=== PATIENT | male | born 1930 | race Caucasian/White ===

== ENCOUNTER 2017-03-06 10:57 | Inpatient (IN) | payer OTHER ==
[~2017-03-06] VITALS: Ht 172.7 cm; Wt 66.1 kg
[~2017-03-06 10:57] MED LIST: AMLO5TAB2 PO; CMD25 PO; CYAN10004 PO; DIGO0.1219 PO; FLM4 PO; NRN600 PO; OXYC-106 PO; POLY335019 PO; PRT/20 PO; SIMV-151 PO
[2017-03-06] MEDS ORDERED: BUPR1DIS TOP (11:29)
[2017-03-06] MEDS ORDERED: LNX125 PO (11:29)
[2017-03-06] MEDS ORDERED: TORS20TA2 PO (11:29)
[2017-03-06] MEDS ORDERED: KFL/250 PO (11:29)
[2017-03-06 11:30] LABS: BASO % 0.6 %; BASO ABS # 0.04 K/uL (0-0.2); COMPLETE YES; EOS % 4.1 %; HEMATOCRIT 39.2 % (42-52); IG% 0.1 %; LYMPH % 27.8 %; LYMPH ABS # 1.95 K/uL (1.2-3.4); MEAN CELL VOLUME 96.8 fL (80-100); MEAN CORPUSCULAR HEMOGLOBIN 31.1 pg (25-34); MEAN CORPUSCULAR HGB CONC 32.1 g/dl (32-36); MEAN PLATELET VOLUME 9.2 fL (7.4-10.4); MONO % 9.1 %; NEUT % 58.3 %; PLATELET COUNT 169 K/uL (130-400); RED BLOOD COUNT 4.05 M/uL (4.7-6.1); WHITE BLOOD COUNT 7.02 K/uL (4.8-10.8)
--- NOTE | 2017-03-06 11:37 | DIAGNOSTIC IMAGING REPORT ---
CHEST ONE VIEW PORTABLE CLINICAL HISTORY: Fever, sepsis, atypical chest pain COMPARISON STUDY: 10/07/2016 FINDINGS: The cardiac and mediastinal contours remain stable. There are chronic basilar interstitial opacities, similar to the prior study. The upper lung zones appear clear. There is no overt failure. There are no pleural effusions. Underlying emphysema is suspected.[ IMPRESSION: Emphysema and chronic bibasilar interstitial opacities. Electronically signed by: Abdirahman Wong M.D. 03/06/2017 11:36 AM Dictated Date/Time: 03/06/2017 11:35 AM
[2017-03-06 11:40] LABS: INR 2.4 (0.9-1.1); PARTIAL THROMBOPLASTIN RATIO 1.4
[2017-03-06 11:47] LABS: CALCIUM 8.8 mg/dl (8.5-10.1); CREATININE 1.6 mg/dl (0.60-1.40); POTASSIUM 4.3 mmol/L (3.5-5.1)
[2017-03-06 11:58] LABS: CKMB/CK RATIO 2.1 (0-3.0); THYROID STIMULATING HORMONE 3.37 uIu/ml (0.300-4.500)
[2017-03-06 12:12] LABS: URINE APPEARANCE CLEAR (CLEAR); URINE BILIRUBIN NEG (NEG); URINE COLOR YELLOW; URINE NITRITE NEG (NEG); URINE PH 7.5 (4.5-7.5); URINE SPECIFIC GRAVITY 1.012 (1.000-1.030); UROBILINOGEN NEG (NEG)
[2017-03-06 12:14] LABS: MANUAL MICROSCOPIC REQUIRED? NO; REVIEW REQ? NO
[2017-03-06 13:25] VITALS: BP 182/84; PULSE 65; TEMP 36.7; O2SAT 96; Ht 172.7 cm; Wt 66.1 kg
[2017-03-06] MEDS ORDERED: ONDANSETRON INJ 2 MG/ML 2 ML VIAL IV PRN (14:15)
[2017-03-06] MEDS ORDERED: CMD4 PO (14:29)
[2017-03-06] MEDS ORDERED: IV FLUIDS COMPLETED PRN (14:30)
[2017-03-06] MEDS ORDERED: SODIUM CHLORIDE 0.9% 1000ML 1,000 ML IV SCH (14:30)
[2017-03-06] MEDS ORDERED: AMLODIPINE BESYLATE 5 MG TAB PO ONE (14:30)
[2017-03-06] MEDS ORDERED: POLYETHYLENE (MIRALAX) 17 GM PACK PO PRN (14:45)
--- NOTE | 2017-03-06 14:46 | EMERGENCY ROOM VISIT NOTE ---
History Report prepared by Ulysses: Alexys Maddox Under the Supervision of: Dr. Tr Toribio D.O. First contact with patient: 11:06 Chief Complaint: CHEST PAIN Stated Complaint: CHEST PAINS Nursing Triage Summary: Chest pain starting at 0930 after shower. DIzzy, nauseous, pain and numbness does left arm History of Present Illness The patient is an 86 year old male who presents to the Emergency Room with complaints of persistent chest pain that started around 0930 this morning. He says that the pain came on after showering, and the pain radiates down his left arm into his fingers. The patient says that the pain has been constant and it "hurts like hell". The patient notes that he currently has a bit of indigestion. He had bad indigestion discomfort 3 nights ago and was not able to sleep that night due to the discomfort. The patient does say that this pain is very different than the indigestion discomfort, and that he has never had this kind of chest pain before. He denies any shortness of breath or recent illnesses. He has a history of atrial fibrillation, but does not have a pacemaker. Source of History: patient, family Onset: 0930 this morning Position: chest Symptom Intensity: "hurts like hell" Timing: other (persistent) Associated Symptoms: No SOB Note: Associated symptoms: Left arm pain into fingers. Denies recent illnesses. Review of Systems See HPI for pertinent positives & negatives. A total of 10 systems reviewed and were otherwise negative. Past Medical & Surgical Medical Problems: (1) Atrial fibrillation (2) BPH (benign prostatic hyperplasia) (3) Chest pain (4) Chronic back pain (5) CKD (chronic kidney disease), stage III (6) COPD (chronic obstructive pulmonary disease) (7) Encephalopathy (8) H/O tachycardia-bradycardia syndrome (9) Heart disease (10) History of pulmonary embolism (11) Hyperlipidemia Surgical Problems: (1) H/O carpal tunnel repair (2) H/O colonoscopy (3) knee replacement (4) Previous back surgery Family History No significant family history Social History Smoking Status: Former Smoker Alcohol Use: none Drug Use: none Marital Status: Housing Status: lives alone Occupation Status: retired Current/Historical Medications Scheduled Amlodipine Besylate (Norvasc), 5 MG PO QAM Buprenorphine (Butrans), 15 MCG TOP WK Cephalexin Monohydrate (Keflex), 250 MG PO HS Digoxin (Digoxin), 0.125 MG PO HS Gabapentin (Gabapentin), 600 MG PO TID Pantoprazole (Protonix), 40 MG PO BID Simvastatin (Simvastatin), 20 MG PO QAM Tamsulosin HCl (Tamsulosin HCl), 0.4 MG PO HS Warfarin Sod (Coumadin), 2 MG PO UD Warfarin Sod (Coumadin), 4 MG PO UD Scheduled PRN Oxycodone/Acetaminophen 10MG/325MG (Percocet 10MG/325MG), 1 TAB PO Q6H PRN for Pain Polyethylene Glycol 3350 (Miralax), 1 TBS PO DAILY PRN for Constipation Allergies Coded Allergies: Morphine (Verified Allergy, Intermediate, itching, dizzy, 03/06/17) pt primary md has taken pt off morphine due to itching and dizzy Sulfa Antibiotics (Verified Allergy, Intermediate, HIVES/RASH, 03/06/17) Fentanyl (Verified Allergy, Unknown, ITCHING, DIZZINESS, BOWEL BLADDER PROBLEMS, HEADACHE, 03/06/17) Physical Exam Vital Signs Date Time Temp Pulse Resp B/P Pulse Ox O2 Delivery O2 Flow Rate FiO2 03/06/17 14:40 65 18 142/73 96 Room Air 03/06/17 13:25 96 Room Air 03/06/17 13:24 63 03/06/17 13:21 62 18 168/91 96 Room Air 03/06/17 11:44 69 24 158/75 96 Room Air 03/06/17 11:11 96 Room Air 03/06/17 11:06 77 03/06/17 11:05 95 Room Air 03/06/17 11:01 36.6 76 20 176/86 95 Room Air 03/06/17 11:01 95 Room Air Physical Exam CONSTITUTIONAL/VITAL SIGNS: Reviewed / noted above. GENERAL: Non-toxic in appearance. INTEGUMENTARY: Warm, dry, and [place]. HEAD: Normocephalic. EYES: without scleral icterus or trauma. ENT/OROPHARYNX: clear and moist. LYMPHADENOPATHY/NECK: Is supple without lymphadenopathy or meningismus. RESPIRATORY: Lungs clear and equal. CARDIOVASCULAR: Regular rate and rhythm. GI/ABDOMEN: Soft and nontender. No organomegaly or pulsatile mass. No rebound or guarding. Normal bowel sounds. EXTREMITIES: Warm and well perfused. BACK: No CVA tenderness. NEUROLOGICAL: Intact without focal deficits. PSYCHIATRIC: normal affect. MUSCULOSKELETAL: Normally developed with good muscle tone. Medical Decision & Procedures ER Provider Diagnostic Interpretation: X ray results and stated below per my interpretation and radiology interpretation. CHEST ONE VIEW PORTABLE CLINICAL HISTORY: Fever, sepsis, atypical chest pain COMPARISON STUDY: 10/07/2016 FINDINGS: The cardiac and mediastinal contours remain stable. There are chronic basilar interstitial opacities, similar to the prior study. The upper lung zones appear clear. There is no overt failure. There are no pleural effusions. Underlying emphysema is suspected.[ IMPRESSION: Emphysema and chronic bibasilar interstitial opacities. Electronically signed by: Abdirahman Wong M.D. 03/06/2017 11:36 AM Dictated Date/Time: 03/06/2017 11:35 AM Laboratory Results 03/06/17 11:15 Red Blood Count 4.05, Mean Corpuscular Volume 96.8, Mean Corpuscular Hemoglobin 31.1, Mean Corpuscular Hemoglobin Concent 32.1, Mean Platelet Volume 9.2, Neutrophils (%) (Auto) 58.3, Lymphocytes (%) (Auto) 27.8, Monocytes (%) (Auto) 9.1, Eosinophils (%) (Auto) 4.1, Basophils (%) (Auto) 0.6, Neutrophils # (Auto) 4.09, Lymphocytes # (Auto) 1.95, Monocytes # (Auto) 0.64, Eosinophils # (Auto) 0.29, Basophils # (Auto) 0.04 03/06/17 11:15 Test 03/06/17 11:15 03/06/17 12:00 03/06/17 14:19 White Blood Count 7.02 K/uL (4.8-10.8) Red Blood Count 4.05 M/uL (4.7-6.1) Hemoglobin 12.6 g/dL (14.0-18.0) Hematocrit 39.2 % (42-52) Mean Corpuscular Volume 96.8 fL (80-100) Mean Corpuscular Hemoglobin 31.1 pg (25-34) Mean Corpuscular Hemoglobin Concent 32.1 g/dl (32-36) Platelet Count 169 K/uL (130-400) Mean Platelet Volume 9.2 fL (7.4-10.4) Neutrophils (%) (Auto) 58.3 % Lymphocytes (%) (Auto) 27.8 % Monocytes (%) (Auto) 9.1 % Eosinophils (%) (Auto) 4.1 % Basophils (%) (Auto) 0.6 % Neutrophils # (Auto) 4.09 K/uL (1.4-6.5) Lymphocytes # (Auto) 1.95 K/uL (1.2-3.4) Monocytes # (Auto) 0.64 K/uL (0.11-0.59) Eosinophils # (Auto) 0.29 K/uL (0-0.5) Basophils # (Auto) 0.04 K/uL (0-0.2) RDW Standard Deviation 49.0 fL (36.4-46.3) RDW Coefficient of Variation 13.8 % (11.5-14.5) Immature Granulocyte % (Auto) 0.1 % Immature Granulocyte # (Auto) 0.01 K/uL (0.00-0.02) Prothrombin Time 27.0 SECONDS (9.0-12.0) Prothromb Time International Ratio 2.4 (0.9-1.1) Activated Partial Thromboplast Time 35.2 SECONDS (21.0-31.0) Partial Thromboplastin Ratio 1.4 Anion Gap 4.0 mmol/L (3-11) Est Creatinine Clear Calc Drug Dose 27.8 ml/min Estimated GFR () 43.9 Estimated GFR (Non- 37.9 BUN/Creatinine Ratio 11.0 (10-20) Calcium Level 8.8 mg/dl (8.5-10.1) Total Bilirubin 0.9 mg/dl (0.2-1) Direct Bilirubin 0.2 mg/dl (0-0.2) Aspartate Amino Transf (AST/SGOT) 20 U/L (15-37) Alanine Aminotransferase (ALT/SGPT) 20 U/L (12-78) Alkaline Phosphatase 55 U/L (45-117) Total Creatine Kinase 132 U/L (39-308) Creatine Kinase MB 2.8 ng/ml (0.5-3.6) Creatine Kinase MB Ratio 2.1 (0-3.0) Troponin I 0.018 ng/ml (0-0.045) Total Protein 7.8 gm/dl (6.4-8.2) Albumin 4.0 gm/dl (3.4-5.0) Lipase 85 U/L (73-393) Thyroid Stimulating Hormone (TSH) 3.370 uIu/ml (0.300-4.500) Urine Color YELLOW Urine Appearance CLEAR (CLEAR) Urine pH 7.5 (4.5-7.5) Urine Specific [place] 1.012 (1.000-1.030) Urine Protein NEG (NEG) Urine Glucose (UA) NEG (NEG) Urine Ketones NEG (NEG) Urine Occult Blood NEG (NEG) Urine Nitrite NEG (NEG) Urine Bilirubin NEG (NEG) Urine Urobilinogen NEG (NEG) Urine Leukocyte Esterase NEG (NEG) Laboratory results as stated above per my review. ECG Indication: chest pain Rate (beats per minute): 76 Rhythm: normal sinus Findings: LBBB, no ectopy, other (no acute injury) Comparison ECG Date: compared to 10/04/16, T-wave deflection is opposite in V5 and V6, otherwise unchanged ED Course 1107: Previous medical records were reviewed. The patient was evaluated in room C4. A complete history and physical examination was performed. 1300: On reevaluation, the patient is resting. The patient's family verbalized agreement and understanding of the treatment plan. The patient will be evaluated for further management and care. 1314: I discussed the patient with Beronica Covington - she will evaluate the patient for further treatment. Medical Decision the differential was considered includes acute myocardial infarction, acute coronary syndrome, myocarditis, pericarditis, pericardial effusions /tamponad, esophageal perforation, thoracic aortic dissection, pulmonary embolism, pneumonia, pneumothorax, pancreatitis, shingles, acute cholecystitis, perforated abdominal viscus. This is an 86-year-old male who presents to the ED with a chief complaint of left-sided chest discomfort that radiates down his left arm. The patient states that his symptoms started around 9:30 this morning. He also reports some additional indigestion. He had this on Saturday as well. He denies any associated symptoms such as shortness of breath. He has not had diaphoresis, lightheadedness, palpitations, fevers or chills or other symptoms. His vital signs are stable. His blood pressure was slightly elevated. His exam was otherwise unremarkable. Twelve-lead EKG reveals a sinus rhythm with a left bundle branch block. There are some T wave the polarity changes in V5 and V6 compared to previous EKGs. This is of uncertain significance. Left bundle- branch block is old. CBC was unremarkable. The INR is 2.4. He is on Coumadin. Creatinine is 1.6. Troponin is 0.018. This is considered normal. TSH is normal. Urine did not show infection. Chest x-ray did not show acute disease. The patient was told the results. He was seen for further inpatient evaluation as the cause of his symptoms are unclear. He does have a cardiac history and EKG changes that are of uncertain significance. I spoke with the hospitalist to this regard. Consults Time Called: 1305 Consulting Physician: Beronica Covington Returned Call: 1314 I discussed the patient with Beronica Covington - she will evaluate the patient for further treatment. Impression Primary Impression: Precordial chest pain Additional Impression: EKG abnormality Scribe Attestation The scribe's documentation has been prepared under my direction and personally reviewed by me in its entirety. I confirm that the note above accurately reflects all work, treatment, procedures, and medical decision making performed by me. Departure Information Dispostion Being Evaluated By Hospitalist Referrals No Doctor, Assigned (PCP) Patient Instructions [facility] Problem Qualifiers
--- NOTE | 2017-03-06 15:23 | History and Physical ---
History & Physical Date & Time of Service: March 06, 2017 at 14:31 Chief Complaint: Chest Pains Primary Care Physician: Tad Childress M.D. History of Present Illness Source: patient, family (daughter at bedside), clinic records, hospital records This is an 86 year old male with PMH of atrial fibrillation on Coumadin, history of DVT and PE, h/o tachy nunu syndrome, hypertension, dyslipidemia, CKD stage III, GERD, history of upper GI bleed due to esophageal ulcer, mild COPD, chronic back pain, hx of frequent UTI on chronic antibiotics, and other problems listed below who presents to the ED with chest pain. Patient reports feeling fatigued/ generally weak for past few days. Two nights ago he had indigestion with acid taste in the throat overnight after eating a late dinner. He does experience occasional indigestion while on Protonix BID. Then this morning at 9:30 am while showering patient developed left sided chest discomfort described as "pain" with radiation to left arm. The pain was worse when he tried lying down. The chest discomfort is improving but still having pain in the left arm. He has not had similar pain in the past. In early February 2017 patient was seen by PCP for bileral LE edema and was treated for LE cellulitis with Keflex and torsemide which was stopped in late February when edema and cellulitis were resolved. Patient chronically sleeps at a 30 degree angle due to back pain. Patient denies fever, chills, diaphoresis, weight change, URI symptoms, difficulty swallowing, cough, dizziness, SOB, GALINDO, syncope, palpitations, abdominal pain, N/V/D/C, hematochezia, melena, epistaxis, gum bleeding, calf pain, anxiety. No recent injury, immobilization, or surgery. No hx of CAD. No pacemaker. Last echo in 08/2015 showed mild concentric LVH, EF 60- 65%, grade I diastolic dysfunction, mild AV sclerosis, moderate mitral annular calcification. Last stress test was negative several years ago per patient. 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 Past Medical/Surgical History Medical Problems: (1) Atrial fibrillation Status: Chronic (2) BPH (benign prostatic hyperplasia) Status: Chronic (3) Chronic back pain Status: Chronic (4) CKD (chronic kidney disease), stage III Status: Chronic (5) COPD (chronic obstructive pulmonary disease) Permanent Comment: mild Status: Chronic (6) H/O tachycardia-bradycardia syndrome Status: Chronic (7) History of DVT (deep vein thrombosis) Status: Chronic (8) History of GI bleed Permanent Comment: due to esophageal ulcer Status: Chronic (9) History of orthostatic hypotension Status: Chronic (10) History of pulmonary embolism Status: Chronic (11) Hyperlipidemia Status: Chronic Surgical Problems: (1) H/O carpal tunnel repair Status: Chronic (2) H/O colonoscopy Permanent Comment: 04/2003- diverticulosis 11/25/2007- adenomatous Status: Chronic (3) H/O esophagogastroduodenoscopy Permanent Comment: - esophageal ulcer with large clots; 08/11/15-esophgeal ulcer, esophagitis; 09/12/2015 EGD with EUS- reflux on bx, HH, pancreatic intraductal papillary mucinous neoplasm, CBD dilation; Dr. Stone Status: Chronic (4) knee replacement Status: Chronic (5) Previous back surgery Status: Chronic Family History FH: COPD (chronic obstructive pulmonary disease) BROTHER Social History Smoking Status: Former Smoker (quit in 1992) Smokeless Tobacco Use: Yes (1 box every 3 days. spoke to pt about cessation but patient politely states he is unwilling. ) Alcohol Use: none Marital Status: Housing status: lives alone (uses a cane to ambulate around house), other ( aide visits twice a day and administers medications) Occupational Status: retired Allergies Coded Allergies: Morphine (Verified Allergy, Intermediate, itching, dizzy, 03/06/17) pt primary md has taken pt off morphine due to itching and dizzy Sulfa Antibiotics (Verified Allergy, Intermediate, HIVES/RASH, 03/06/17) Fentanyl (Verified Allergy, Unknown, ITCHING, DIZZINESS, BOWEL BLADDER PROBLEMS, HEADACHE, 03/06/17) Home Medications Scheduled Amlodipine Besylate (Norvasc), 5 MG PO QAM Buprenorphine (Butrans), 15 MCG TOP WK Cephalexin Monohydrate (Keflex), 250 MG PO HS Digoxin (Digoxin), 0.125 MG PO HS Gabapentin (Gabapentin), 600 MG PO TID Pantoprazole (Protonix), 40 MG PO BID Simvastatin (Simvastatin), 20 MG PO QAM Tamsulosin HCl (Tamsulosin HCl), 0.4 MG PO HS Warfarin Sod (Coumadin), 2 MG PO UD Warfarin Sod (Coumadin), 4 MG PO UD Scheduled PRN Oxycodone/Acetaminophen 10MG/325MG (Percocet 10MG/325MG), 1 TAB PO Q6H PRN for Pain Polyethylene Glycol 3350 (Miralax), 1 TBS PO DAILY PRN for Constipation Review of Systems Constitutional: + fatigue, + weakness (generalized), No chills, No fever, No sweats, No weight loss Eyes: No worsening of vision ENT: No nasal symptoms, No trouble swallowing Respiratory: No cough, No dyspnea on exertion, No shortness of breath Cardiovascular: + chest pain, + edema (resolved), No palpitations Abdomen: No GI bleeding (no recent hematochezia or melena), No diarrhea, No nausea, No pain, No vomiting Musculoskeletal: No calf pain Genitourinary - Male: No dysuria, No urinary frequency, No urinary urgency Neurologic: No numbness/tingling, No problem reported (no dizziness) Psychiatric: No anxiety Hematologic / Lymphatic: No problem reported (no gum bleeding or epistaxis) Integumentary: No new/changing skin lesions, No rash Physical Exam Vital Signs Date Time Temp Pulse Resp B/P Pulse Ox O2 Delivery O2 Flow Rate FiO2 03/06/17 13:25 96 Room Air 03/06/17 13:24 63 03/06/17 13:21 62 18 168/91 96 Room Air 03/06/17 11:44 69 24 158/75 96 Room Air 03/06/17 11:11 96 Room Air 03/06/17 11:06 77 03/06/17 11:05 95 Room Air 03/06/17 11:01 36.6 76 20 176/86 95 Room Air 03/06/17 11:01 95 Room Air General Appearance: WD/WN, no apparent distress, + pertinent finding (alert elderly male, lying in bed, not in distresss, daughter and son-in-law at bedside ) Head: normocephalic, atraumatic Eyes: normal inspection, PERRL, EOMI ENT: pharynx normal, + pertinent finding (hard of hearing) Neck: supple, no JVD, trachea midline Respiratory/Chest: chest non-tender, lungs clear, normal breath sounds, no respiratory distress, no accessory muscle use Cardiovascular: regular rate, rhythm, normal peripheral pulses, + systolic murmur (grade III throughout precordium) Abdomen/GI: normal bowel sounds, non tender, soft Extremities/Musculoskelatal: no calf tenderness, + pertinent finding (trace ankle edema bilaterally. no pain on ROM of left upper extremity joints. diffuse muscle tenderness left forearm but joints of LUE nontender) Neurologic/Psych: alert, normal mood/affect, oriented x 3, + pertinent finding (no focal deficit on gross examination) Skin: normal color, warm/dry, no rash (no rash on the chest) Diagnostics Laboratory Results Results Past 24 Hours Test 03/06/17 11:15 03/06/17 12:00 03/06/17 14:19 Range/Units White Blood Count 7.02 4.8-10.8 K/uL Red Blood Count 4.05 4.7-6.1 M/uL Hemoglobin 12.6 14.0-18.0 g/dL Hematocrit 39.2 42-52 % Mean Corpuscular Volume 96.8 80-100 fL Mean Corpuscular Hemoglobin 31.1 25-34 pg Mean Corpuscular Hemoglobin Concent 32.1 32-36 g/dl Platelet Count 169 130-400 K/uL Mean Platelet Volume 9.2 7.4-10.4 fL Neutrophils (%) (Auto) 58.3 % Lymphocytes (%) (Auto) 27.8 % Monocytes (%) (Auto) 9.1 % Eosinophils (%) (Auto) 4.1 % Basophils (%) (Auto) 0.6 % Neutrophils # (Auto) 4.09 1.4-6.5 K/uL Lymphocytes # (Auto) 1.95 1.2-3.4 K/uL Monocytes # (Auto) 0.64 0.11-0.59 K/uL Eosinophils # (Auto) 0.29 0-0.5 K/uL Basophils # (Auto) 0.04 0-0.2 K/uL RDW Standard Deviation 49.0 36.4-46.3 fL RDW Coefficient of Variation 13.8 11.5-14.5 % Immature Granulocyte % (Auto) 0.1 % Immature Granulocyte # (Auto) 0.01 0.00-0.02 K/uL Prothrombin Time 27.0 9.0-12.0 SECONDS Prothromb Time International Ratio 2.4 0.9-1.1 Activated Partial Thromboplast Time 35.2 21.0-31.0 SECONDS Partial Thromboplastin Ratio 1.4 Sodium Level 140 136-145 mmol/L Potassium Level 4.3 3.5-5.1 mmol/L Chloride Level 106 98-107 mmol/L Carbon Dioxide Level 30 21-32 mmol/L Anion Gap 4.0 3-11 mmol/L Blood Urea Nitrogen 18 7-18 mg/dl Creatinine 1.60 0.60-1.40 mg/dl Est Creatinine Clear Calc Drug Dose 27.8 ml/min Estimated GFR () 43.9 Estimated GFR (Non- 37.9 BUN/Creatinine Ratio 11.0 10-20 Random Glucose 134 70-99 mg/dl Calcium Level 8.8 8.5-10.1 mg/dl Total Bilirubin 0.9 0.2-1 mg/dl Direct Bilirubin 0.2 0-0.2 mg/dl Aspartate Amino Transf (AST/SGOT) 20 15-37 U/L Alanine Aminotransferase (ALT/SGPT) 20 12-78 U/L Alkaline Phosphatase 55 45-117 U/L Total Creatine Kinase 132 39-308 U/L Creatine Kinase MB 2.8 0.5-3.6 ng/ml Creatine Kinase MB Ratio 2.1 0-3.0 Troponin I 0.018 0-0.045 ng/ml Total Protein 7.8 6.4-8.2 gm/dl Albumin 4.0 3.4-5.0 gm/dl Lipase 85 73-393 U/L Thyroid Stimulating Hormone (TSH) 3.370 0.300-4.500 uIu/ml Urine Color YELLOW Urine Appearance CLEAR CLEAR Urine pH 7.5 4.5-7.5 Urine Specific [place] 1.012 1.000-1.030 Urine Protein NEG NEG Urine Glucose (UA) NEG NEG Urine Ketones NEG NEG Urine Occult Blood NEG NEG Urine Nitrite NEG NEG Urine Bilirubin NEG NEG Urine Urobilinogen NEG NEG Urine Leukocyte Esterase NEG NEG Diagnostic Radiology CHEST ONE VIEW PORTABLE CLINICAL HISTORY: Fever, sepsis, atypical chest pain COMPARISON STUDY: 10/07/2016 FINDINGS: The cardiac and mediastinal contours remain stable. There are chronic basilar interstitial opacities, similar to the prior study. The upper lung zones appear clear. There is no overt failure. There are no pleural effusions. Underlying emphysema is suspected.[ IMPRESSION: Emphysema and chronic bibasilar interstitial opacities. EKG NSR, LBBB-chronic, when compared to prior EKG, in V5 ST segment is no longer depressed and is now mildly elevated, ST and T wave abnormality in V6 has improved Impression Assessment and Plan CHEST PAIN Rule out ACS; Risk factors include age, hypertension, dyslipidemia, CKD Differential dx also includes GERD or musculoskeletal etiology Initial troponin negative EKG- NSR, chronic LBBB, appears similar to prior EKG except now has mild ST elevation in V5 CXR- emphysema, chronic bibasilar interstitial opacities Clinically no evidence of pneumonia- afebrile, no leukocytosis, no cough/ SOB No aspirin given due to hx of UGIB from esophageal ulcer in patient on Coumadin Trend serial cardiac enzymes Check echo Repeat EKG in am Consult cardiology PAROXYSMAL ATRIAL FIBRILLATION Currently in sinus rhythm, rate controlled Check digoxin level Continue digoxin On Coumadin with therapeutic INR (2.4) Continue current dose of Coumadin; monitor INR GERD/ HX OF ESOPHAGEAL ULCER Having occasional symptoms on Protonix 40 mg BID May be contributing to chest pain Continue Protonix and add Zantac 150 BID HYPERTENSION BP initially elevated in ER but improved Continue amlodipine CKD STAGE III Creat is stable from baseline of 1.6 Giving gentle fluids x 1 liter as patient appears mildly dry Monitor renal function Avoid nephrotoxins when able DYSLIPIDEMIA Check fasting lipid panel Continue Zocor MILD COPD Stable; not in exacerbation CHRONIC BACK PAIN Continue home Butrans patch and PRN Percocet BPH Continue Flomax HISTORY OF FREQUENT UTI Continue chronic suppressive therapy with Keflex CODE STATUS DNR per my discussion with the patient DISPOSITION Observation to telemetry Lives alone with private aide twice per day; daughter lives across the street Follows with Dr. Childress for primary care Patient seen in collaboration with Dr. De Luna. Please see his addendum. Advanced Directives Existing Living Will: Yes Existing Power of Ditch Digger: Yes VTE Prophylaxis VTE Risk Assessment Done? Y/N: Yes Risk Level: High Given or contraindicated: Warfarin (Coumadin)
--- NOTE | 2017-03-06 15:27 | History and Physical ---
History & Physical Date of Service March 06, 2017. History & Physical This is an 86 year old male with a PMH of atrial fibrillation on long-term anticoagulation, COPD, lumbar radiculitis with long-term narcotic use, hx. of gastric ulcer and GERD symptoms, CKD stage 3 presents with L sided chest pain that radiated to the L arm; states that it began this morning. He was brought in by a distribution center supervisor from home, who takes care of him in the daytime; states that upon presentation his chest pain has subsided, but his L arm pain persists. States he's had problems with reflux-like symptoms even while taking Prilosec twice a day. He has a hx. of atrial fibrillation, is on long-term Coumadin; does not feel palpitations. Last stress test was in 2006 and negative. Denies fevers/chills/nausea/vomiting/shortness of breath. VITALS: Last Vital Signs Documentation Date Time Temp Pulse Resp B/P Pulse Ox O2 Delivery O2 Flow Rate FiO2 03/06/17 14:40 65 18 142/73 96 Room Air 03/06/17 11:01 36.6 GEN: thin, elderly gentleman, very tired during examination; in no significant distress CVS: +S1, S2, RRR, +2/6 holosystolic murmur, loud at the R and L second intercostal space LUNGS: CTA b/l, no wheezing ABD: soft, NT/ND EXT: no edema Chest Pain r/o ACS patient presented with atypical chest pain subsided currently no aspirin for now, due to hx. of gastric ulcer currently, in a regular rhythm, and a regular rate EKG with a wide QRS complex; but no significant ST-T wave changes cardiac enzymes negative x 1, we will trend update echo, last one from 2014 cardiology consultation for further input GERD patient c/o worsening reflux symptoms Takes Prilosec 40mg BID will continue PPI BID will add Zantac Atrial Fibrillation currently in NSR rate controlled continue Coumadin, INR therapeutic continue digoxin CKD stage 3 baseline creat is around 1.5-1.6 will add gentle hydration, NS @ 80mL/hr for a total of 1L avoid nephrotoxic agents when possible
[2017-03-06] MEDS: [UNRECOGNIZED DRUG - REMARK] SCH ×2 (15:59→23:12)
[2017-03-06] MEDS ORDERED: DIGOXIN 0.125 MG TAB PO SCH (16:00)
[2017-03-06] MEDS ORDERED: WARFARIN SOD 2 MG TAB PO SCH (16:00)
[2017-03-06] MEDS: BOOST VANILLA PO SCH ×2 (16:11)
[2017-03-06 17:54] LABS: CKMB/CK RATIO 4.8 (0-3.0)
[2017-03-06] MEDS ORDERED: REMOVE BUTRANS PATCH SCH (17:59)
[2017-03-06] MEDS ORDERED: BUPRENORPHINE 5 MCG/HR TDSY TD SCH (18:00)
[2017-03-06] MEDS ORDERED: ASPIRIN 81 MG CHEW PO STA (18:03)
--- NOTE | 2017-03-06 18:09 | Progress Note ---
Progress Note Date of Service March 06, 2017. Progress Note 2nd troponin 0.869. Total CPK 133, CPK-MB 6.4. Patient pain-free. Already anticoagulated on warfarin with therapeutic INR. Add aspirin, metoprolol, nitrates. .
[2017-03-06] MEDS ORDERED: METOPROLOL TARTRATE 25 MG TAB PO ONE (18:15)
[2017-03-06] MEDS ORDERED: NITROGLYCERIN 2% OINTMENT 30GM TUBE ONE (18:54)
[2017-03-06] MEDS ORDERED: NITROGLYCERIN OINT 2% 1GM PACKET EXT SCH (19:00)
[2017-03-06 20:23] VITALS: BP 154/78; PULSE 63; TEMP 36.8; O2SAT 92
[2017-03-06] MEDS: TAMSULOSIN HCL 0.4 MG CAP PO SCH (20:38)
[2017-03-06] MEDS: NITROGLYCERIN 2% OINTMENT 30GM TUBE EXT SCH ×2 (20:38→23:12)
[2017-03-06] MEDS: CEPHALEXIN MONOHYDRATE 250 MG CAP PO SCH (20:39)
[2017-03-06] MEDS: RANITIDINE HCL 150 MG TAB PO SCH (20:39)
[2017-03-06] MEDS: PANTOprazole SOD 40 MG TAB PO SCH (20:40)
[2017-03-06] MEDS: GABAPENTIN 600 MG TAB PO SCH (20:40)
[2017-03-06 22:57] VITALS: BP 144/69; PULSE 68; TEMP 37; O2SAT 95
[2017-03-07] VITALS (10 sets, daily range): BP systolic 120–174; BP diastolic 55–90; PULSE 58–80; TEMP 36.5–37; O2SAT 92–96
[2017-03-07 00:04] LABS: CKMB/CK RATIO 4.9 (0-3.0)
[2017-03-07] MEDS: NITROGLYCERIN 2% OINTMENT 30GM TUBE EXT SCH ×4 (05:29→23:16)
[2017-03-07 06:38] LABS: INR 2.8 (0.9-1.1); PROTHROMBIN TIME (PATIENT) 30.8 SECONDS (9.0-12.0)
[2017-03-07 07:03] LABS: BUN/CREATININE RATIO 13.2 (10-20); CALCIUM 8.5 mg/dl (8.5-10.1); CHOLESTEROL/HDL RATIO 3.8; CREATININE 1.5 mg/dl (0.60-1.40); POTASSIUM 5.5 mmol/L (3.5-5.1)
[2017-03-07] MEDS: BOOST VANILLA PO SCH ×6 (07:30→16:45)
[2017-03-07] MEDS: OXYCODONE/ACETAMINOPHEN 10/325MG TAB PO PRN ×3 (08:07→14:20)
[2017-03-07] MEDS: SIMVASTATIN 20 MG TAB PO SCH (08:08)
[2017-03-07] MEDS: RANITIDINE HCL 150 MG TAB PO SCH ×2 (08:08→20:20)
[2017-03-07] MEDS: [UNRECOGNIZED DRUG - REMARK] SCH ×3 (08:08→23:16)
[2017-03-07] MEDS: PANTOprazole SOD 40 MG TAB PO SCH ×2 (08:08→20:18)
[2017-03-07] MEDS: METOPROLOL TARTRATE 25 MG TAB PO SCH ×2 (08:08→20:21)
[2017-03-07] MEDS: GABAPENTIN 600 MG TAB PO SCH ×3 (08:09→20:19)
[2017-03-07] MEDS: AMLODIPINE BESYLATE 5 MG TAB PO SCH (08:09)
[2017-03-07] MEDS: ASPIRIN 81 MG ECTAB PO SCH (08:09)
[2017-03-07 10:17] LABS: CKMB/CK RATIO 4.4 (0-3.0)
--- NOTE | 2017-03-07 10:20 | ECHOCARDIOGRAM REPORT ---
*NOTICE TO RECEIVING [employer] This information is strictly Confidential and protected under [place] law. [place] law prohibits you from making any further disclosure of this information unless further disclosure is expressly permitted by the written consent of the person to whom it pertains or is authorized by law. A general authorization for the release of medical or other information is not sufficient for this purpose. Hospital accepts no responsibility if the information is made available to any other person, INCLUDING THE PATIENT. Interpretation Summary * Name: MANUEL CHANEY Study Date: 03/07/2017 06:59 AM BP: 156/74 mmHg * Patient Location: .2T\S\S229\S\1 HR: 64 * : 1930 (M/d/yyy) Gender: Male Height: 68 in * Age: 86 yrs Ethnicity: [place] Weight: 135 lb * Ordering Physician: Cyndie Bains * Referring Physician: No Doctor, Assigned * Performed By: Hellen Heller RCS * * Reason For Study: CHEST PAIN * BSA: 1.7 m2 * The study was technically adequate. * -- Conclusions -- * There is mild concentric left ventricular hypertrophy. * Septal motion is consistent with conduction abnormality (left bundle branch block). * Otherwise, no regional wall motion abnormalities noted. * Left ventricular systolic function is normal. * The LV Ejection Fraction = 55-60%. * The right ventricle is normal in size and function. * The left atrium is moderately dilated. * The aortic valve is moderately calcified. * Mild to moderate valvular aortic stenosis. * There is no significant aortic regurgitation. * There is mild tricuspid regurgitation. * The atrial septum is aneurysmal. * There is no evidence of atrial septal defect, but resolution does not allow assessment for a patent foramen ovale. * The pulmonary artery systolic pressure is borderline elevated with calculated PA systolic pressure of 38 mm Hg. * Compared to the prior study dated 08/10/15, the severity of the aortic valve disease has progressed. * The atrial septum is aneurysmal. * There is no evidence of atrial septal defect, but resolution does not allow assessment for a patent foramen ovale. Procedure Details * A complete two-dimensional transthoracic echocardiogram was performed (2D, M-mode, Doppler and color flow Doppler). * A saline contrast injection was performed to assess for cardiac shunting. * The injection was performed through an intravenous line in the right arm. * The attending nurse who injected the saline contrast was ZIA SHAW, RN. * A total of 20 cc of agitated saline was given. Left Ventricle * The left ventricle is normal in size. * There is mild concentric left ventricular hypertrophy. * Left ventricular systolic function is normal. * Ejection Fraction = 55-60%. * Septal motion is consistent with conduction abnormality. * Otherwise, no regional wall motion abnormalities noted. Right Ventricle * The right ventricle is normal in size and function. Atria * The left atrium is moderately dilated. * Right atrial size is normal. * There is no evidence of atrial septal defect, but resolution does not allow assessment for a patent foramen ovale. * The atrial septum is aneurysmal. Mitral Valve * There is severe mitral annular calcification. * There is no mitral valve stenosis. * Significant mitral regurgitation is absent. Tricuspid Valve * The tricuspid valve is normal. * There is no tricuspid stenosis. * There is mild tricuspid regurgitation. * The pulmonary artery systolic pressure is borderling elevated with calculated PA systolic pressure of 38 mm Hg. Aortic Valve * The aortic valve is trileaflet. * The aortic valve is moderately calcified. * Mild to moderate valvular aortic stenosis. * There is no significant aortic regurgitation. Pulmonic Valve * The pulmonary valve is not well seen, but the Doppler examination is normal without significant regurgitation or stenosis. Great Vessels * The aortic root and proximal ascending aorta are normal sized. Pericardium/Pleural * There is no pericardial effusion. Great Vessels * Normal inferior vena cava diameter and respiratory variation suggests normal central venous pressure. * Normal inferior vena cava size and collapsability with sniff indicates a normal right atrial pressure of 3 mmHg Left Ventricular Diastolic Function * Grade I diastolic dysfunction, (abnormal relaxation pattern). MMode 2D Measurements and Calculations IVSd 1.3 cm IVSs 2.0 cm LVIDd 3.8 cm LVIDs 2.7 cm LVPWd 1.2 cm LVPWs 1.5 cm IVS/LVPW 1.0 FS 28.5 % EDV(Teich) 63.1 ml ESV(Teich) 28.0 ml EF(Teich) 55.7 % EDV(cubed) 56.2 ml ESV(cubed) 20.5 ml EF(cubed) 63.4 % % IVS thick 56.4 % % LVPW thick 25.7 % LV mass(C)d 162.8 grams LV mass(C)dI 94.1 grams/m\S\2 LV mass(C)s 186.0 grams LV mass(C)sI 107.6 grams/m\S\2 SV(Teich) 35.1 ml SI(Teich) 20.3 ml/m\S\2 SV(cubed) 35.6 ml SI(cubed) 20.6 ml/m\S\2 Ao root diam 4.1 cm Ao root area 13.5 cm\S\2 LA dimension 4.7 cm LA/Ao 1.1 LVOT diam 2.0 cm LVOT area 3.0 cm\S\2 LVAd ap4 27.7 cm\S\2 LVLd ap4 7.0 cm EDV(MOD-sp4) 89.5 ml EDV(sp4-el) 92.4 ml LVAs ap4 17.1 cm\S\2 LVLs ap4 5.5 cm ESV(MOD-sp4) 44.1 ml ESV(sp4-el) 45.3 ml EF(MOD-sp4) 50.7 % EF(sp4-el) 51.0 % SV(MOD-sp4) 45.3 ml SI(MOD-sp4) 26.2 ml/m\S\2 SV(sp4-el) 47.1 ml SI(sp4-el) 27.3 ml/m\S\2 Doppler Measurements and Calculations MV E max tamara 115.9 cm/sec MV A max tamara 157.5 cm/sec MV E/A 0.74 MV P1/2t max tamara 121.2 cm/sec MV P1/2t 108.9 msec MVA(P1/2t) 2.0 cm\S\2 MV dec slope 326.0 cm/sec\S\2 MV dec time 0.34 sec Ao V2 max 290.1 cm/sec Ao max PG 33.7 mmHg Ao max PG (full) 26.4 mmHg Ao V2 mean 209.6 cm/sec Ao mean PG 20.0 mmHg Ao V2 VTI 72.2 cm SHILA(V,A) 1.4 cm\S\2 SHILA(V,D) 1.4 cm\S\2 LV V1 max PG 7.3 mmHg LV V1 max 135.3 cm/sec MR max tamara 581.2 cm/sec MR max PG 135.1 mmHg SV(Ao) 975.4 ml SI(Ao) 564.0 ml/m\S\2 TR max tamara 289.3 cm/sec
[2017-03-07] MEDS: SODIUM CHLORIDE 0.9% 1000ML 1,000 ML IV SCH (11:15)
--- NOTE | 2017-03-07 12:21 | Cardiology Consultation ---
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 The patient lives independently and has a caregiver that comes in to help him. He walks with the assistance of a cane. Yesterday he was in his normal state of health and when he went to shower he had acute onset of left-sided chest pressure that radiated down his left arm. His symptoms persisted and he was brought to the hospital by EMS. He continued to have low- grade pain on arrival to the emergency department and then dissipated from there. He was admitted to the hospitalist service and transferred to the telemetry floor and was pain-free overnight. His initial cardiac enzymes were negative with subsequent increase in his troponin to 2.14 MG per mL at 2310 last evening. This is since declined to 1.82 this morning. The patient has a history of a chronic left bundle branch block. His repeat EKG this morning reveals lateral T-wave inversions that were are new compared to his admission EKG. The patient is comfortable. He denies any additional angina. In terms of his cardiac history he describes having been diagnosed with atrial fibrillation 20 years ago and he states that is why he is on digoxin. His outpatient chart lists the diagnosis of atrial fibrillation and also tachycardia bradycardia syndrome. The patient describes having had a left lower extremity DVT and pulmonary embolism after having had a left knee replacement many years ago and he is on Coumadin and therefore for paroxysmal atrial fibrillation as well as his past DVT pulmonary embolism. He denies any known history of past ischemic heart disease or cardiomyopathy. He does note that he had recently been followed for ankle edema by his primary care provider and had been on intermittent diuretic therapy. History PAST MEDICAL HISTORY: 1. Paroxysmal atrial fibrillation 2. Chronic left bundle branch block 3. Stage III chronic kidney disease 4. COPD 5. DVT and pulmonary embolism 6. History of gastrointestinal bleeding due to esophageal ulcer 7. History of orthostatic hypotension 8. Dyslipidemia PAST SURGICAL HISTORY: 1. Carpal tunnel repair 2. Colonoscopy 3. EGD August 2015 with esophageal ulcer and large clots repeat study on 2014 improved findings. 4. Left knee replacement 5. Previous back surgery. 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 He lives independently with the help of a care provider. He has a daughter, Clari that was nearby. Review Of Systems See above for pertinent positives & negatives. A total of 10 systems reviewed and were otherwise negative. Allergies Coded Allergies: Morphine (Verified Allergy, Intermediate, itching, dizzy, 03/06/17) pt primary md has taken pt off morphine due to itching and dizzy Sulfa Antibiotics (Verified Allergy, Intermediate, HIVES/RASH, 03/06/17) Fentanyl (Verified Allergy, Unknown, ITCHING, DIZZINESS, BOWEL BLADDER PROBLEMS, HEADACHE, 03/06/17) Medications Reported Home Medications Medications Dose Route/Sig Max Daily Dose Days Date Category Dose Instructions Keflex (Cephalexin Monohydrate) 250 Mg Cap 250 Mg PO HS 03/06/17 Reported Butrans (Buprenorphine) 15 Mcg/Hr Dis 15 Mcg TOP WK 03/06/17 Reported Digoxin 0.125 Mg Tab 0.125 Mg PO HS 03/06/17 Reported Gabapentin 600 Mg Tab 600 Mg PO TID 10 10/10/16 Rx hold for lethargy and drowsiness Percocet 10MG/325MG (Oxycodone/Acetaminophen) Tab 1 Tab PO Q6H PRN 5 10/10/16 Rx hold for lethargy and drowsiness Norvasc (Amlodipine Besylate) 5 Mg Tab 5 Mg PO QAM 10/04/16 Reported Protonix (Pantoprazole Sodium) 20 Mg Tab 40 Mg PO BID 30 08/19/15 Rx Miralax (Polyethylene Glycol 3350) 1 Pow Pow 1 Tbs PO DAILY PRN 08/09/15 Reported Simvastatin 20 Mg Tab 20 Mg PO QAM 06/22/14 Reported Tamsulosin HCl 0.4 Mg Cap 0.4 Mg PO HS 06/22/14 Reported Physical Exam Vital Signs (Last 8hrs): Last 8 Hrs Date Time Temp Pulse Resp B/P Pulse Ox O2 Delivery O2 Flow Rate FiO2 03/07/17 10:55 36.5 80 20 120/57 94 Room Air 03/07/17 08:00 Room Air 03/07/17 07:23 36.8 68 20 156/74 92 Room Air General Appearance: Alert and Oriented x3. NAD. Head: Normocephalic Atraumatic. Eyes: PERRLA, EOMI, conjunctiva and sclera clear Neck: Supple. No carotid bruits noted. No JVD. No HJD. Respiratory: Breath sounds clear to auscultation bilaterally. No w/r/r. Cardiovascular: Reg rate and rhythm. 2/6 ELIAZAR Abdomen: Normal bowel sounds, soft nontender. no abdominal bruits. Extremities: No edema, no clubbing or cyanosis. distal pulses 2/4 bilaterally. Neuro: No focal deficits. Psychiatric: Normal affect. Data Last Resulted 03/06/17 11:15 Red Blood Count 4.05, Mean Corpuscular Volume 96.8, Mean Corpuscular Hemoglobin 31.1, Mean Corpuscular Hemoglobin Concent 32.1, Mean Platelet Volume 9.2, Neutrophils (%) (Auto) 58.3, Lymphocytes (%) (Auto) 27.8, Monocytes (%) (Auto) 9.1, Eosinophils (%) (Auto) 4.1, Basophils (%) (Auto) 0.6, Neutrophils # (Auto) 4.09, Lymphocytes # (Auto) 1.95, Monocytes # (Auto) 0.64, Eosinophils # (Auto) 0.29, Basophils # (Auto) 0.04 Last Resulted 03/07/17 05:10 03/07/17 09:15 Past 24 Hours Test 03/06/17 17:03 03/06/17 23:10 03/07/17 05:10 Range/Units Creatine Kinase MB 6.4 H 6.7 H 5.1 H 0.5-3.6 ng/ml Creatine Kinase MB Ratio 4.8 H 4.9 H 4.4 H 0-3.0 Total Creatine Kinase 133 137 115 39-308 U/L Troponin I 0.869 *H 2.140 *H 1.820 *H 0-0.045 ng/ml Prothromb Time International Ratio 2.8 H 0.9-1.1 Prothrombin Time 30.8 H 9.0-12.0 SECONDS Imaging: EKG: as per HPI Telemetry reviewed: SR , and SB with LBBB Assessment & Plan Impression: 86-year-old male 1. Non ST segment elevation myocardial infarction 2. Mild to moderate aortic stenosis 3. Chronic left bundle branch block, preserved LVEF 4. 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 History of admission for gastrointestinal bleeding due to esophageal ulcer August 2015 6. Acute kidney insufficiency on stage III chronic kidney disease 7. Hyperkalemia Plan: Regarding the patient's hyperkalemia, a repeat level was obtained and this was within normal limits and I think that the potassium of 5.5 this morning was likely a lab error. The patient is angina free with the addition of low-dose metoprolol and topical nitrates. Echocardiogram findings from this morning are stable with no regional wall motion abnormalities. His creatinine on admission was 1.6 and it is 1.5 on repeat today. Looking at his recent blood work when he was hospitalized here in 2014 in 2016 it looks like his best baseline is approximately a creatinine of 1.4 with recent readings in 2016 ranging from 1.5-1.7. Recommend cautious hydration optimize his kidney function prior to cardiac catheterization. He was admitted with gastrointestinal bleeding in August 2015 his hemoglobin was as low as 8.3. He received transfusion of one unit of packed red blood cells on 08/10/2015. EGD at that time revealed esophageal ulcer. A repeat EGD in September 2015 revealed findings suspicious for Thakur's esophagus. Gastritis was noted. No residual esophageal ulcer was noted. He was discharged back on his Coumadin at that time. Given his history of gastrointestinal bleeding, would like to avoid him being on triple therapy with aspirin, clopidogrel, and Coumadin. Depending upon coronary anatomy, best option may be to proceed with bare metal stenting if possible to reduce time on clopidogrel and even consider stopping his Coumadin while he is on the clopidogrel and just continue aspirin and clopidogrel for the necessary 6 weeks. We could then transition him back to aspirin plus Coumadin 6 weeks post-stenting. Given the patient's presentation, I recommend proceeding with cardiac catheterization. This does not come without some degree of risk given the patient's age and generalized frailty, at this point given his lack of anginal symptoms I think we can take today to optimize his kidney function and let his INR trend down. Coumadin will be held. He has a bounding right radial pulse, and hopefully right radial access can be obtained and therefore his INR would not have to be completely normal. Case discussed with Dr. Leggett. Corey Daugherty, DO
--- NOTE | 2017-03-07 12:39 | Cardiology Progress Note ---
Cardiology Progress Note Date of Service March 07, 2017. Cardiology Progress Note I spoke to patient's daughter, Claudia, by telephone and updated her on patient' s condition. She is concerned about the patient's underlying frailty and about the potential risk of complications with cardiac catheterization. At this time, will place cardiac catheterization on hold pending time for Claudia, her daughter, Kenzie, and patient to think about things. Will proceed with conservative medical management. If patient has return of angina that is refractory to medication, may have to proceed with cardiac catheterization depending upon patient/family wishes. Will keep patient nothing by mouth after midnight tonight while we observe his progress. Corey Daugherty, DO
[2017-03-07] MEDS ORDERED: WARFARIN SOD 4 MG TAB PO SCH (16:00)
[2017-03-07] MEDS: TAMSULOSIN HCL 0.4 MG CAP PO SCH (20:19)
[2017-03-07] MEDS: CEPHALEXIN MONOHYDRATE 250 MG CAP PO SCH (20:19)
--- NOTE | 2017-03-07 20:23 | Cardiology Progress Note ---
Cardiology Progress Note Date of Service March 07, 2017. Cardiology Progress Note spoke to patient's daughter, Claudia on telephone. She had discussed things with patient and they both agreed they would like to proceed with cardiac catheterization. Plan; Vitamin K 2.5 mg IV now. Repeat INR in am along with CBC, CMP. plan for cardiac cath if INR and renal function are acceptable tomorrow.
[2017-03-07] MEDS: OXYCODONE/ACETAMINOPHEN 10/325MG TAB PO SCH (20:25)
[2017-03-07] MEDS ORDERED: PHYTONADIONE INJ 2.5 MG in SODIUM CHLORIDE 0.9% 50ML 50 ML IV ONE (20:30)
--- NOTE | 2017-03-07 20:48 | Progress Note ---
Medicine Progress Note Date & Time of Visit: March 07, 2017 at 10:00 . Subjective Feels better. No further chest pain. Chronic dependent edema. No fever. No cough or SOB. No nausea or vomiting. . Objective Last 8 Hrs Date Time Temp Pulse Resp B/P Pulse Ox O2 Delivery O2 Flow Rate FiO2 03/07/17 19:22 36.5 63 20 172/90 95 Room Air 03/07/17 16:00 Room Air 03/07/17 15:31 36.5 60 18 161/70 96 Room Air Physical Exam: General- lying in bed; no distress Neck- slight JVD Lungs- clear to auscultation Heart- RRR, III/ systolic murmur at base; no gallop appreciated Abdomen- + BS, soft, nontender Extremities- 1+ pretibial edema Neuro- alert, oriented . Laboratory Results: Last 24 Hours Test 03/06/17 23:10 03/07/17 05:10 03/07/17 09:15 Total Creatine Kinase 137 U/L 115 U/L Creatine Kinase MB 6.7 ng/ml 5.1 ng/ml Creatine Kinase MB Ratio 4.9 4.4 Troponin I 2.140 ng/ml 1.820 ng/ml Prothrombin Time 30.8 SECONDS Prothromb Time International Ratio 2.8 Sodium Level 143 mmol/L Potassium Level 5.5 mmol/L 4.1 mmol/L Chloride Level 109 mmol/L Carbon Dioxide Level 31 mmol/L Anion Gap 3.0 mmol/L Blood Urea Nitrogen 20 mg/dl Creatinine 1.50 mg/dl Est Creatinine Clear Calc Drug Dose 32.9 ml/min Estimated GFR () 47.5 Estimated GFR (Non- 41.0 BUN/Creatinine Ratio 13.2 Random Glucose 89 mg/dl Calcium Level 8.5 mg/dl Triglycerides Level 162 mg/dl Cholesterol Level 106 mg/dl HDL Cholesterol 28 mg/dl LDL Cholesterol, Calculated 46 mg/dl VLDL Cholesterol, Calculated 32 mg/dl Cholesterol/HDL Ratio 3.8 Other Studies: EKG performed at 06:53 reviewed and demonstrated NSR at 65 / minute, LBBB, NSSTTWA's. . Assessment & Plan NON ST-ELEVATION MT Presented with chest pain. Peak troponin 2.140. Now pain-free. EKG as noted above. Cardiology consulted. Echo showed mild concentric LVH, no regional wall motion abnormalities except septal motion consistent with LBBB, overall LVEF 55-60%. Receiving aspirin, metoprolol, nitrates, warfarin. LDL-C = 46. Will discuss lipid management with Cardiology. SYSTOLIC MURMUR Echo showed aortic calcification with mild-moderate aortic stenosis (aortic valve area 1.4 cm2. HISTORY AF / TACHY-ALICIA SYNDROME Currently in NSR / SB. Metoprolol initiated for non-STEMI. Bradycardic at times. Digoxin discontinued. Continue warfarin. Continue to monitor. COPD Stable. CKD III Monitor. ? HYPERKALEMIA K this a.m. 5.5, repeat 4.1. Apparent lab error or hemolysis. Follow. VTE PROPHYLAXIS / HISTORY OF DVT Continue warfarin. DISPOSITION Expected discharge to home. Medical follow-up with Dr. Childress. . Current Inpatient Medications: Current Inpatient Medications Medications (Trade) Dose Ordered Sig/Bailey Route Start Time Stop Time Status Last Admin Dose Admin Acetaminophen (Tylenol Tab) 650 mg Q4H PRN PO 03/06/17 14:15 04/05/17 14:14 Ondansetron HCl (Zofran Inj) 4 mg Q6H PRN IV 03/06/17 14:15 04/05/17 14:14 Ranitidine HCl (zANTac TAB) 150 mg BID PO 03/06/17 21:00 04/05/17 20:59 03/07/17 20:20 150 MG Miscellaneous (Iv Fluids Completed) 1 ea PRN PRN N/A 03/06/17 14:30 03/06/18 14:29 Amlodipine Besylate (Norvasc Tab) 5 mg QAM PO 03/07/17 09:00 04/06/17 08:59 03/07/17 08:09 5 MG Cephalexin Monohydrate (Keflex Cap) 250 mg HS PO 03/06/17 21:00 04/05/17 20:59 03/07/17 20:19 250 MG Gabapentin (Neurontin Tab) 600 mg TID PO 03/06/17 21:00 04/05/17 20:59 03/07/17 20:19 600 MG Oxycodone/ Acetaminophen (Percocet 10-325MG Tab) 1 tab Q6H PRN PO 03/06/17 14:30 03/07/17 21:00 03/07/17 14:20 1 TAB Simvastatin (Zocor Tab) 20 mg QAM PO 03/07/17 09:00 04/06/17 08:59 03/07/17 08:08 20 MG Tamsulosin HCl (Flomax Cap) 0.4 mg HS PO 03/06/17 21:00 04/05/17 20:59 03/07/17 20:19 0.4 MG Polyethylene (Miralax Powder Packet) 17 gm DAILY PRN PO 03/06/17 14:45 04/05/17 14:44 Buprenorphine HCl (Butrans Patch) 15 mcg Q7D TD 03/06/17 18:00 04/05/17 17:59 03/06/17 17:55 15 MCG Pantoprazole Sodium (Protonix Tab) 40 mg BID PO 03/06/17 21:00 04/05/17 20:59 03/07/17 20:18 40 MG Miscellaneous (Remove Patch) 1 ea Q7D N/A 03/06/17 17:59 04/05/17 17:58 03/06/17 18:16 1 EA Enteral Nutritional Formula (Boost) 1 can TIDM PO 03/06/17 16:45 04/05/17 17:59 Miscellaneous Information (Check Patch Placement) 1 ea QS N/A 03/06/17 16:00 04/05/17 15:59 03/07/17 16:10 1 EA Metoprolol Tartrate (Lopressor Tab) 12.5 mg BID PO 03/07/17 09:00 04/06/17 08:59 03/07/17 20:21 12.5 MG Aspirin (Ecotrin Tab) 81 mg QAM PO 03/07/17 09:00 04/06/17 08:59 03/07/17 08:09 81 MG Nitroglycerin 1 inch 1 inch Q6 EXT 03/06/17 19:00 04/05/17 18:59 03/07/17 17:45 1 INCH Sodium Chloride (Nss 1000ml) 1,000 ml @ 60 mls/hr [id number] IV 03/07/17 10:30 04/06/17 10:29 03/07/17 11:15 60 MLS/HR Oxycodone/ Acetaminophen 1 tab 1 tab TID PO 03/07/17 21:00 03/21/17 20:59 03/07/17 20:25 1 TAB Phytonadione/ Sodium Chloride (Aqua-Mephyton Inj/Nss 50ml) 50.25 ml @ 100.5 mls/ hr 2029 ONCE IV 03/07/17 20:30 03/07/17 20:59
[2017-03-08] VITALS (10 sets, daily range): BP systolic 127–157; BP diastolic 64–84; PULSE 51–69; TEMP 36.5–37.1; O2SAT 93–96
[2017-03-08] MEDS: SODIUM CHLORIDE 0.9% 1000ML 1,000 ML IV SCH (00:32)
[2017-03-08] MEDS: NITROGLYCERIN 2% OINTMENT 30GM TUBE EXT SCH (05:30)
[2017-03-08] MEDS: ACETAMINOPHEN 325 MG TAB PO PRN ×2 (06:42→18:19)
[2017-03-08 07:06] LABS: HEMATOCRIT 34.5 % (42-52); MEAN CELL VOLUME 96.1 fL (80-100); MEAN CORPUSCULAR HEMOGLOBIN 30.9 pg (25-34); MEAN CORPUSCULAR HGB CONC 32.2 g/dl (32-36); MEAN PLATELET VOLUME 8.5 fL (7.4-10.4); PLATELET COUNT 144 K/uL (130-400); RED BLOOD COUNT 3.59 M/uL (4.7-6.1); WHITE BLOOD COUNT 7.57 K/uL (4.8-10.8)
[2017-03-08 07:17] LABS: INR 1.4 (0.9-1.1); PROTHROMBIN TIME (PATIENT) 14.9 SECONDS (9.0-12.0)
[2017-03-08] MEDS: BOOST VANILLA PO SCH ×6 (07:30→16:45)
[2017-03-08 07:38] LABS: BUN/CREATININE RATIO 14.7 (10-20); CALCIUM 8.7 mg/dl (8.5-10.1); CREATININE 1.4 mg/dl (0.60-1.40); POTASSIUM 4.4 mmol/L (3.5-5.1)
[2017-03-08] MEDS: [UNRECOGNIZED DRUG - REMARK] SCH ×3 (08:07→23:48)
[2017-03-08] MEDS: PANTOprazole SOD 40 MG TAB PO SCH ×2 (09:19→20:26)
[2017-03-08] MEDS: GABAPENTIN 600 MG TAB PO SCH ×3 (09:19→20:24)
[2017-03-08] MEDS: OXYCODONE/ACETAMINOPHEN 10/325MG TAB PO SCH ×3 (09:19→20:24)
[2017-03-08] MEDS: AMLODIPINE BESYLATE 5 MG TAB PO SCH (09:19)
[2017-03-08] MEDS: ASPIRIN 81 MG ECTAB PO SCH (09:19)
[2017-03-08] MEDS: RANITIDINE HCL 150 MG TAB PO SCH ×2 (09:20→20:26)
[2017-03-08] MEDS: SIMVASTATIN 20 MG TAB PO SCH (09:20)
--- NOTE | 2017-03-08 09:47 | Cardiology Follow-Up ---
Subjective General Date of Service: March 08, 2017. Chief Complaint: follow up chest pain, NSTEMI Pt evaluation today including: conversation w/ patient, physical exam History of Present Illness The patient is a 86 year old male seen in follow up. Patient feeling well with no chest pain overnight. He notes headache. Telemetry reveals sinus rhythm with left bundle branch block. No significant bradycardia late yesterday or overnight last night. EKG reveals continued left bundle branch block, the ST segments were nondiagnostic for ischemia given the underlying left bundle branch block. Allergies Coded Allergies: Morphine (Verified Allergy, Intermediate, itching, dizzy, 03/06/17) pt primary md has taken pt off morphine due to itching and dizzy Sulfa Antibiotics (Verified Allergy, Intermediate, HIVES/RASH, 03/06/17) Fentanyl (Verified Allergy, Unknown, ITCHING, DIZZINESS, BOWEL BLADDER PROBLEMS, HEADACHE, 03/06/17) Social History Smoking Status: Former Smoker Hx Tobacco Use In Past Year?: Yes (chews snuff) Hx Alcohol Use - Type And Amou: No Hx Substance Use - Type And Am: No Problem List Medical Problems: (1) Dehydration Status: Acute (2) EKG abnormality Status: Acute (3) Elevated troponin Status: Acute (4) Pneumonia Status: Acute (5) Precordial chest pain Status: Acute (6) Weakness Status: Acute Physical Exam Vital Signs Last Vital Signs Documentation Date Time Temp Pulse Resp B/P Pulse Ox O2 Delivery O2 Flow Rate FiO2 03/08/17 07:25 36.7 69 20 141/64 93 Room Air Physical Exam Constitutional: Level of Distress: NAD Head: normocephalic Neck: supple Lungs: Auscultation: no wheezing, no rales/crackles, no rhonchi Cardiovascular: Heart Auscultation: RRR, II/ ELIAZAR Peripheral Pulses: Radial Pulse: normal on the left, normal on the right Femoral Pulse: normal on the left, normal on the right Extremities: no cyanosis, no edema Neurologic: Gait & Station: pertinent finding (no focal neurologic deficits.) Assessment and Plan Assessment and Plan Impression: 86-year-old male 1. Non ST segment elevation myocardial infarction 2. Mild to moderate aortic stenosis 3. Chronic left bundle branch block, preserved LVEF 4. 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 History of admission for gastrointestinal bleeding due to esophageal ulcer August 2015 6. Acute kidney insufficiency on stage III chronic kidney disease- improved, 03/08/17 Plan: Patient had tentatively been scheduled for diagnostic cardiac catheterization today with plan for PCI if indicated. The patient however his clinical stable with no signs of hemodynamic compromise and no additional angina yesterday or overnight and elective stenting is currently not available in our [facility] due to weather concerns with heavy rain and cloud cover that is projected to continue throughout the day today and prevents air support. The patient's daughter jean, is concerned because she has a business trip next week but she would like to be present for the procedure. We discussed option of transfer by ground as soon as possible to [facility] for potential cardiac catheterization today. But after further discussion the patient and family have elected to proceed with conservative treatment for today. His nitroglycerin topical treatment will be discontinued due to his headache. A BRAT diet will be initiated. And we will plan on increasing gentle activity as tolerated. Normal saline is going to be discontinued. His INR is now local having received vitamin K and preparation for the procedure. He is at high risk for bleeding given his history of gastrointestinal bleeding with past esophageal ulcer. If he remains clinically stable later today when he was reassessed, will plan on adding low dose heparin without bolus. Depending upon patient's course will determine if conservative medication therapy will be sufficient or if he has breakthrough anginal symptoms, we'll reconsider cardiac catheterization. Antiplatelet therapy: Continue aspirin 81 mg daily Anti-anginal therapy: Continue low-dose metoprolol 12.5 mg by mouth twice a day. Continue chronic amlodipine 5 mg daily. Topical nitroglycerin to be discontinued. We'll likely add low-dose isosorbide mononitrate later today after headache is better. -Patient had previously been on digoxin for paroxysmal atrial fibrillation, this is been held due to bradycardia, and faver beta lroi therapy given myocardial infarction Dyslipidemia therapy: Continue some distended 20 mg daily, LDL was 46 grams per deciliter. DVT prophylaxis: Patient's Coumadin is on hold. Will likely add low-dose heparin infusion later today. Laboratory Results Last 24 Hours Test 03/08/17 06:53 White Blood Count 7.57 K/uL Red Blood Count 3.59 M/uL Hemoglobin 11.1 g/dL Hematocrit 34.5 % Mean Corpuscular Volume 96.1 fL Mean Corpuscular Hemoglobin 30.9 pg Mean Corpuscular Hemoglobin Concent 32.2 g/dl RDW Standard Deviation 48.1 fL RDW Coefficient of Variation 13.6 % Platelet Count 144 K/uL Mean Platelet Volume 8.5 fL Prothrombin Time 14.9 SECONDS Prothromb Time International Ratio 1.4 Sodium Level 142 mmol/L Potassium Level 4.4 mmol/L Chloride Level 108 mmol/L Carbon Dioxide Level 27 mmol/L Anion Gap 7.0 mmol/L Blood Urea Nitrogen 21 mg/dl Creatinine 1.40 mg/dl Est Creatinine Clear Calc Drug Dose 34.7 ml/min Estimated GFR () 51.6 Estimated GFR (Non- 44.5 BUN/Creatinine Ratio 14.7 Random Glucose 102 mg/dl Calcium Level 8.7 mg/dl Total Bilirubin 1.2 mg/dl Aspartate Amino Transf (AST/SGOT) 14 U/L Alanine Aminotransferase (ALT/SGPT) 12 U/L Alkaline Phosphatase 48 U/L Total Protein 6.8 gm/dl Albumin 3.4 gm/dl Globulin 3.4 gm/dl Albumin/Globulin Ratio 1.0
[2017-03-08] MEDS: METOPROLOL TARTRATE 25 MG TAB PO SCH ×2 (10:15→20:25)
[2017-03-08] MEDS ORDERED: ISOSORBIDE MONONITRATE 30 MG TABCR PO ONE (12:32)
[2017-03-08] MEDS: CEPHALEXIN MONOHYDRATE 250 MG CAP PO SCH (20:26)
--- NOTE | 2017-03-08 21:10 | Progress Note ---
Medicine Progress Note Date & Time of Visit: March 08, 2017 at 19:10 . Subjective No further chest pain. No SOB. No nausea or vomiting. Headache attributed to NTP. . Objective Last 8 Hrs Date Time Temp Pulse Resp B/P Pulse Ox O2 Delivery O2 Flow Rate FiO2 03/08/17 20:00 Room Air 03/08/17 20:00 95 Room Air 03/08/17 16:00 95 Room Air 03/08/17 15:18 36.5 51 20 127/66 95 Room Air Physical Exam: General- lying in bed; no distress Neck- + JVD Lungs- clear to auscultation Heart- RRR, III/ systolic murmur at base; no gallop appreciated Abdomen- + BS, soft, nontender Extremities- 1+ pretibial edema Neuro- alert, oriented . Laboratory Results: Last 24 Hours Test 03/08/17 06:53 White Blood Count 7.57 K/uL Red Blood Count 3.59 M/uL Hemoglobin 11.1 g/dL Hematocrit 34.5 % Mean Corpuscular Volume 96.1 fL Mean Corpuscular Hemoglobin 30.9 pg Mean Corpuscular Hemoglobin Concent 32.2 g/dl RDW Standard Deviation 48.1 fL RDW Coefficient of Variation 13.6 % Platelet Count 144 K/uL Mean Platelet Volume 8.5 fL Prothrombin Time 14.9 SECONDS Prothromb Time International Ratio 1.4 Sodium Level 142 mmol/L Potassium Level 4.4 mmol/L Chloride Level 108 mmol/L Carbon Dioxide Level 27 mmol/L Anion Gap 7.0 mmol/L Blood Urea Nitrogen 21 mg/dl Creatinine 1.40 mg/dl Est Creatinine Clear Calc Drug Dose 34.7 ml/min Estimated GFR () 51.6 Estimated GFR (Non- 44.5 BUN/Creatinine Ratio 14.7 Random Glucose 102 mg/dl Calcium Level 8.7 mg/dl Total Bilirubin 1.2 mg/dl Aspartate Amino Transf (AST/SGOT) 14 U/L Alanine Aminotransferase (ALT/SGPT) 12 U/L Alkaline Phosphatase 48 U/L Total Protein 6.8 gm/dl Albumin 3.4 gm/dl Globulin 3.4 gm/dl Albumin/Globulin Ratio 1.0 Assessment & Plan NON ST-ELEVATION [place] Presented with chest pain. Peak troponin 2.140. Now pain-free. EKG as noted above. Cardiology consulted. Echo showed mild concentric LVH, no regional wall motion abnormalities except septal motion consistent with LBBB, overall LVEF 55-60%. Receiving aspirin, metoprolol, nitrates, warfarin. LDL-C = 46. Continue simvastatin. Further evaluation per Cardiology. SYSTOLIC MURMUR Echo showed aortic calcification with mild-moderate aortic stenosis (aortic valve area 1.4 cm2). Follow. HISTORY AF / TACHY-ALICIA SYNDROME Currently in NSR / SB. Metoprolol initiated for non-STEMI. Bradycardic at times. Digoxin discontinued. Continue warfarin. Continue to monitor. COPD Stable. CKD III Serum creatinine at time of admission 1.6. Serum creatinine 1.4 after IV fluids. Follow. VTE PROPHYLAXIS / HISTORY OF DVT Continue warfarin. DISPOSITION Expected discharge to home. Medical follow-up with Dr. Childress. . Current Inpatient Medications: Current Inpatient Medications Medications (Trade) Dose Ordered Sig/Bailey Route Start Time Stop Time Status Last Admin Dose Admin Acetaminophen (Tylenol Tab) 650 mg Q4H PRN PO 03/06/17 14:15 04/05/17 14:14 03/08/17 18:19 650 MG Ondansetron HCl (Zofran Inj) 4 mg Q6H PRN IV 03/06/17 14:15 04/05/17 14:14 Ranitidine HCl (zANTac TAB) 150 mg BID PO 03/06/17 21:00 04/05/17 20:59 03/08/17 20:26 150 MG Miscellaneous (Iv Fluids Completed) 1 ea PRN PRN N/A 03/06/17 14:30 03/06/18 14:29 Amlodipine Besylate (Norvasc Tab) 5 mg QAM PO 03/07/17 09:00 04/06/17 08:59 03/08/17 09:19 5 MG Cephalexin Monohydrate (Keflex Cap) 250 mg HS PO 03/06/17 21:00 04/05/17 20:59 03/08/17 20:26 250 MG Gabapentin (Neurontin Tab) 600 mg TID PO 03/06/17 21:00 04/05/17 20:59 03/08/17 20:24 600 MG Simvastatin (Zocor Tab) 20 mg QAM PO 03/07/17 09:00 04/06/17 08:59 03/08/17 09:20 20 MG Polyethylene (Miralax Powder Packet) 17 gm DAILY PRN PO 03/06/17 14:45 04/05/17 14:44 Buprenorphine HCl (Butrans Patch) 15 mcg Q7D TD 03/06/17 18:00 04/05/17 17:59 03/06/17 17:55 15 MCG Pantoprazole Sodium (Protonix Tab) 40 mg BID PO 03/06/17 21:00 04/05/17 20:59 03/08/17 20:26 40 MG Miscellaneous (Remove Patch) 1 ea Q7D N/A 03/06/17 17:59 04/05/17 17:58 03/06/17 18:16 1 EA Enteral Nutritional Formula (Boost) 1 can TIDM PO 03/06/17 16:45 04/05/17 17:59 Miscellaneous Information (Check Patch Placement) 1 ea QS N/A 03/06/17 16:00 04/05/17 15:59 03/08/17 15:12 1 EA Metoprolol Tartrate (Lopressor Tab) 12.5 mg BID PO 03/07/17 09:00 04/06/17 08:59 03/08/17 20:25 12.5 MG Aspirin (Ecotrin Tab) 81 mg QAM PO 03/07/17 09:00 04/06/17 08:59 03/08/17 09:19 81 MG Oxycodone/ Acetaminophen (Percocet 10-325MG Tab) 1 tab TID PO 03/07/17 21:00 03/21/17 20:59 03/08/17 20:24 1 TAB Isosorbide Mononitrate (Imdur Ext Rel Tab) 15 mg QAM PO 03/09/17 09:00 04/08/17 08:59
[2017-03-09] MEDS: OXYCODONE/ACETAMINOPHEN 5-325 TAB PO PRN ×3 (00:50→15:59)
[2017-03-09 03:46] VITALS: BP 143/75; PULSE 60; TEMP 37; O2SAT 94
[2017-03-09 05:48] LABS: MEAN CELL VOLUME 96.3 fL (80-100); MEAN CORPUSCULAR HEMOGLOBIN 30.9 pg (25-34); MEAN CORPUSCULAR HGB CONC 32.1 g/dl (32-36); MEAN PLATELET VOLUME 9.2 fL (7.4-10.4); PLATELET COUNT 160 K/uL (130-400); RED BLOOD COUNT 3.53 M/uL (4.7-6.1); WHITE BLOOD COUNT 6.18 K/uL (4.8-10.8)
--- NOTE | 2017-03-09 05:50 | DIAGNOSTIC IMAGING REPORT ---
HEAD CT NONCONTRAST CT DOSE: 537.48 mGy.cm HISTORY: Headache. Mental status change. persistent DE SANTIAGO off nitropaste TECHNIQUE: Multiaxial CT images of the head were performed without the use of intravenous contrast. Comparison: 10/04/2016 Findings: The paranasal sinuses and mastoid air cells are clear. Age-related atrophy and chronic small vessel change. No acute intracranial hemorrhage. No midline shift. Impression: No acute intracranial abnormality. Age-related change. Electronically signed by: Rafal Vallejo M.D. 03/09/2017 5:49 AM Dictated Date/Time: 03/09/2017 5:48 AM
[2017-03-09 05:58] LABS: INR 1.1 (0.9-1.1); PROTHROMBIN TIME (PATIENT) 11.8 SECONDS (9.0-12.0)
[2017-03-09 06:14] LABS: BUN/CREATININE RATIO 13.2 (10-20); CALCIUM 8.6 mg/dl (8.5-10.1); CREATININE 1.5 mg/dl (0.60-1.40); POTASSIUM 4.7 mmol/L (3.5-5.1)
[2017-03-09] MEDS: [UNRECOGNIZED DRUG - REMARK] SCH ×2 (07:48→13:19)
[2017-03-09] MEDS: PANTOprazole SOD 40 MG TAB PO SCH ×2 (07:48→20:48)
[2017-03-09] MEDS: BOOST VANILLA PO SCH ×6 (07:48→13:07)
[2017-03-09] MEDS: GABAPENTIN 600 MG TAB PO SCH ×3 (07:49→20:47)
[2017-03-09] MEDS: ASPIRIN 81 MG ECTAB PO SCH (07:50)
[2017-03-09] MEDS: AMLODIPINE BESYLATE 5 MG TAB PO SCH (07:50)
[2017-03-09] MEDS: METOPROLOL TARTRATE 25 MG TAB PO SCH ×2 (07:50→20:48)
[2017-03-09] MEDS: SIMVASTATIN 20 MG TAB PO SCH (07:50)
[2017-03-09] MEDS: RANITIDINE HCL 150 MG TAB PO SCH ×2 (07:50→20:48)
[2017-03-09 08:23] VITALS: BP 175/79; PULSE 65; TEMP 36.8; O2SAT 94
[2017-03-09] MEDS ORDERED: ISOSORBIDE MONONITRATE 30 MG TABCR PO SCH (09:00)
[2017-03-09 11:27] VITALS: BP_SYST 102; BP_SYST 175; BP_DIAS 57; BP_DIAS 79; PULSE 55; PULSE 65; TEMP 36.8; TEMP 36.9; O2SAT 94; O2SAT 95
--- NOTE | 2017-03-09 12:21 | CARDIOLOGY PROGRESS NOTE ---
DATE: 03/09/2017 SUBJECTIVE: The patient is seen and examined at the bedside. Denies chest pain or shortness of breath. Brief kalpana of nonsustained supraventricular tachycardia recorded on telemetry. The patient was asymptomatic. He has ambulated in the halls without exertional complaints. Notes fatigue. Isosorbide monohydrate was added to medications yesterday in addition to low-dose beta-lori therapy. Anticoagulation has been held. The patient denies orthopnea or PND. He is tolerating his diet. Offers no other complaints at this time. REVIEW OF SYSTEMS: The pertinent positives noted above, otherwise 4-system review including cardiovascular, pulmonary, gastroenterologic, and neurologic systems are negative. MEDICATIONS: Reviewed via EMR, please see list for details. LABORATORY DATA: White blood cell count 6.18, hemoglobin is 10.9, platelet count is 160. Sodium 142, potassium 4.7, chloride 109, CO2 is 30, BUN is 20, creatinine is 1.50. INR is 1.1. PHYSICAL EXAMINATION: VITAL SIGNS: Temperature 36.9 degrees centigrade, pulse 55 beats per minute and regular, respiratory rate is 18 breaths per minute, blood pressure 102/57, SaO2 is 95% on room air. GENERAL: NAD, awake and alert. THROAT: His mucous membranes are moist. No scleral icterus. Conjunctivae pink. NECK: Supple without JVD or HJR. No carotid bruit. HEART: Regular with normal S1 and S2. There is a 2-3/6 mid to late peaking systolic ejection murmur heard best at the right second intercostal space. LUNGS: Clear without rales, rhonchi or wheeze. ABDOMEN: Soft and nontender. There is no rebound or guarding. Normal bowel sounds. EXTREMITIES: Warm and dry without clubbing or cyanosis. No edema. Radial pulses 3/4 in the right upper extremity. NEUROLOGIC: Demonstrates no focal deficit. FINAL IMPRESSION: 1. [id number] elevation myocardial infarction. 2. Mild to moderate aortic stenosis. 3. Paroxysmal supraventricular tachycardia -- nonsustained/asymptomatic. 4. Chronic left bundle-branch block with preserved systolic function. 5. History of paroxysmal atrial fibrillation. 6. History of deep vein thrombosis, pulmonary embolism. 7. History of gastrointestinal bleeding due to esophageal ulcer 08/2015. 8. Chronic kidney disease stage III -- stable. PLAN AND RECOMMENDATIONS: I had a long discussion with the patient regarding natural history and pathophysiology of his NSTEMI. Discussed further treatment options including conservative medical management versus invasive strategy with cardiac catheterization. The patient chest pain free over the past 24 hours. He experienced no symptoms during his recent bout of paroxysmal supraventricular tachycardia. Recommend initiate IV anticoagulation with IV heparin. Plan to restart warfarin on Saturday if there is no recurrent chest discomfort over the weekend. The patient will report any exertional chest pain or unusual shortness of breath to the nursing staff. If he demonstrates recurrent angina, would reconsider an invasive strategy at that time. For now, he will continue beta-lori, long-acting nitrates, aspirin, amlodipine, and statin therapy. We will continue to follow closely during hospitalization. A repeat serum magnesium level will be drawn at this time as well.
[2017-03-09 12:48] LABS: BASO % 0.7 %; BASO ABS # 0.04 K/uL (0-0.2); COMPLETE YES; EOS % 9.1 %; IG% 0.3 %; LYMPH % 27.5 %; LYMPH ABS # 1.69 K/uL (1.2-3.4); MONO % 12.7 %; NEUT % 49.7 %
[2017-03-09] MEDS: HEPARIN 25,000 UNIT/500ML D5W 500 ML IV PRN ×2 (13:27→20:45)
[2017-03-09 14:58] VITALS: BP 149/70; PULSE 55; TEMP 36.6; O2SAT 95
[2017-03-09 19:42] LABS: PARTIAL THROMBOPLASTIN RATIO 1.6
--- NOTE | 2017-03-09 19:42 | Progress Note ---
Medicine Progress Note Date & Time of Visit: March 09, 2017 at 10:50 . Subjective Severe headache last night- CT negative. Headache resolved today. No chest pain. No cough or SOB. No nausea or vomiting. No diarrhea. . Objective Last 8 Hrs Date Time Temp Pulse Resp B/P Pulse Ox O2 Delivery O2 Flow Rate FiO2 03/09/17 16:10 Room Air 03/09/17 16:00 Room Air 03/09/17 14:58 36.6 55 16 149/70 95 Room Air 03/09/17 12:00 Room Air Physical Exam: General- no distress Neck- + JVD Lungs- clear to auscultation Heart- RRR, III/ systolic murmur at base; no gallop appreciated Abdomen- + BS, soft, nontender Extremities- 1+ pretibial edema Neuro- alert, oriented . Laboratory Results: Last 24 Hours Test 03/09/17 05:10 03/09/17 12:50 03/09/17 19:23 White Blood Count 6.18 K/uL Red Blood Count 3.53 M/uL Hemoglobin 10.9 g/dL Hematocrit 34.0 % Mean Corpuscular Volume 96.3 fL Mean Corpuscular Hemoglobin 30.9 pg Mean Corpuscular Hemoglobin Concent 32.1 g/dl Platelet Count 160 K/uL Mean Platelet Volume 9.2 fL Neutrophils (%) (Auto) 49.7 % Lymphocytes (%) (Auto) 27.5 % Monocytes (%) (Auto) 12.7 % Eosinophils (%) (Auto) 9.1 % Basophils (%) (Auto) 0.7 % Neutrophils # (Auto) 3.05 K/uL Lymphocytes # (Auto) 1.69 K/uL Monocytes # (Auto) 0.78 K/uL Eosinophils # (Auto) 0.56 K/uL Basophils # (Auto) 0.04 K/uL RDW Standard Deviation 48.5 fL RDW Coefficient of Variation 13.9 % Immature Granulocyte % (Auto) 0.3 % Immature Granulocyte # (Auto) 0.02 K/uL Nucleated RBC Absolute Count (auto) 0.00 K/uL Nucleated Red Blood Cells % 0.0 % Prothrombin Time 11.8 SECONDS Prothromb Time International Ratio 1.1 Activated Partial Thromboplast Time 26.8 SECONDS Partial Thromboplastin Ratio 1.0 Sodium Level 142 mmol/L Potassium Level 4.7 mmol/L Chloride Level 109 mmol/L Carbon Dioxide Level 30 mmol/L Anion Gap 3.0 mmol/L Blood Urea Nitrogen 20 mg/dl Creatinine 1.50 mg/dl Est Creatinine Clear Calc Drug Dose 32.4 ml/min Estimated GFR () 47.5 Estimated GFR (Non- 41.0 BUN/Creatinine Ratio 13.2 Random Glucose 93 mg/dl Calcium Level 8.6 mg/dl Magnesium Level 2.2 mg/dl Assessment & Plan NON [place]ATION [place] Presented with chest pain. Peak troponin 2.140. Now pain-free. EKG as noted above. Cardiology consulted. Echo showed mild concentric LVH, no regional wall motion abnormalities except septal motion consistent with LBBB, overall LVEF 55-60%. Receiving aspirin, metoprolol, nitrates, warfarin. LDL-C = 46. Continue simvastatin. Further evaluation per Cardiology. SYSTOLIC MURMUR Echo showed aortic calcification with mild-moderate aortic stenosis (aortic valve area 1.4 cm2). Follow. HISTORY AF / TACHY-ALICAI SYNDROME Currently in NSR / SB. Metoprolol initiated for non-STEMI. Bradycardic at times. Digoxin discontinued. Short run of asymptomatic SVT or PAT today. Warfarin held due to possible cath; started on IV heparin. Continue to monitor. COPD Stable. CKD III Serum creatinine at time of admission 1.6. Serum creatinine 1.4 after IV fluids, 1.5 today. Follow. HEADACHE Head CT negative. Resolved. VTE PROPHYLAXIS / HISTORY OF DVT Continue warfarin. DISPOSITION Expected discharge to home. Medical follow-up with Dr. Childress. . Current Inpatient Medications: Current Inpatient Medications Medications (Trade) Dose Ordered Sig/Bailey Route Start Time Stop Time Status Last Admin Dose Admin Acetaminophen (Tylenol Tab) 650 mg Q4H PRN PO 03/06/17 14:15 04/05/17 14:14 03/08/17 18:19 650 MG Ondansetron HCl (Zofran Inj) 4 mg Q6H PRN IV 03/06/17 14:15 04/05/17 14:14 Ranitidine HCl (zANTac TAB) 150 mg BID PO 03/06/17 21:00 04/05/17 20:59 03/09/17 07:50 150 MG Miscellaneous (Iv Fluids Completed) 1 ea PRN PRN N/A 03/06/17 14:30 03/06/18 14:29 Amlodipine Besylate (Norvasc Tab) 5 mg QAM PO 03/07/17 09:00 04/06/17 08:59 03/09/17 07:50 5 MG Cephalexin Monohydrate (Keflex Cap) 250 mg HS PO 03/06/17 21:00 04/05/17 20:59 03/08/17 20:26 250 MG Gabapentin (Neurontin Tab) 600 mg TID PO 03/06/17 21:00 04/05/17 20:59 03/09/17 13:19 600 MG Simvastatin (Zocor Tab) 20 mg QAM PO 03/07/17 09:00 04/06/17 08:59 03/09/17 07:50 20 MG Polyethylene (Miralax Powder Packet) 17 gm DAILY PRN PO 03/06/17 14:45 04/05/17 14:44 Buprenorphine HCl (Butrans Patch) 15 mcg Q7D TD 03/06/17 18:00 04/05/17 17:59 03/06/17 17:55 15 MCG Pantoprazole Sodium (Protonix Tab) 40 mg BID PO 03/06/17 21:00 04/05/17 20:59 03/09/17 07:48 40 MG Miscellaneous (Remove Patch) 1 ea Q7D N/A 03/06/17 17:59 04/05/17 17:58 03/06/17 18:16 1 EA Enteral Nutritional Formula (Boost) 1 can TIDM PO 03/06/17 16:45 04/05/17 17:59 03/09/17 07:48 1 CAN Miscellaneous Information (Check Patch Placement) 1 ea QS N/A 03/06/17 16:00 04/05/17 15:59 03/09/17 13:19 1 EA Metoprolol Tartrate (Lopressor Tab) 12.5 mg BID PO 03/07/17 09:00 04/06/17 08:59 03/09/17 07:50 12.5 MG Aspirin (Ecotrin Tab) 81 mg QAM PO 03/07/17 09:00 04/06/17 08:59 03/09/17 07:50 81 MG Isosorbide Mononitrate (Imdur Ext Rel Tab) 15 mg QAM PO 03/09/17 09:00 04/08/17 08:59 03/09/17 07:50 15 MG Oxycodone/ Acetaminophen pain not relieved by tylenol Q4H PRN PO 03/09/17 00:15 03/23/17 00:14 03/09/17 15:59 1 TAB Heparin Sodium/ Dextrose (Heparin 25,000 Unit/500ml D5W) 500 ml @ 24 mls/hr [id number] PRN IV 03/09/17 12:30 04/08/17 12:29 03/09/17 13:27 24 MLS/HR
[2017-03-09 19:53] VITALS: BP 147/74; PULSE 55; TEMP 36.9; O2SAT 93
[2017-03-09] MEDS ORDERED: HEPARIN IV BOLUS 5,000 UNIT in SYRINGE 0 ML IV ONE (20:15)
[2017-03-09] MEDS: CEPHALEXIN MONOHYDRATE 250 MG CAP PO SCH (20:47)
[2017-03-09 23:09] VITALS: BP 131/67; PULSE 61; TEMP 36.8; O2SAT 95
[2017-03-10] MEDS: [UNRECOGNIZED DRUG - REMARK] SCH ×3 (00:04→16:13)
[2017-03-10 03:39] VITALS: BP 157/78; PULSE 55; TEMP 36.4; O2SAT 96
[2017-03-10 05:46] LABS: INR 1.1 (0.9-1.1); PARTIAL THROMBOPLASTIN RATIO 4.5; PROTHROMBIN TIME (PATIENT) 11.4 SECONDS (9.0-12.0)
[2017-03-10 07:00] VITALS: BP 165/76; PULSE 62; TEMP 36.5; O2SAT 94
[2017-03-10] MEDS: HEPARIN 25,000 UNIT/500ML D5W 500 ML IV PRN (07:05)
[2017-03-10] MEDS: BOOST VANILLA PO SCH ×6 (07:30→16:45)
[2017-03-10] MEDS: ISOSORBIDE MONONITRATE 30 MG TABCR PO SCH (08:31)
[2017-03-10] MEDS: GABAPENTIN 600 MG TAB PO SCH ×3 (08:31→20:58)
[2017-03-10] MEDS: ASPIRIN 81 MG ECTAB PO SCH (08:31)
[2017-03-10] MEDS: SIMVASTATIN 20 MG TAB PO SCH (08:31)
[2017-03-10] MEDS: PANTOprazole SOD 40 MG TAB PO SCH ×2 (08:31→20:58)
[2017-03-10] MEDS: AMLODIPINE BESYLATE 5 MG TAB PO SCH (08:32)
[2017-03-10] MEDS: RANITIDINE HCL 150 MG TAB PO SCH ×2 (08:32→20:58)
[2017-03-10] MEDS: METOPROLOL TARTRATE 25 MG TAB PO SCH ×2 (09:00→20:58)
[2017-03-10 11:10] VITALS: BP 109/62; PULSE 51; TEMP 36.7; O2SAT 94
--- NOTE | 2017-03-10 11:19 | Cardiology Follow-Up ---
Subjective General Date of Service: March 10, 2017. Chief Complaint: follow up chest pain, NSTEMI Pt evaluation today including: conversation w/ patient, physical exam, chart review, lab review, review of studies, review of inpatient medication list History of Present Illness The patient is a 86 year old male seen in follow up. No recurrent chest discomfort since admission. Denies palpitations or lightheadedness. Brief salvos of PSVT on telemetry without associated symptoms. Offers no complaints at this time. Allergies Coded Allergies: Morphine (Verified Allergy, Intermediate, itching, dizzy, 03/06/17) pt primary md has taken pt off morphine due to itching and dizzy Sulfa Antibiotics (Verified Allergy, Intermediate, HIVES/RASH, 03/06/17) Fentanyl (Verified Allergy, Unknown, ITCHING, DIZZINESS, BOWEL BLADDER PROBLEMS, HEADACHE, 03/06/17) Social History Smoking Status: Former Smoker Hx Tobacco Use In Past Year?: Yes (chews snuff) Hx Alcohol Use - Type And Amou: No Hx Substance Use - Type And Am: No Problem List Medical Problems: (1) Dehydration Status: Acute (2) EKG abnormality Status: Acute (3) Elevated troponin Status: Acute (4) Pneumonia Status: Acute (5) Precordial chest pain Status: Acute (6) Weakness Status: Acute Review of Systems Respiratory: No cough, No dyspnea at rest, No dyspnea on exertion, No hemoptysis, No shortness of breath, No sputum, No wheezing Cardiac: No PND, No chest pain, No claudication, No edema, No orthopnea, No palpitations Physical Exam Vital Signs Last Vital Signs Documentation Date Time Temp Pulse Resp B/P Pulse Ox O2 Delivery O2 Flow Rate FiO2 03/10/17 08:00 Room Air 03/10/17 07:00 36.5 62 19 165/76 94 Physical Exam Constitutional: Level of Distress: NAD Head: normocephalic Neck: supple Lungs: Auscultation: no wheezing, no rales/crackles, no rhonchi Cardiovascular: Heart Auscultation: RRR, II/ ELIAZAR Peripheral Pulses: Radial Pulse: normal on the left, normal on the right Femoral Pulse: normal on the left, normal on the right Extremities: no cyanosis, no edema Neurologic: Gait & Station: pertinent finding (no focal neurologic deficits.) Cranial Nerves: grossly intact Assessment and Plan Assessment and Plan FINAL IMPRESSION: 1. [id number] elevation myocardial infarction. 2. Mild to moderate aortic stenosis. 3. Paroxysmal supraventricular tachycardia -- nonsustained/asymptomatic. 4. Chronic left bundle-branch block with preserved systolic function. 5. History of paroxysmal atrial fibrillation. 6. History of deep vein thrombosis, pulmonary embolism. 7. History of gastrointestinal bleeding due to esophageal ulcer 08/2015. 8. Chronic kidney disease stage III -- stable. PLAN AND RECOMMENDATIONS: Increase metoprolol to 25mg BID. Increase imdur to 30mg daily. Plan to restart coumadin in AM. Continue IV heparin. Ambulate with assistance. Laboratory Results Last 24 Hours Test 03/09/17 12:50 03/09/17 19:23 03/10/17 05:04 Magnesium Level 2.2 mg/dl Activated Partial Thromboplast Time 40.6 SECONDS 116.7 SECONDS Partial Thromboplastin Ratio 1.6 4.5 Prothrombin Time 11.4 SECONDS Prothromb Time International Ratio 1.1
[2017-03-10 13:55] LABS: PARTIAL THROMBOPLASTIN RATIO 2.2
[2017-03-10 15:52] VITALS: BP 117/66; PULSE 51; TEMP 36.9; O2SAT 95
--- NOTE | 2017-03-10 17:57 | Progress Note ---
Medicine Progress Note Date & Time of Visit: March 10, 2017 at 13:20 . Subjective Headache resolved. No chest pain. No cough or SOB. No nausea or vomiting. No constipation or diarrhea. . Objective Last 8 Hrs Date Time Temp Pulse Resp B/P Pulse Ox O2 Delivery O2 Flow Rate FiO2 03/10/17 16:00 Room Air 03/10/17 15:52 36.9 51 16 117/66 95 Room Air 03/10/17 12:00 Room Air 03/10/17 11:10 36.7 51 18 109/62 94 Room Air Physical Exam: General- no distress Neck- + JVD Lungs- clear to auscultation Heart- RRR, III/ systolic murmur at base Abdomen- + BS, soft, nontender Extremities- 1+ pretibial edema Neuro- alert, oriented . Laboratory Results: Last 24 Hours Test 03/09/17 19:23 03/10/17 05:04 03/10/17 13:10 Activated Partial Thromboplast Time 40.6 SECONDS 116.7 SECONDS 57.8 SECONDS Partial Thromboplastin Ratio 1.6 4.5 2.2 Prothrombin Time 11.4 SECONDS Prothromb Time International Ratio 1.1 Assessment & Plan NON ST-ELEVATION CA Presented with chest pain. Peak troponin 2.140. Now pain-free. EKG as noted above. Cardiology consulted. Echo showed mild concentric LVH, no regional wall motion abnormalities except septal motion consistent with LBBB, overall LVEF 55-60%. NTP stopped due to headache. Continue aspirin, metoprolol, warfarin. LDL-C = 46. Continue simvastatin. Increase activity. Further evaluation per Cardiology. SYSTOLIC MURMUR Echo showed aortic calcification with mild-moderate aortic stenosis (aortic valve area 1.4 cm2). Follow. HISTORY AF / TACHY-ALICIA SYNDROME Currently in NSR / SB. Metoprolol initiated for non-STEMI. Bradycardic at times. Digoxin discontinued. Short run of asymptomatic SVT or PAT 03/09/17. Warfarin held due to possible cath; started on IV heparin. Continue to monitor. COPD Stable. CKD III Serum creatinine at time of admission 1.6. Serum creatinine 1.4 after IV fluids, 1.5 03/09/17. Follow. HEADACHE Head CT negative. Resolved. VTE PROPHYLAXIS / HISTORY OF DVT On warfarin with therapeutic INR at time of admission. Warfarin held for possible cath. Receiving IV heparin. DISPOSITION Expected discharge to home. Medical follow-up with Dr. Childress. . Current Inpatient Medications: Current Inpatient Medications Medications (Trade) Dose Ordered Sig/Bailey Route Start Time Stop Time Status Last Admin Dose Admin Acetaminophen (Tylenol Tab) 650 mg Q4H PRN PO 03/06/17 14:15 04/05/17 14:14 03/08/17 18:19 650 MG Ondansetron HCl (Zofran Inj) 4 mg Q6H PRN IV 03/06/17 14:15 04/05/17 14:14 Ranitidine HCl (zANTac TAB) 150 mg BID PO 03/06/17 21:00 04/05/17 20:59 03/10/17 08:32 150 MG Miscellaneous (Iv Fluids Completed) 1 ea PRN PRN N/A 03/06/17 14:30 03/06/18 14:29 Amlodipine Besylate (Norvasc Tab) 5 mg QAM PO 03/07/17 09:00 04/06/17 08:59 03/10/17 08:32 5 MG Cephalexin Monohydrate (Keflex Cap) 250 mg HS PO 03/06/17 21:00 04/05/17 20:59 03/09/17 20:47 250 MG Gabapentin (Neurontin Tab) 600 mg TID PO 03/06/17 21:00 04/05/17 20:59 03/10/17 13:36 600 MG Simvastatin (Zocor Tab) 20 mg QAM PO 03/07/17 09:00 04/06/17 08:59 03/10/17 08:31 20 MG Polyethylene (Miralax Powder Packet) 17 gm DAILY PRN PO 03/06/17 14:45 04/05/17 14:44 Buprenorphine HCl (Butrans Patch) 15 mcg Q7D TD 03/06/17 18:00 04/05/17 17:59 03/06/17 17:55 15 MCG Pantoprazole Sodium (Protonix Tab) 40 mg BID PO 03/06/17 21:00 04/05/17 20:59 03/10/17 08:31 40 MG Miscellaneous (Remove Patch) 1 ea Q7D N/A 03/06/17 17:59 04/05/17 17:58 03/06/17 18:16 1 EA Enteral Nutritional Formula (Boost) 1 can TIDM PO 03/06/17 16:45 04/05/17 17:59 03/09/17 07:48 1 CAN Miscellaneous Information (Check Patch Placement) 1 ea QS N/A 03/06/17 16:00 04/05/17 15:59 03/10/17 16:13 1 EA Aspirin (Ecotrin Tab) 81 mg QAM PO 03/07/17 09:00 04/06/17 08:59 03/10/17 08:31 81 MG Oxycodone/ Acetaminophen pain not relieved by tylenol Q4H PRN PO 03/09/17 00:15 03/23/17 00:14 03/09/17 15:59 1 TAB Heparin Sodium/ Dextrose (Heparin 25,000 Unit/500ml D5W) 500 ml @ 25 mls/hr Q20H PRN IV 03/09/17 12:30 04/08/17 12:29 03/10/17 07:05 25 MLS/HR Isosorbide Mononitrate (Imdur Ext Rel Tab) 30 mg QAM PO 03/10/17 09:00 04/09/17 08:59 03/10/17 08:31 30 MG Metoprolol Tartrate (Lopressor Tab) 25 mg BID PO 03/10/17 09:00 04/09/17 08:59 03/10/17 09:00 25 MG
[2017-03-10 19:37] VITALS: BP 137/71; PULSE 53; TEMP 36.8; O2SAT 94
[2017-03-10] MEDS: CEPHALEXIN MONOHYDRATE 250 MG CAP PO SCH (20:58)
[2017-03-10 23:17] VITALS: BP 123/65; PULSE 63; TEMP 36.8; O2SAT 95
[2017-03-10] MEDS: ACETAMINOPHEN 325 MG TAB PO PRN (23:36)
[2017-03-11] MEDS: [UNRECOGNIZED DRUG - REMARK] SCH ×3 (00:28→15:47)
[2017-03-11 03:26] VITALS: BP 135/62; PULSE 64; TEMP 36.6; O2SAT 95
[2017-03-11] MEDS: HEPARIN 25,000 UNIT/500ML D5W 500 ML IV PRN (04:58)
[2017-03-11 05:41] LABS: HEMATOCRIT 34.6 % (42-52); MEAN CELL VOLUME 96.4 fL (80-100); MEAN CORPUSCULAR HEMOGLOBIN 30.6 pg (25-34); MEAN CORPUSCULAR HGB CONC 31.8 g/dl (32-36); MEAN PLATELET VOLUME 9.3 fL (7.4-10.4); PLATELET COUNT 168 K/uL (130-400); RED BLOOD COUNT 3.59 M/uL (4.7-6.1); WHITE BLOOD COUNT 6.69 K/uL (4.8-10.8)
[2017-03-11 06:10] LABS: PARTIAL THROMBOPLASTIN RATIO 3.1
[2017-03-11 06:14] LABS: BUN/CREATININE RATIO 14.8 (10-20); CALCIUM 8.5 mg/dl (8.5-10.1); CREATININE 1.5 mg/dl (0.60-1.40); POTASSIUM 4.1 mmol/L (3.5-5.1)
[2017-03-11 07:42] VITALS: BP 150/80; PULSE 60; TEMP 36.6; O2SAT 94
[2017-03-11 08:00] LABS: INR 1.1 (0.9-1.1); PROTHROMBIN TIME (PATIENT) 11.5 SECONDS (9.0-12.0)
[2017-03-11] MEDS: RANITIDINE HCL 150 MG TAB PO SCH (08:45)
[2017-03-11] MEDS: SIMVASTATIN 20 MG TAB PO SCH (08:45)
[2017-03-11] MEDS: METOPROLOL TARTRATE 25 MG TAB PO SCH (08:45)
[2017-03-11] MEDS: AMLODIPINE BESYLATE 5 MG TAB PO SCH (08:45)
[2017-03-11] MEDS: BOOST VANILLA PO SCH ×6 (08:45→16:34)
[2017-03-11] MEDS: ISOSORBIDE MONONITRATE 30 MG TABCR PO SCH (08:45)
[2017-03-11] MEDS: ASPIRIN 81 MG ECTAB PO SCH (08:46)
[2017-03-11] MEDS: GABAPENTIN 600 MG TAB PO SCH ×2 (08:46→13:57)
[2017-03-11] MEDS: PANTOprazole SOD 40 MG TAB PO SCH (08:46)
[2017-03-11 11:56] VITALS: BP 109/60; PULSE 53; TEMP 36.6; O2SAT 94
--- NOTE | 2017-03-11 11:59 | Cardiology Follow-Up ---
Subjective General Date of Service: March 11, 2017. Chief Complaint: follow up chest pain, NSTEMI Pt evaluation today including: conversation w/ patient, physical exam, chart review, lab review, review of studies, conversation w/ change consultant, review of inpatient medication list History of Present Illness The patient is a 86 year old male seen in follow-up. Feeling well from a cardiovascular perspective today. Ambulate in the halls without chest discomfort or unusual shortness of breath. No recurrent paroxysmal supraventricular tachycardia overnight. Heart rate has reduced with titration of metoprolol. Currently averaging 45-55 bpm. Denies lightheadedness or dizziness. Offers no complaints at this time. Allergies Coded Allergies: Morphine (Verified Allergy, Intermediate, itching, dizzy, 03/06/17) pt primary md has taken pt off morphine due to itching and dizzy Sulfa Antibiotics (Verified Allergy, Intermediate, HIVES/RASH, 03/06/17) Fentanyl (Verified Allergy, Unknown, ITCHING, DIZZINESS, BOWEL BLADDER PROBLEMS, HEADACHE, 03/06/17) Social History Smoking Status: Former Smoker Hx Tobacco Use In Past Year?: Yes (chews snuff) Hx Alcohol Use - Type And Amou: No Hx Substance Use - Type And Am: No Problem List Medical Problems: (1) Dehydration Status: Acute (2) EKG abnormality Status: Acute (3) Elevated troponin Status: Acute (4) Pneumonia Status: Acute (5) Precordial chest pain Status: Acute (6) Weakness Status: Acute Review of Systems Respiratory: No cough, No hemoptysis, No shortness of breath, No sputum, No wheezing Cardiac: No PND, No chest pain, No claudication, No edema, No orthopnea, No palpitations Physical Exam Vital Signs Last Vital Signs Documentation Date Time Temp Pulse Resp B/P Pulse Ox O2 Delivery O2 Flow Rate FiO2 03/11/17 08:00 Room Air 03/11/17 07:42 36.6 60 18 150/80 94 Physical Exam Constitutional: Level of Distress: NAD Head: normocephalic Neck: supple Lungs: Auscultation: no wheezing, no rales/crackles, no rhonchi Cardiovascular: Heart Auscultation: RRR, II/ ELIAZAR Peripheral Pulses: Radial Pulse: normal on the left, normal on the right Femoral Pulse: normal on the left, normal on the right Extremities: no cyanosis, no edema Neurologic: Gait & Station: pertinent finding (no focal neurologic deficits.) Cranial Nerves: grossly intact Assessment and Plan Assessment and Plan FINAL IMPRESSION: 1. Btc-XG-[id number] elevation myocardial infarction. 2. Mild to moderate aortic stenosis. 3. Paroxysmal supraventricular tachycardia - No recurrence overnight. - Bradycardia noted with titration of metoprolol to 25 mg twice a day 4. Chronic left bundle-branch block with preserved systolic function. 5. 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 - No recurrent atrial fibrillation recorded 6. History of deep vein thrombosis, pulmonary embolism. 7. History of gastrointestinal bleeding due to esophageal ulcer 08/2015. 8. Chronic kidney disease stage III -- stable. PLAN AND RECOMMENDATIONS: Discontinue metoprolol tartrate in favor of Toprol-XL 25 mg daily. Continue imdur 30mg daily. Restart coumadin today. Discontinue intravenous heparin. Ambulate with assistance. I will arrange for outpatient cardiology follow-up in 1-2 weeks at the [facility]'s office. Patient may wish to transfer cardiovascular care to [facility] due to transportation issues, however, prefers to follow with us at [facility] at this time. Laboratory Results Last 24 Hours Test 03/10/17 13:10 03/11/17 05:03 Activated Partial Thromboplast Time 57.8 SECONDS 81.4 SECONDS Partial Thromboplastin Ratio 2.2 3.1 White Blood Count 6.69 K/uL Red Blood Count 3.59 M/uL Hemoglobin 11.0 g/dL Hematocrit 34.6 % Mean Corpuscular Volume 96.4 fL Mean Corpuscular Hemoglobin 30.6 pg Mean Corpuscular Hemoglobin Concent 31.8 g/dl RDW Standard Deviation 49.3 fL RDW Coefficient of Variation 14.0 % Platelet Count 168 K/uL Mean Platelet Volume 9.3 fL Prothrombin Time 11.5 SECONDS Prothromb Time International Ratio 1.1 Sodium Level 143 mmol/L Potassium Level 4.1 mmol/L Chloride Level 106 mmol/L Carbon Dioxide Level 32 mmol/L Anion Gap 5.0 mmol/L Blood Urea Nitrogen 22 mg/dl Creatinine 1.50 mg/dl Est Creatinine Clear Calc Drug Dose 31.8 ml/min Estimated GFR () 47.5 Estimated GFR (Non- 41.0 BUN/Creatinine Ratio 14.8 Random Glucose 91 mg/dl Calcium Level 8.5 mg/dl
[2017-03-11 13:26] LABS: PARTIAL THROMBOPLASTIN RATIO 2.3
--- NOTE | 2017-03-11 14:39 | Progress Note ---
Medicine Progress Note Date & Time of Visit: March 11, 2017 at 14:39 . Subjective Doing well. Ambulating. No chest pain or SOB. . Objective Last 8 Hrs Date Time Temp Pulse Resp B/P Pulse Ox O2 Delivery O2 Flow Rate FiO2 03/11/17 12:00 Room Air 03/11/17 11:56 36.6 53 18 109/60 94 Room Air 03/11/17 08:00 Room Air 03/11/17 07:42 36.6 60 18 150/80 94 Room Air Physical Exam: General- no distress Neck- + JVD Lungs- clear to auscultation Heart- RRR, III/ systolic murmur at base Abdomen- + BS, soft, nontender Extremities- 1+ pretibial edema; no calf tenderness Neuro- alert, oriented . Laboratory Results: Last 24 Hours Test 03/11/17 05:03 03/11/17 12:50 White Blood Count 6.69 K/uL Red Blood Count 3.59 M/uL Hemoglobin 11.0 g/dL Hematocrit 34.6 % Mean Corpuscular Volume 96.4 fL Mean Corpuscular Hemoglobin 30.6 pg Mean Corpuscular Hemoglobin Concent 31.8 g/dl RDW Standard Deviation 49.3 fL RDW Coefficient of Variation 14.0 % Platelet Count 168 K/uL Mean Platelet Volume 9.3 fL Prothrombin Time 11.5 SECONDS Prothromb Time International Ratio 1.1 Activated Partial Thromboplast Time 81.4 SECONDS 59.9 SECONDS Partial Thromboplastin Ratio 3.1 2.3 Sodium Level 143 mmol/L Potassium Level 4.1 mmol/L Chloride Level 106 mmol/L Carbon Dioxide Level 32 mmol/L Anion Gap 5.0 mmol/L Blood Urea Nitrogen 22 mg/dl Creatinine 1.50 mg/dl Est Creatinine Clear Calc Drug Dose 31.8 ml/min Estimated GFR () 47.5 Estimated GFR (Non- 41.0 BUN/Creatinine Ratio 14.8 Random Glucose 91 mg/dl Calcium Level 8.5 mg/dl Assessment & Plan NON ST-ELEVATION LA Presented with chest pain. Admission EKG showed NSR, LBBB. Peak troponin 2.140. Cardiology consulted. Echo showed mild concentric LVH, no regional wall motion abnormalities except septal motion consistent with LBBB, overall LVEF 55-60%. LDL-C = 46. NTP stopped due to headache. Received aspirin, metoprolol, warfarin, simvastatin. Ambulating without anginal symptoms. No further cardiac evaluation recommended at this time. MODERATE AORTIC STENOSIS Exam revealed III/ systolic murmur at base. Echo showed aortic calcification with mild-moderate aortic stenosis (aortic valve area 1.4 cm2). Follow. HISTORY AF / TACHY-ALICIA SYNDROME Usually in NSR / SB. Metoprolol initiated for non-STEMI. Bradycardic at times. Digoxin discontinued. Short run of asymptomatic SVT or PAT. Warfarin was held due to possible cath; started on IV heparin. discharge on metoprolol and usual dose of warfarin. COPD Stable. CKD III Serum creatinine at time of admission 1.6. Follow. HEADACHE Head CT negative. Probably secondary to nitrates. Resolved. VTE PROPHYLAXIS / HISTORY OF DVT On warfarin with therapeutic INR at time of admission. Warfarin held for possible cath. Received IV heparin when INR subtherapeutic. DISPOSITION Discharge to home. Medical follow-up with Dr. Childress. Follow-up with [facility]. . Current Inpatient Medications: Current Inpatient Medications Medications (Trade) Dose Ordered Sig/Bailey Route Start Time Stop Time Status Last Admin Dose Admin Acetaminophen (Tylenol Tab) 650 mg Q4H PRN PO 03/06/17 14:15 04/05/17 14:14 03/10/17 23:36 650 MG Ondansetron HCl (Zofran Inj) 4 mg Q6H PRN IV 03/06/17 14:15 04/05/17 14:14 Ranitidine HCl (zANTac TAB) 150 mg BID PO 03/06/17 21:00 04/05/17 20:59 03/11/17 08:45 150 MG Miscellaneous (Iv Fluids Completed) 1 ea PRN PRN N/A 03/06/17 14:30 03/06/18 14:29 Amlodipine Besylate (Norvasc Tab) 5 mg QAM PO 03/07/17 09:00 04/06/17 08:59 03/11/17 08:45 5 MG Cephalexin Monohydrate (Keflex Cap) 250 mg HS PO 03/06/17 21:00 04/05/17 20:59 03/10/17 20:58 250 MG Gabapentin (Neurontin Tab) 600 mg TID PO 03/06/17 21:00 04/05/17 20:59 03/11/17 13:57 600 MG Simvastatin (Zocor Tab) 20 mg QAM PO 03/07/17 09:00 04/06/17 08:59 03/11/17 08:45 20 MG Polyethylene (Miralax Powder Packet) 17 gm DAILY PRN PO 03/06/17 14:45 04/05/17 14:44 Buprenorphine HCl (Butrans Patch) 15 mcg Q7D TD 03/06/17 18:00 04/05/17 17:59 03/06/17 17:55 15 MCG Pantoprazole Sodium (Protonix Tab) 40 mg BID PO 03/06/17 21:00 04/05/17 20:59 03/11/17 08:46 40 MG Miscellaneous (Remove Patch) 1 ea Q7D N/A 03/06/17 17:59 04/05/17 17:58 03/06/17 18:16 1 EA Enteral Nutritional Formula (Boost) 1 can TIDM PO 03/06/17 16:45 04/05/17 17:59 03/11/17 08:45 1 CAN Miscellaneous Information (Check Patch Placement) 1 ea QS N/A 03/06/17 16:00 04/05/17 15:59 03/11/17 08:00 1 EA Aspirin (Ecotrin Tab) 81 mg QAM PO 03/07/17 09:00 04/06/17 08:59 03/11/17 08:46 81 MG Oxycodone/ Acetaminophen pain not relieved by tylenol Q4H PRN PO 03/09/17 00:15 03/23/17 00:14 03/09/17 15:59 1 TAB Heparin Sodium/ Dextrose (Heparin 25,000 Unit/500ml D5W) 500 ml @ 22 mls/hr [id number] PRN IV 03/09/17 12:30 04/08/17 12:29 03/11/17 04:58 25 MLS/HR Isosorbide Mononitrate (Imdur Ext Rel Tab) 30 mg QAM PO 03/10/17 09:00 04/09/17 08:59 03/11/17 08:45 30 MG Metoprolol Tartrate (Lopressor Tab) 25 mg BID PO 03/10/17 09:00 04/09/17 08:59 03/11/17 08:45 25 MG
[2017-03-11] MEDS ORDERED: NRN600 PO (14:40)
[2017-03-11] MEDS ORDERED: ASPI-428 PO (14:43)
[2017-03-11] MEDS ORDERED: METO-478 PO (14:43)
--- NOTE | 2017-03-11 14:50 | Discharge Instructions ---
Discharge Instructions Date of Service March 11, 2017. Admission Reason for Admission: Chest Pain Discharge Discharge Diagnosis / Problem: myocardial infarction (small heart attack) Discharge Goals Goal(s): Decrease discomfort, Improve disease control Activity Recommendations Activity Limitations: as noted below Lifting Limitations: no more than 10 pounds Exercise/Sports Limitations: gradually increase as tolerated Shower/Bathe: no limitations . Instructions / Follow-Up Instructions / Follow-Up APPOINTMENTS: FAMILY MEDICINE 03/14/2017 1:30 PM Enoc Santos PA-C (covering for Dr. Childress) [facility] CARDIOLOG[facility] in [place]. Office will contact you with appointment. INSTRUCTIONS: Home Care: * Take your medications exactly as directed. Don't skip doses. * Remember that recovery after a heart attack takes time. Plan to rest for at lease 4-8 weeks while you recover. Then return to normal activity when your doctor says it's okay. * Ask your doctor about joining a heart rehabilitation program. * Tell your doctor if you are feeling depressed. Feelings of sadness are common after a heart attack, but it is important that you speak to someone if you are feeling overwhelmed by these feelings. * If you are having chest pain, call 911 for an ambulance. Do NOT drive yourself to the hospital. * Ask your family members to learn CPR. * Learn to take your own blood pressure and pulse. Keep a record of your results. Ask your doctor when you should seek emergency medical attention. He or she will tell you which blood pressure reading is dangerous. Lifestyle Changes: * Maintain a healthy weight. Get help to lose any extra pounds. * Cut back on salt. * Limit canned, dried, packaged, and fast foods. * Don't add salt to your food. * Season foods with herbs instead of salt when you cook. * Break the smoking habit. Enroll in a stop-smoking program to improve your chances of success. * Limit fatty foods. * Check your lipid levels regularly. (Your doctor can show you how to do this.) * Build up your activity according to your doctor's recommendation. * Ask your doctor when it's okay to resume sexual activity. * Tell your doctor about any erectile dysfunction (ED) medication you are taking. Some ED medications are not safe if you take certain heart medications. * Try to manage stress. MEDICATION CHANGES: Take metoprolol succinate (Toprol XL) 25 mg daily for heart disease. Take aspirin (Ecotrin) 81 mg daily to prevent more heart attacks in the future. Take nitroglycerin 0.4 mg under tongue as needed for chest pain. May repeat dose in 5-10 minutes if necessary. Call 911 if no relief. STOP taking digoxin (Lanoxin) Seek medical attention if you have: * temperature above 101 * chest pain or trouble breathing * abdominal pain, nausea, vomiting * diarrhea, dark stools or bloody stools * any unanswered questions or concerns Call 911 if symptoms are severe. Call if you have any questions or problems. My cell # is [phone]. You can also reach a [facility] hospitalist on duty at [facility] 24 hours a day by calling [phone]. Please take good care of yourself. Vinicius Leggett . Current Hospital Diet Patient's current hospital diet: AHA Diet (Heart Healthy) Discharge Diet Recommended Diet: AHA Diet (Heart Healthy) Pending Studies Studies pending at discharge: no Laboratory Results Lipid Panel Test 03/07/17 05:10 Range/Units Triglycerides Level 162 H 0-150 mg/dl Cholesterol Level 106 0-200 mg/dl HDL Cholesterol 28 mg/dl Cholesterol/HDL Ratio 3.8 LDL Cholesterol, Calculated 46 mg/dl Medical Emergencies . Who to Call and When: Medical Emergencies: If at any time you feel your situation is an emergency, please call 911 immediately. Call 911 immediately or go to your nearest Emergency Room if you experience any of the following: Warning Signs and Symptoms of a Heart Attack * Chest pain that is not relieved by medication * Shortness of breath . Non-Emergent Contact Non-Emergency issues call your: Primary Care Provider, [facility] . . "Provider Documentation" section prepared by Vinicius Leggett. . AMI Core Measures Reason no ASA as I/P: Treatment provided - N/A Reason no ASA at D/C: Treatment provided - N/A Reason no statin as I/P: Treatment provided - N/A Reason no statin at D/C: Treatment provided - N/A VTE Core Measure Inpt VTE Proph given/why not?: Warfarin (Coumadin), Other Anticoagulation (IV heparin)
[2017-03-11] MEDS ORDERED: NTRGSL/4 UT (14:51)
[2017-03-11 15:22] VITALS: BP 148/75; PULSE 54; TEMP 36.5; O2SAT 95
[2017-03-11 16:00] VITALS: O2SAT 95
--- NOTE | 2017-03-11 21:32 | Discharge Summary ---
Discharge Summary Date of Service March 11, 2017. Discharge Summary Admission Date: March 07, 2017 at 06:49 Discharge Date: March 11, 2017 Discharge Disposition: Home Principal Diagnosis: non ST-elevation myocardial infarction aortic stenosis, moderate . Secondary Diagnoses/Problems: Chronic Medical Problems: (1) Atrial fibrillation, paroxysmal Status: Chronic (2) BPH (benign prostatic hyperplasia) Status: Chronic (3) Chronic back pain Status: Chronic (4) CKD (chronic kidney disease), stage III Status: Chronic (5) COPD (chronic obstructive pulmonary disease) Permanent Comment: mild Status: Chronic (6) H/O tachycardia-bradycardia syndrome Status: Chronic (7) History of DVT (deep vein thrombosis) Status: Chronic (8) History of GI bleed Permanent Comment: due to esophageal ulcer Status: Chronic (9) History of orthostatic hypotension Status: Chronic (10) History of pulmonary embolism Status: Chronic (11) Hyperlipidemia Status: Chronic Surgical Problems: (1) H/O carpal tunnel repair Status: Chronic (2) H/O colonoscopy Permanent Comment: 04/2003- diverticulosis 11/25/2007- adenomatous Status: Chronic (3) H/O esophagogastroduodenoscopy Permanent Comment: - esophageal ulcer with large clots; 08/11/15-esophgeal ulcer, esophagitis; 09/12/2015 EGD with EUS- reflux on bx, HH, pancreatic intraductal papillary mucinous neoplasm, CBD dilation; Dr. Stone Status: Chronic (4) knee replacement Status: Chronic (5) Previous back surgery Status: Chronic . Procedures: cardiac monitoring echo IV meds CT head . Consultations: Cardiology with Birgit Daugherty and Alycia . Medication Reconciliation New Medications: Aspirin (Ecotrin Low Strength) 81 Mg Tab 81 MG PO DAILY, #30 TAB 12 Refills Metoprolol Succinate (Toprol Xl) 25 Mg Tab 25 MG PO DAILY, #30 TAB 5 Refills Nitroglycerin (Nitrostat) 0.4 Mg Tab 0.4 MG UT PRN, #25 BTL 1 Refill Take 1 pill under tongue as needed for chest pain. May repeat dose in 5-10 min. Call 911 if no relief. Continued Medications: Amlodipine Besylate (Norvasc) 5 Mg Tab 5 MG PO QAM, TAB Buprenorphine (Butrans) 15 Mcg/Hr Dis 15 MCG TOP WK Cephalexin Monohydrate (Keflex) 250 Mg Cap 250 MG PO HS, CAP Gabapentin (Gabapentin) 600 Mg Tab 600 MG PO TID, TAB Oxycodone/Acetaminophen 10MG/325MG (Percocet 10MG/325MG) Tab 1 TAB PO Q6H PRN for Pain for 5 Days, #20 TAB hold for lethargy and drowsiness Pantoprazole (Protonix) 20 Mg Tab 40 MG PO BID for 30 Days, 2 Refills Polyethylene Glycol 3350 (Miralax) 1 Pow Pow 1 TBS PO DAILY PRN for Constipation, #527 GM Simvastatin (Simvastatin) 20 Mg Tab 20 MG PO QAM Tamsulosin HCl (Tamsulosin HCl) 0.4 Mg Cap 0.4 MG PO HS Warfarin Sod (Coumadin) 4 Mg Tab 2 MG PO UD Take 2 mg by mouth in the evening on Saturday, Saturday, Saturday. Warfarin Sod (Coumadin) 4 Mg Tab 4 MG PO UD Take 4 mg by mouth in the evening on Saturday, Saturday, , Saturday. Discontinued Medications: Digoxin (Digoxin) 0.125 Mg Tab 0.125 MG PO HS Admission Information HPI (per Admitting provider): This is an 86 year old male with PMH of atrial fibrillation on Coumadin, history of DVT and PE, h/o tachy nunu syndrome, hypertension, dyslipidemia, CKD stage III, GERD, history of upper GI bleed due to esophageal ulcer, mild COPD, chronic back pain, hx of frequent UTI on chronic antibiotics, and other problems listed below who presents to the ED with chest pain. Patient reports feeling fatigued/ generally weak for past few days. Two nights ago he had indigestion with acid taste in the throat overnight after eating a late dinner. He does experience occasional indigestion while on Protonix BID. Then this morning at 9:30 am while showering patient developed left sided chest discomfort described as "pain" with radiation to left arm. The pain was worse when he tried lying down. The chest discomfort is improving but still having pain in the left arm. He has not had similar pain in the past. In early February 2017 patient was seen by PCP for bileral LE edema and was treated for LE cellulitis with Keflex and torsemide which was stopped in late February when edema and cellulitis were resolved. Patient chronically sleeps at a 30 degree angle due to back pain. Patient denies fever, chills, diaphoresis, weight change, URI symptoms, difficulty swallowing, cough, dizziness, SOB, GALINDO, syncope, palpitations, abdominal pain, N/V/D/C, hematochezia, melena, epistaxis, gum bleeding, calf pain, anxiety. No recent injury, immobilization, or surgery. No hx of CAD. No pacemaker. Last echo in 08/2015 showed mild concentric LVH, EF 60- 65%, grade I diastolic dysfunction, mild AV sclerosis, moderate mitral annular calcification. Last stress test was negative several years ago per patient. 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 . Physical Exam (per Admitting): General Appearance: WD/WN, no apparent distress, + pertinent finding (alert elderly male, lying in bed, not in distresss, daughter and son-in-law at bedside ) Head: normocephalic, atraumatic Eyes: normal inspection, PERRL, EOMI ENT: pharynx normal, + pertinent finding (hard of hearing) Neck: supple, no JVD, trachea midline Respiratory/Chest: chest non-tender, lungs clear, normal breath sounds, no respiratory distress, no accessory muscle use Cardiovascular: regular rate, rhythm, normal peripheral pulses, + systolic murmur (grade III throughout precordium) Abdomen/GI: normal bowel sounds, non tender, soft Extremities/Musculoskelatal: no calf tenderness, + pertinent finding (trace ankle edema bilaterally. no pain on ROM of left upper extremity joints. diffuse muscle tenderness left forearm but joints of LUE nontender) Neurologic/Psych: alert, normal mood/affect, oriented x 3, + pertinent finding (no focal deficit on gross examination) Skin: normal color, warm/dry, no rash (no rash on the chest) Hospital Course NON ST-ELEVATION CA Presented with chest pain. Admission EKG showed NSR, LBBB. Peak troponin 2.140. Received aspirin, metoprolol, simvastatin; already anticoagulated on warfarin. Cardiology consulted. Echo showed mild concentric LVH, no regional wall motion abnormalities except septal motion consistent with LBBB, overall LVEF 55-60%. LDL-C = 46. NTP stopped due to headache. Ambulating without anginal symptoms. No further cardiac evaluation recommended at this time. Discharge on aspirin 81 mg daily, metoprolol succinate 25 mg daily, simvastatin. MODERATE AORTIC STENOSIS Exam revealed III/ systolic murmur at base. Echo showed aortic calcification with mild-moderate aortic stenosis (aortic valve area 1.4 cm2). Follow. HISTORY AF / TACHY-NUNU SYNDROME Usually in NSR / SB. Metoprolol initiated for non-STEMI. Bradycardic at times. Digoxin discontinued. Short run of asymptomatic SVT or PAT. Warfarin was held due to possible cath; started on IV heparin. discharge on metoprolol and usual dose of warfarin. COPD Stable. CKD III Serum creatinine at time of admission 1.6. Follow. HEADACHE Head CT negative. Probably secondary to nitrates. Resolved. VTE PROPHYLAXIS / HISTORY OF DVT On warfarin with therapeutic INR at time of admission. Warfarin held for possible cath. Received IV heparin when INR subtherapeutic. DISPOSITION Discharge to home. Medical follow-up with Dr. Childress. Follow-up with [facility] Cardiology. . Total time spent on discharge = 40 min. This includes examination of the patient, discharge planning, medication reconciliation, and communication with other providers. . Discharge Instructions Date of Service March 11, 2017. Admission Reason for Admission: Chest Pain Discharge Discharge Diagnosis / Problem: myocardial infarction (small heart attack) Discharge Goals Goal(s): Decrease discomfort, Improve disease control Activity Recommendations Activity Limitations: as noted below Lifting Limitations: no more than 10 pounds Exercise/Sports Limitations: gradually increase as tolerated Shower/Bathe: no limitations . Instructions / Follow-Up Instructions / Follow-Up APPOINTMENTS: FAMILY MEDICINE 03/14/2017 1:30 PM Enoc Santos PA-C (covering for Dr. Childress) [facility] CARDIOLOGY [facility] [address] in [place]. Office will contact you with appointment. INSTRUCTIONS: Home Care: * Take your medications exactly as directed. Don't skip doses. * Remember that recovery after a heart attack takes time. Plan to rest for at lease 4-8 weeks while you recover. Then return to normal activity when your doctor says it's okay. * Ask your doctor about joining a heart rehabilitation program. * Tell your doctor if you are feeling depressed. Feelings of sadness are common after a heart attack, but it is important that you speak to someone if you are feeling overwhelmed by these feelings. * If you are having chest pain, call 911 for an ambulance. Do NOT drive yourself to the hospital. * Ask your family members to learn CPR. * Learn to take your own blood pressure and pulse. Keep a record of your results. Ask your doctor when you should seek emergency medical attention. He or she will tell you which blood pressure reading is dangerous. Lifestyle Changes: * Maintain a healthy weight. Get help to lose any extra pounds. * Cut back on salt. * Limit canned, dried, packaged, and fast foods. * Don't add salt to your food. * Season foods with herbs instead of salt when you cook. * Break the smoking habit. Enroll in a stop-smoking program to improve your chances of success. * Limit fatty foods. * Check your lipid levels regularly. (Your doctor can show you how to do this.) * Build up your activity according to your doctor's recommendation. * Ask your doctor when it's okay to resume sexual activity. * Tell your doctor about any erectile dysfunction (ED) medication you are taking. Some ED medications are not safe if you take certain heart medications. * Try to manage stress. MEDICATION CHANGES: Take metoprolol succinate (Toprol XL) 25 mg daily for heart disease. Take aspirin (Ecotrin) 81 mg daily to prevent more heart attacks in the future. Take nitroglycerin 0.4 mg under tongue as needed for chest pain. May repeat dose in 5-10 minutes if necessary. Call 911 if no relief. STOP taking digoxin (Lanoxin) Seek medical attention if you have: * temperature above 101 * chest pain or trouble breathing * abdominal pain, nausea, vomiting * diarrhea, dark stools or bloody stools * any unanswered questions or concerns Call 911 if symptoms are severe. Call if you have any questions or problems. My cell # is [phone]. You can also reach a [facility] hospitalist on duty at [facility] 24 hours a day by calling [phone]. Please take good care of yourself. Vinicius Leggett . Current Hospital Diet Patient's current hospital diet: AHA Diet (Heart Healthy) Discharge Diet Recommended Diet: AHA Diet (Heart Healthy) Pending Studies Studies pending at discharge: no Laboratory Results Lipid Panel Test 03/07/17 05:10 Range/Units Triglycerides Level 162 H 0-150 mg/dl Cholesterol Level 106 0-200 mg/dl HDL Cholesterol 28 mg/dl Cholesterol/HDL Ratio 3.8 LDL Cholesterol, Calculated 46 mg/dl Medical Emergencies . Who to Call and When: Medical Emergencies: If at any time you feel your situation is an emergency, please call 911 immediately. Call 911 immediately or go to your nearest Emergency Room if you experience any of the following: Warning Signs and Symptoms of a Heart Attack * Chest pain that is not relieved by medication * Shortness of breath . Non-Emergent Contact Non-Emergency issues call your: Primary Care Provider, [employer] Specialist . . "Provider Documentation" section prepared by Vinicius Leggett. . AMI Core Measures Reason no ASA as I/P: Treatment provided - N/A Reason no ASA at D/C: Treatment provided - N/A Reason no statin as I/P: Treatment provided - N/A Reason no statin at D/C: Treatment provided - N/A VTE Core Measure Inpt VTE Proph given/why not?: Warfarin (Coumadin), Other Anticoagulation (IV heparin) . Additional Copies To Alban Daugherty D.O.; Tad Childress M.D.
[2017-05-05] MEDS ORDERED: CIPR250T5 PO (11:53)
== END 2017-03-11 16:35 | disposition home or self-care (01) | DRG 281 ==
LOC: ENRESERVTM → ENRESERVDT → C.EDB 10:58 → C.2T 14:04 → OBSVTOIN 03-07 06:49
PROVIDERS: ADMIT Family Medicine; ATTEND Hospitalist
DX: I21.4 Non-ST elevation (NSTEMI) myocardial infarction (principal); I47.1 Supraventricular tachycardia; I35.0 Nonrheumatic aortic (valve) stenosis; I48.91 Unspecified atrial fibrillation; N40.0 Benign prostatic hyperplasia without lower urinary tract symptoms; N18.3 Chronic kidney disease, stage 3 (moderate); E87.5 Hyperkalemia; E86.0 Dehydration; J44.9 Chronic obstructive pulmonary disease, unspecified; I49.5 Sick sinus syndrome; K25.9 Gastric ulcer, unspecified as acute or chronic, without hemorrhage or perforation; I48.0 Paroxysmal atrial fibrillation; I44.7 Left bundle-branch block, unspecified; Z86.718 Personal history of other venous thrombosis and embolism; Z96.659 Presence of unspecified artificial knee joint; Z87.891 Personal history of nicotine dependence; K21.9 Gastro-esophageal reflux disease without esophagitis; Z86.711 Personal history of pulmonary embolism

== ENCOUNTER 2017-05-02 21:12 | Inpatient (IN) | payer OTHER ==
[~2017-05-02] VITALS: Ht 170.2 cm; Wt 69.3 kg
[~2017-05-02 21:12] MED LIST changes: +ASPI-428 PO; +BUPR1DIS TOP; -CMD25 PO; +CMD4 PO; -CYAN10004 PO; -DIGO0.1219 PO; +KFL/250 PO; +METO1TAB31 PO; +NTRGSL/4 UT
[2017-05-02] MEDS ORDERED: PHEN-876 PO (21:33)
[2017-05-02] MEDS ORDERED: TAMS0.4C38 PO (21:34)
[2017-05-02] MEDS ORDERED: ASCO1CAP3 PO (21:42)
[2017-05-02] MEDS ORDERED: METH-467 PO (21:46)
[2017-05-02 22:20] LABS: URINE APPEARANCE CLOUDY (CLEAR); URINE BILIRUBIN NEG (NEG); URINE COLOR DK YELLOW; URINE NITRITE POS (NEG); URINE PH 7.5 (4.5-7.5); UROBILINOGEN NEG (NEG); ZZUR CULT IF INDIC CLEAN CATCH YES
[2017-05-02 22:23] LABS: MANUAL MICROSCOPIC REQUIRED? NO; REVIEW REQ? NO
[2017-05-02 22:29] LABS: SULFASALICYLIC ACID POS (NEG)
[2017-05-02 23:29] LABS: BASO % 0.2 %; BASO ABS # 0.02 K/uL (0-0.2); COMPLETE YES; EOS % 0.3 %; HEMATOCRIT 33.4 % (42-52); IG% 0.3 %; LYMPH % 15.8 %; LYMPH ABS # 1.81 K/uL (1.2-3.4); MEAN CELL VOLUME 97.1 fL (80-100); MEAN CORPUSCULAR HEMOGLOBIN 31.1 pg (25-34); MEAN PLATELET VOLUME 8.8 fL (7.4-10.4); MONO % 12.8 %; NEUT % 70.6 %; PLATELET COUNT 127 K/uL (130-400); RED BLOOD COUNT 3.44 M/uL (4.7-6.1); WHITE BLOOD COUNT 11.42 K/uL (4.8-10.8)
[2017-05-02] MEDS ORDERED: ACETAMINOPHEN 500 MG TAB PO STA (23:34)
[2017-05-02] MEDS ORDERED: CIPROFLOXACIN 400MG / 200ML D5W IV STA (23:35)
[2017-05-02] MEDS ORDERED: VANCOMYCIN INJ 2,000 MG in SODIUM CHLORIDE 0.9% 500ML 500 ML IV STA (23:35)
[2017-05-02 23:38] LABS: INR 1.5 (0.9-1.1); PARTIAL THROMBOPLASTIN RATIO 1.4; PROTHROMBIN TIME (PATIENT) 16.6 SECONDS (9.0-12.0)
[2017-05-02] MEDS ORDERED: SODIUM CHLORIDE 0.9% 1000ML 1,000 ML IV STA (23:38)
[2017-05-02] MEDS ORDERED: SODIUM CHLORIDE 0.9% 500ML 500 ML IV STA (23:38)
[2017-05-02 23:48] LABS: ALT/SGPT 14 U/L (12-78); BLOOD UREA NITROGEN 20 mg/dl (7-18); BUN/CREATININE RATIO 11.9 (10-20); CALCIUM 8.6 mg/dl (8.5-10.1); CARBON DIOXIDE 29 mmol/L (21-32); CHLORIDE 102 mmol/L (98-107); GLUCOSE 105 mg/dl (70-99); MAGNESIUM 2.2 mg/dl (1.8-2.4); POTASSIUM 4.1 mmol/L (3.5-5.1); SODIUM 137 mmol/L (136-145)
[2017-05-02 23:57] LABS: ALKALINE PHOSPHATASE 46 U/L (45-117); AST/SGOT 17 U/L (15-37); CKMB/CK RATIO 1.6 (0-3.0); THYROID STIMULATING HORMONE 0.573 uIu/ml (0.300-4.500)
[2017-05-03 01:25] LABS: BENZODIAZEPINE, URINE NEG (NEG); COCAINE,URINE NEG (NEG); PHENCYCLIDINE, URINE NEG (NEG)
[2017-05-03] MEDS ORDERED: ONDANSETRON INJ 2 MG/ML 2 ML VIAL IV PRN (02:00)
[2017-05-03] MEDS ORDERED: SODIUM CHLORIDE 0.9% 1000ML 1,000 ML IV ONE (02:00)
[2017-05-03] MEDS ORDERED: POLYETHYLENE (MIRALAX) 17 GM PACK PO PRN (02:00)
[2017-05-03] MEDS ORDERED: ACETAMINOPHEN 325 MG TAB PO PRN (02:00)
[2017-05-03] MEDS ORDERED: WARFARIN SOD 5 MG TAB PO ONE (02:00)
[2017-05-03] MEDS ORDERED: PHENAZOPYRIDINE HCL 100 MG TAB PO PRN (02:00)
--- NOTE | 2017-05-03 02:38 | EMERGENCY ROOM VISIT NOTE ---
History Report prepared by Ulysses: Wayne Varner Under the Supervision of: Dr. Vinicius Sosa M.D. First contact with patient: 22:08 Chief Complaint: WEAKNESS Stated Complaint: SHAKEY, WEAK, CONFUSED Nursing Triage Summary: Pt's family reports that today the pt became weak, confused, and shakey. Hx of frequent UTIs and reports he "gets like this when he has a UTI". To Urologist saturday and had bladder flushed and no UTI at that time. Postive urine dip for UTI at bedside. History of Present Illness The patient is an 86 year old male who presents to the Emergency Room with complaints of constant weakness beginning this morning. The patient's family states the patient has been confused, unsteady, fatigue, and weak. They report that this is very typical for the patient when he has a UTI. The family notes that the patient saw his urologist two days ago and had his urine flushed. They state that at that time his urine was negative. The family reports that the patient has not been himself all day. The family notes that six months ago the patient had similar symptoms. The patient states that he has experienced dysuria. Pt denies LOC, headache, fevers, chills, diaphoresis, visual changes, neck pain, chest pain, breathing difficulties, nausea, vomiting, abdominal pain , back pain, melena, hematochezia, numbness, lymphadenopathy, rash, or other complaints. Source of History: patient Onset: this morning Position: other (global) Quality: other (weakness) Timing: constant Associated Symptoms: + urinary symptoms (dysuria), + fatigue Note: Associated symptoms: confused, unsteady Review of Systems See HPI for pertinent positives and negatives. A total of ten systems were reviewed and were otherwise negative. Past Medical & Surgical Medical Problems: (1) Acute myocardial infarction (2) Aortic stenosis (3) Atrial fibrillation (4) BPH (benign prostatic hyperplasia) (5) Chest pain (6) Chronic back pain (7) CKD (chronic kidney disease), stage III (8) Complicated UTI (urinary tract infection) (9) COPD (chronic obstructive pulmonary disease) (10) Coronary artery disease (11) Encephalopathy (12) Encephalopathy (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 (14) History of DVT (deep vein thrombosis) (15) History of GI bleed (16) History of orthostatic hypotension (17) History of pulmonary embolism (18) Hyperlipidemia Surgical Problems: (1) H/O carpal tunnel repair (2) H/O colonoscopy (3) H/O esophagogastroduodenoscopy (4) knee replacement (5) Previous back surgery Family History FH: COPD (chronic obstructive pulmonary disease) BROTHER Social History Smoking Status: Former Smoker Alcohol Use: none Marital Status: Housing Status: lives alone Occupation Status: retired Current/Historical Medications Scheduled Amlodipine Besylate (Norvasc), 5 MG PO QAM Ascorbic Acid (Vitamin C), 1,000 MG PO DAILY Aspirin (Ecotrin Low Strength), 81 MG PO DAILY Buprenorphine (Butrans), 15 MCG TOP WK Gabapentin (Gabapentin), 600 MG PO TID Metoprolol Succinate (Toprol Xl), 25 MG PO DAILY Nitroglycerin (Nitrostat), 0.4 MG UT PRN Pantoprazole (Protonix), 40 MG PO BID Simvastatin (Simvastatin), 20 MG PO QAM Tamsulosin Hcl (Flomax), 0.4 MG PO DAILY Warfarin Sod (Coumadin), 2 MG PO UD Warfarin Sod (Coumadin), 4 MG PO UD Scheduled PRN Oxycodone/Acetaminophen 10MG/325MG (Percocet 10MG/325MG), 1 TAB PO Q6H PRN for Pain Phenazopyridine HCl (Pyridium), 200 MG PO TID PRN for Pain Polyethylene Glycol 3350 (Miralax), 1 TBS PO DAILY PRN for Constipation Miscellaneous Medications Methenamine Mandelate (Methenamine Mandelate), Unknown Dose PO Allergies Coded Allergies: Morphine (Verified Allergy, Intermediate, itching, dizzy, 05/02/17) pt primary md has taken pt off morphine due to itching and dizzy Sulfa Antibiotics (Verified Allergy, Intermediate, HIVES/RASH, 05/02/17) Fentanyl (Verified Allergy, Unknown, ITCHING, DIZZINESS, BOWEL BLADDER PROBLEMS, HEADACHE, 05/02/17) Physical Exam Vital Signs Date Time Temp Pulse Resp B/P (MAP) Pulse Ox O2 Delivery O2 Flow Rate FiO2 05/03/17 02:24 37.0 63 18 120/65 92 Room Air 05/03/17 00:24 37.5 73 22 138/71 91 Room Air 05/02/17 23:50 73 05/02/17 23:23 37.6 73 20 136/72 93 Room Air 05/02/17 21:16 37.6 71 16 128/68 92 Room Air Physical Exam GENERAL: Awake, alert, tired-appearing, in no distress HENT: Normocephalic, atraumatic. Oropharynx unremarkable. EYES: Normal conjunctiva. Sclera non-icteric. NECK: Supple. No nuchal rigidity. FROM. No JVD. RESPIRATORY: Clear to auscultation. CARDIAC: Regular rate, normal rhythm. Systolic ejection murmur. Extremities warm and well perfused. Pulses equal. ABDOMEN: Soft, non-distended. No tenderness to palpation. No rebound or guarding. No masses. RECTAL: Deferred. MUSCULOSKELETAL: Chest examination reveals no tenderness. The back is symmetrical on inspection without obvious abnormality. There is no CVA tenderness to palpation. No joint edema. LOWER EXTREMITIES: Calves are equal size bilaterally and non-tender. 2+ bilateral edema. No discoloration. NEURO: Mild sensorium. No sensory or motor deficits noted. SKIN: No rash or jaundice noted. Medical Decision & Procedures Laboratory Results 05/02/17 23:10 Red Blood Count 3.44, Mean Corpuscular Volume 97.1, Mean Corpuscular Hemoglobin 31.1, Mean Corpuscular Hemoglobin Concent 32.0, Mean Platelet Volume 8.8, Neutrophils (%) (Auto) 70.6, Lymphocytes (%) (Auto) 15.8, Monocytes (%) (Auto) 12.8, Eosinophils (%) (Auto) 0.3, Basophils (%) (Auto) 0.2, Neutrophils # (Auto ) 8.07, Lymphocytes # (Auto) 1.81, Monocytes # (Auto) 1.46, Eosinophils # (Auto ) 0.03, Basophils # (Auto) 0.02 05/02/17 23:10 Test 05/02/17 21:25 05/02/17 23:10 Urine Color DK YELLOW Urine Appearance CLOUDY (CLEAR) Urine pH 7.5 (4.5-7.5) Urine Specific [place]and 1.020 (1.000-1.030) Urine Protein 1+ (NEG) Urine Glucose (UA) NEG (NEG) Urine Ketones TRACE (NEG) Urine Occult Blood 1+ (NEG) Urine Nitrite POS (NEG) Urine Bilirubin NEG (NEG) Urine Urobilinogen NEG (NEG) Urine Leukocyte Esterase LARGE (NEG) Urine WBC (Auto) >30 /hpf (0-5) Urine RBC (Auto) 5-10 /hpf (0-4) Urine Hyaline Casts (Auto) 0 /lpf (0-5) Urine Epithelial Cells (Auto) 5-10 /lpf (0-5) Urine Bacteria (Auto) 4+ (NEG) Urine Opiates Screen NEG (NEG) Urine Methadone, Qualitative NEG (NEG) Urine Barbiturates NEG (NEG) Urine Phencyclidine (PCP) Level NEG (NEG) Ur Amphetamine/Methamphetamine NEG (NEG) MDMA (Ecstasy) Screen NEG (NEG) Urine Benzodiazepines Screen NEG (NEG) Urine Cocaine Metabolite NEG (NEG) Urine Marijuana (THC) NEG (NEG) White Blood Count 11.42 K/uL (4.8-10.8) Red Blood Count 3.44 M/uL (4.7-6.1) Hemoglobin 10.7 g/dL (14.0-18.0) Hematocrit 33.4 % (42-52) Mean Corpuscular Volume 97.1 fL (80-100) Mean Corpuscular Hemoglobin 31.1 pg (25-34) Mean Corpuscular Hemoglobin Concent 32.0 g/dl (32-36) Platelet Count 127 K/uL (130-400) Mean Platelet Volume 8.8 fL (7.4-10.4) Neutrophils (%) (Auto) 70.6 % Lymphocytes (%) (Auto) 15.8 % Monocytes (%) (Auto) 12.8 % Eosinophils (%) (Auto) 0.3 % Basophils (%) (Auto) 0.2 % Neutrophils # (Auto) 8.07 K/uL (1.4-6.5) Lymphocytes # (Auto) 1.81 K/uL (1.2-3.4) Monocytes # (Auto) 1.46 K/uL (0.11-0.59) Eosinophils # (Auto) 0.03 K/uL (0-0.5) Basophils # (Auto) 0.02 K/uL (0-0.2) RDW Standard Deviation 50.7 fL (36.4-46.3) RDW Coefficient of Variation 14.2 % (11.5-14.5) Immature Granulocyte % (Auto) 0.3 % Immature Granulocyte # (Auto) 0.03 K/uL (0.00-0.02) Prothrombin Time 16.6 SECONDS (9.0-12.0) Prothromb Time International Ratio 1.5 (0.9-1.1) Activated Partial Thromboplast Time 35.5 SECONDS (21.0-31.0) Partial Thromboplastin Ratio 1.4 Anion Gap 6.0 mmol/L (3-11) Est Creatinine Clear Calc Drug Dose 27.1 ml/min Estimated GFR () 40.8 Estimated GFR (Non- 35.2 BUN/Creatinine Ratio 11.9 (10-20) Calcium Level 8.6 mg/dl (8.5-10.1) Magnesium Level 2.2 mg/dl (1.8-2.4) Total Bilirubin 1.2 mg/dl (0.2-1) Direct Bilirubin 0.3 mg/dl (0-0.2) Aspartate Amino Transf (AST/SGOT) 17 U/L (15-37) Alanine Aminotransferase (ALT/SGPT) 14 U/L (12-78) Alkaline Phosphatase 46 U/L (45-117) Total Creatine Kinase 251 U/L (39-308) Creatine Kinase MB 3.9 ng/ml (0.5-3.6) Creatine Kinase MB Ratio 1.6 (0-3.0) Troponin I < 0.015 ng/ml (0-0.045) Total Protein 7.0 gm/dl (6.4-8.2) Albumin 3.4 gm/dl (3.4-5.0) Lipase 56 U/L (73-393) Thyroid Stimulating Hormone (TSH) 0.573 uIu/ml (0.300-4.500) Laboratory results reviewed by me Medications Administered Medications (Trade) Dose Ordered Sig/Bailey Route Start Time Stop Time Status Last Admin Dose Admin Acetaminophen (Tylenol Tab) 1,000 mg NOW STAT PO 05/02/17 23:34 05/02/17 23:35 DC 05/02/17 23:50 1,000 MG Ciprofloxacin/ Dextrose (Cipro / D5W) 400 mg NOW STAT IV 05/02/17 23:35 05/02/17 23:37 DC 05/02/17 23:49 400 MG Vancomycin HCl 2000 mg/Sodium Chloride 540 ml @ 200 mls/hr ONE STAT IV 05/02/17 23:35 05/03/17 02:16 DC 05/03/17 00:22 200 MLS/HR Sodium Chloride 1,000 ml @ 125 mls/hr Q8H STAT IV 05/02/17 23:38 05/03/17 07:37 05/02/17 23:50 125 MLS/HR Sodium Chloride 500 ml @ 999 mls/hr Q31M STAT IV 05/02/17 23:38 05/03/17 00:08 DC 05/02/17 23:50 999 MLS/HR ECG Indication: weakness Rate (beats per minute): 73 Rhythm: normal sinus Findings: LBBB, no acute ischemic change, no ectopy ED Course 2251: The patient was evaluated in room B09. A complete history and physical exam was performed. 2334: Ordered Tylenol Tab 1000mg PO 2335: Ordered Vancomycin HCl 2000 mg/Sodium Chloride 540 ml @ 200 mls/hr IV, Ordered Cipro/D5W 400mg IV 2338: Ordered Sodium Chloride 500 ml @ 999 mls/hr IV, Sodium Chloride 1000 ml @ 125 mls/hr IV 2340: I reevaluated the patient. I informed the nurses of how the patient reacts to the antibiotics. 2342: I discussed the patient's case with Dr. Hamilton[facility]. The patient will be evaluated for further treatment. Medical Decision Medication Reconciliation: I attest that I have personally reviewed the patient' s current medication list Blood pressure screening: Patient was found to have an elevated blood pressure. The patient was not able to be referred back to his PCP secondary to confusion. Prior records/ancillary studies reviewed and summarized above. Nursing notes reviewed and agree them. Additional history obtained from the patient's family. The patient's history was concerning for altered mental status. Differential diagnosis: Etiologies such as infection, hypoglycemia, electrolyte abnormalities, cardiac sources, intracerebral event, toxicologic, neurologic, as well as others were entertained. Physical examination: As above ER treatment provided: IV Lock Tylenol IV normal saline IV vancomycin IV Cipro On reassessment the patient felt better. Diagnostics interpretation by me: ECG: As above The labs revealed a mild leukocytosis on cbc. Chemistry panel was unremarkable. The patient has a very abnormal urinalysis. Urine culture pending. The patient had prior VRE and Rocephin resistant Citrobacter in the past on previous urine cultures. Cipro was adequate for the Citrobacter. The patient was given the above antibiotics based on previous cultures. Consultation: A consultation was placed with the hospitalist. The case was discussed and diagnostics were reviewed. The patient was evaluated in the ER for further treatment. Consults Time Called: 2339 [facility] Returned Call: [phone] I discussed the patient's case with Nadya Kamara. The patient will be evaluated for further treatment. Impression Primary Impression: UTI (urinary tract infection) Additional Impression: Metabolic encephalopathy Scribe Attestation The scribe's documentation has been prepared under my direction and personally reviewed by me in its entirety. I confirm that the note above accurately reflects all work, treatment, procedures, and medical decision making performed by me. Departure Information Dispostion Being Evaluated By Hospitalist Referrals Tad Childress M.D. (PCP) Patient Instructions My [facility] Problem Qualifiers
[2017-05-03 03:15] VITALS: BP 152/62; PULSE 69; TEMP 36.5; O2SAT 95
[2017-05-03] MEDS ORDERED: PIPERACILLIN/TAZOBACTAM 4.5 GM/100ML D5W IV ONE (03:30)
--- NOTE | 2017-05-03 03:42 | History and Physical ---
History & Physical Date & Time of Service: May 03, 2017 at 03:42 Chief Complaint: confusion, weakness as per family weak as per px Primary Care Physician: Tad Childress M.D. History of Present Illness Source: patient, clinic records, hospital records, other Recent confinement last month for non-ST elevation WI. Conservative management as per cardiology. No cardiac catheterization. Mild to moderate aortic stenosis on 2-D echo Few days ago patient underwent cystoscopy at at [facility]. Patient underwent cystoscopy. 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 As per patient conversation with urologist, surgery for defect will likely be too risky at his age. Chronic Keflex suppression Rx for UTI replaced with Mandelamine. Yesterday patient noted to be more unsteady weak, and confused by family similar to UTI episodes. Legs weaker than usual as per patient, some trouble walking. Patient admits to bladder discomfort. Low-grade fever later noted. No chest pain or shortness of breath or cough. Usual back pain. Denies inordinate intake of Home narcotics. At the ER, patient given IV vancomycin and ceftriaxone for UTI. Past Medical/Surgical History Medical Problems: (1) Aortic stenosis Permanent Comment: moderate per echo 03/07/17 Status: Chronic (2) Atrial fibrillation Status: Chronic (3) BPH (benign prostatic hyperplasia) Status: Chronic (4) Chronic back pain Status: Chronic (5) CKD (chronic kidney disease), stage III Status: Chronic (6) COPD (chronic obstructive pulmonary disease) Permanent Comment: mild Status: Chronic (7) Coronary artery disease Permanent Comment: non-STEMI 03/06/17 Status: Chronic (8) H/O tachycardia-bradycardia syndrome Status: Chronic (9) History of DVT (deep vein thrombosis) Status: Chronic (10) History of GI bleed Permanent Comment: due to esophageal ulcer Status: Chronic (11) History of orthostatic hypotension Status: Chronic (12) History of pulmonary embolism Status: Chronic (13) Hyperlipidemia Status: Chronic Surgical Problems: (1) H/O carpal tunnel repair Status: Chronic (2) H/O colonoscopy Permanent Comment: 04/2003- diverticulosis 11/25/2007- adenomatous Status: Chronic (3) H/O esophagogastroduodenoscopy Permanent Comment: - esophageal ulcer with large clots; 08/11/15-esophgeal ulcer, esophagitis; 09/12/2015 EGD with EUS- reflux on bx, HH, pancreatic intraductal papillary mucinous neoplasm, CBD dilation; Dr. 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) Allergies Coded Allergies: Morphine (Verified Allergy, Intermediate, itching, dizzy, 05/02/17) pt primary md has taken pt off morphine due to itching and dizzy Sulfa Antibiotics (Verified Allergy, Intermediate, HIVES/RASH, 05/02/17) Fentanyl (Verified Allergy, Unknown, ITCHING, DIZZINESS, BOWEL BLADDER PROBLEMS, HEADACHE, 05/02/17) Home Medications Scheduled Amlodipine Besylate (Norvasc), 5 MG PO QAM Ascorbic Acid (Vitamin C), 1,000 MG PO DAILY Aspirin (Ecotrin Low Strength), 81 MG PO DAILY Buprenorphine (Butrans), 15 MCG TOP WK Gabapentin (Gabapentin), 600 MG PO TID Metoprolol Succinate (Toprol Xl), 25 MG PO DAILY Nitroglycerin (Nitrostat), 0.4 MG UT PRN Pantoprazole (Protonix), 40 MG PO BID Simvastatin (Simvastatin), 20 MG PO QAM Tamsulosin Hcl (Flomax), 0.4 MG PO DAILY Warfarin Sod (Coumadin), 2 MG PO UD Warfarin Sod (Coumadin), 4 MG PO UD Scheduled PRN Oxycodone/Acetaminophen 10MG/325MG (Percocet 10MG/325MG), 1 TAB PO Q6H PRN for Pain Phenazopyridine HCl (Pyridium), 200 MG PO TID PRN for Pain Polyethylene Glycol 3350 (Miralax), 1 TBS PO DAILY PRN for Constipation Miscellaneous Medications Methenamine Mandelate (Methenamine Mandelate), Unknown Dose PO Review of Systems as per HPI, all other ROS negative Physical Exam Vital Signs Date Time Temp Pulse Resp B/P (MAP) Pulse Ox O2 Delivery O2 Flow Rate FiO2 05/03/17 03:15 36.5 69 18 152/62 (92) 95 Room Air 05/03/17 02:24 37.0 63 18 120/65 92 Room Air 05/03/17 00:24 37.5 73 22 138/71 91 Room Air 05/02/17 23:50 73 05/02/17 23:23 37.6 73 20 136/72 93 Room Air 05/02/17 21:16 37.6 71 16 128/68 92 Room Air General Appearance: + pertinent finding (episodic lethargy, coherent) Head: normocephalic ENT: normal ENT inspection Neck: supple Respiratory/Chest: + decreased breath sounds Cardiovascular: regular rate, rhythm, + systolic murmur Abdomen/GI: soft Genitourinary - Male: + pertinent finding (penoscrotal hypospadias) Neurologic/Psych: + pertinent finding (episodic lethargy but coherent) Skin: + pallor Diagnostics Laboratory Results Results Past 24 Hours Test 05/02/17 21:25 05/02/17 23:10 Range/Units Urine Color DK YELLOW Urine Appearance CLOUDY CLEAR Urine pH 7.5 4.5-7.5 Urine Specific [place] 1.020 1.000-1.030 Urine Protein 1+ NEG Urine Glucose (UA) NEG NEG Urine Ketones TRACE NEG Urine Occult Blood 1+ NEG Urine Nitrite POS NEG Urine Bilirubin NEG NEG Urine Urobilinogen NEG NEG Urine Leukocyte Esterase LARGE NEG Urine WBC (Auto) >30 0-5 /hpf Urine RBC (Auto) 5-10 0-4 /hpf Urine Hyaline Casts (Auto) 0 0-5 /lpf Urine Epithelial Cells (Auto) 5-10 0-5 /lpf Urine Bacteria (Auto) 4+ NEG Urine Opiates Screen NEG NEG Urine Methadone, Qualitative NEG NEG Urine Barbiturates NEG NEG Urine Phencyclidine (PCP) Level NEG NEG Ur Amphetamine/Methamphetamine NEG NEG MDMA (Ecstasy) Screen NEG NEG Urine Benzodiazepines Screen NEG NEG Urine Cocaine Metabolite NEG NEG Urine Marijuana (THC) NEG NEG White Blood Count 11.42 4.8-10.8 K/uL Red Blood Count 3.44 4.7-6.1 M/uL Hemoglobin 10.7 14.0-18.0 g/dL Hematocrit 33.4 42-52 % Mean Corpuscular Volume 97.1 80-100 fL Mean Corpuscular Hemoglobin 31.1 25-34 pg Mean Corpuscular Hemoglobin Concent 32.0 32-36 g/dl Platelet Count 127 130-400 K/uL Mean Platelet Volume 8.8 7.4-10.4 fL Neutrophils (%) (Auto) 70.6 % Lymphocytes (%) (Auto) 15.8 % Monocytes (%) (Auto) 12.8 % Eosinophils (%) (Auto) 0.3 % Basophils (%) (Auto) 0.2 % Neutrophils # (Auto) 8.07 1.4-6.5 K/uL Lymphocytes # (Auto) 1.81 1.2-3.4 K/uL Monocytes # (Auto) 1.46 0.11-0.59 K/uL Eosinophils # (Auto) 0.03 0-0.5 K/uL Basophils # (Auto) 0.02 0-0.2 K/uL RDW Standard Deviation 50.7 36.4-46.3 fL RDW Coefficient of Variation 14.2 11.5-14.5 % Immature Granulocyte % (Auto) 0.3 % Immature Granulocyte # (Auto) 0.03 0.00-0.02 K/uL Prothrombin Time 16.6 9.0-12.0 SECONDS Prothromb Time International Ratio 1.5 0.9-1.1 Activated Partial Thromboplast Time 35.5 21.0-31.0 SECONDS Partial Thromboplastin Ratio 1.4 Sodium Level 137 136-145 mmol/L Potassium Level 4.1 3.5-5.1 mmol/L Chloride Level 102 98-107 mmol/L Carbon Dioxide Level 29 21-32 mmol/L Anion Gap 6.0 3-11 mmol/L Blood Urea Nitrogen 20 7-18 mg/dl Creatinine 1.70 0.60-1.40 mg/dl Est Creatinine Clear Calc Drug Dose 27.1 ml/min Estimated GFR () 40.8 Estimated GFR (Non- 35.2 BUN/Creatinine Ratio 11.9 10-20 Random Glucose 105 70-99 mg/dl Calcium Level 8.6 8.5-10.1 mg/dl Magnesium Level 2.2 1.8-2.4 mg/dl Total Bilirubin 1.2 0.2-1 mg/dl Direct Bilirubin 0.3 0-0.2 mg/dl Aspartate Amino Transf (AST/SGOT) 17 15-37 U/L Alanine Aminotransferase (ALT/SGPT) 14 12-78 U/L Alkaline Phosphatase 46 45-117 U/L Total Creatine Kinase 251 39-308 U/L Creatine Kinase MB 3.9 0.5-3.6 ng/ml Creatine Kinase MB Ratio 1.6 0-3.0 Troponin I < 0.015 0-0.045 ng/ml Total Protein 7.0 6.4-8.2 gm/dl Albumin 3.4 3.4-5.0 gm/dl Lipase 56 73-393 U/L Thyroid Stimulating Hormone (TSH) 0.573 0.300-4.500 uIu/ml Microbiology Results 05/02/17 Urine Culture, Received Pending Diagnostic Radiology CT head initially read no acute pathology EKG As per my read No infiltrate Impression Assessment and Plan AP Encephalopathy Multifactorial : Complicated UTI, no sepsis (hx penoscrotal hypospadias sp failed childhood repair sp post recent outpx cystoscopy/instrumentation) ARF on CRI, clinical dehydration Home meds narcotics/psychotropics mentation much improved after initial intervention at the ER SSS sp PPM/ recurrent PE/DVT on Coumadin, INR subtherapeutic History of CAD as per records Mild to moderate Aortic stenosis on recent TTE Chronic back pain on Butrans patch and prn narcotics Thrombocytopenia rule out HIT COPD, no issues currently Past tobacco abuse LE swelling rule out DVT GMF Follow urine cultures, Zosyn Monitor creatinine response to IV fluids Hold narcotics for sedation/confusion HIT screen LE dopplers ro DVT PT OT eval DVT prophylaxis Coumadin INR goal 2-3 Full code VTE Prophylaxis VTE Risk Assessment Done? Y/N: Yes Risk Level: Moderate
[2017-05-03 04:50] VITALS: Ht 170.2 cm; Wt 69.3 kg
[2017-05-03] MEDS ORDERED: PNEUMOCOCCAL POLYSACCHARIDES 25 MCG/0.5 ML VIAL/SYR IM. ONE (05:15)
[2017-05-03] MEDS ORDERED: PNEUMOCOCCAL ADMINISTRATION CHARGE ONE (05:15)
[2017-05-03] MEDS ORDERED: PIPERACILL/TAZOBAC IV 3.375 GM in DEXTROSE 5% 100ML IV SCH (06:00)
[2017-05-03 07:08] VITALS: BP 155/72; PULSE 69; TEMP 37; O2SAT 96
--- NOTE | 2017-05-03 07:10 | DIAGNOSTIC IMAGING REPORT ---
BILATERAL LOWER EXTREMITY VENOUS DOPPLER HISTORY: leg swelling COMPARISON STUDY: None. FINDINGS: There is normal compressibility, flow, and augmentation within the bilateral lower extremity deep venous systems. IMPRESSION: No DVT within the right or left lower extremity. Electronically signed by: Lisandro Villa M.D. 05/03/2017 7:09 AM Dictated Date/Time: 05/03/2017 7:09 AM
--- NOTE | 2017-05-03 07:13 | DIAGNOSTIC IMAGING REPORT ---
HEAD CT NONCONTRAST CT DOSE: 537.48 mGy.cm HISTORY: leg weakness TECHNIQUE: Multiaxial CT images of the head were performed without the use of intravenous contrast. Automated exposure control was utilized for this study. Comparison: Head CT 03/09/2017. Findings: The paranasal sinuses and mastoid air cells are clear. The calvarium and skull base are intact. There is no mass, hematoma, midline shift, acute infarct. White matter hypodensity is nonspecific but suggestive of microvascular ischemic change. The ventricles and sulci demonstrate mild age-related involutional changes. Impression: No significant change compared to the prior study. No acute intracranial abnormality. Electronically signed by: Lisandro Villa M.D. 05/03/2017 7:11 AM Dictated Date/Time: 05/03/2017 7:09 AM
[2017-05-03 07:32] LABS: BASO % 0.2 %; BASO ABS # 0.02 K/uL (0-0.2); COMPLETE YES; EOS % 0.3 %; HEMATOCRIT 36.3 % (42-52); IG% 0.3 %; LYMPH % 7.6 %; LYMPH ABS # 0.83 K/uL (1.2-3.4); MEAN CELL VOLUME 96.8 fL (80-100); MEAN CORPUSCULAR HEMOGLOBIN 29.6 pg (25-34); MEAN CORPUSCULAR HGB CONC 30.6 g/dl (32-36); MEAN PLATELET VOLUME 8.7 fL (7.4-10.4); MONO % 7.8 %; NEUT % 83.8 %; PLATELET COUNT 140 K/uL (130-400); RED BLOOD COUNT 3.75 M/uL (4.7-6.1); WHITE BLOOD COUNT 10.86 K/uL (4.8-10.8)
[2017-05-03 07:39] LABS: INR 1.4 (0.9-1.1); PROTHROMBIN TIME (PATIENT) 15.6 SECONDS (9.0-12.0)
--- NOTE | 2017-05-03 07:54 | DIAGNOSTIC IMAGING REPORT ---
CHEST ONE VIEW PORTABLE CLINICAL HISTORY: yamilet leg swelling pain. Edema. COMPARISON STUDY: 03/06/2017 FINDINGS: Mild emphysematous change. Chronic basilar fibrotic change. No acute infiltrate. Tortuosity thoracic aorta. IMPRESSION: Chronic change. No acute process. Electronically signed by: Rafal Vallejo M.D. 05/03/2017 7:53 AM Dictated Date/Time: 05/03/2017 7:51 AM
[2017-05-03] MEDS: SIMVASTATIN 20 MG TAB PO SCH (07:59)
[2017-05-03] MEDS: PIPERACILL/TAZOBAC IV 3.375 GM in DEXTROSE 5% 100ML IV SCH ×3 (07:59→23:58)
[2017-05-03] MEDS: GABAPENTIN 100 MG CAP PO SCH ×3 (08:00→19:59)
[2017-05-03] MEDS: PANTOprazole SOD 40 MG TAB PO SCH ×2 (08:00→19:59)
[2017-05-03] MEDS: METOPROLOL SUCC 25MG EXT REL TAB PO SCH (08:00)
[2017-05-03] MEDS: TAMSULOSIN HCL 0.4 MG CAP PO SCH (08:00)
[2017-05-03] MEDS: ASPIRIN 81 MG ECTAB PO SCH (08:01)
[2017-05-03] MEDS: AMLODIPINE BESYLATE 5 MG TAB PO SCH (08:01)
[2017-05-03] MEDS: OXYCODONE/ACETAMINOPHEN 10/325MG TAB PO PRN (08:05)
[2017-05-03 08:08] LABS: BUN/CREATININE RATIO 11.9 (10-20); CALCIUM 9.1 mg/dl (8.5-10.1); CREATININE 1.5 mg/dl (0.60-1.40); POTASSIUM 4.2 mmol/L (3.5-5.1)
[2017-05-03] MEDS ORDERED: PIPERACILL/TAZOBAC CONSULT ACTIVE PRN (09:00)
[2017-05-03 15:02] VITALS: BP 132/76; PULSE 88; O2SAT 98
[2017-05-03 15:39] VITALS: BP 154/82; PULSE 61; TEMP 36.5; O2SAT 96
--- NOTE | 2017-05-03 15:54 | DIAGNOSTIC IMAGING REPORT ---
RENAL ULTRASOUND HISTORY: Urinary tract infection. COMPARISON: Abdomen CT 08/11/2015. FINDINGS: Right kidney: 10.6 cm. No hydronephrosis. Normal corticomedullary differentiation and cortical thickness. Left kidney: 9.8 cm. Not well visualized due to the overlying bowel. No hydronephrosis. Normal corticomedullary differentiation and cortical thickness. Bladder: Not well distended resulting in suboptimal violation. No definite bladder wall thickening. The ureteral jets were identified. IMPRESSION: 1. No hydronephrosis. 2. The bladder is not well-distended. However, no definite bladder wall thickening. 3. The left kidney is not well visualized due to overlying bowel gas. Electronically signed by: Lisandro Villa M.D. 05/03/2017 3:52 PM Dictated Date/Time: 05/03/2017 3:50 PM
[2017-05-03] MEDS: WARFARIN SOD 5 MG TAB PO SCH (16:57)
--- NOTE | 2017-05-03 20:30 | Progress Note ---
Medicine Progress Note Date & Time of Visit: May 03, 2017 at 09:36 . Subjective Admitted last night with altered mental status and suspected UTI. Better today. No fever. No chest pain. No cough or SOB. No nausea, vomiting, diarrhea. No dysuria. Chronic back pain unchanged. . Objective Last 8 Hrs Date Time Temp Pulse Resp B/P (MAP) Pulse Ox O2 Delivery O2 Flow Rate FiO2 05/03/17 07:08 37.0 69 18 155/72 (99) 96 Room Air 05/03/17 04:50 Room Air 05/03/17 03:15 36.5 69 18 152/62 (92) 95 Room Air 05/03/17 02:24 37.0 63 18 120/65 92 Room Air Physical Exam: General- no distress Eyes- anicteric Neck- no JVD Lungs- clear Heart- RRR, III/ systolic murmur at base Abdomen- + BS, soft, nontender Extremities- no pretibial edema or calf tenderness Neuro- alert . Laboratory Results: Last 24 Hours Test 05/02/17 21:25 05/02/17 23:10 05/03/17 07:13 Urine Color DK YELLOW Urine Appearance CLOUDY Urine pH 7.5 Urine Specific [place] 1.020 Urine Protein 1+ Urine Glucose (UA) NEG Urine Ketones TRACE Urine Occult Blood 1+ Urine Nitrite POS Urine Bilirubin NEG Urine Urobilinogen NEG Urine Leukocyte Esterase LARGE Urine WBC (Auto) >30 /hpf Urine RBC (Auto) 5-10 /hpf Urine Hyaline Casts (Auto) 0 /lpf Urine Epithelial Cells (Auto) 5-10 /lpf Urine Bacteria (Auto) 4+ Urine Opiates Screen NEG Urine Methadone, Qualitative NEG Urine Barbiturates NEG Urine Phencyclidine (PCP) Level NEG Ur Amphetamine/Methamphetamine NEG MDMA (Ecstasy) Screen NEG Urine Benzodiazepines Screen NEG Urine Cocaine Metabolite NEG Urine Marijuana (THC) NEG White Blood Count 11.42 K/uL 10.86 K/uL Red Blood Count 3.44 M/uL 3.75 M/uL Hemoglobin 10.7 g/dL 11.1 g/dL Hematocrit 33.4 % 36.3 % Mean Corpuscular Volume 97.1 fL 96.8 fL Mean Corpuscular Hemoglobin 31.1 pg 29.6 pg Mean Corpuscular Hemoglobin Concent 32.0 g/dl 30.6 g/dl Platelet Count 127 K/uL 140 K/uL Mean Platelet Volume 8.8 fL 8.7 fL Neutrophils (%) (Auto) 70.6 % 83.8 % Lymphocytes (%) (Auto) 15.8 % 7.6 % Monocytes (%) (Auto) 12.8 % 7.8 % Eosinophils (%) (Auto) 0.3 % 0.3 % Basophils (%) (Auto) 0.2 % 0.2 % Neutrophils # (Auto) 8.07 K/uL 9.10 K/uL Lymphocytes # (Auto) 1.81 K/uL 0.83 K/uL Monocytes # (Auto) 1.46 K/uL 0.85 K/uL Eosinophils # (Auto) 0.03 K/uL 0.03 K/uL Basophils # (Auto) 0.02 K/uL 0.02 K/uL RDW Standard Deviation 50.7 fL 50.5 fL RDW Coefficient of Variation 14.2 % 14.2 % Immature Granulocyte % (Auto) 0.3 % 0.3 % Immature Granulocyte # (Auto) 0.03 K/uL 0.03 K/uL Prothrombin Time 16.6 SECONDS 15.6 SECONDS Prothromb Time International Ratio 1.5 1.4 Activated Partial Thromboplast Time 35.5 SECONDS Partial Thromboplastin Ratio 1.4 Sodium Level 137 mmol/L 140 mmol/L Potassium Level 4.1 mmol/L 4.2 mmol/L Chloride Level 102 mmol/L 106 mmol/L Carbon Dioxide Level 29 mmol/L 29 mmol/L Anion Gap 6.0 mmol/L 5.0 mmol/L Blood Urea Nitrogen 20 mg/dl 18 mg/dl Creatinine 1.70 mg/dl 1.50 mg/dl Est Creatinine Clear Calc Drug Dose 27.1 ml/min 31.8 ml/min Estimated GFR () 40.8 47.5 Estimated GFR (Non- 35.2 41.0 BUN/Creatinine Ratio 11.9 11.9 Random Glucose 105 mg/dl 105 mg/dl Calcium Level 8.6 mg/dl 9.1 mg/dl Magnesium Level 2.2 mg/dl Total Bilirubin 1.2 mg/dl Direct Bilirubin 0.3 mg/dl Aspartate Amino Transf (AST/SGOT) 17 U/L Alanine Aminotransferase (ALT/SGPT) 14 U/L Alkaline Phosphatase 46 U/L Total Creatine Kinase 251 U/L Creatine Kinase MB 3.9 ng/ml Creatine Kinase MB Ratio 1.6 Troponin I < 0.015 ng/ml Total Protein 7.0 gm/dl Albumin 3.4 gm/dl Lipase 56 U/L Thyroid Stimulating Hormone (TSH) 0.573 uIu/ml Heparin-PF4 Antibody Screen NEG Date/Time Source Procedure Growth Status 05/02/17 21:25 Urine , Clean Catch Urine Culture Pending Received Assessment & Plan UTI Febrile in ED. WBC 11.000. UA demonstrated pyuria and bacteruria. Started on empiric antibiotic coverage with piperacillin / tazobactam pending culture results. Afebrile. ALTERED MENTAL STATUS Probable encephalopathy from UTI. Head CT negative for acute event. Improved. THROMBOCYTOPENIA Admission platelet count 127,000. HIT screen negative. CORONARY ARTERY DISEASE Recent non-STEMI. No anginal symptoms. Continue aspirin, metoprolol succinate, simvastatin. MODERATE AORTIC STENOSIS Echo last admission showed aortic calcification with mild-moderate aortic stenosis (aortic valve area 1.4 cm2). Follow. HISTORY AF / TACHY-ALICIA SYNDROME Continue metoprolol and warfarin. COPD Stable. CKD III Serum creatinine at time of admission 1.7. Creatinine this morning = 1.5. Follow. VTE PROPHYLAXIS / HISTORY OF DVT Continue warfarin. Ambulate. DISPOSITION Expected discharge to home. Medical follow-up with Dr. Childress. Follow-up with [facility]. . Current Inpatient Medications: Current Inpatient Medications Medications (Trade) Dose Ordered Sig/Bailey Route Start Time Stop Time Status Last Admin Dose Admin Acetaminophen (Tylenol Tab) 650 mg Q4H PRN PO 05/03/17 02:00 06/02/17 01:59 Ondansetron HCl (Zofran Inj) 4 mg Q6H PRN IV 05/03/17 02:00 06/02/17 01:59 Amlodipine Besylate (Norvasc Tab) 5 mg QAM PO 05/03/17 08:00 06/02/17 08:59 05/03/17 08:01 5 MG Aspirin (Ecotrin Tab) 81 mg DAILY PO 05/03/17 08:00 06/02/17 08:59 05/03/17 08:01 81 MG Gabapentin (Neurontin Cap) 200 mg TID PO 05/03/17 08:00 06/02/17 08:59 05/03/17 08:00 200 MG Metoprolol Succinate (Toprol Xl Tab) 25 mg DAILY PO 05/03/17 08:00 06/02/17 08:59 05/03/17 08:00 25 MG Oxycodone/ Acetaminophen (Percocet 10-325MG Tab) 1 tab Q6H PRN PO 05/03/17 02:00 05/17/17 01:59 05/03/17 08:05 1 TAB Phenazopyridine HCl (Pyridium Tab) 100 mg TID PRN PO 05/03/17 02:00 06/02/17 01:59 Simvastatin (Zocor Tab) 20 mg QAM PO 05/03/17 08:00 06/02/17 08:59 05/03/17 07:59 20 MG Tamsulosin HCl (Flomax Cap) 0.4 mg DAILY PO 05/03/17 08:00 06/02/17 08:59 05/03/17 08:00 0.4 MG Buprenorphine HCl (Butrans Patch) 15 mcg Th@0900 TD 05/09/17 09:00 06/08/17 08:59 Pantoprazole Sodium (Protonix Tab) 40 mg BID PO 05/03/17 08:00 06/02/17 08:59 05/03/17 08:00 40 MG Polyethylene (Miralax Powder Packet) 17 gm DAILY PRN PO 05/03/17 02:00 06/02/17 01:59 Sodium Chloride 1,000 ml @ 60 mls/hr [id number] ONCE IV 05/03/17 02:00 05/03/17 18:39 05/03/17 03:32 60 MLS/HR Piperacillin Sod/ Tazobactam Sod (Consult) 1 ea UD PRN N/A 05/03/17 09:00 06/02/17 08:59 Warfarin Sodium (Coumadin Tab) 5 mg DAILY@16 PO 05/03/17 16:00 06/02/17 15:59 Piperacillin Sod/ Tazobactam Sod 3.375 gm/Dextrose 115 ml @ 28.75 mls/ hr Q8@0000,0800,1600 IV 05/03/17 08:00 05/13/17 07:59 05/03/17 07:59 28.75 MLS/HR
[2017-05-03 23:51] VITALS: BP 124/67; PULSE 72; TEMP 36.9; O2SAT 95
[2017-05-04 06:24] LABS: INR 1.7 (0.9-1.1); PROTHROMBIN TIME (PATIENT) 18.2 SECONDS (9.0-12.0)
[2017-05-04 06:45] LABS: BASO % 0.6 %; BASO ABS # 0.05 K/uL (0-0.2); COMPLETE YES; EOS % 3.8 %; HEMATOCRIT 31.5 % (42-52); IG% 0.1 %; LYMPH % 11.7 %; MEAN CELL VOLUME 95.2 fL (80-100); MEAN CORPUSCULAR HEMOGLOBIN 29.9 pg (25-34); MEAN CORPUSCULAR HGB CONC 31.4 g/dl (32-36); MEAN PLATELET VOLUME 9.3 fL (7.4-10.4); MONO % 11.1 %; NEUT % 72.7 %; PLATELET COUNT 135 K/uL (130-400); RED BLOOD COUNT 3.31 M/uL (4.7-6.1); WHITE BLOOD COUNT 7.72 K/uL (4.8-10.8)
[2017-05-04 06:53] LABS: BUN/CREATININE RATIO 13.3 (10-20); CALCIUM 8.7 mg/dl (8.5-10.1); CREATININE 1.5 mg/dl (0.60-1.40); POTASSIUM 3.8 mmol/L (3.5-5.1)
[2017-05-04 07:49] VITALS: BP 159/74; PULSE 68; TEMP 37.1; O2SAT 93
[2017-05-04] MEDS: PIPERACILL/TAZOBAC IV 3.375 GM in DEXTROSE 5% 100ML IV SCH ×3 (08:29→23:28)
[2017-05-04] MEDS: PANTOprazole SOD 40 MG TAB PO SCH ×2 (08:29→20:25)
[2017-05-04] MEDS: TAMSULOSIN HCL 0.4 MG CAP PO SCH (08:31)
[2017-05-04] MEDS: SIMVASTATIN 20 MG TAB PO SCH (08:31)
[2017-05-04] MEDS: ASPIRIN 81 MG ECTAB PO SCH (08:32)
[2017-05-04] MEDS: AMLODIPINE BESYLATE 5 MG TAB PO SCH (08:32)
[2017-05-04] MEDS: GABAPENTIN 100 MG CAP PO SCH ×3 (08:32→20:28)
[2017-05-04] MEDS: OXYCODONE/ACETAMINOPHEN 10/325MG TAB PO PRN (08:33)
[2017-05-04] MEDS: METOPROLOL SUCC 25MG EXT REL TAB PO SCH (08:33)
[2017-05-04 15:24] VITALS: BP 111/69; PULSE 58; TEMP 36.6; O2SAT 95
[2017-05-04] MEDS: WARFARIN SOD 5 MG TAB PO SCH (16:32)
[2017-05-04] MEDS: HEPARIN SOD 5000 UNIT/0.5 ML CARP SQ SCH (20:29)
--- NOTE | 2017-05-04 22:49 | Progress Note ---
Medicine Progress Note Date & Time of Visit: May 04, 2017 at 10:00 . Subjective No fever. Persistent dysuria. No chest pain. No cough or SOB. No nausea, vomiting, diarrhea. . Objective Last 8 Hrs Date Time Temp Pulse Resp B/P (MAP) Pulse Ox O2 Delivery O2 Flow Rate FiO2 05/04/17 20:51 Room Air 05/04/17 16:00 Room Air 05/04/17 15:24 36.6 58 18 111/69 (83) 95 Room Air Physical Exam: General- sitting in chair, no distress Neck- no JVD Lungs- clear Heart- RRR, III/ systolic murmur at base Abdomen- + BS, soft, nontender Extremities- trace pretibial edema; no calf tenderness Neuro- alert . Laboratory Results: Last 24 Hours Test 05/04/17 06:01 White Blood Count 7.72 K/uL Red Blood Count 3.31 M/uL Hemoglobin 9.9 g/dL Hematocrit 31.5 % Mean Corpuscular Volume 95.2 fL Mean Corpuscular Hemoglobin 29.9 pg Mean Corpuscular Hemoglobin Concent 31.4 g/dl Platelet Count 135 K/uL Mean Platelet Volume 9.3 fL Neutrophils (%) (Auto) 72.7 % Lymphocytes (%) (Auto) 11.7 % Monocytes (%) (Auto) 11.1 % Eosinophils (%) (Auto) 3.8 % Basophils (%) (Auto) 0.6 % Neutrophils # (Auto) 5.61 K/uL Lymphocytes # (Auto) 0.90 K/uL Monocytes # (Auto) 0.86 K/uL Eosinophils # (Auto) 0.29 K/uL Basophils # (Auto) 0.05 K/uL RDW Standard Deviation 48.8 fL RDW Coefficient of Variation 13.9 % Immature Granulocyte % (Auto) 0.1 % Immature Granulocyte # (Auto) 0.01 K/uL Prothrombin Time 18.2 SECONDS Prothromb Time International Ratio 1.7 Sodium Level 139 mmol/L Potassium Level 3.8 mmol/L Chloride Level 107 mmol/L Carbon Dioxide Level 26 mmol/L Anion Gap 6.0 mmol/L Blood Urea Nitrogen 20 mg/dl Creatinine 1.50 mg/dl Est Creatinine Clear Calc Drug Dose 31.8 ml/min Estimated GFR () 47.5 Estimated GFR (Non- 41.0 BUN/Creatinine Ratio 13.3 Random Glucose 91 mg/dl Calcium Level 8.7 mg/dl Assessment & Plan UTI Febrile in ED. WBC 11.000. UA demonstrated pyuria and bacteruria. Started on empiric antibiotic coverage with piperacillin / tazobactam pending culture results. Urine culture growing gram negative bacilli. Renal US negative for calculi / obstruction. Clinically improved. Afebrile. Continue piperacillin / tazobactam. ALTERED MENTAL STATUS Probable encephalopathy from UTI. Head CT negative for acute event. Mental status back to baseline. THROMBOCYTOPENIA Admission platelet count 127,000. HIT screen negative. CORONARY ARTERY DISEASE Recent non-STEMI. No anginal symptoms. Continue aspirin, metoprolol succinate, simvastatin. MODERATE AORTIC STENOSIS Echo last admission showed aortic calcification with mild-moderate aortic stenosis (aortic valve area 1.4 cm2). Follow. HISTORY AF / TACHY-ALICIA SYNDROME Continue metoprolol and warfarin. COPD Stable. CKD III Serum creatinine at time of admission 1.7. Creatinine this morning stable @ 1.5. Follow. VTE PROPHYLAXIS / HISTORY OF DVT INR 1.7. Titrate warfarin. SQ heparin until warfarin therapeutic. Ambulate. DISPOSITION Expected discharge to home. Medical follow-up with Dr. Childress. Follow[facility]up with [facility]. ADDENDUM Family visiting and given update. . Current Inpatient Medications: Current Inpatient Medications Medications (Trade) Dose Ordered Sig/Bailey Route Start Time Stop Time Status Last Admin Dose Admin Acetaminophen (Tylenol Tab) 650 mg Q4H PRN PO 05/03/17 02:00 06/02/17 01:59 Ondansetron HCl (Zofran Inj) 4 mg Q6H PRN IV 05/03/17 02:00 06/02/17 01:59 Amlodipine Besylate (Norvasc Tab) 5 mg QAM PO 05/03/17 08:00 06/02/17 08:59 05/04/17 08:32 5 MG Aspirin (Ecotrin Tab) 81 mg DAILY PO 05/03/17 08:00 06/02/17 08:59 05/04/17 08:32 81 MG Gabapentin (Neurontin Cap) 200 mg TID PO 05/03/17 08:00 06/02/17 08:59 05/04/17 20:28 200 MG Metoprolol Succinate (Toprol Xl Tab) 25 mg DAILY PO 05/03/17 08:00 06/02/17 08:59 05/04/17 08:33 25 MG Oxycodone/ Acetaminophen (Percocet 10-325MG Tab) 1 tab Q6H PRN PO 05/03/17 02:00 05/17/17 01:59 05/04/17 08:33 1 TAB Phenazopyridine HCl (Pyridium Tab) 100 mg TID PRN PO 05/03/17 02:00 06/02/17 01:59 05/04/17 08:38 100 MG Simvastatin (Zocor Tab) 20 mg QAM PO 05/03/17 08:00 06/02/17 08:59 05/04/17 08:31 20 MG Tamsulosin HCl (Flomax Cap) 0.4 mg DAILY PO 05/03/17 08:00 06/02/17 08:59 05/04/17 08:31 0.4 MG Buprenorphine HCl (Butrans Patch) 15 mcg Th@0900 TD 05/09/17 09:00 06/08/17 08:59 Pantoprazole Sodium (Protonix Tab) 40 mg BID PO 05/03/17 08:00 06/02/17 08:59 05/04/17 20:25 40 MG Polyethylene (Miralax Powder Packet) 17 gm DAILY PRN PO 05/03/17 02:00 06/02/17 01:59 Piperacillin Sod/ Tazobactam Sod (Consult) 1 ea UD PRN N/A 05/03/17 09:00 06/02/17 08:59 Warfarin Sodium (Coumadin Tab) 5 mg DAILY@16 PO 05/03/17 16:00 06/02/17 15:59 05/04/17 16:32 5 MG Piperacillin Sod/ Tazobactam Sod 3.375 gm/Dextrose 115 ml @ 28.75 mls/ hr Q8@0000,0800,1600 IV 05/03/17 08:00 05/13/17 07:59 05/04/17 16:32 28.75 MLS/HR Heparin Sodium (Porcine) (Heparin Sq 5000 Unit/0.5ml) 5,000 unit Q12 SQ 05/04/17 21:00 06/03/17 20:59 05/04/17 20:29 5,000 UNIT
[2017-05-05] MEDS: OXYCODONE/ACETAMINOPHEN 10/325MG TAB PO PRN (00:23)
[2017-05-05 00:29] VITALS: BP 164/96; PULSE 71; TEMP 36.9; O2SAT 94
[2017-05-05 05:36] LABS: BASO % 0.5 %; BASO ABS # 0.03 K/uL (0-0.2); COMPLETE YES; EOS % 10.3 %; HEMATOCRIT 29.3 % (42-52); IG% 0.2 %; LYMPH % 16.7 %; LYMPH ABS # 0.94 K/uL (1.2-3.4); MEAN CELL VOLUME 95.8 fL (80-100); MEAN CORPUSCULAR HGB CONC 32.4 g/dl (32-36); MEAN PLATELET VOLUME 9.1 fL (7.4-10.4); MONO % 15.1 %; NEUT % 57.2 %; PLATELET COUNT 142 K/uL (130-400); RED BLOOD COUNT 3.06 M/uL (4.7-6.1); WHITE BLOOD COUNT 5.63 K/uL (4.8-10.8)
[2017-05-05 05:49] LABS: PROTHROMBIN TIME (PATIENT) 22.3 SECONDS (9.0-12.0)
[2017-05-05 06:00] LABS: BUN/CREATININE RATIO 12.4 (10-20); CALCIUM 8.5 mg/dl (8.5-10.1); CREATININE 1.5 mg/dl (0.60-1.40); POTASSIUM 3.8 mmol/L (3.5-5.1)
[2017-05-05 07:26] VITALS: BP 166/77; PULSE 57; TEMP 36.6; O2SAT 96
[2017-05-05] MEDS: PIPERACILL/TAZOBAC IV 3.375 GM in DEXTROSE 5% 100ML IV SCH ×2 (07:36→08:00)
[2017-05-05] MEDS: SIMVASTATIN 20 MG TAB PO SCH (07:37)
[2017-05-05] MEDS: ASPIRIN 81 MG ECTAB PO SCH (07:37)
[2017-05-05] MEDS: AMLODIPINE BESYLATE 5 MG TAB PO SCH (07:38)
[2017-05-05] MEDS: TAMSULOSIN HCL 0.4 MG CAP PO SCH (07:39)
[2017-05-05] MEDS: GABAPENTIN 100 MG CAP PO SCH ×2 (07:39→14:00)
[2017-05-05 08:07] VITALS: PULSE 64
[2017-05-05] MEDS: METOPROLOL SUCC 25MG EXT REL TAB PO SCH (08:08)
[2017-05-05] MEDS: PANTOprazole SOD 40 MG TAB PO SCH (08:35)
[2017-05-05] MEDS: HEPARIN SOD 5000 UNIT/0.5 ML CARP SQ SCH (08:43)
--- NOTE | 2017-05-05 08:47 | Progress Note ---
Medicine Progress Note Date & Time of Visit: May 05, 2017 at 08:10 . Subjective Doing well. Afebrile. Dysuria improved. No chest pain. No cough or SOB. No nausea, vomiting, diarrhea. . Objective Last 8 Hrs Date Time Temp Pulse Resp B/P (MAP) Pulse Ox O2 Delivery O2 Flow Rate FiO2 05/05/17 08:07 64 05/05/17 07:26 36.6 57 20 166/77 (106) 96 Room Air Physical Exam: General- no distress Neck- no JVD Lungs- clear Heart- RRR, III/ systolic murmur at base Abdomen- + BS, soft, nontender Extremities- trace pretibial edema; no calf tenderness Neuro- alert . Laboratory Results: Last 24 Hours Test 05/05/17 05:15 White Blood Count 5.63 K/uL Red Blood Count 3.06 M/uL Hemoglobin 9.5 g/dL Hematocrit 29.3 % Mean Corpuscular Volume 95.8 fL Mean Corpuscular Hemoglobin 31.0 pg Mean Corpuscular Hemoglobin Concent 32.4 g/dl Platelet Count 142 K/uL Mean Platelet Volume 9.1 fL Neutrophils (%) (Auto) 57.2 % Lymphocytes (%) (Auto) 16.7 % Monocytes (%) (Auto) 15.1 % Eosinophils (%) (Auto) 10.3 % Basophils (%) (Auto) 0.5 % Neutrophils # (Auto) 3.22 K/uL Lymphocytes # (Auto) 0.94 K/uL Monocytes # (Auto) 0.85 K/uL Eosinophils # (Auto) 0.58 K/uL Basophils # (Auto) 0.03 K/uL RDW Standard Deviation 49.1 fL RDW Coefficient of Variation 14.1 % Immature Granulocyte % (Auto) 0.2 % Immature Granulocyte # (Auto) 0.01 K/uL Prothrombin Time 22.3 SECONDS Prothromb Time International Ratio 2.0 Sodium Level 141 mmol/L Potassium Level 3.8 mmol/L Chloride Level 108 mmol/L Carbon Dioxide Level 28 mmol/L Anion Gap 5.0 mmol/L Blood Urea Nitrogen 19 mg/dl Creatinine 1.50 mg/dl Est Creatinine Clear Calc Drug Dose 31.8 ml/min Estimated GFR () 47.5 Estimated GFR (Non- 41.0 BUN/Creatinine Ratio 12.4 Random Glucose 119 mg/dl Calcium Level 8.5 mg/dl Assessment & Plan UTI Febrile in ED. WBC 11.000. UA demonstrated pyuria and bacteruria. Started on empiric antibiotic coverage with piperacillin / tazobactam pending culture results. Urine culture grew Enterobacter aerogenes, resistant to cefotaxime, intermediate to ceftriaxone and nitrofurantoin, sensitive to quinolones, aminoglycosides, TMP/sulfa, piperacillin. Renal US negative for calculi / obstruction. Clinically improved. Afebrile. Transition to oral Rx with ciprofloxacin. QTc 460 msec. 500 mg x 1 dose, then 250 mg BID given patient's advance age and CKD. Rx x 14 days to treat for possible prostatitis. ALTERED MENTAL STATUS Probable encephalopathy from UTI. Head CT negative for acute event. Mental status back to baseline. THROMBOCYTOPENIA Admission platelet count 127,000. HIT screen negative. Platelet count today = 142,000. CORONARY ARTERY DISEASE Recent non-STEMI. No anginal symptoms. Continue aspirin, metoprolol succinate, simvastatin. MODERATE AORTIC STENOSIS Echo last admission showed aortic calcification with mild-moderate aortic stenosis (aortic valve area 1.4 cm2). Follow. HISTORY AF / TACHY-ALICIA SYNDROME Continue metoprolol and warfarin. INR 1.5 at time of admission. Usually takes 2 or 4 mg of warfarin daily. Received 5 mg x 2 on 05/03 and 5 mg on 05/04. Now receiving antibiotics, so may overshoot. Will discharge on pre-hospital dose of warfarin and request close monitoring while receiving antibiotics. COPD Stable. CKD III Serum creatinine at time of admission 1.7. Creatinine this morning stable @ 1.5. Follow. VTE PROPHYLAXIS / HISTORY OF DVT INR 1.5 at time of admission.. Titrated warfarin. SQ heparin until warfarin therapeutic. Ambulate. DISPOSITION Expected discharge to home. Medical follow-up with Dr. Childress. Follow-up with [facility]. . Procedures: CT head venous duplex lower extremities US kidneys IV fluids IV meds . Current Inpatient Medications: Current Inpatient Medications Medications (Trade) Dose Ordered Sig/Bailey Route Start Time Stop Time Status Last Admin Dose Admin Acetaminophen (Tylenol Tab) 650 mg Q4H PRN PO 05/03/17 02:00 06/02/17 01:59 Ondansetron HCl (Zofran Inj) 4 mg Q6H PRN IV 05/03/17 02:00 06/02/17 01:59 Amlodipine Besylate (Norvasc Tab) 5 mg QAM PO 05/03/17 08:00 06/02/17 08:59 05/05/17 07:38 5 MG Aspirin (Ecotrin Tab) 81 mg DAILY PO 05/03/17 08:00 06/02/17 08:59 05/05/17 07:37 81 MG Gabapentin (Neurontin Cap) 200 mg TID PO 05/03/17 08:00 06/02/17 08:59 05/05/17 07:39 200 MG Metoprolol Succinate (Toprol Xl Tab) 25 mg DAILY PO 05/03/17 08:00 06/02/17 08:59 05/05/17 08:08 25 MG Oxycodone/ Acetaminophen (Percocet 10-325MG Tab) 1 tab Q6H PRN PO 05/03/17 02:00 05/17/17 01:59 05/05/17 00:23 1 TAB Phenazopyridine HCl (Pyridium Tab) 100 mg TID PRN PO 05/03/17 02:00 06/02/17 01:59 05/04/17 08:38 100 MG Simvastatin (Zocor Tab) 20 mg QAM PO 05/03/17 08:00 06/02/17 08:59 05/05/17 07:37 20 MG Tamsulosin HCl (Flomax Cap) 0.4 mg DAILY PO 05/03/17 08:00 06/02/17 08:59 05/05/17 07:39 0.4 MG Buprenorphine HCl (Butrans Patch) 15 mcg Th@0900 TD 05/09/17 09:00 06/08/17 08:59 Pantoprazole Sodium (Protonix Tab) 40 mg BID PO 05/03/17 08:00 06/02/17 08:59 05/05/17 08:35 40 MG Polyethylene (Miralax Powder Packet) 17 gm DAILY PRN PO 05/03/17 02:00 06/02/17 01:59 Warfarin Sodium (Coumadin Tab) 5 mg DAILY@16 PO 05/03/17 16:00 06/02/17 15:59 05/04/17 16:32 5 MG Heparin Sodium (Porcine) (Heparin Sq 5000 Unit/0.5ml) 5,000 unit Q12 SQ 7/1/17 21:00 06/03/17 20:59 05/04/17 20:29 5,000 UNIT Ciprofloxacin (Cipro Tab) 500 mg TODAY@1000 ONCE PO 05/05/17 10:00 05/05/17 10:01
[2017-05-05] MEDS ORDERED: CIPR250T3 PO (08:53)
[2017-05-05] MEDS ORDERED: CIPROFLOXACIN 500 MG TAB PO ONE (10:00)
--- NOTE | 2017-05-05 11:51 | Discharge Instructions ---
Discharge Instructions Date of Service May 05, 2017. Admission Reason for Admission: urinary tract infection . Discharge Discharge Diagnosis / Problem: urinary tract infection with Enterobacter aerogenes Discharge Goals Goal(s): Improve disease control Activity Recommendations Activity Limitations: resume your previous activity . Instructions / Follow-Up Instructions / Follow-Up APPOINTMENTS: PRIMARY CARE 05/09/2017 11:40 AM Tad Childress MD UROLOGY Dr. Garay as scheduled. INSTRUCTIONS: You had another urinary tract infection. Take ciprofloxacin (Cipro) 250 mg twice a day for 14 days. Your INR level may fluctuate while you are taking antibiotics. [facility] will tell you when to get your next INR checked. Seek medical attention if you have: * temperature above 101 * chest pain or trouble breathing * abdominal pain, nausea, vomiting * diarrhea, dark stools or bloody stools * any unanswered questions or concerns Call 911 if symptoms are severe. Call if you have any questions or problems. My cell # is [phone]. You can also reach a [facility] hospitalist on duty at [facility] 24 hours a day by calling [phone]. Please take good care of yourself. Vinicius Leggett . Current Hospital Diet Patient's current hospital diet: AHA Diet (Heart Healthy) Discharge Diet Recommended Diet: AHA Diet (Heart Healthy) Pending Studies Studies pending at discharge: no Laboratory Results Lipid Panel Test 03/07/17 05:10 Range/Units Triglycerides Level 162 H 0-150 mg/dl Cholesterol Level 106 0-200 mg/dl HDL Cholesterol 28 mg/dl Cholesterol/HDL Ratio 3.8 LDL Cholesterol, Calculated 46 mg/dl Medical Emergencies . Who to Call and When: Medical Emergencies: If at any time you feel your situation is an emergency, please call 911 immediately. . Non-Emergent Contact Non-Emergency issues call your: Primary Care Provider, Hospital Doctor, Urologist . . "Provider Documentation" section prepared by Vinicius Leggett. . VTE Core Measure Inpt VTE Proph given/why not?: Unfractionated heparin SQ, Warfarin (Coumadin) [place] Drug Monitoring [place] Search Results: patient reviewed within database, no issues identified ( chronic analgesic use, no concerns)
[2017-05-05] MEDS ORDERED: CPR250 PO (11:53)
[2017-05-05 11:58] VITALS: BP 161/85
[2017-05-05 12:28] VITALS: BP 161/85; PULSE 64; TEMP 36.6; O2SAT 96
--- NOTE | 2017-05-05 17:53 | Discharge Summary ---
Discharge Summary Date of Service May 05, 2017. Discharge Summary Admission Date: May 03, 2017 at 01:45 Discharge Date: May 05, 2017 Discharge Disposition: Home Principal Diagnosis: urinary tract infection with Enterobacter aerogenes encephalopathy secondary to UTI . Secondary Diagnoses/Problems: Chronic and Resolved Medical Problems: (1) Aortic stenosis Permanent Comment: moderate per echo 03/07/17 Status: Chronic (2) Atrial fibrillation Status: Chronic (3) BPH (benign prostatic hyperplasia) Status: Chronic (4) Chronic back pain Status: Chronic (5) CKD (chronic kidney disease), stage III Status: Chronic (6) COPD (chronic obstructive pulmonary disease) Permanent Comment: mild Status: Chronic (7) Coronary artery disease Permanent Comment: non-STEMI 03/06/17 Status: Chronic (8) H/O tachycardia-bradycardia syndrome Status: Chronic (9) History of DVT (deep vein thrombosis) Status: Chronic (10) History of GI bleed Permanent Comment: due to esophageal ulcer Status: Chronic (11) History of orthostatic hypotension Status: Chronic (12) History of pulmonary embolism Status: Chronic (13) Hyperlipidemia Status: Chronic Surgical Problems: (1) H/O carpal tunnel repair Status: Chronic (2) H/O colonoscopy Permanent Comment: 04/2003- diverticulosis 11/25/2007- adenomatous Status: Chronic (3) H/O esophagogastroduodenoscopy Permanent Comment: - esophageal ulcer with large clots; 08/11/15-esophgeal ulcer, esophagitis; 09/12/2015 EGD with EUS- reflux on bx, HH, pancreatic intraductal papillary mucinous neoplasm, CBD dilation; Dr. Stone Status: Chronic (4) knee replacement Status: Chronic (5) Previous back surgery Status: Chronic . Procedures: CT head venous duplex lower extremities US kidneys IV fluids IV meds . Medication Reconciliation New Medications: Ciprofloxacin (Ciprofloxacin HCl) 250 Mg Tab 250 MG PO BID, #27 TAB Continued Medications: Amlodipine Besylate (Norvasc) 5 Mg Tab 5 MG PO QAM, TAB Ascorbic Acid (Vitamin C) 500 Mg Cap 1000 MG PO DAILY Aspirin (Ecotrin Low Strength) 81 Mg Tab 81 MG PO DAILY, #30 TAB 12 Refills Buprenorphine (Butrans) 15 Mcg/Hr Dis 15 MCG TOP WK Gabapentin (Gabapentin) 600 Mg Tab 600 MG PO TID, TAB Methenamine Mandelate (Methenamine Mandelate) 0.5 Gm Tab Unknown Dose PO Metoprolol Succinate (Toprol Xl) 25 Mg Tab 25 MG PO DAILY, #30 TAB 5 Refills Nitroglycerin (Nitrostat) 0.4 Mg Tab 0.4 MG UT PRN, #25 BTL 1 Refill Take 1 pill under tongue as needed for chest pain. May repeat dose in 5-10 min. Call 911 if no relief. Oxycodone/Acetaminophen 10MG/325MG (Percocet 10MG/325MG) Tab 1 TAB PO Q6H PRN for Pain for 5 Days, #20 TAB hold for lethargy and drowsiness Pantoprazole (Protonix) 20 Mg Tab 40 MG PO BID for 30 Days, 2 Refills Polyethylene Glycol 3350 (Miralax) 1 Pow Pow 1 TBS PO DAILY PRN for Constipation, #527 GM Simvastatin (Simvastatin) 20 Mg Tab 20 MG PO QAM Tamsulosin Hcl (Flomax) 0.4 Mg Cap 0.4 MG PO DAILY, CAP Warfarin Sod (Coumadin) 4 Mg Tab 4 MG PO UD Dose as of 04/17/17: 1/2 pill 2 mg Mon, Wed, Fri 1 pill 4 mg Tue, Ilda, Sat, Sun Admission Information HPI (per Admitting provider): Recent confinement last month for non-ST elevation OR. Conservative management as per cardiology. No cardiac catheterization. Mild to moderate aortic stenosis on 2-D echo Few days ago patient underwent cystoscopy at at [facility] office. Patient underwent cystoscopy. 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 As per patient conversation with urologist, surgery for defect will likely be too risky at his age. Chronic Keflex suppression Rx for UTI replaced with Mandelamine. Yesterday patient noted to be more unsteady weak, and confused by family similar to UTI episodes. Legs weaker than usual as per patient, some trouble walking. Patient admits to bladder discomfort. Low-grade fever later noted. No chest pain or shortness of breath or cough. Usual back pain. Denies inordinate intake of Home narcotics. At the ER, patient given IV vancomycin and ceftriaxone for UTI. . Physical Exam (per Admitting): General Appearance: + pertinent finding (episodic lethargy, coherent) Head: normocephalic ENT: normal ENT inspection Neck: supple Respiratory/Chest: + decreased breath sounds Cardiovascular: regular rate, rhythm, + systolic murmur Abdomen/GI: soft Genitourinary - Male: + pertinent finding (penoscrotal hypospadias) Neurologic/Psych: + pertinent finding (episodic lethargy but coherent) Skin: + pallor Hospital Course UTI Febrile in ED. WBC 11.000. UA demonstrated pyuria and bacteruria. Started on empiric antibiotic coverage with piperacillin / tazobactam pending culture results. Urine culture grew Enterobacter aerogenes, resistant to cefotaxime, intermediate to ceftriaxone and nitrofurantoin, sensitive to quinolones, aminoglycosides, TMP/sulfa, piperacillin. Renal US negative for calculi / obstruction. Clinically improved. Afebrile. Transition to oral Rx with ciprofloxacin. QTc 460 msec. 500 mg x 1 dose, then 250 mg BID given patient's advance age and CKD. Rx x 14 days to treat for possible prostatitis. ALTERED MENTAL STATUS Probable encephalopathy from UTI. Head CT negative for acute event. Mental status back to baseline. THROMBOCYTOPENIA Admission platelet count 127,000. HIT screen negative. Platelet count day of discharge = 142,000. CORONARY ARTERY DISEASE Recent non-STEMI. No anginal symptoms. Continue aspirin, metoprolol succinate, simvastatin. MODERATE AORTIC STENOSIS Echo last admission showed aortic calcification with mild-moderate aortic stenosis (aortic valve area 1.4 cm2). Follow. HISTORY AF / TACHY-ALICIA SYNDROME Continue metoprolol and warfarin. INR 1.5 at time of admission. Usually takes 2 or 4 mg of warfarin daily. Received 5 mg x 2 on 05/03 and 5 mg on 05/04. INR day of discharge = 2.0. Now receiving antibiotics, so may overshoot. Will discharge on pre-hospital dose of warfarin and request close monitoring while receiving antibiotics. COPD Stable. CKD III Serum creatinine at time of admission 1.7. Creatinine day of discharge = 1.5. Follow. VTE PROPHYLAXIS / HISTORY OF DVT INR 1.5 at time of admission.. Titrated warfarin as noted above. Received SQ heparin until warfarin therapeutic. Ambulate. DISPOSITION Expected discharge to home. Medical follow-up with Dr. Childress. Follow-up with [facility]. . Total time spent on discharge = 40 min. This includes examination of the patient, discharge planning, medication reconciliation, and communication with other providers. . Discharge Instructions Date of Service May 05, 2017. Admission Reason for Admission: urinary tract infection . Discharge Discharge Diagnosis / Problem: urinary tract infection with Enterobacter aerogenes Discharge Goals Goal(s): Improve disease control Activity Recommendations Activity Limitations: resume your previous activity . Instructions / Follow-Up Instructions / Follow-Up APPOINTMENTS: PRIMARY CARE 05/09/2017 11:40 AM Tad Childress MD UROLOGY Dr. Garay as scheduled. INSTRUCTIONS: You had another urinary tract infection. Take ciprofloxacin (Cipro) 250 mg twice a day for 14 days. Your INR level may fluctuate while you are taking antibiotics. [facility] will tell you when to get your next INR checked. Seek medical attention if you have: * temperature above 101 * chest pain or trouble breathing * abdominal pain, nausea, vomiting * diarrhea, dark stools or bloody stools * any unanswered questions or concerns Call 911 if symptoms are severe. Call if you have any questions or problems. My cell # is [phone]. You can also reach a [facility] hospitalist on duty at [facility] 24 hours a day by calling [phone]. Please take good care of yourself. Vinicius Leggett . Current Hospital Diet Patient's current hospital diet: AHA Diet (Heart Healthy) Discharge Diet Recommended Diet: AHA Diet (Heart Healthy) Pending Studies Studies pending at discharge: no Laboratory Results Lipid Panel Test 03/07/17 05:10 Range/Units Triglycerides Level 162 H 0-150 mg/dl Cholesterol Level 106 0-200 mg/dl HDL Cholesterol 28 mg/dl Cholesterol/HDL Ratio 3.8 LDL Cholesterol, Calculated 46 mg/dl Medical Emergencies . Who to Call and When: Medical Emergencies: If at any time you feel your situation is an emergency, please call 911 immediately. . Non-Emergent Contact Non-Emergency issues call your: Primary Care Provider, Hospital Doctor, Urologist . . "Provider Documentation" section prepared by Vinicius Leggett. . VTE Core Measure Inpt VTE Proph given/why not?: Unfractionated heparin SQ, Warfarin (Coumadin) [place] Drug [place] Search Results: patient reviewed within database, no issues identified ( chronic analgesic use, no concerns) . Additional Copies To Tad Childress M.D.; Cyndie Garay MD
[2017-05-09] MEDS ORDERED: BUPRENORPHINE 5 MCG/HR TDSY TD SCH (09:00)
== END 2017-05-05 15:00 | disposition home or self-care (01) | DRG 689 ==
LOC: C.EDB 21:13 → ENRESERV 05-03 01:36 → CANRESERV 05-03 01:36 → C.4E 05-03 01:45 → EDBEDREQSVC 05-03 01:45 → ENRESERV 05-03 02:12
PROVIDERS: ADMIT Hospitalist; ATTEND Hospitalist
DX: N39.0 Urinary tract infection, site not specified (principal); G93.41 Metabolic encephalopathy; B96.89 Other specified bacterial agents as the cause of diseases classified elsewhere; D69.6 Thrombocytopenia, unspecified; M79.89 Other specified soft tissue disorders; I48.91 Unspecified atrial fibrillation; I49.5 Sick sinus syndrome; I25.2 Old myocardial infarction; N18.3 Chronic kidney disease, stage 3 (moderate); N40.0 Benign prostatic hyperplasia without lower urinary tract symptoms; J44.9 Chronic obstructive pulmonary disease, unspecified; I25.10 Atherosclerotic heart disease of native coronary artery without angina pectoris; E78.5 Hyperlipidemia, unspecified; I35.0 Nonrheumatic aortic (valve) stenosis; Q54.2 Hypospadias, penoscrotal; Z51.81 Encounter for therapeutic drug level monitoring; Z79.899 Other long term (current) drug therapy; Z79.01 Long term (current) use of anticoagulants; Z79.82 Long term (current) use of aspirin; Z87.440 Personal history of urinary (tract) infections; Z86.711 Personal history of pulmonary embolism; Z86.718 Personal history of other venous thrombosis and embolism; Z87.891 Personal history of nicotine dependence; Z82.5 Family history of asthma and other chronic lower respiratory diseases

== ENCOUNTER 2017-08-15 15:46 | Inpatient (IN) | payer OTHER ==
[~2017-08-15] VITALS: Ht 172.7 cm; Wt 67.2 kg
[~2017-08-15 15:46] MED LIST changes: +ASCO1CAP3 PO; +CPR250 PO; -FLM4 PO; -KFL/250 PO; +METH-467 PO; +TAMS0.4C38 PO
[2017-08-15 16:49] LABS: BASO % 0.2 %; BASO ABS # 0.02 K/uL (0-0.2); COMPLETE YES; EOS % 1.5 %; HEMATOCRIT 34.2 % (42-52); IG% 0.1 %; LYMPH % 16.2 %; LYMPH ABS # 1.55 K/uL (1.2-3.4); MEAN CELL VOLUME 95.5 fL (80-100); MEAN CORPUSCULAR HEMOGLOBIN 30.4 pg (25-34); MEAN CORPUSCULAR HGB CONC 31.9 g/dl (32-36); MEAN PLATELET VOLUME 8.9 fL (7.4-10.4); MONO % 10.1 %; NEUT % 71.9 %; PLATELET COUNT 164 K/uL (130-400); RED BLOOD COUNT 3.58 M/uL (4.7-6.1); WHITE BLOOD COUNT 9.54 K/uL (4.8-10.8)
--- NOTE | 2017-08-15 16:52 | EMERGENCY ROOM VISIT NOTE ---
History First contact with patient: 16:01 Chief Complaint: NEURO SYMPTOMS Stated Complaint: DISORIENTED, BRUISE ON CHEEK, LEFT LEG WEAKNESS History of Present Illness The patient is a 86 year old male who presents to the Emergency Room with complaints of weakness and confusion. The patient is accompanied by his home care nurse. She notes that this morning when she came to look after him he was found in the laundry room crouching naked. The patient stated that he did not know why he was there but knew that he had gone there overnight. This is unlike his temperament per the home nurse. In addition the patient seemed to be having extensive difficulty with activities of daily living such as dressing himself that is not usual for him. The nurse noted that his left hand seemed clumsy. He was taken to the PCP at approximately noon today. The PCP ambulated the patient and noted that he was favoring his left side. The patient states that he feels just generally unwell. He states that he feels like his legs are both weak. He denies any facial droop, difficulty with speech, difficulty with comprehension, double vision or blurred vision, hearing difficulties, tinnitus or vertigo. Of note the patient was diagnosed with UTI 1 week ago and started on Cipro but culture data showed resistance so 3 days ago he was changed over to Cefuroxime/ Ceftin. He was at his baseline up until this morning. The patient notes that yesterday he did have some coughing, and was bringing up sputum. Today the nurse notes that he seems more short of breath. The patient denies chest pain, palpitations, orthopnea, or lower extremity edema. The PCP was concerned for CVA/TIA, and requested the patient come into the emergency room for further evaluation. Review of Systems A 10 point review of systems was negative unless stated above. 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 (13) History of DVT (deep vein thrombosis) (14) History of GI bleed (15) History of orthostatic hypotension (16) History of pulmonary embolism (17) Hyperlipidemia Surgical Problems: (1) H/O carpal tunnel repair (2) H/O colonoscopy (3) H/O esophagogastroduodenoscopy (4) knee replacement (5) Previous back surgery Family History FH: COPD (chronic obstructive pulmonary disease) BROTHER Social History Smoking Status: Never Smoker Smokeless Tobacco Use: No Alcohol Use: none Marital Status: Housing Status: lives alone Occupation Status: retired, other Current/Historical Medications Scheduled Amlodipine Besylate (Norvasc), 5 MG PO QAM Ascorbic Acid (Vitamin C), 1,000 MG PO DAILY Aspirin (Ecotrin Low Strength), 81 MG PO DAILY Buprenorphine (Butrans), 15 MCG TOP WK Diclofenac Sodium (Topical) (Voltaren 1% Top Gel), 4 GM TOP QID Gabapentin (Gabapentin), 600 MG PO TID Methenamine Mandelate (Methenamine Mandelate), 2 TABS PO DAILY Metoprolol Succinate (Toprol Xl), 25 MG PO DAILY Nitroglycerin (Nitrostat), 0.4 MG UT PRN Pantoprazole (Protonix), 40 MG PO BID Simvastatin (Simvastatin), 20 MG PO QAM Tamsulosin Hcl (Flomax), 0.4 MG PO DAILY Warfarin Sod (Coumadin), 4 MG PO UD Scheduled PRN Oxycodone/Acetaminophen 10MG/325MG (Percocet 10MG/325MG), 1 TAB PO Q6 PRN for Pain Polyethylene Glycol 3350 (Miralax), 1 TBS PO DAILY PRN for Constipation Allergies As Noted Above Physical Exam Vital Signs Date Time Temp Pulse Resp B/P (MAP) Pulse Ox O2 Delivery O2 Flow Rate FiO2 08/15/17 19:45 74 18 97 08/15/17 19:30 74 16 145/82 98 08/15/17 19:15 72 17 94 08/15/17 19:00 69 18 146/72 95 08/15/17 18:56 144/79 08/15/17 17:34 74 14 140/74 95 Room Air 08/15/17 16:52 69 20 131/77 94 Room Air 08/15/17 16:39 66 08/15/17 15:58 36.4 69 18 129/77 98 Room Air Pain Rating (0-10): 0 Physical Exam Constitutional: Vital signs as above were reviewed. Eyes: Pupils equal, round, and reactive to light. Extraocular muscles are intact. No proptosis. No photophobia. ENT: Mucous membranes are moist. Black tongue from tobacco chewing. Oropharynx is clear. No sinus tenderness. TMs are clear bilaterally. Cardiovascular: Heart with a regular rate and rhythm. No pedal edema appreciated. Respiratory: Lungs clear to auscultation bilaterally. No wheezes, rales, or rhonchi appreciated. No accessory muscle use. No retractions. No increased work of breathing. GI: Abdomen soft, nontender, nondistended. Normal active bowel sounds. No abdominal hernias appreciated. No rebound. No guarding. : No CVA tenderness appreciated. Musculoskeletal: No midline cervical or vertebral tenderness. No gross deformities. No bony tenderness. No calf swelling or tenderness. Integumentary: Warm, dry, no rashes appreciated. Neurological: Patient awake, alert, and oriented x 3. Cranial nerves two through 12 grossly intact. Motor 5 out of 5 strength bilateral upper and lower extremities. No pronator drift Normal finger nose Good left hand innovations paraprofessional strength. Lymph: No cervical lymphadenopathy appreciated. Medical Decision & Procedures ER Provider Diagnostic Interpretation: HEAD WITHOUT CONTRAST (CT) CLINICAL HISTORY: 86 years-old Male presenting with weakness, altered mental status, leaning to left. TECHNIQUE: Multidetector CT imaging of the head was performed without the use of intravenous contrast. IV contrast: None. A dose lowering technique was used consistent with the principles of ALARA (as low as reasonably achievable). COMPARISON: 05/03/2017. CT DOSE (mGy.cm): The estimated cumulative dose is 537.48 mGy.cm. FINDINGS: Business Assistant topogram: Unremarkable. Proportional ventricular and sulcal prominence, likely age-related parenchymal volume loss. Periventricular and subcortical white matter hypoattenuation, nonspecific but likely indicative of chronic small vessel ischemic change. No mass effect or midline shift. No hemorrhage or acute territorial infarct. No extra-axial fluid collection. Paranasal sinuses and mastoid air cells clear. Calvarium intact. IMPRESSION: 1. No acute intracranial pathology. Electronically signed by: Scot Jenkins M.D. 08/15/2017 5:09 PM Dictated Date/Time: 08/15/2017 5:07 PM The status of this report is Signed. Draft = Not yet reviewed or approved by Radiologist. Signed = Reviewed and approved by Radiologist. CHEST ONE VIEW PORTABLE CLINICAL HISTORY: Altered mental status. Weakness. COMPARISON STUDY: Chest radiograph May 03, 2017. FINDINGS: Lung volumes are normal. No pneumothorax or pleural effusion is present. Mild cardiomegaly is unchanged. There is no evidence of pulmonary edema. Mild bibasilar opacities are present. IMPRESSION: Mild bibasilar opacities. Atelectasis is favored over pneumonia. Electronically signed by: Giuseppe Rizvi M.D. 08/15/2017 5:15 PM Dictated Date/Time: 08/15/2017 5:14 PM The status of this report is Signed. Draft = Not yet reviewed or approved by Radiologist. Signed = Reviewed and approved by Radiologist. Laboratory Results 08/15/17 16:35 Red Blood Count 3.58, Mean Corpuscular Volume 95.5, Mean Corpuscular Hemoglobin 30.4, Mean Corpuscular Hemoglobin Concent 31.9, Mean Platelet Volume 8.9, Neutrophils (%) (Auto) 71.9, Lymphocytes (%) (Auto) 16.2, Monocytes (%) (Auto) 10.1, Eosinophils (%) (Auto) 1.5, Basophils (%) (Auto) 0.2, Neutrophils # (Auto ) 6.86, Lymphocytes # (Auto) 1.55, Monocytes # (Auto) 0.96, Eosinophils # (Auto ) 0.14, Basophils # (Auto) 0.02 08/15/17 16:35 Test 08/15/17 16:35 08/15/17 17:15 White Blood Count 9.54 K/uL (4.8-10.8) Red Blood Count 3.58 M/uL (4.7-6.1) Hemoglobin 10.9 g/dL (14.0-18.0) Hematocrit 34.2 % (42-52) Mean Corpuscular Volume 95.5 fL (80-100) Mean Corpuscular Hemoglobin 30.4 pg (25-34) Mean Corpuscular Hemoglobin Concent 31.9 g/dl (32-36) Platelet Count 164 K/uL (130-400) Mean Platelet Volume 8.9 fL (7.4-10.4) Neutrophils (%) (Auto) 71.9 % Lymphocytes (%) (Auto) 16.2 % Monocytes (%) (Auto) 10.1 % Eosinophils (%) (Auto) 1.5 % Basophils (%) (Auto) 0.2 % Neutrophils # (Auto) 6.86 K/uL (1.4-6.5) Lymphocytes # (Auto) 1.55 K/uL (1.2-3.4) Monocytes # (Auto) 0.96 K/uL (0.11-0.59) Eosinophils # (Auto) 0.14 K/uL (0-0.5) Basophils # (Auto) 0.02 K/uL (0-0.2) RDW Standard Deviation 49.6 fL (36.4-46.3) RDW Coefficient of Variation 14.3 % (11.5-14.5) Immature Granulocyte % (Auto) 0.1 % Immature Granulocyte # (Auto) 0.01 K/uL (0.00-0.02) Anion Gap 6.0 mmol/L (3-11) Estimated GFR () 35.7 Estimated GFR (Non- 30.8 BUN/Creatinine Ratio 12.5 (10-20) Calcium Level 8.6 mg/dl (8.5-10.1) Troponin I < 0.015 ng/ml (0-0.045) Chemistry Specimen Hemolysis Urine Color YELLOW Urine Appearance CLEAR (CLEAR) Urine pH 6.0 (4.5-7.5) Urine Specific [place] 1.011 (1.000-1.030) Urine Protein TRACE (NEG) Urine Glucose (UA) NEG (NEG) Urine Ketones NEG (NEG) Urine Occult Blood NEG (NEG) Urine Nitrite NEG (NEG) Urine Bilirubin NEG (NEG) Urine Urobilinogen NEG (NEG) Urine Leukocyte Esterase SMALL (NEG) Urine WBC (Auto) 10-30 /hpf (0-5) Urine RBC (Auto) 0-4 /hpf (0-4) Urine Hyaline Casts (Auto) 1-5 /lpf (0-5) Urine Epithelial Cells (Auto) >30 /lpf (0-5) Urine Bacteria (Auto) NEG (NEG) Urine Renal Epithelial Cells 0-5 /lpf (0-5) Medications Administered Medications (Trade) Dose Ordered Sig/Bailey Route Start Time Stop Time Status Last Admin Dose Admin Ceftriaxone Sodium 1 gm/ Dextrose 50 ml @ 100 mls/hr ONE STAT IV 08/15/17 17:04 08/15/17 17:33 DC 08/15/17 17:33 100 MLS/HR Sodium Chloride 500 ml @ 999 mls/hr Q31M ONCE IV 08/15/17 18:15 08/15/17 18:45 DC 08/15/17 18:25 999 MLS/HR Oxycodone HCl (Roxicodone Immediate Rel Tab) 5 mg NOW STAT PO 08/15/17 19:01 08/15/17 19:02 DC 08/15/17 19:22 5 MG ED Course 16:00 - The patient was seen and evaluated by Dr. Tad Odell MD [facility] 16:30 - Labs: CBC, BMP, Troponin, UA, EKG, Chest X-ray - Discussed case with Dr. Vinicius Sosa, ER attending physician 17:00 - Reviewed culture data provided by Nadya; patient has unclear sensitivity to Ceftin which he was on prior to arrival 1 g Rocephin given 18:00 - Reviewed CT: negative for stroke Negative troponin Mild KENN at Cr 1.9 18:10 - Decision made to admit the patient I went to the bedside to speak with patient; he was sleeping comfortably; he was in agreement with plan Paged [facility] to discuss case. 18:20 - Discussed case with Dr. Leggett, [facility] hospitalist service who will come to evaluate the patient. Medical Decision This is an 86-year-old male who presents with altered mental status and weakness concerning for stroke. The differential diagnosis for his presentation includes encephalopathy secondary to either, cerebrovascular accident, infection, metabolic abnormality , acute coronary syndrome, hypoxia, constipation, or uncontrolled pain. The patient's neurological exam in the emergency room was unimpressive and he had no focal neurological signs. CT scan of the brain was negative. He did have a mild acute kidney injury noted on his renal panel, but no other gross joint abnormalities. The chest x-ray was unremarkable for pneumonia, and the patient was not hypoxic. Troponin was normal, and there were no acute EKG changes. Given his recent urinary tract infection, we felt this was the most likely source of his encephalopathy. We did have the opportunity to review cultures from his PCP, which speciated out E.coli. He was initially treated with Cipro, which culture data showed he was ultimately sensitive to. He was put on cefuroxime once the PCP became aware of this. However looking at the cultures does not appear that sensitivities were done to a second-generation cephalosporin and there was resistance to penicillin. Given that it was unclear whether his urinary tract infection was sensitive to a second- generation cephalosporin, we felt his clinical picture was most likely related to urinary tract infection with failed outpatient treatment. At that time we made the decision to start IV antibiotics with 1 g of Rocephin which according the cultures of Escherichia coli sensitive to. The case was discussed with [facility] hospitalist service, who agreed to accept the patient and provide further workup and management. The patient was in stable condition at the time of evaluation by the hospitalist service. Head Trauma GCS Score: 15 Blood Pressure Screening Patient's blood pressure: Normal blood pressure Impression Primary Impression: Metabolic encephalopathy Additional Impression: Complicated UTI (urinary tract infection) Departure Information Dispostion Being Evaluated By Hospitalist Referrals Tad Childress M.D. (PCP) Patient Instructions My [facility] Problem Qualifiers
[2017-08-15] MEDS ORDERED: CEFTRIAXONE SOD INJ 1 GM in DEXTROSE 5% ADD-VANTAGE 50ML 50 ML IV STA (17:04)
[2017-08-15] MEDS ORDERED: PRT/20 PO (17:07)
[2017-08-15] MEDS ORDERED: DICL1GEL12 TOP (17:07)
[2017-08-15] MEDS ORDERED: OXYC-106 PO (17:07)
--- NOTE | 2017-08-15 17:11 | DIAGNOSTIC IMAGING REPORT ---
HEAD WITHOUT CONTRAST (CT) CLINICAL HISTORY: 86 years-old Male presenting with weakness, altered mental status, leaning to left. TECHNIQUE: Multidetector CT imaging of the head was performed without the use of intravenous contrast. IV contrast: None. A dose lowering technique was used consistent with the principles of ALARA (as low as reasonably achievable). COMPARISON: 05/03/2017. CT DOSE (mGy.cm): The estimated cumulative dose is 537.48 mGy.cm. FINDINGS: Research Chemical Engineer topogram: Unremarkable. Proportional ventricular and sulcal prominence, likely age-related parenchymal volume loss. Periventricular and subcortical white matter hypoattenuation, nonspecific but likely indicative of chronic small vessel ischemic change. No mass effect or midline shift. No hemorrhage or acute territorial infarct. No extra-axial fluid collection. Paranasal sinuses and mastoid air cells clear. Calvarium intact. IMPRESSION: 1. No acute intracranial pathology. Electronically signed by: Scot Jenkins M.D. 08/15/2017 5:09 PM Dictated Date/Time: 08/15/2017 5:07 PM
--- NOTE | 2017-08-15 17:17 | EMERGENCY ROOM VISIT NOTE ---
History First contact with patient: 16:01 Chief Complaint: NEURO SYMPTOMS Stated Complaint: DISORIENTED, BRUISE ON CHEEK, LEFT LEG WEAKNESS History of Present Illness The patient is a 86 year old male who presents to the Emergency Room with complaints of confusion. He was found addressed in his laundry room this morning by his caregiver. He was taken to his primary office. They're concerned because he was leaning to the left. The patient was recently diagnosed with UTI and was placed on Cipro. His antibiotic was changed to Ceftin. The patient may have had some left leg weakness as well. Currently he has minimal complaints. He denies any trauma. Pt denies LOC, headache, fevers , chills, diaphoresis, visual changes, neck pain, chest pain, breathing difficulties, nausea, vomiting, abdominal pain, back pain, melena, hematochezia , numbness, rash, or other complaints. Review of Systems See HPI for pertinent positives and negatives. A total of ten systems were reviewed and were otherwise negative. Past Medical/Surgical History Medical Problems: (1) Acute myocardial infarction (2) Aortic stenosis (3) Atrial fibrillation (4) BPH (benign prostatic hyperplasia) (5) Chest pain (6) Chronic back pain (7) CKD (chronic kidney disease), stage III (8) Complicated UTI (urinary tract infection) (9) COPD (chronic obstructive pulmonary disease) (10) Coronary artery disease (11) Encephalopathy (12) Encephalopathy (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 (14) History of DVT (deep vein thrombosis) (15) History of GI bleed (16) History of orthostatic hypotension (17) History of pulmonary embolism (18) Hyperlipidemia Surgical Problems: (1) H/O carpal tunnel repair (2) H/O colonoscopy (3) H/O esophagogastroduodenoscopy (4) knee replacement (5) Previous back surgery Family History FH: COPD (chronic obstructive pulmonary disease) BROTHER Social History Smoking Status: Never Smoker Smokeless Tobacco Use: No Alcohol Use: none Marital Status: Housing Status: lives alone Occupation Status: retired, other Current/Historical Medications Scheduled Amlodipine Besylate (Norvasc), 5 MG PO QAM Ascorbic Acid (Vitamin C), 1,000 MG PO DAILY Aspirin (Ecotrin Low Strength), 81 MG PO DAILY Buprenorphine (Butrans), 15 MCG TOP WK Diclofenac Sodium (Topical) (Voltaren 1% Top Gel), 4 GM TOP QID Gabapentin (Gabapentin), 600 MG PO TID Methenamine Mandelate (Methenamine Mandelate), 2 TABS PO DAILY Metoprolol Succinate (Toprol Xl), 25 MG PO DAILY Nitroglycerin (Nitrostat), 0.4 MG UT PRN Pantoprazole (Protonix), 40 MG PO BID Simvastatin (Simvastatin), 20 MG PO QAM Tamsulosin Hcl (Flomax), 0.4 MG PO DAILY Warfarin Sod (Coumadin), 4 MG PO UD Scheduled PRN Oxycodone/Acetaminophen 10MG/325MG (Percocet 10MG/325MG), 1 TAB PO Q6 PRN for Pain Polyethylene Glycol 3350 (Miralax), 1 TBS PO DAILY PRN for Constipation Physical Exam Vital Signs Date Time Temp Pulse Resp B/P (MAP) Pulse Ox O2 Delivery O2 Flow Rate FiO2 08/15/17 17:34 74 14 140/74 95 Room Air 08/15/17 16:52 69 20 131/77 94 Room Air 08/15/17 16:39 66 08/15/17 15:58 36.4 69 18 129/77 98 Room Air Pain Rating (0-10): 0 Physical Exam GENERAL: Awake, alert, tired appearing, in no distress HENT: Normocephalic, atraumatic. Oropharynx unremarkable. EYES: Normal conjunctiva. Sclera non-icteric. NECK: Supple. No nuchal rigidity. FROM. No JVD. RESPIRATORY: Clear to auscultation. CARDIAC: Regular rate, normal rhythm. Extremities warm and well perfused. Pulses equal. ABDOMEN: Soft, non-distended. No tenderness to palpation. No rebound or guarding. No masses. RECTAL: Deferred. MUSCULOSKELETAL: Chest examination reveals no tenderness. The back is symmetrical on inspection without obvious abnormality. There is no CVA tenderness to palpation. No joint edema. LOWER EXTREMITIES: Calves are equal size bilaterally and non-tender. No edema. No discoloration. NEURO: Mildly confused sensorium. Slightly leaning to the left but no focal drift. Speech slow and generally weak. No focal sensory or motor deficits noted. SKIN: No rash or jaundice noted. Medical Decision & Procedures Laboratory Results 08/15/17 16:35 Red Blood Count 3.58, Mean Corpuscular Volume 95.5, Mean Corpuscular Hemoglobin 30.4, Mean Corpuscular Hemoglobin Concent 31.9, Mean Platelet Volume 8.9, Neutrophils (%) (Auto) 71.9, Lymphocytes (%) (Auto) 16.2, Monocytes (%) (Auto) 10.1, Eosinophils (%) (Auto) 1.5, Basophils (%) (Auto) 0.2, Neutrophils # (Auto ) 6.86, Lymphocytes # (Auto) 1.55, Monocytes # (Auto) 0.96, Eosinophils # (Auto ) 0.14, Basophils # (Auto) 0.02 08/15/17 16:35 Test 08/15/17 16:35 08/15/17 17:15 White Blood Count 9.54 K/uL (4.8-10.8) Red Blood Count 3.58 M/uL (4.7-6.1) Hemoglobin 10.9 g/dL (14.0-18.0) Hematocrit 34.2 % (42-52) Mean Corpuscular Volume 95.5 fL (80-100) Mean Corpuscular Hemoglobin 30.4 pg (25-34) Mean Corpuscular Hemoglobin Concent 31.9 g/dl (32-36) Platelet Count 164 K/uL (130-400) Mean Platelet Volume 8.9 fL (7.4-10.4) Neutrophils (%) (Auto) 71.9 % Lymphocytes (%) (Auto) 16.2 % Monocytes (%) (Auto) 10.1 % Eosinophils (%) (Auto) 1.5 % Basophils (%) (Auto) 0.2 % Neutrophils # (Auto) 6.86 K/uL (1.4-6.5) Lymphocytes # (Auto) 1.55 K/uL (1.2-3.4) Monocytes # (Auto) 0.96 K/uL (0.11-0.59) Eosinophils # (Auto) 0.14 K/uL (0-0.5) Basophils # (Auto) 0.02 K/uL (0-0.2) RDW Standard Deviation 49.6 fL (36.4-46.3) RDW Coefficient of Variation 14.3 % (11.5-14.5) Immature Granulocyte % (Auto) 0.1 % Immature Granulocyte # (Auto) 0.01 K/uL (0.00-0.02) Anion Gap 6.0 mmol/L (3-11) Estimated GFR () 35.7 Estimated GFR (Non- 30.8 BUN/Creatinine Ratio 12.5 (10-20) Calcium Level 8.6 mg/dl (8.5-10.1) Troponin I < 0.015 ng/ml (0-0.045) Chemistry Specimen Hemolysis Urine Color YELLOW Urine Appearance CLEAR (CLEAR) Urine pH 6.0 (4.5-7.5) Urine Specific [place] 1.011 (1.000-1.030) Urine Protein TRACE (NEG) Urine Glucose (UA) NEG (NEG) Urine Ketones NEG (NEG) Urine Occult Blood NEG (NEG) Urine Nitrite NEG (NEG) Urine Bilirubin NEG (NEG) Urine Urobilinogen NEG (NEG) Urine Leukocyte Esterase SMALL (NEG) Urine WBC (Auto) 10-30 /hpf (0-5) Urine RBC (Auto) 0-4 /hpf (0-4) Urine Hyaline Casts (Auto) 1-5 /lpf (0-5) Urine Epithelial Cells (Auto) >30 /lpf (0-5) Urine Bacteria (Auto) NEG (NEG) Urine Renal Epithelial Cells 0-5 /lpf (0-5) Medications Administered Medications (Trade) Dose Ordered Sig/Bailey Route Start Time Stop Time Status Last Admin Dose Admin Ceftriaxone Sodium 1 gm/ Dextrose 50 ml @ 100 mls/hr ONE STAT IV 08/15/17 17:04 08/15/17 17:33 DC 08/15/17 17:33 100 MLS/HR Medical Decision Triage Nursing notes reviewed. The patient's presentation and history were concerning for weakness and confusion. Etiologies such as metabolic, infection, hypo/hyperglycemia, electrolyte abnormalities, cardiac sources, intracerebral event, toxicologic, neurologic, as well as others were entertained. The patient was evaluated. He does have some leaning to the left side. His culture result was obtained from the outpatient clinic and it did show that he had a UTI that was resistant to Cipro. He was then placed on Ceftin. There is some penicillin resistance but third-generation cephalosporins seem to be adequate. Blood work and imaging were ordered. He had a mild anemia on CBC. No leukocytosis. Creatinine is mildly elevated compared to prior. The patient was given a dose of IV Rocephin. Given the situation the patient will need further evaluation and management in the hospital. The patient was seen and examined with Dr. Tad Odell, resident physician. We discussed the case and treatments ordered, reviewed the results, and determine the disposition. Please refer to the resident's note for additional details. I have been directly involved with the management and disposition as well as independently evaluated the patient as documented in this note. Consultation was made with the hospitalist service. The patient was evaluated in the Emergency Room for further management. Impression Primary Impression: Weakness Additional Impression: Metabolic encephalopathy Departure Information Dispostion Being Evaluated By Hospitalist Referrals Tad Childress M.D. (PCP) Patient Instructions My [facility] Problem Qualifiers
--- NOTE | 2017-08-15 17:17 | DIAGNOSTIC IMAGING REPORT ---
CHEST ONE VIEW PORTABLE CLINICAL HISTORY: Altered mental status. Weakness. COMPARISON STUDY: Chest radiograph May 03, 2017. FINDINGS: Lung volumes are normal. No pneumothorax or pleural effusion is present. Mild cardiomegaly is unchanged. There is no evidence of pulmonary edema. Mild bibasilar opacities are present. IMPRESSION: Mild bibasilar opacities. Atelectasis is favored over pneumonia. Electronically signed by: Giuseppe Rizvi M.D. 08/15/2017 5:15 PM Dictated Date/Time: 08/15/2017 5:14 PM
[2017-08-15 17:18] LABS: BLOOD UREA NITROGEN 24 mg/dl (7-18); BUN/CREATININE RATIO 12.5 (10-20); CALCIUM 8.6 mg/dl (8.5-10.1); CARBON DIOXIDE 27 mmol/L (21-32); CHLORIDE 104 mmol/L (98-107); GLUCOSE 118 mg/dl (70-99); POTASSIUM 4.1 mmol/L (3.5-5.1); SODIUM 137 mmol/L (136-145)
[2017-08-15 17:43] LABS: URINE APPEARANCE CLEAR (CLEAR); URINE BILIRUBIN NEG (NEG); URINE COLOR YELLOW; URINE EPITHELIAL CELL AUTO >30 /lpf (0-5); URINE NITRITE NEG (NEG); URINE SPECIFIC GRAVITY 1.011 (1.000-1.030); UROBILINOGEN NEG (NEG)
[2017-08-15 17:46] LABS: MANUAL MICROSCOPIC REQUIRED? NO; REVIEW REQ? YES
[2017-08-15] MEDS ORDERED: SODIUM CHLORIDE 0.9% 500ML 500 ML IV ONE (18:15)
[2017-08-15] MEDS ORDERED: OXYCODONE HCL IR 5 MG TAB (IMMEDIATE RELEASE) PO STA (19:01)
--- NOTE | 2017-08-15 21:12 | History and Physical ---
History & Physical Date & Time of Service: Aug 15, 2017 at ~ 19:30 . Chief Complaint: weak, confused . Primary Care Physician: Tad Childress M.D. . History of Present Illness Source: patient, caregiver, clinic records, hospital records 86-year-old male followed by Dr. Childress in [place]. History of coronary artery disease, atrial fibrillation, aortic stenosis, and other problems noted below. Lives at home by himself. Ambulatory with a cane, sometimes walker. Family lives nearby and checks on him on a regular basis, but they're currently out of town. He has a teacher [employer]cl[employer] that checks on him daily when family is not available. Experienced dysuria about a week ago. Urine culture was obtained and patient was started on ciprofloxacin. Urine culture subsequently grew Escherichia coli that was resistant to ciprofloxacin. Antibiotic therapy was switched to cefuroxime per sensitivities. [place] somewhat tired yesterday, but otherwise doing fairly well. [employer] Composer [employer]eder checked on him this morning and found him to be sleeping in a chair in his laundry, only partially dressed. Upon awakening, he was confused and thought that he was in another room. Had difficulty getting dressed and dropped things with his left hand. Core Composer Feeder noted that he seemed to be leaning towards his left side. Dysuria has resolved. No nausea, vomiting, diarrhea. No fever, chills, sweats. . Past Medical/Surgical History Chronic Medical Problems: (1) Aortic stenosis Permanent Comment: moderate per echo 03/07/17 Status: Chronic (2) Atrial fibrillation Status: Chronic (3) BPH (benign prostatic hyperplasia) Status: Chronic (4) Chronic back pain Status: Chronic (5) CKD (chronic kidney disease), stage III Status: Chronic (6) COPD (chronic obstructive pulmonary disease) Permanent Comment: mild Status: Chronic (7) Coronary artery disease Permanent Comment: non-STEMI 03/06/17 Status: Chronic (8) H/O tachycardia-bradycardia syndrome Status: Chronic (9) History of DVT (deep vein thrombosis) Status: Chronic (10) History of GI bleed Permanent Comment: due to esophageal ulcer Status: Chronic (11) History of orthostatic hypotension Status: Chronic (12) History of pulmonary embolism Status: Chronic (13) Hyperlipidemia Status: Chronic Surgical Problems: (1) H/O carpal tunnel repair Status: Chronic (2) H/O colonoscopy Permanent Comment: 04/2003- diverticulosis 11/25/2007- adenomatous Status: Chronic (3) H/O esophagogastroduodenoscopy Permanent Comment: - esophageal ulcer with large clots; 08/11/15-esophgeal ulcer, esophagitis; 09/12/2015 EGD with EUS- reflux on bx, HH, pancreatic intraductal papillary mucinous neoplasm, CBD dilation; Dr. Stone Status: Chronic (4) knee replacement Status: Chronic (5) Previous back surgery Status: Chronic . Family History FH: COPD (chronic obstructive pulmonary disease) BROTHER Social History Smoking Status: Never Smoker Smokeless Tobacco Use: No Marital Status: Housing status: lives alone, other Occupational Status: retired, other Allergies Coded Allergies: Morphine (Verified Allergy, Intermediate, itching, dizzy, 05/02/17) pt primary md has taken pt off morphine due to itching and dizzy Sulfa Antibiotics (Verified Allergy, Intermediate, HIVES/RASH, 05/02/17) Fentanyl (Verified Allergy, Unknown, ITCHING, DIZZINESS, BOWEL BLADDER PROBLEMS, HEADACHE, 05/02/17) Home Medications Scheduled Amlodipine Besylate (Norvasc), 5 MG PO QAM Ascorbic Acid (Vitamin C), 1,000 MG PO DAILY Aspirin (Ecotrin Low Strength), 81 MG PO DAILY Buprenorphine (Butrans), 15 MCG TOP WK Diclofenac Sodium (Topical) (Voltaren 1% Top Gel), 4 GM TOP QID Gabapentin (Gabapentin), 600 MG PO TID Methenamine Mandelate (Methenamine Mandelate), 2 TABS PO DAILY Metoprolol Succinate (Toprol Xl), 25 MG PO DAILY Nitroglycerin (Nitrostat), 0.4 MG UT PRN Pantoprazole (Protonix), 40 MG PO BID Simvastatin (Simvastatin), 20 MG PO QAM Tamsulosin Hcl (Flomax), 0.4 MG PO DAILY Warfarin Sod (Coumadin), 0 PO UD Scheduled PRN Oxycodone/Acetaminophen 10MG/325MG (Percocet 10MG/325MG), 1 TAB PO Q6 PRN for Pain Polyethylene Glycol 3350 (Miralax), 1 TBS PO DAILY PRN for Constipation Review of Systems Constitutional: No fever, No weight loss Eyes: No worsening of vision, No diplopia ENT: + hearing loss, No sore throat Respiratory: + shortness of breath, No cough Cardiovascular: + edema, No chest pain, No palpitations Abdomen: + problem reported (GERD), No nausea, No vomiting, No GI bleeding Musculoskeletal: + joint pain (back) Genitourinary - Male: + dysuria (resolved), + urinary incontinence, No hematuria Neurologic: + problem reported (as noted above in HPI) Endocrine: + fatigue, No excessive thirst, No excessive urination Hematologic / Lymphatic: + abnormal bleeding/bruising Integumentary: No rash, No itch, No new/changing skin lesions Physical Exam Vital Signs Date Time Temp Pulse Resp B/P (MAP) Pulse Ox O2 Delivery O2 Flow Rate FiO2 08/15/17 20:35 70 16 93 08/15/17 20:30 148/75 08/15/17 20:20 72 21 93 08/15/17 20:05 73 91 08/15/17 20:00 144/96 08/15/17 19:50 72 17 97 08/15/17 19:45 74 18 97 08/15/17 19:30 74 16 145/82 98 08/15/17 19:15 72 17 94 08/15/17 19:00 69 18 146/72 95 08/15/17 18:56 144/79 08/15/17 17:34 74 14 140/74 95 Room Air 08/15/17 16:52 69 20 131/77 94 Room Air 08/15/17 16:39 66 08/15/17 15:58 36.4 69 18 129/77 98 Room Air General Appearance: no apparent distress, + thin Head: normocephalic, atraumatic Eyes: normal inspection, PERRL, EOMI, sclerae normal (eyelids and conjunctivae normal) ENT: pharynx normal, + pertinent finding (hard of hearing; upper and lower dentures) Neck: supple, no adenopathy, thyroid normal, no JVD, trachea midline Respiratory/Chest: lungs clear, no respiratory distress, no accessory muscle use Cardiovascular: regular rate, rhythm, no edema, no gallop, no JVD, + systolic murmur (3/6 systolic murmur at base), + abnormal peripheral pulses (diminished pedal pulses) Abdomen/GI: normal bowel sounds, non tender, soft, no organomegaly, no pulsatile mass Back: + pertinent finding (kyphotic) Extremities/Musculoskelatal: no calf tenderness, normal capillary refill, no pedal edema, + pertinent finding (onychomycosis of toenails) Neurologic/Psych: + disoriented (could not accurately state the year, but could state day of the week, location, president), + pertinent finding (PERRL, EOMI, no facial palsy, no dysarthria; motor strength upper and lower extremitites intact; patellar reflexes 1/2 bilat; plantar reflexes downgoing bilaterally; mild difficulty with finger to nose bilaterally) Skin: normal color, warm/dry, no rash Lymphatic: no adenopathy (cervical) Diagnostics Laboratory Results Results Past 24 Hours Test 08/15/17 16:35 08/15/17 17:15 Range/Units White Blood Count 9.54 4.8-10.8 K/uL Red Blood Count 3.58 4.7-6.1 M/uL Hemoglobin 10.9 14.0-18.0 g/dL Hematocrit 34.2 42-52 % Mean Corpuscular Volume 95.5 80-100 fL Mean Corpuscular Hemoglobin 30.4 25-34 pg Mean Corpuscular Hemoglobin Concent 31.9 32-36 g/dl Platelet Count 164 130-400 K/uL Mean Platelet Volume 8.9 7.4-10.4 fL Neutrophils (%) (Auto) 71.9 % Lymphocytes (%) (Auto) 16.2 % Monocytes (%) (Auto) 10.1 % Eosinophils (%) (Auto) 1.5 % Basophils (%) (Auto) 0.2 % Neutrophils # (Auto) 6.86 1.4-6.5 K/uL Lymphocytes # (Auto) 1.55 1.2-3.4 K/uL Monocytes # (Auto) 0.96 0.11-0.59 K/uL Eosinophils # (Auto) 0.14 0-0.5 K/uL Basophils # (Auto) 0.02 0-0.2 K/uL RDW Standard Deviation 49.6 36.4-46.3 fL RDW Coefficient of Variation 14.3 11.5-14.5 % Immature Granulocyte % (Auto) 0.1 % Immature Granulocyte # (Auto) 0.01 0.00-0.02 K/uL Sodium Level 137 136-145 mmol/L Potassium Level 4.1 3.5-5.1 mmol/L Chloride Level 104 98-107 mmol/L Carbon Dioxide Level 27 21-32 mmol/L Anion Gap 6.0 3-11 mmol/L Blood Urea Nitrogen 24 7-18 mg/dl Creatinine 1.90 0.60-1.40 mg/dl Estimated GFR () 35.7 Estimated GFR (Non- 30.8 BUN/Creatinine Ratio 12.5 10-20 Random Glucose 118 70-99 mg/dl Calcium Level 8.6 8.5-10.1 mg/dl Troponin I < 0.015 0-0.045 ng/ml Chemistry Specimen Hemolysis Urine Color YELLOW Urine Appearance CLEAR CLEAR Urine pH 6.0 4.5-7.5 Urine Specific [place] 1.011 1.000-1.030 Urine Protein TRACE NEG Urine Glucose (UA) NEG NEG Urine Ketones NEG NEG Urine Occult Blood NEG NEG Urine Nitrite NEG NEG Urine Bilirubin NEG NEG Urine Urobilinogen NEG NEG Urine Leukocyte Esterase SMALL NEG Urine WBC (Auto) 10-30 0-5 /hpf Urine RBC (Auto) 0-4 0-4 /hpf Urine Hyaline Casts (Auto) 1-5 0-5 /lpf Urine Epithelial Cells (Auto) >30 0-5 /lpf Urine Bacteria (Auto) NEG NEG Urine Renal Epithelial Cells 0-5 0-5 /lpf Diagnostic Radiology CHEST ONE VIEW PORTABLE FINDINGS: Lung volumes are normal. No pneumothorax or pleural effusion is present. Mild cardiomegaly is unchanged. There is no evidence of pulmonary edema. Mild bibasilar opacities are present. IMPRESSION: Mild bibasilar opacities. Atelectasis is favored over pneumonia. Electronically signed by: Giuseppe Rizvi M.D. 08/15/2017 5:15 PM Dictated Date/Time: 08/15/2017 5:14 PM HEAD WITHOUT CONTRAST (CT) Proportional ventricular and sulcal prominence, likely age-related parenchymal volume loss. Periventricular and subcortical white matter hypoattenuation, nonspecific but likely indicative of chronic small vessel ischemic change. No mass effect or midline shift. No hemorrhage or acute territorial infarct. No extra-axial fluid collection. Paranasal sinuses and mastoid air cells clear. Calvarium intact. IMPRESSION: 1. No acute intracranial pathology. Electronically signed by: Scot Jenkins M.D. 08/15/2017 5:09 PM Dictated Date/Time: 08/15/2017 5:07 PM . EKG EKG performed at 16:31 reviewed and demonstrated normal sinus rhythm at 65/ minute, left bundle branch block, repolarization abnormalities. . Impression Assessment and Plan UTI History of recurrent UTIs, followed by Dr. Garay. Outpatient urine culture 08/09/17 demonstrated Escherichia coli resistant to fluoroquinolones, ampicillin, nitrofurantoin. Persistent pyuria despite outpatient therapy with ciprofloxacin followed by cefuroxime. Suspect that weakness/encephalopathy secondary to UTI. Patient received IV ceftriaxone in ED which will be continued. ALTERED MENTAL STATUS Probable encephalopathy from UTI. Head CT negative for acute event. Possible focal deficits per caregiver's observations. Check MRI. CORONARY ARTERY DISEASE / HISTORY NON-STEMI No anginal symptoms. Continue aspirin, metoprolol succinate, simvastatin. MODERATE AORTIC STENOSIS Echo in March showed aortic calcification with mild-moderate aortic stenosis ( aortic valve area 1.4 cm2). Follow. HISTORY AF / TACHY-ALICIA SYNDROME Currently in normal sinus rhythm. Continue metoprolol and warfarin. COPD Stable. CKD III Serum creatinine at time of admission 1.9. Recent baseline creatinine 1.5 on 05/05/17. IV fluids. Follow. CHRONIC BACK PAIN Continue usual analgesic regimen. VTE PROPHYLAXIS / HISTORY OF DVT INR 1.8 at time of admission.. Titrated warfarin. SQ heparin until warfarin therapeutic. Ambulate. RESUSCITATION STATUS Discussed with patient and his teacher cclc. He has a living will. He does not wish to have extraordinary measures such as CPR or intubation undertaken at end-of-life and prefers a natural passing. Therefore, code status is "Level 5" / DNR. DISPOSITION Admit to Telemetry Unit. Expected discharge to home, but may possibly need skilled care. PT / OT evals. Medical follow-up with Dr. Childress. Follow-up with [facility]. . VTE Prophylaxis VTE Risk Assessment Done? Y/N: Yes Risk Level: Moderate Given or contraindicated: Unfractionated heparin SQ, Warfarin (Coumadin) Additional Copies To Cyndie Garay MD
[2017-08-15] MEDS ORDERED: PANTOprazole SOD 40 MG TAB PO ONE (21:13)
[2017-08-15] MEDS ORDERED: GABAPENTIN 600 MG TAB PO ONE (21:13)
[2017-08-15] MEDS ORDERED: NITROGLYCERIN 0.4 MG SL PER TAB CHARGE UT PRN (21:15)
[2017-08-15] MEDS ORDERED: POLYETHYLENE (MIRALAX) 17 GM PACK PO PRN (21:15)
[2017-08-15 21:28] VITALS: BP 158/73; PULSE 78; TEMP 36.9; O2SAT 93
[2017-08-15 21:37] LABS: INR 1.8 (0.9-1.1); PROTHROMBIN TIME (PATIENT) 19.2 SECONDS (9.0-12.0)
[2017-08-15 22:11] VITALS: Ht 172.7 cm; Wt 67.2 kg
[2017-08-15] MEDS ORDERED: WARFARIN SOD 4 MG TAB PO ONE (22:13)
[2017-08-15] MEDS: [UNRECOGNIZED DRUG - REMARK] SCH (23:27)
[2017-08-15 23:43] VITALS: BP 151/73; PULSE 74; TEMP 37; O2SAT 93
[2017-08-16] VITALS (7 sets, daily range): BP systolic 122–160; BP diastolic 67–90; PULSE 58–93; TEMP 36.4–37; O2SAT 94–97
[2017-08-16] MEDS: OXYCODONE/ACETAMINOPHEN 10/325MG TAB PO PRN ×3 (02:20→20:27)
[2017-08-16 06:17] LABS: HEMATOCRIT 31.4 % (42-52); MEAN CELL VOLUME 94.6 fL (80-100); MEAN CORPUSCULAR HEMOGLOBIN 30.7 pg (25-34); MEAN CORPUSCULAR HGB CONC 32.5 g/dl (32-36); PLATELET COUNT 144 K/uL (130-400); RED BLOOD COUNT 3.32 M/uL (4.7-6.1); WHITE BLOOD COUNT 6.51 K/uL (4.8-10.8)
[2017-08-16 06:46] LABS: BUN/CREATININE RATIO 15.8 (10-20); CALCIUM 8.2 mg/dl (8.5-10.1); CREATININE 1.4 mg/dl (0.60-1.40)
[2017-08-16 07:20] LABS: INR 1.7 (0.9-1.1); PROTHROMBIN TIME (PATIENT) 18.7 SECONDS (9.0-12.0)
[2017-08-16] MEDS: PANTOprazole SOD 40 MG TAB PO SCH ×2 (08:02→20:26)
[2017-08-16] MEDS: GABAPENTIN 600 MG TAB PO SCH ×3 (08:02→20:26)
[2017-08-16] MEDS: ASPIRIN 81 MG ECTAB PO SCH (08:02)
[2017-08-16] MEDS: TAMSULOSIN HCL 0.4 MG CAP PO SCH (08:03)
[2017-08-16] MEDS: AMLODIPINE BESYLATE 5 MG TAB PO SCH (08:04)
[2017-08-16] MEDS: SIMVASTATIN 20 MG TAB PO SCH (08:04)
[2017-08-16] MEDS: METHENAMINE HIPPURATE 1 GM TAB PO SCH (08:04)
[2017-08-16] MEDS: METOPROLOL SUCC 25MG EXT REL TAB PO SCH (08:04)
[2017-08-16] MEDS: [UNRECOGNIZED DRUG - REMARK] SCH ×2 (08:06→16:43)
[2017-08-16] MEDS: DICLOFENAC SOD 1% GEL 100 GM TUBE EXT SCH ×4 (08:07→20:26)
[2017-08-16] MEDS: HEPARIN SOD 5000 UNIT/0.5 ML CARP SQ SCH ×2 (08:08→20:30)
--- NOTE | 2017-08-16 11:15 | DIAGNOSTIC IMAGING REPORT ---
MRI OF THE BRAIN WITHOUT CONTRAST CLINICAL HISTORY: altered mental status, possible stroke COMPARISON STUDY: Noncontrast head CT dated 08/15/2017 FINDINGS: Sagittal T1, axial diffusion, proton density and T2 weighted axial, coronal FLAIR, and axial T1-weighted images were acquired. No intra or extra-axial mass lesions are visualized Axial diffusion-weighted images reveal no evidence of acute or subacute infarction. There is no evidence of ventricular dilatation. Proton density T2-weighted and FLAIR images reveal moderately extensive foci of increased T2 signal within the white matter, likely on a small vessel basis. There are no abnormal flow voids. IMPRESSION: 1. No evidence of acute or subacute infarction 2. No evidence of intracranial mass 3. Moderate foci of increased T2 and FLAIR signal within the white matter, likely on a small vessel basis Electronically signed by: Abdirahman Wong M.D. 08/16/2017 11:14 AM Dictated Date/Time: 08/16/2017 11:08 AM
--- NOTE | 2017-08-16 13:35 | Progress Note ---
Subjective Date of Service: Aug 16, 2017. Subjective Pt evaluation today including: conversation w/ patient, physical exam, lab review, review of studies, review of inpatient medication list Saw/examined the patient in room 285 No problems/issues to note today, he states he feels better No longer confused, states he's ambulating okay, not feeling weak No other issues to note Problem List Medical Problems: (1) Dehydration Status: Acute (2) EKG abnormality Status: Acute (3) Elevated troponin Status: Acute (4) Metabolic encephalopathy Status: Acute (5) Metabolic encephalopathy Status: Acute (6) Pneumonia Status: Acute (7) Precordial chest pain Status: Acute (8) UTI (urinary tract infection) Status: Acute (9) Weakness Status: Acute (10) Weakness Status: Acute Review of Systems Constitutional: + weakness, No fever, No chills Respiratory: No shortness of breath Cardiac: No chest pain Abdomen: No pain, No nausea, No vomiting, No diarrhea, No constipation, No GI bleeding Male : No dysuria, No urinary frequency, No incontinence, No nocturia more than once/night Medications Current Inpatient Medications Medications (Trade) Dose Ordered Sig/Bailey Route Start Time Stop Time Status Last Admin Dose Admin Ceftriaxone Sodium 1 gm/ Dextrose 50 ml @ 100 mls/hr DAILY@1700 IV 08/16/17 17:00 08/24/17 17:29 Amlodipine Besylate (Norvasc Tab) 5 mg QAM PO 08/16/17 09:00 09/15/17 08:59 08/16/17 08:04 5 MG Aspirin (Ecotrin Tab) 81 mg DAILY PO 08/16/17 09:00 09/15/17 08:59 08/16/17 08:02 81 MG Diclofenac Sodium (Voltaren 1% Top Gel) 1 appln QID EXT 08/16/17 09:00 09/15/17 08:59 08/16/17 08:07 1 APPLN Gabapentin (Neurontin Tab) 600 mg TID PO 08/16/17 09:00 09/15/17 08:59 08/16/17 08:02 600 MG Metoprolol Succinate (Toprol Xl Tab) 25 mg DAILY PO 08/16/17 09:00 09/15/17 08:59 08/16/17 08:04 25 MG Nitroglycerin (Nitrostat Tab) 0.4 mg UD PRN UT 08/15/17 21:15 09/14/17 21:14 Oxycodone/ Acetaminophen (Percocet 10-325MG Tab) 1 tab Q6 PRN PO 08/15/17 21:15 08/29/17 21:14 08/16/17 08:12 1 TAB Simvastatin (Zocor Tab) 20 mg QAM PO 08/16/17 09:00 09/15/17 08:59 08/16/17 08:04 20 MG Tamsulosin HCl (Flomax Cap) 0.4 mg DAILY PO 08/16/17 09:00 09/15/17 08:59 08/16/17 08:03 0.4 MG Buprenorphine HCl (Butrans Patch) 15 mcg Mo@0700 TD 08/19/17 07:00 09/18/17 06:59 Methenamine Hippurate (Urex Tab) 1 gm DAILY PO 08/16/17 09:00 08/21/17 08:59 08/16/17 08:04 1 GM Polyethylene (Miralax Powder Packet) 17 gm BID PRN PO 08/15/17 21:15 09/14/17 21:14 Pantoprazole Sodium (Protonix Tab) 40 mg BID PO 08/16/17 09:00 09/15/17 08:59 08/16/17 08:02 40 MG Warfarin Sodium (Coumadin Tab) 4 mg MoWeFr@1600 PO 08/16/17 16:00 09/15/17 15:59 Warfarin Sodium (Coumadin Tab) 2 mg SuTuThSa@1600 PO 08/17/17 16:00 09/16/17 15:59 Miscellaneous (Remove Patch) 1 ea Mo@0659 N/A 08/19/17 06:59 09/18/17 06:58 Miscellaneous Information (Check Patch Placement) 1 ea QS N/A 08/16/17 00:00 09/15/17 00:00 08/16/17 08:06 1 EA Heparin Sodium (Porcine) (Heparin Sq 5000 Unit/0.5ml) 5,000 unit Q12 SQ 08/16/17 09:00 09/15/17 08:59 08/16/17 08:08 5,000 UNIT Objective Vital Signs Date Time Temp Pulse Resp B/P (MAP) Pulse Ox O2 Delivery O2 Flow Rate FiO2 08/16/17 08:12 36.8 79 18 128/67 (87) 97 Room Air 08/16/17 08:00 Room Air 08/16/17 04:48 95 Room Air 08/16/17 04:00 Room Air 08/16/17 04:00 36.4 64 16 122/69 (86) 95 Room Air 08/16/17 00:00 Room Air 08/15/17 23:43 37.0 74 16 151/73 (99) 93 Room Air 08/15/17 21:28 36.9 78 20 158/73 93 Room Air 08/15/17 20:35 70 16 93 08/15/17 20:30 148/75 08/15/17 20:20 72 21 93 08/15/17 20:05 73 91 08/15/17 20:00 144/96 08/15/17 19:50 72 17 97 08/15/17 19:45 74 18 97 08/15/17 19:30 74 16 145/82 98 08/15/17 19:15 72 17 94 08/15/17 19:00 69 18 146/72 95 08/15/17 18:56 144/79 08/15/17 17:34 74 14 140/74 95 Room Air 08/15/17 16:52 69 20 131/77 94 Room Air 08/15/17 16:39 66 08/15/17 15:58 36.4 69 18 129/77 98 Room Air Physical Exam General Appearance: no apparent distress ENT: + pertinent finding (hard of hearing) Respiratory/Chest: chest non-tender, lungs clear, normal breath sounds, no respiratory distress, no accessory muscle use Cardiovascular: regular rate, rhythm, no edema, no murmur Abdomen: normal bowel sounds, non tender, soft Extremities: normal range of motion, non-tender, normal inspection, no pedal edema, no calf tenderness Neurologic/Psychiatric: no motor/sensory deficits, alert, normal mood/affect Laboratory Results Last 24 Hours Test 08/15/17 16:35 08/15/17 17:15 08/16/17 05:38 08/16/17 06:59 White Blood Count 9.54 K/uL 6.51 K/uL Red Blood Count 3.58 M/uL 3.32 M/uL Hemoglobin 10.9 g/dL 10.2 g/dL Hematocrit 34.2 % 31.4 % Mean Corpuscular Volume 95.5 fL 94.6 fL Mean Corpuscular Hemoglobin 30.4 pg 30.7 pg Mean Corpuscular Hemoglobin Concent 31.9 g/dl 32.5 g/dl Platelet Count 164 K/uL 144 K/uL Mean Platelet Volume 8.9 fL 9.0 fL Neutrophils (%) (Auto) 71.9 % Lymphocytes (%) (Auto) 16.2 % Monocytes (%) (Auto) 10.1 % Eosinophils (%) (Auto) 1.5 % Basophils (%) (Auto) 0.2 % Neutrophils # (Auto) 6.86 K/uL Lymphocytes # (Auto) 1.55 K/uL Monocytes # (Auto) 0.96 K/uL Eosinophils # (Auto) 0.14 K/uL Basophils # (Auto) 0.02 K/uL RDW Standard Deviation 49.6 fL 48.6 fL RDW Coefficient of Variation 14.3 % 14.0 % Immature Granulocyte % (Auto) 0.1 % Immature Granulocyte # (Auto) 0.01 K/uL Prothrombin Time 19.2 SECONDS 18.7 SECONDS Prothromb Time International Ratio 1.8 1.7 Sodium Level 137 mmol/L 141 mmol/L Potassium Level 4.1 mmol/L 4.0 mmol/L Chloride Level 104 mmol/L 108 mmol/L Carbon Dioxide Level 27 mmol/L 26 mmol/L Anion Gap 6.0 mmol/L 7.0 mmol/L Blood Urea Nitrogen 24 mg/dl 22 mg/dl Creatinine 1.90 mg/dl 1.40 mg/dl Estimated GFR () 35.7 51.6 Estimated GFR (Non- 30.8 44.5 BUN/Creatinine Ratio 12.5 15.8 Random Glucose 118 mg/dl 85 mg/dl Calcium Level 8.6 mg/dl 8.2 mg/dl Troponin I < 0.015 ng/ml Chemistry Specimen Hemolysis Urine Color YELLOW Urine Appearance CLEAR Urine pH 6.0 Urine Specific [place] 1.011 Urine Protein TRACE Urine Glucose (UA) NEG Urine Ketones NEG Urine Occult Blood NEG Urine Nitrite NEG Urine Bilirubin NEG Urine Urobilinogen NEG Urine Leukocyte Esterase SMALL Urine WBC (Auto) 10-30 /hpf Urine RBC (Auto) 0-4 /hpf Urine Hyaline Casts (Auto) 1-5 /lpf Urine Epithelial Cells (Auto) >30 /lpf Urine Bacteria (Auto) NEG Urine Renal Epithelial Cells 0-5 /lpf Est Creatinine Clear Calc Drug Dose 35.3 ml/min Assessment and Plan This is an 86 year old male with a PMH of A. fib on long-term anticoagulation, Hx. of NSTEMI, CKD stage 3, COPD, hx. of recurrent UTIs presents with altered mental status Altered Mental Status Metabolic Encephalopathy secondary to UTI Head CT and Brain MRI are negative for any acute stroke/CVA recent outpatient E. coli resistant to quinolones, PCN and nitrofurantoin will start Rocephin, which we can continue for now monitor clinical status continue methenamine Acute Kidney Injury superimposed on CKD stage 3 creatinine on admission = 1.9 baseline is mid 1's given IVFs, creatinine improved to 1.4 hold IVFs CAD hx. of NSTEMI no chest pain, EKG shows a LBBB which is chronic; initial cardiac enzymes negative continue aspirin, b-lori, statin Hx. of A. Fib and Tachy-Sher Syndrome currently NSR continue b-lori and Coumadin Moderate Aortic Stenosis Echo in March showed aortic calcification with mild-moderate aortic stenosis ( aortic valve area 1.4 cm2) Follow COPD Stable Chronic Back Pain/Sacroiliitis Continue usual analgesic regimen DVT ppx INR 1.8 at time of admission Titrated warfarin SQ heparin until warfarin therapeutic Ambulate DNR PT/OT, may need placement
[2017-08-16] MEDS ORDERED: WARFARIN SOD 4 MG TAB PO SCH (16:00)
[2017-08-16] MEDS: CEFTRIAXONE SOD INJ 1 GM in DEXTROSE 5% ADD-VANTAGE 50ML 50 ML IV SCH (16:43)
[2017-08-17] VITALS (7 sets, daily range): BP systolic 118–148; BP diastolic 61–73; PULSE 60–96; TEMP 36.5–37; O2SAT 92–97
[2017-08-17] MEDS: [UNRECOGNIZED DRUG - REMARK] SCH ×3 (00:22→17:00)
[2017-08-17] MEDS: OXYCODONE/ACETAMINOPHEN 10/325MG TAB PO PRN ×2 (06:09→19:35)
[2017-08-17 06:36] LABS: HEMATOCRIT 33.2 % (42-52); MEAN CELL VOLUME 94.6 fL (80-100); MEAN CORPUSCULAR HEMOGLOBIN 30.8 pg (25-34); MEAN CORPUSCULAR HGB CONC 32.5 g/dl (32-36); PLATELET COUNT 169 K/uL (130-400); RED BLOOD COUNT 3.51 M/uL (4.7-6.1)
[2017-08-17 06:39] LABS: INR 1.6 (0.9-1.1)
[2017-08-17 07:08] LABS: BUN/CREATININE RATIO 14.9 (10-20); CALCIUM 8.7 mg/dl (8.5-10.1); CREATININE 1.4 mg/dl (0.60-1.40); MAGNESIUM 2.2 mg/dl (1.8-2.4)
[2017-08-17] MEDS: SIMVASTATIN 20 MG TAB PO SCH (08:29)
[2017-08-17] MEDS: TAMSULOSIN HCL 0.4 MG CAP PO SCH (08:29)
[2017-08-17] MEDS: METHENAMINE HIPPURATE 1 GM TAB PO SCH (08:29)
[2017-08-17] MEDS: ASPIRIN 81 MG ECTAB PO SCH (08:29)
[2017-08-17] MEDS: GABAPENTIN 600 MG TAB PO SCH ×3 (08:29→19:35)
[2017-08-17] MEDS: AMLODIPINE BESYLATE 5 MG TAB PO SCH (08:29)
[2017-08-17] MEDS: DICLOFENAC SOD 1% GEL 100 GM TUBE EXT SCH ×4 (08:30→20:07)
[2017-08-17] MEDS: METOPROLOL SUCC 25MG EXT REL TAB PO SCH (08:30)
[2017-08-17] MEDS: PANTOprazole SOD 40 MG TAB PO SCH ×2 (08:30→19:36)
[2017-08-17] MEDS: HEPARIN SOD 5000 UNIT/0.5 ML CARP SQ SCH ×2 (08:35→19:42)
[2017-08-17] MEDS ORDERED: WARFARIN SOD 3 MG TAB PO ONE (16:00)
--- NOTE | 2017-08-17 16:17 | Progress Note ---
Subjective Date of Service: Aug 17, 2017. Subjective Pt evaluation today including: conversation w/ patient, physical exam, lab review, review of studies, review of inpatient medication list Saw/examined the patient in room 285 Granddaughter at bedside Patient feels better - working well with PT/OT no pain, no urinary issues/dysuria No other issues to note today Problem List Medical Problems: (1) Dehydration Status: Acute (2) EKG abnormality Status: Acute (3) Elevated troponin Status: Acute (4) Metabolic encephalopathy Status: Acute (5) Metabolic encephalopathy Status: Acute (6) Pneumonia Status: Acute (7) Precordial chest pain Status: Acute (8) UTI (urinary tract infection) Status: Acute (9) Weakness Status: Acute (10) Weakness Status: Acute Review of Systems Constitutional: No fever, No chills, No weakness Male : No dysuria, No urinary frequency, No incontinence, No nocturia more than once/night, No slowing stream, No hematuria Medications Current Inpatient Medications Medications (Trade) Dose Ordered Sig/Bailey Route Start Time Stop Time Status Last Admin Dose Admin Ceftriaxone Sodium 1 gm/ Dextrose 50 ml @ 100 mls/hr DAILY@1700 IV 08/16/17 17:00 08/24/17 17:29 08/16/17 16:43 100 MLS/HR Amlodipine Besylate (Norvasc Tab) 5 mg QAM PO 08/16/17 09:00 09/15/17 08:59 08/17/17 08:29 5 MG Aspirin (Ecotrin Tab) 81 mg DAILY PO 08/16/17 09:00 09/15/17 08:59 08/17/17 08:29 81 MG Diclofenac Sodium (Voltaren 1% Top Gel) 1 appln QID EXT 08/16/17 09:00 09/15/17 08:59 08/17/17 13:21 1 APPLN Gabapentin (Neurontin Tab) 600 mg TID PO 08/16/17 09:00 09/15/17 08:59 08/17/17 13:21 600 MG Metoprolol Succinate (Toprol Xl Tab) 25 mg DAILY PO 08/16/17 09:00 09/15/17 08:59 08/17/17 08:30 25 MG Nitroglycerin (Nitrostat Tab) 0.4 mg UD PRN UT 08/15/17 21:15 09/14/17 21:14 Oxycodone/ Acetaminophen (Percocet 10-325MG Tab) 1 tab Q6 PRN PO 08/15/17 21:15 08/29/17 21:14 08/17/17 06:09 1 TAB Simvastatin (Zocor Tab) 20 mg QAM PO 08/16/17 09:00 09/15/17 08:59 08/17/17 08:29 20 MG Tamsulosin HCl (Flomax Cap) 0.4 mg DAILY PO 08/16/17 09:00 09/15/17 08:59 08/17/17 08:29 0.4 MG Buprenorphine HCl (Butrans Patch) 15 mcg Mo@0700 TD 08/19/17 07:00 09/18/17 06:59 Methenamine Hippurate (Urex Tab) 1 gm DAILY PO 08/16/17 09:00 08/21/17 08:59 08/17/17 08:29 1 GM Polyethylene (Miralax Powder Packet) 17 gm BID PRN PO 08/15/17 21:15 09/14/17 21:14 Pantoprazole Sodium (Protonix Tab) 40 mg BID PO 08/16/17 09:00 09/15/17 08:59 08/17/17 08:30 40 MG Warfarin Sodium (Coumadin Tab) 4 mg MoWeFr@1600 PO 08/16/17 16:00 09/15/17 15:59 08/16/17 16:42 4 MG Warfarin Sodium (Coumadin Tab) 2 mg SuTuThSa@1600 PO 08/17/17 16:00 09/16/17 15:59 Miscellaneous (Remove Patch) 1 ea Mo@0659 N/A 08/19/17 06:59 09/18/17 06:58 Miscellaneous Information (Check Patch Placement) 1 ea QS N/A 08/16/17 00:00 09/15/17 00:00 08/17/17 08:31 1 EA Heparin Sodium (Porcine) (Heparin Sq 5000 Unit/0.5ml) 5,000 unit Q12 SQ 08/16/17 09:00 09/15/17 08:59 08/17/17 08:35 5,000 UNIT Objective Vital Signs Date Time Temp Pulse Resp B/P (MAP) Pulse Ox O2 Delivery O2 Flow Rate FiO2 08/17/17 15:13 36.5 60 18 123/70 (87) 96 Room Air 08/17/17 12:00 Room Air 08/17/17 11:33 36.5 63 18 128/68 (88) 96 Room Air 08/17/17 08:00 Room Air 08/17/17 07:29 36.5 66 18 148/73 (98) 97 Room Air 08/17/17 04:00 Room Air 08/17/17 04:00 37.0 60 20 134/70 (91) 95 Room Air 08/17/17 00:00 Room Air 08/16/17 23:44 37.0 79 20 153/77 (102) 95 Room Air 08/16/17 20:00 Room Air 08/16/17 19:45 36.7 69 16 147/77 (100) 94 Room Air Physical Exam General Appearance: no apparent distress Respiratory/Chest: no respiratory distress, no accessory muscle use Cardiovascular: regular rate, rhythm, no edema, no murmur Abdomen: normal bowel sounds, non tender, soft Laboratory Results Last 24 Hours Test 08/17/17 05:50 White Blood Count 5.10 K/uL Red Blood Count 3.51 M/uL Hemoglobin 10.8 g/dL Hematocrit 33.2 % Mean Corpuscular Volume 94.6 fL Mean Corpuscular Hemoglobin 30.8 pg Mean Corpuscular Hemoglobin Concent 32.5 g/dl RDW Standard Deviation 49.3 fL RDW Coefficient of Variation 14.2 % Platelet Count 169 K/uL Mean Platelet Volume 9.0 fL Prothrombin Time 18.0 SECONDS Prothromb Time International Ratio 1.6 Sodium Level 140 mmol/L Potassium Level 4.0 mmol/L Chloride Level 107 mmol/L Carbon Dioxide Level 27 mmol/L Anion Gap 6.0 mmol/L Blood Urea Nitrogen 21 mg/dl Creatinine 1.40 mg/dl Est Creatinine Clear Calc Drug Dose 35.0 ml/min Estimated GFR () 51.6 Estimated GFR (Non- 44.5 BUN/Creatinine Ratio 14.9 Random Glucose 75 mg/dl Calcium Level 8.7 mg/dl Magnesium Level 2.2 mg/dl Assessment and Plan This is an 86 year old male with a PMH of A. fib on long-term anticoagulation, Hx. of NSTEMI, CKD stage 3, COPD, hx. of recurrent UTIs presents with altered mental status Altered Mental Status Metabolic Encephalopathy secondary to UTI 08/17 patient is doing much better - AMS resolved one more dose of Rocephin today will switch to Ceftin or Amoxicillin in AM on chronic abx. will need long-term abx. outpatient PCP and urology follow-up 08/[address] and Brain MRI are negative for any acute stroke/CVA recent outpatient E. coli resistant to quinolones, PCN and nitrofurantoin will start Rocephin, which we can continue for now monitor clinical status continue methenamine Acute Kidney Injury superimposed on CKD stage 3 creatinine on admission = 1.9 baseline is mid 1's given IVFs, creatinine improved to 1.4 hold IVFs CAD hx. of NSTEMI no chest pain, EKG shows a LBBB which is chronic; initial cardiac enzymes negative continue aspirin, b-lori, statin Hx. of A. Fib and Tachy-Sher Syndrome currently NSR continue b-lori and Coumadin Moderate Aortic Stenosis Echo in March showed aortic calcification with mild-moderate aortic stenosis ( aortic valve area 1.4 cm2) Follow COPD Stable Chronic Back Pain/Sacroiliitis Continue usual analgesic regimen DVT ppx INR 1.8 at time of admission Titrated warfarin SQ heparin until warfarin therapeutic Ambulate DNR PT/OT, may need placement
[2017-08-17] MEDS: WARFARIN SOD 2 MG TAB PO SCH (17:01)
[2017-08-17] MEDS: CEFTRIAXONE SOD INJ 1 GM in DEXTROSE 5% ADD-VANTAGE 50ML 50 ML IV SCH (17:01)
[2017-08-18] MEDS: [UNRECOGNIZED DRUG - REMARK] SCH ×2 (00:16→07:47)
[2017-08-18 04:02] VITALS: BP 152/74; PULSE 68; TEMP 36.7; O2SAT 94
[2017-08-18 05:50] LABS: HEMATOCRIT 32.2 % (42-52); MEAN CORPUSCULAR HEMOGLOBIN 31.3 pg (25-34); MEAN CORPUSCULAR HGB CONC 32.9 g/dl (32-36); MEAN PLATELET VOLUME 8.9 fL (7.4-10.4); PLATELET COUNT 172 K/uL (130-400); RED BLOOD COUNT 3.39 M/uL (4.7-6.1); WHITE BLOOD COUNT 5.13 K/uL (4.8-10.8)
[2017-08-18 06:01] LABS: INR 1.8 (0.9-1.1)
[2017-08-18 06:15] LABS: BUN/CREATININE RATIO 15.6 (10-20); CALCIUM 8.4 mg/dl (8.5-10.1); CREATININE 1.4 mg/dl (0.60-1.40); POTASSIUM 4.2 mmol/L (3.5-5.1)
[2017-08-18 07:33] VITALS: BP_SYST 161; BP_SYST 162; BP_DIAS 57; BP_DIAS 76; PULSE 74; TEMP 36.7; O2SAT 94
[2017-08-18] MEDS: ASPIRIN 81 MG ECTAB PO SCH (07:45)
[2017-08-18] MEDS: AMLODIPINE BESYLATE 5 MG TAB PO SCH (07:45)
[2017-08-18] MEDS: PANTOprazole SOD 40 MG TAB PO SCH (07:45)
[2017-08-18] MEDS: OXYCODONE/ACETAMINOPHEN 10/325MG TAB PO PRN ×2 (07:45→14:00)
[2017-08-18] MEDS: SIMVASTATIN 20 MG TAB PO SCH (07:46)
[2017-08-18] MEDS: METOPROLOL SUCC 25MG EXT REL TAB PO SCH (07:46)
[2017-08-18] MEDS: GABAPENTIN 600 MG TAB PO SCH ×2 (07:46→14:00)
[2017-08-18] MEDS: METHENAMINE HIPPURATE 1 GM TAB PO SCH (07:46)
[2017-08-18] MEDS: TAMSULOSIN HCL 0.4 MG CAP PO SCH (07:46)
[2017-08-18] MEDS: DICLOFENAC SOD 1% GEL 100 GM TUBE EXT SCH ×2 (07:47→14:52)
[2017-08-18] MEDS: HEPARIN SOD 5000 UNIT/0.5 ML CARP SQ SCH (07:54)
[2017-08-18 11:39] VITALS: BP 104/62; PULSE 72; TEMP 36.6; O2SAT 96
--- NOTE | 2017-08-18 14:05 | Progress Note ---
Subjective Date of Service: Aug 18, 2017. Subjective Pt evaluation today including: conversation w/ patient, physical exam, lab review, review of studies, review of inpatient medication list Saw/examined the patient in room 285 He's doing well, ambulating well, no fevers/chills; good PO intake Problem List Medical Problems: (1) Dehydration Status: Acute (2) EKG abnormality Status: Acute (3) Elevated troponin Status: Acute (4) Metabolic encephalopathy Status: Acute (5) Metabolic encephalopathy Status: Acute (6) Pneumonia Status: Acute (7) Precordial chest pain Status: Acute (8) UTI (urinary tract infection) Status: Acute (9) Weakness Status: Acute (10) Weakness Status: Acute Review of Systems Constitutional: No fever, No chills Respiratory: No shortness of breath Cardiac: No chest pain Male : No dysuria, No urinary frequency, No incontinence, No nocturia more than once/night, No slowing stream, No hematuria Objective Vital Signs Date Time Temp Pulse Resp B/P (MAP) Pulse Ox O2 Delivery O2 Flow Rate FiO2 08/18/17 12:00 Room Air 08/18/17 11:39 36.6 72 18 104/62 (76) 96 Room Air 08/18/17 08:00 Room Air 08/18/17 07:33 36.7 74 18 162/76 (104) 94 Room Air 161/57 (91) 08/18/17 04:02 36.7 68 20 152/74 (100) 94 Room Air 08/18/17 04:00 Room Air 08/18/17 00:00 Room Air 08/17/17 23:09 37.0 74 20 118/61 (80) 94 Room Air 08/17/17 20:00 92 Room Air 08/17/17 19:35 36.9 96 20 139/73 (95) 92 Room Air 08/17/17 16:00 Room Air 08/17/17 15:13 36.5 60 18 123/70 (87) 96 Room Air Physical Exam General Appearance: no apparent distress ENT: + pertinent finding (hard of hearing) Respiratory/Chest: lungs clear, normal breath sounds, no respiratory distress, no accessory muscle use Cardiovascular: regular rate, rhythm, no edema, + systolic murmur Extremities: normal inspection, no pedal edema Laboratory Results Last 24 Hours Test 08/18/17 05:15 White Blood Count 5.13 K/uL Red Blood Count 3.39 M/uL Hemoglobin 10.6 g/dL Hematocrit 32.2 % Mean Corpuscular Volume 95.0 fL Mean Corpuscular Hemoglobin 31.3 pg Mean Corpuscular Hemoglobin Concent 32.9 g/dl RDW Standard Deviation 48.9 fL RDW Coefficient of Variation 14.1 % Platelet Count 172 K/uL Mean Platelet Volume 8.9 fL Prothrombin Time 20.0 SECONDS Prothromb Time International Ratio 1.8 Sodium Level 141 mmol/L Potassium Level 4.2 mmol/L Chloride Level 106 mmol/L Carbon Dioxide Level 28 mmol/L Anion Gap 7.0 mmol/L Blood Urea Nitrogen 22 mg/dl Creatinine 1.40 mg/dl Est Creatinine Clear Calc Drug Dose 35.0 ml/min Estimated GFR () 51.6 Estimated GFR (Non- 44.5 BUN/Creatinine Ratio 15.6 Random Glucose 83 mg/dl Calcium Level 8.4 mg/dl Assessment and Plan This is an 86 year old male with a PMH of A. fib on long-term anticoagulation, Hx. of NSTEMI, CKD stage 3, COPD, hx. of recurrent UTIs presents with altered mental status Altered Mental Status Metabolic Encephalopathy secondary to UTI 08/18 doing better today will switch to oral abx. plan for d/c home he is on long-term abx, and we will keep this for now outpatient PCP and urology f/u recommended 08/17 patient is doing much better - AMS resolved one more dose of Rocephin today will switch to Ceftin or Amoxicillin in AM on chronic abx. will need long-term abx. outpatient PCP and urology follow-up 08/[address] and Brain MRI are negative for any acute stroke/CVA recent outpatient E. coli resistant to quinolones, PCN and nitrofurantoin will start Rocephin, which we can continue for now monitor clinical status continue methenamine Acute Kidney Injury superimposed on CKD stage 3 creatinine on admission = 1.9 baseline is mid 1's given IVFs, creatinine improved to 1.4 hold IVFs CAD hx. of NSTEMI no chest pain, EKG shows a LBBB which is chronic; initial cardiac enzymes negative continue aspirin, b-lori, statin Hx. of A. Fib and Tachy-Sher Syndrome currently NSR continue b-lori and Coumadin Moderate Aortic Stenosis Echo in March showed aortic calcification with mild-moderate aortic stenosis ( aortic valve area 1.4 cm2) Follow COPD Stable Chronic Back Pain/Sacroiliitis Continue usual analgesic regimen DVT ppx INR 1.8 at time of admission Titrated warfarin SQ heparin until warfarin therapeutic Ambulate DNR PT/OT, may need placement
[2017-08-18 14:50] VITALS: BP 135/71; PULSE 54; TEMP 36.8; O2SAT 94
[2017-08-18] MEDS ORDERED: CEFU500T16 PO (14:51)
--- NOTE | 2017-08-18 14:52 | Discharge Instructions ---
Discharge Instructions Date of Service Aug 18, 2017. Admission Reason for Admission: Complicated Uti, Metabolic Encephalopathy Discharge Discharge Diagnosis / Problem: Complicated Urinary Tract Infection, Confusion Discharge Goals Goal(s): Decrease discomfort, Improve function, Diagnostic testing, Therapeutic intervention Activity Recommendations Activity Limitations: resume your previous activity . Instructions / Follow-Up Instructions / Follow-Up Please follow-up with your primary care physician - you will receive a phone call with a date/time * stop taking Cipro - you will now take Ceftin (antibiotic) for urinary tract infection * Please follow-up with urology to discuss long-term antibiotic options Current Hospital Diet Patient's current hospital diet: AHA Diet (Heart Healthy) Discharge Diet Recommended Diet: AHA Diet (Heart Healthy) Pending Studies Studies pending at discharge: no Medical Emergencies . Who to Call and When: Medical Emergencies: If at any time you feel your situation is an emergency, please call 911 immediately. . Non-Emergent Contact Non-Emergency issues call your: Primary Care Provider, Urologist . . "Provider Documentation" section prepared by Mckayla De Luna. . VTE Core Measure Inpt VTE Proph given/why not?: Unfractionated heparin SQ, Warfarin (Coumadin)
--- NOTE | 2017-08-18 14:54 | Discharge Summary ---
Discharge Summary Date of Service Aug 18, 2017. Discharge Summary Admission Date: Aug 15, 2017 at 19:43 Discharge Date: Aug 18, 2017 Discharge Disposition: Home Principal Diagnosis: Complicated UTI Metabolic Encephalopathy Medication Reconciliation New Medications: Cefuroxime Axetil (Ceftin) 500 Mg Tab 500 MG PO BID for 15 Days, #30 TAB Continued Medications: Amlodipine Besylate (Norvasc) 5 Mg Tab 5 MG PO QAM, TAB Ascorbic Acid (Vitamin C) 500 Mg Cap 1000 MG PO DAILY Aspirin (Ecotrin Low Strength) 81 Mg Tab 81 MG PO DAILY, #30 TAB 12 Refills Buprenorphine (Butrans) 15 Mcg/Hr Dis 15 MCG TOP WK change every Saturday Diclofenac Sodium (Topical) (Voltaren 1% Top Gel) 1 % Gel 4 GM TOP QID Gabapentin (Gabapentin) 600 Mg Tab 600 MG PO TID, TAB Methenamine Mandelate (Methenamine Mandelate) 0.5 Gm Tab 2 TABS PO DAILY Metoprolol Succinate (Toprol Xl) 25 Mg Tab 25 MG PO DAILY, #30 TAB 5 Refills Nitroglycerin (Nitrostat) 0.4 Mg Tab 0.4 MG UT PRN, #25 BTL 1 Refill Take 1 pill under tongue as needed for chest pain. May repeat dose in 5-10 min. Call 911 if no relief. Oxycodone/Acetaminophen 10MG/325MG (Percocet 10MG/325MG) Tab 1 TAB PO Q6 PRN for Pain, TAB Pantoprazole (Protonix) 20 Mg Tab 40 MG PO BID, #30 TAB Polyethylene Glycol 3350 (Miralax) 1 Pow Pow 1 TBS PO DAILY PRN for Constipation, #527 GM Simvastatin (Simvastatin) 20 Mg Tab 20 MG PO QAM Tamsulosin Hcl (Flomax) 0.4 Mg Cap 0.4 MG PO DAILY, CAP Warfarin Sod (Coumadin) 4 Mg Tab 0 PO UD 1/2 pill (2 mg) Aacgye-Hodrrvqtj-Qudrxp 1 pill (4 mg) Wkyvxpc-Fxxhupwy-Rjrtcq-Saturday Admission Information HPI (per Admitting provider): 86-year-old male followed by Dr. Childress in [place]. History of coronary artery disease, atrial fibrillation, aortic stenosis, and other problems noted below. Lives at home by himself. Ambulatory with a cane, sometimes walker. Family lives nearby and checks on him on a regular basis, but they're currently out of town. He has a assistant store leader that checks on him daily when family is not available. Experienced dysuria about a week ago. Urine culture was obtained and patient was started on ciprofloxacin. Urine culture subsequently grew Escherichia coli that was resistant to ciprofloxacin. Antibiotic therapy was switched to cefuroxime per sensitivities. [place] somewhat tired yesterday, but otherwise doing fairly well. Leather Toggler checked on him this morning and found him to be sleeping in a chair in his laundry, only partially dressed. Upon awakening, he was confused and thought that he was in another room. Had difficulty getting dressed and dropped things with his left hand. Leather Toggler noted that he seemed to be leaning towards his left side. Dysuria has resolved. No nausea, vomiting, diarrhea. No fever, chills, sweats. . Physical Exam (per Admitting): General Appearance: no apparent distress, + thin Head: normocephalic, atraumatic Eyes: normal inspection, PERRL, EOMI, sclerae normal (eyelids and conjunctivae normal) ENT: pharynx normal, + pertinent finding (hard of hearing; upper and lower dentures) Neck: supple, no adenopathy, thyroid normal, no JVD, trachea midline Respiratory/Chest: lungs clear, no respiratory distress, no accessory muscle use Cardiovascular: regular rate, rhythm, no edema, no gallop, no JVD, + systolic murmur (3/6 systolic murmur at base), + abnormal peripheral pulses ( diminished pedal pulses) Abdomen/GI: normal bowel sounds, non tender, soft, no organomegaly, no pulsatile mass Back: + pertinent finding (kyphotic) Extremities/Musculoskelatal: no calf tenderness, normal capillary refill, no pedal edema, + pertinent finding (onychomycosis of toenails) Neurologic/Psych: + disoriented (could not accurately state the year, but could state day of the week, location, president), + pertinent finding (PERRL, EOMI, no facial palsy, no dysarthria; motor strength upper and lower extremitites intact; patellar reflexes 1/2 bilat; plantar reflexes downgoing bilaterally; mild difficulty with finger to nose bilaterally) Skin: normal color, warm/dry, no rash Lymphatic: no adenopathy (cervical) Hospital Course This is an 86 year old male with a PMH of A. fib on long-term anticoagulation, Hx. of NSTEMI, CKD stage 3, COPD, hx. of recurrent UTIs presents with altered mental status Altered Mental Status Metabolic Encephalopathy secondary to UTI 08/18 doing better today will switch to oral abx. plan for d/c home he is on long-term abx, and we will keep this for now outpatient PCP and urology f/u recommended 08/17 patient is doing much better - AMS resolved one more dose of Rocephin today will switch to Ceftin or Amoxicillin in AM on chronic abx. will need long-term abx. outpatient PCP and urology follow-up 08/[address] and Brain MRI are negative for any acute stroke/CVA recent outpatient E. coli resistant to quinolones, PCN and nitrofurantoin will start Rocephin, which we can continue for now monitor clinical status continue methenamine Acute Kidney Injury superimposed on CKD stage 3 creatinine on admission = 1.9 baseline is mid 1's given IVFs, creatinine improved to 1.4 hold IVFs CAD hx. of NSTEMI no chest pain, EKG shows a LBBB which is chronic; initial cardiac enzymes negative continue aspirin, b-lori, statin Hx. of A. Fib and Tachy-Sher Syndrome currently NSR continue b-lori and Coumadin Moderate Aortic Stenosis Echo in March showed aortic calcification with mild-moderate aortic stenosis ( aortic valve area 1.4 cm2) Follow COPD Stable Chronic Back Pain/Sacroiliitis Continue usual analgesic regimen DVT ppx INR 1.8 at time of admission Titrated warfarin SQ heparin until warfarin therapeutic Ambulate DNR PT/OT, may need placement Total time spent on discharge = 55 minutes This includes examination of the patient, discharge planning, medication reconciliation, and communication with other providers. Discharge Instructions Please follow-up with your primary care physician - you will receive a phone call with a date/time * stop taking Cipro - you will now take Ceftin (antibiotic) for urinary tract infection * Please follow-up with urology to discuss long-term antibiotic options
[2017-08-18 15:38] VITALS: BP 135/71; PULSE 54; TEMP 36.8; O2SAT 94
[2017-08-18] MEDS: WARFARIN SOD 2 MG TAB PO SCH (15:59)
[2017-08-19] MEDS ORDERED: BUPRENORPHINE 5 MCG/HR TDSY TD SCH (07:00)
== END 2017-08-18 16:18 | disposition home or self-care (01) | DRG 689 ==
LOC: C.EDB 15:49 → C.MED 19:43 → ENRESERV 20:28 → EDBEDREQ 20:53
PROVIDERS: ADMIT Hospitalist; ATTEND Family Medicine
DX: N39.0 Urinary tract infection, site not specified (principal); G93.41 Metabolic encephalopathy; N17.9 Acute kidney failure, unspecified; B96.20 Unspecified Escherichia coli [E. coli] as the cause of diseases classified elsewhere; Z16.23 Resistance to quinolones and fluoroquinolones; N18.3 Chronic kidney disease, stage 3 (moderate); I25.10 Atherosclerotic heart disease of native coronary artery without angina pectoris; I48.91 Unspecified atrial fibrillation; I35.0 Nonrheumatic aortic (valve) stenosis; I25.2 Old myocardial infarction; J44.9 Chronic obstructive pulmonary disease, unspecified; E78.5 Hyperlipidemia, unspecified; N40.0 Benign prostatic hyperplasia without lower urinary tract symptoms; M46.1 Sacroiliitis, not elsewhere classified; Z51.81 Encounter for therapeutic drug level monitoring; Z79.899 Other long term (current) drug therapy; Z79.01 Long term (current) use of anticoagulants; Z79.82 Long term (current) use of aspirin; Z66 Do not resuscitate; Z87.440 Personal history of urinary (tract) infections; Z86.718 Personal history of other venous thrombosis and embolism; Z86.711 Personal history of pulmonary embolism; Z82.5 Family history of asthma and other chronic lower respiratory diseases

== ENCOUNTER 2017-10-16 21:05 | Inpatient (IN) | payer OTHER ==
[~2017-10-16] VITALS: Ht 172.7 cm; Wt 70.8 kg
[~2017-10-16 21:05] MED LIST changes: -CPR250 PO; +DICL1GEL12 TOP; +METO-478 PO; -METO1TAB31 PO
[2017-10-16] MEDS ORDERED: CEFU500T16 PO (21:40)
--- NOTE | 2017-10-16 21:43 | DIAGNOSTIC IMAGING REPORT ---
CHEST ONE VIEW PORTABLE HISTORY: 87 years-old Male AMS acute altered mental status COMPARISON: Chest radiograph 08/15/2017 TECHNIQUE: Portable upright AP view of the chest FINDINGS: Cardiac silhouette is moderately enlarged, unchanged. Mitral annular calcifications are noted. Atherosclerosis of the aorta. There is improved aeration of the lung bases from comparison with only minimal bibasilar atelectasis. There is no pneumothorax, pleural effusion or lobar airspace consolidation. Probable right shoulder rotator cuff calcific tendinosis. Degenerative changes are seen within the shoulders and spine. IMPRESSION: Cardiomegaly without acute process. The above report was generated using voice recognition software. It may contain grammatical, syntax or spelling errors. Electronically signed by: Trace Dawson M.D. 10/16/2017 9:42 PM Dictated Date/Time: 10/16/2017 9:40 PM
[2017-10-16 21:46] LABS: VEN BLD GAS O2 SATURATION < 60.0 %; VENOUS BLOOD GAS PCO2 43 mmHg (38.0-50.0); VENOUS BLOOD GAS PO2 29 mmHg
[2017-10-16 21:55] LABS: HEMATOCRIT 38.8 % (42-52); MEAN CORPUSCULAR HEMOGLOBIN 31.8 pg (25-34); MEAN CORPUSCULAR HGB CONC 32.7 g/dl (32-36); MEAN PLATELET VOLUME 9.1 fL (7.4-10.4); PLATELET COUNT 165 K/uL (130-400); WHITE BLOOD COUNT 11.82 K/uL (4.8-10.8)
[2017-10-16 22:02] LABS: INR 1.9 (0.9-1.1); PARTIAL THROMBOPLASTIN RATIO 1.3; PROTHROMBIN TIME (PATIENT) 19.5 SECONDS (9.0-12.0)
[2017-10-16] MEDS ORDERED: SODIUM CHLORIDE 0.9% 1000ML 1,000 ML IV STA (22:05)
--- NOTE | 2017-10-16 22:06 | DIAGNOSTIC IMAGING REPORT ---
HEAD WITHOUT CONTRAST (CT) CLINICAL HISTORY: 87 years-old Male with AMS. Acute altered mental status TECHNIQUE: Multiple axial CT images of the head were obtained without contrast. A dose lowering technique was utilized adhering to the principles of ALARA. CT DOSE: 601.98 mGy.cm COMPARISON: Head CT 08/15/2017, brain MR 08/16/2017. FINDINGS: No acute intracranial hemorrhage, midline shift, intracranial mass, hydrocephalus, territorial ischemia or abnormal extra-axial collection. Moderate brain atrophy with chronic microvascular ischemic changes with ex vacuo ventriculomegaly. Vascular calcifications are seen at the level of the skull base. The calvarium is intact. The paranasal sinuses, mastoid air cells, and middle ear cavities are clear. Prior bilateral cataract repair. IMPRESSION: No acute intracranial abnormality. The above report was generated using voice recognition software. It may contain grammatical, syntax or spelling errors. Electronically signed by: Trace Dawson M.D. 10/16/2017 10:05 PM Dictated Date/Time: 10/16/2017 10:01 PM
[2017-10-16 22:11] LABS: ALT/SGPT 13 U/L (12-78); BLOOD UREA NITROGEN 24 mg/dl (7-18); BUN/CREATININE RATIO 11.2 (10-20); CALCIUM 9.2 mg/dl (8.5-10.1); CARBON DIOXIDE 25 mmol/L (21-32); CHLORIDE 105 mmol/L (98-107); CREATININE 2.11 mg/dl (0.60-1.40); GLUCOSE 143 mg/dl (70-99); POTASSIUM 4.6 mmol/L (3.5-5.1); SODIUM 137 mmol/L (136-145)
[2017-10-16 22:16] LABS: ALKALINE PHOSPHATASE 52 U/L (45-117); AST/SGOT 30 U/L (15-37)
[2017-10-16] MEDS ORDERED: CEFTRIAXONE SOD INJ 1 GM ADDVIAL IV STA (22:16)
[2017-10-16 22:19] LABS: BASO % 0.2 %; BASO ABS # 0.02 K/uL (0-0.2); COMPLETE YES; IG% 0.3 %; LYMPH ABS # 0.71 K/uL (1.2-3.4); MONO % 6.6 %; NEUT % 86.9 %; STOMATOCYTE 1+
[2017-10-16] MEDS ORDERED: CEFEPIME IV 1,000 MG in DEXTROSE 5% 100ML 100 ML IV STA (22:28)
[2017-10-16] MEDS ORDERED: NALOXONE HCL 0.4 MG/1 ML VIAL/CARP IV STA (23:20)
[2017-10-16 23:28] LABS: MAGNESIUM 2.2 mg/dl (1.8-2.4)
[2017-10-16] MEDS ORDERED: POLYETHYLENE (MIRALAX) 17 GM PACK PO PRN (23:45)
[2017-10-16] MEDS ORDERED: PROCHLORPERAZINE INJ 5 MG in SYRINGE 4 ML IV PRN (23:45)
[2017-10-17] MEDS ORDERED: WARFARIN SOD 5 MG TAB PO STA
--- NOTE | 2017-10-17 00:22 | EMERGENCY ROOM VISIT NOTE ---
History Report prepared by Ulysses: Veronica Dior Under the Supervision of: Dr. Caesar Cueva D.O. First contact with patient: 21:13 Chief Complaint: ALTERED MENTAL STATUS Stated Complaint: AMS History of Present Illness The patient is a 87 year old male who presents to the Emergency Room with altered mental status today. Per nursing staff, the patient is currently being treated for a UTI and is on antibiotics. The patient states that he lives by himself. Pt denies headache, change in vision, fevers, chest pain, shortness of breath, nausea, vomiting, diarrhea, urinary symptoms weakness, and numbness. Per nursing staff, the patient has a heater built into his bathroom fan. Per nursing staff, his family found him sitting on the toilet in the bathroom, which was very hot due to the fan. Family notes that he has been very confused is normally awake alert and oriented. He is normally able to take care of himself. They have noticed nothing else specifically with the exception of recurrent UTIs. The patient's urine culture grew out less than 100,000 colonies susceptible to cefepime, gentamicin, meropenem, and trimeth-sulfamethoxazole. Source of History: patient, nursing staff Onset: today Position: other (global) Quality: other (altered mental status ) Timing: constant Associated Symptoms: No headache, No chest pain, No SOB, No nausea, No vomiting, No diarrhea, No urinary symptoms Review of Systems See HPI for pertinent positives & negatives. A total of 10 systems reviewed and were otherwise negative. 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 (13) History of DVT (deep vein thrombosis) (14) History of GI bleed (15) History of orthostatic hypotension (16) History of pulmonary embolism (17) Hyperlipidemia Surgical Problems: (1) H/O carpal tunnel repair (2) H/O colonoscopy (3) H/O esophagogastroduodenoscopy (4) knee replacement (5) Previous back surgery Family History FH: COPD (chronic obstructive pulmonary disease) BROTHER Social History Smoking Status: Unknown if Ever Smoked Alcohol Use: none Marital Status: Housing Status: lives alone Occupation Status: retired Current/Historical Medications Scheduled Amlodipine Besylate (Norvasc), 5 MG PO QAM Ascorbic Acid (Vitamin C), 1,000 MG PO DAILY Aspirin (Ecotrin Low Strength), 81 MG PO DAILY Buprenorphine (Butrans), 15 MCG TOP WK Cefuroxime Axetil (Ceftin), 500 MG PO DAILY Diclofenac Sodium (Topical) (Voltaren 1% Top Gel), 4 GM TOP QID Gabapentin (Gabapentin), 600 MG PO TID Methenamine Mandelate (Methenamine Mandelate), 2 TABS PO DAILY Metoprolol Succinate (Toprol Xl), 25 MG PO DAILY Nitroglycerin (Nitrostat), 0.4 MG UT PRN Pantoprazole (Protonix), 40 MG PO BID Tamsulosin Hcl (Flomax), 0.4 MG PO DAILY Warfarin Sod (Coumadin), 0 PO UD Scheduled PRN Oxycodone/Acetaminophen 10MG/325MG (Percocet 10MG/325MG), 1 TAB PO Q6 PRN for Pain Polyethylene Glycol 3350 (Miralax), 1 TBS PO DAILY PRN for Constipation Allergies Coded Allergies: Morphine (Verified Allergy, Intermediate, itching, dizzy, 10/16/17) pt primary md has taken pt off morphine due to itching and dizzy Sulfa Antibiotics (Verified Allergy, Intermediate, HIVES/RASH, 10/16/17) Fentanyl (Verified Allergy, Unknown, ITCHING, DIZZINESS, BOWEL BLADDER PROBLEMS, HEADACHE, 10/16/17) Physical Exam Vital Signs Date Time Temp Pulse Resp B/P (MAP) Pulse Ox O2 Delivery O2 Flow Rate FiO2 10/16/17 23:45 81 20 146/75 98 10/16/17 23:03 37.0 74 18 129/74 92 Room Air 10/16/17 22:06 73 18 147/76 92 Room Air 10/16/17 21:52 37.4 84 18 127/65 95 Room Air 10/16/17 21:26 79 Physical Exam GENERAL: Sitting up in bed, disheveled, well appearing, malnourished, no acute distress, non-toxic EYE EXAM: normal conjunctiva. PERRL and EOM's intact. OROPHARYNX: no exudate, no erythema, lips, buccal mucosa, and tongue normal and mucous membranes are moist NECK: supple, no nuchal rigidity, no adenopathy, non-tender LUNGS: Clear to auscultation. Normal chest wall mechanics HEART: systolic ejection murmur, S1 normal and S2 normal ABDOMEN: abdomen soft, non-tender, normo-active bowel sounds, no masses, no rebound or guarding. SKIN: no rashes and no bruising UPPER EXTREMITIES: upper extremities are grossly normal. LOWER EXTREMITIES: No pitting edema. NEURO EXAM: Alert and oriented to person, intermittently to place, but not year , cranial nerves II-XII intact, normal speech, no weakness of arms, no weakness of legs. Medical Decision & Procedures ER Provider Diagnostic Interpretation: Radiology results as stated below per my review and the radiologist's interpretation: HEAD WITHOUT CONTRAST (CT) CLINICAL HISTORY: 87 years-old Male with AMS. Acute altered mental status TECHNIQUE: Multiple axial CT images of the head were obtained without contrast. A dose lowering technique was utilized adhering to the principles of ALARA. CT DOSE: 601.98 mGy.cm COMPARISON: Head CT 08/15/2017, brain MR 08/16/2017. FINDINGS: No acute intracranial hemorrhage, midline shift, intracranial mass, hydrocephalus, territorial ischemia or abnormal extra-axial collection. Moderate brain atrophy with chronic microvascular ischemic changes with ex vacuo ventriculomegaly. Vascular calcifications are seen at the level of the skull base. The calvarium is intact. The paranasal sinuses, mastoid air cells, and middle ear cavities are clear. Prior bilateral cataract repair. IMPRESSION: No acute intracranial abnormality. The above report was generated using voice recognition software. It may contain grammatical, syntax or spelling errors. Electronically signed by: Trace Dawson M.D. 10/16/2017 10:05 PM Dictated Date/Time: 10/16/2017 10:01 PM CHEST ONE VIEW PORTABLE HISTORY: 87 years-old Male AMS acute altered mental status COMPARISON: Chest radiograph 08/15/2017 TECHNIQUE: Portable upright AP view of the chest FINDINGS: Cardiac silhouette is moderately enlarged, unchanged. Mitral annular calcifications are noted. Atherosclerosis of the aorta. There is improved aeration of the lung bases from comparison with only minimal bibasilar atelectasis. There is no pneumothorax, pleural effusion or lobar airspace consolidation. Probable right shoulder rotator cuff calcific tendinosis. Degenerative changes are seen within the shoulders and spine. IMPRESSION: Cardiomegaly without acute process. The above report was generated using voice recognition software. It may contain grammatical, syntax or spelling errors. Electronically signed by: Trace Dawson M.D. 10/16/2017 9:42 PM Dictated Date/Time: 10/16/2017 9:40 PM Laboratory Results 10/16/17 21:35 Red Blood Count 4.00, Mean Corpuscular Volume 97.0, Mean Corpuscular Hemoglobin 31.8, Mean Corpuscular Hemoglobin Concent 32.7, Mean Platelet Volume 9.1, Neutrophils (%) (Auto) 86.9, Lymphocytes (%) (Auto) 6.0, Monocytes (%) (Auto) 6.6, Eosinophils (%) (Auto) 0.0, Basophils (%) (Auto) 0.2, Neutrophils # (Auto) 10.28, Lymphocytes # (Auto) 0.71, Monocytes # (Auto) 0.78, Eosinophils # (Auto) 0.00, Basophils # (Auto) 0.02 10/16/17 21:35 Test 10/16/17 21:19 10/16/17 21:35 10/16/17 21:38 10/16/17 23:41 Bedside Glucose 139 mg/dl (70-99) White Blood Count 11.82 K/uL (4.8-10.8) Red Blood Count 4.00 M/uL (4.7-6.1) Hemoglobin 12.7 g/dL (14.0-18.0) Hematocrit 38.8 % (42-52) Mean Corpuscular Volume 97.0 fL (80-100) Mean Corpuscular Hemoglobin 31.8 pg (25-34) Mean Corpuscular Hemoglobin Concent 32.7 g/dl (32-36) Platelet Count 165 K/uL (130-400) Mean Platelet Volume 9.1 fL (7.4-10.4) Neutrophils (%) (Auto) 86.9 % Lymphocytes (%) (Auto) 6.0 % Monocytes (%) (Auto) 6.6 % Eosinophils (%) (Auto) 0.0 % Basophils (%) (Auto) 0.2 % Neutrophils # (Auto) 10.28 K/uL (1.4-6.5) Lymphocytes # (Auto) 0.71 K/uL (1.2-3.4) Monocytes # (Auto) 0.78 K/uL (0.11-0.59) Eosinophils # (Auto) 0.00 K/uL (0-0.5) Basophils # (Auto) 0.02 K/uL (0-0.2) RDW Standard Deviation 49.7 fL (36.4-46.3) RDW Coefficient of Variation 14.0 % (11.5-14.5) Immature Granulocyte % (Auto) 0.3 % Immature Granulocyte # (Auto) 0.03 K/uL (0.00-0.02) Stomatocytes 1+ Prothrombin Time 19.5 SECONDS (9.0-12.0) Prothromb Time International Ratio 1.9 (0.9-1.1) Activated Partial Thromboplast Time 32.9 SECONDS (21.0-31.0) Partial Thromboplastin Ratio 1.3 Anion Gap 8.0 mmol/L (3-11) Est Creatinine Clear Calc Drug Dose 23.0 ml/min Estimated GFR () 31.2 Estimated GFR (Non- 26.9 BUN/Creatinine Ratio 11.2 (10-20) Calcium Level 9.2 mg/dl (8.5-10.1) Magnesium Level 2.2 mg/dl (1.8-2.4) Total Bilirubin 0.9 mg/dl (0.2-1) Direct Bilirubin 0.3 mg/dl (0-0.2) Aspartate Amino Transf (AST/SGOT) 30 U/L (15-37) Alanine Aminotransferase (ALT/SGPT) 13 U/L (12-78) Alkaline Phosphatase 52 U/L (45-117) Troponin I < 0.015 ng/ml (0-0.045) Total Protein 8.2 gm/dl (6.4-8.2) Albumin 3.9 gm/dl (3.4-5.0) Thyroid Stimulating Hormone (TSH) 1.720 uIu/ml (0.300-4.500) Venous Blood pH 7.41 (7.36-7.41) Venous Blood Partial Pressure CO2 43 mmHg (38.0-50.0) Venous Blood Partial Pressure O2 29 mmHg Venous Blood HCO3 27 mmol/L Venous Blood Oxygen Saturation < 60.0 % Venous Blood Base Excess 2.0 mEq/L Ammonia 31.1 umol/L (11-32) Ethyl Alcohol mg/dL < 3.0 mg/dl (0-3) Laboratory results per my review. Medications Administered Medications (Trade) Dose Ordered Sig/Bailey Route Start Time Stop Time Status Last Admin Dose Admin Sodium Chloride 1,000 ml @ 999 mls/hr Q1H1M STAT IV 10/16/17 22:05 10/16/17 23:05 DC 10/16/17 22:05 999 MLS/HR Cefepime HCl 1000 mg/Dextrose 111 ml @ 200 mls/hr NOW STAT IV 10/16/17 22:28 10/16/17 23:01 DC 10/16/17 23:03 200 MLS/HR Naloxone HCl (Narcan Inj) 0.4 mg NOW STAT IV 10/16/17 23:20 10/16/17 23:23 DC 10/16/17 23:27 0.4 MG ECG Indication: altered mental status Rate (beats per minute): 80 Rhythm: sinus rhythm Findings: LBBB, ST depression (Lateral), other (left axis, ST ) Comparison ECG Date: compared to 08/20, ST worse in inferior and high lateral leads compared to old ED Course ED COURSE: Vital signs were reviewed and showed hypertension. The patients medical record was reviewed The above diagnostic studies were performed and reviewed. ED treatments and interventions as stated above. 2112: The patient was evaluated in room A12B. A complete history and physical examination was performed. 2204: Ordered Sodium Chloride 1,000 ml @ 999 mls/hr IV. 6: Ordered Rocephin Inj 1 gm IV. 2228: Ordered Cefepime HCl 1,000 mg/Dextrose 111 ml @ 200 mls/hr IV. 2240: Upon reevaluation, the patient is resting. I discussed the findings and the treatment plan with his family. His family expresses agreement and understanding. [facility] He will be evaluated for further management. Medical Decision Differential diagnoses includes but is not limited to toxic, metabolic, infectious, traumatic, cardiac, neurologic, hematologic, psychiatric and inflammatory etiologies. Patient is an 87-year-old male brought in by EMS for altered mental status. Upon presentation he is slightly confused. Labs show white count 11,000. BMP with a creatinine of 2.1 with his last creatinine 1.9. Bilirubin and LFTs were normal. Troponin was negative. TSH normal. INR therapeutic. CT head was performed due to confusion and was negative. Chest x-ray unremarkable. EKG was slightly worsening ST changes in the lateral. Patient does fall asleep quickly. He has no other complaints. He is given IV antibiotics as his urine culture recently grew out 10,000 to a 100,000 bacteria which was resistant with the exception of IV antibiotics. Patient was given IV cefepime. He was admitted to internal medicine for further workup. Medication Reconcilliation Current Medication List: was personally reviewed by me Blood Pressure Screening Patient's blood pressure: Elevated blood pressure Blood pressure disposition: Elevated BP felt to be situational Consults Time Called: [phone] Consulting Physician: Dr. Arnold Returned Call: [phone] I reviewed the patient's case with Dr. Hamilton. He will evaluate the patient for further management. Impression Primary Impression: Altered mental status Additional Impression: Urinary tract infection Scribe Attestation The scribe's documentation has been prepared under my direction and personally reviewed by me in its entirety. I confirm that the note above accurately reflects all work, treatment, procedures, and medical decision making performed by me. Departure Information Dispostion Being Evaluated By Hospitalist Referrals Tad Childress M.D. (PCP) Patient Instructions My [facility] Problem Qualifiers Primary Impression: Altered mental status Altered mental status type: unspecified Qualified Codes: R41.82 - Altered mental status, unspecified Additional Impression: Urinary tract infection Urinary tract infection type: site unspecified Hematuria presence: without hematuria Qualified Codes: N39.0 - Urinary tract infection, site not specified
[2017-10-17 00:35] LABS: URINE APPEARANCE CLEAR (CLEAR); URINE BILIRUBIN NEG (NEG); URINE COLOR YELLOW; URINE EPITHELIAL CELL AUTO 0-5 /lpf (0-5); URINE NITRITE POS (NEG); URINE SPECIFIC GRAVITY 1.015 (1.000-1.030); UROBILINOGEN NEG (NEG); ZZURINE CULT IF INDIC CATH YES
[2017-10-17 00:39] LABS: MANUAL MICROSCOPIC REQUIRED? NO; REVIEW REQ? NO
[2017-10-17 00:51] VITALS: BP 154/80; PULSE 80; TEMP 36.9; O2SAT 93; Ht 172.7 cm; Wt 70.8 kg
[2017-10-17 00:54] LABS: BENZODIAZEPINE, URINE NEG (NEG); COCAINE,URINE NEG (NEG); PHENCYCLIDINE, URINE NEG (NEG)
[2017-10-17] MEDS ORDERED: SODIUM CHLORIDE 0.9% 1000ML 1,000 ML IV SCH ×2 (01:00→04:00)
--- NOTE | 2017-10-17 02:31 | HISTORY & PHYSICAL EXAMINATION ---
DATE OF ADMISSION: 10/16/2017 PRIMARY CARE PHYSICIAN: Dr. Childress CHIEF COMPLAINT: Altered mental status as per records, sleepiness as per records. HISTORY OF PRESENT ILLNESS: History obtained from patient, daughter, and records. Limited history obtained from the patient secondary to lethargic, disoriented state. 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 HTN, chronic pain on Butrans patch, chronic anemia (baseline hemoglobin 10), recurrent UTIs antibiotic suppression Rx, history of penoscrotal hypospadias, alcohol dependence as per records, Recent confinement last August 2017 for complicated UTI, multidrug resistant Escherichia coli. As per patient's daughter, last week, patient had dysuria symptoms. Outpatient urine noted to be dirty. The patient was started on Cefuroxime. Outpatient urine cultures grew 10 to 100,000 enterobacter known to produce chromosomal ampicillin C inducible beta lactamase. Penicillin and cephalosporin (except Cefepime) use may resulting resistance as per report. As per outpatient records, the patient requesting for a Percocet prescription for some worsening back pain. Hours ago patient noted to be sleepy in the toilet by caregiver slow to respond to questions. No chest pain, no shortness of breath. Family does not think patient taking more narcotics than he is allowed. At the Emergency Room, the patient given cefepime for UTI. MEDICAL HISTORY: As above. SURGERIES: Carpal tunnel surgery, knee surgery, back surgery, cholecystectomy, urologic procedures. HOME MEDICATIONS: Include methenamine, Percocet, MiraLax, Protonix, Flomax, Coumadin, Norvasc, vitamin C, Butrans, cefepime, Voltaren, gabapentin. ALLERGIES: FENTANYL, MORPHINE, SULFA. FAMILY HISTORY: COPD. PERSONAL AND SOCIAL HISTORY: Past tobacco use. No chronic intake of alcoholic beverages. 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 Lives alone with some caregivers. REVIEW OF SYSTEMS: Could not be obtained. PHYSICAL EXAMINATION: VITAL SIGNS: Blood pressure was noted to be 110/80, pulse rate 74, RR 18, T 37, sats 92 on room air. GENERAL: Noted to be lethargic, disoriented, no acute distress. SKIN: Pallor. Warm HEENT: Pale palpebral conjunctivae, no ptosis. Dry buccal mucosa. NECK: Supple. No tenderness. LUNGS: Decreased breath sounds. No tenderness. HEART: Regular rate and rhythm. Systolic murmur. ABDOMEN: Soft, nontender. EXTREMITIES: No LE edema. No gross deformities. NEUROLOGIC: Lethargic. Disoriented, miotic pupils. Gait and stance not assessed. LABORATORY STUDIES: Hemoglobin was noted to be 12.7, hematocrit 39.8., white cell count 11.2, platelets noted to be 165. Sodium 137, potassium 4.6, chloride 105, CO2 25, BUN 24, creatinine 2.11, glucose 143. CPK 1918. INR was 1.9. UA, nitrite positive, occult blood 3+, wbc positive. CT head, no acute pathology. Chest x-ray, cardiomegaly. ASSESSMENT: 1. Encephalopathy multifactorial : complicated UTI, hx penoscrotal hypospadias sp failed childhood repair, no sepsis. hx of recurrent UTIs on chronic methenamine suppression Rx (Enterobacter on recent outpatient urine CS) Failed outpatient treatment ARF, clinical dehydration, mild rhabdomyolysis. Home neuropsychotropic and narcotics contributory (hx chronic pain on Butrans patch, gabapentin) 2. Worsening back pain as per daughter account rule out kidney stone/ hydronephrosis 3. Hypertension, stable. 4. Sick sinus syndrome, currently normal sinus rhythm, on Coumadin INR slightly subtherapeutic 5. chronic left bundle branch block. 6. hx PE/DVT as per records 7. Chronic obstructive pulmonary disease, past tobacco abuse. Pulmonary status at baseline 8. Chronic anemia, hemoglobin better than baseline Likely from hemoconcentration. 9. Past ETOH abuse as per records PLAN: GMF ff urine CS, Cefepime for now May need ID consult pending CS results availability hold Butrans patch and home neuropsychotropic meds until patient mentation at baseline Follow CPK, creatinine in response to IV fluids CT abdomen and pelvis. RE worsening back pain PT OT eval DVT prophylaxis, Coumadin INR 2-3. Full code as per daughter/POA, Ms. Claudia Glass. She requests updates from providers at [phone]. [facility]
[2017-10-17] MEDS ORDERED: DOCUSATE SODIUM/SENNA 50/8.6MG TAB PO ONE (02:55)
[2017-10-17] MEDS ORDERED: POLYETHYLENE (MIRALAX) 17 GM PACK PO ONE (02:55)
[2017-10-17] MEDS: TRAMADOL HCL 50 MG TAB PO PRN (06:02)
[2017-10-17 06:35] LABS: BASO % 0.2 %; BASO ABS # 0.02 K/uL (0-0.2); COMPLETE YES; EOS % 0.1 %; HEMATOCRIT 36.7 % (42-52); IG% 0.3 %; LYMPH % 15.7 %; LYMPH ABS # 1.79 K/uL (1.2-3.4); MEAN CELL VOLUME 97.9 fL (80-100); MEAN CORPUSCULAR HEMOGLOBIN 31.5 pg (25-34); MEAN CORPUSCULAR HGB CONC 32.2 g/dl (32-36); MONO % 6.4 %; NEUT % 77.3 %; PLATELET COUNT 148 K/uL (130-400); RED BLOOD COUNT 3.75 M/uL (4.7-6.1); WHITE BLOOD COUNT 11.38 K/uL (4.8-10.8)
[2017-10-17 06:55] LABS: INR 1.8 (0.9-1.1); PROTHROMBIN TIME (PATIENT) 18.3 SECONDS (9.0-12.0)
[2017-10-17 07:11] LABS: BUN/CREATININE RATIO 16.7 (10-20); CALCIUM 8.8 mg/dl (8.5-10.1); CREATININE 1.52 mg/dl (0.60-1.40); POTASSIUM 4.8 mmol/L (3.5-5.1)
[2017-10-17 07:30] VITALS: BP 163/79; PULSE 70; TEMP 36.5; O2SAT 94
[2017-10-17 08:00] VITALS: O2SAT 94
[2017-10-17] MEDS ORDERED: CEFEPIME CONSULT ACTIVE PRN ×2 (08:00)
--- NOTE | 2017-10-17 08:05 | DIAGNOSTIC IMAGING REPORT ---
CT SCAN OF THE ABDOMEN AND PELVIS WITHOUT IV CONTRAST CLINICAL HISTORY: Back pain. COMPARISON STUDY: Abdominal CT dated 08/11/2015. TECHNIQUE: CT scan of the abdomen and pelvis is performed from the lung bases to the proximal femora. Images are reviewed in the axial, sagittal, and coronal planes. IV contrast was not administered for this examination as per the referring clinician. Note that the examination was performed in suboptimal fashion without oral and IV contrast. A dose lowering technique was utilized adhering to the principles of ALARA. CT DOSE: 283.09 mGy.cm FINDINGS: Lung bases: The heart is enlarged and without pericardial effusion. The coronary arteries and mitral annulus are densely calcified. Small fat-containing Bochdalek hernias are present at both lung bases. No airspace consolidation or pleural effusion is identified. Subpleural reticulation is noted. There is a moderate hiatal hernia. Liver: The unenhanced liver is normal in size, contour, and attenuation. There is mild central intrahepatic biliary ductal dilatation, similar to the 2015 examination. Gallbladder: The gallbladder is distended but otherwise normal as imaged. Spleen: Normal in size and attenuation. Pancreas: Atrophic and grossly unremarkable. Adrenal glands: Unremarkable. Kidneys: The unenhanced kidneys are atrophic and without hydronephrosis. There are no renal calculi identified. There is no evidence of contour deforming renal mass lesion. Abdominal vasculature: There is moderate to advanced atherosclerotic calcification and tortuosity of the abdominal aorta. Bowel: There is rectosigmoid fecal impaction. Moderate constipation is seen throughout the remainder of the colon. There is moderate colonic diverticulosis without CT evidence of acute diverticulitis. No bowel obstruction is seen. The appendix is not visualized. Peritoneum: There is no intraperitoneal free air or abdominal ascites. Lymphadenopathy: None. Pelvic viscera: The prostate gland is diminutive and heterogeneous. The bladder is normal as imaged. Skeletal structures: The skeletal structures are osteopenic. Advanced lumbosacral spondylosis and scoliosis is observed. No lytic or blastic lesions are seen. IMPRESSION: 1. Suboptimal examination without oral and IV contrast. 2. There are no acute infectious or inflammatory findings in the abdomen or pelvis. 3. Moderate constipation and rectosigmoid fecal impaction. 4. Cardiomegaly. 5. Advanced lumbar spondylosis and scoliosis. 6. Moderate hiatal hernia. 7. Moderate colonic diverticulosis without CT evidence of acute diverticulitis. 8. Additional findings as above. Electronically signed by: Mars Berry M.D. 10/17/2017 8:04 AM Dictated Date/Time: 10/17/2017 7:58 AM
[2017-10-17] MEDS: METOPROLOL SUCC 25MG EXT REL TAB PO SCH (08:11)
[2017-10-17] MEDS: PANTOprazole SOD 40 MG TAB PO SCH ×2 (08:11→19:46)
[2017-10-17] MEDS: TAMSULOSIN HCL 0.4 MG CAP PO SCH (08:12)
[2017-10-17] MEDS: ASPIRIN 81 MG ECTAB PO SCH (08:12)
[2017-10-17] MEDS: AMLODIPINE BESYLATE 5 MG TAB PO SCH (08:12)
--- NOTE | 2017-10-17 10:47 | DIAGNOSTIC IMAGING REPORT ---
CT SCAN OF THE BRAIN WITHOUT IV CONTRAST CLINICAL HISTORY: Strokelike symptoms. COMPARISON STUDY: CT of the brain dated 10/16/2017. TECHNIQUE: Unenhanced axial CT scan of the brain is performed from the vertex to the skull base. A dose lowering technique was utilized adhering to the principles of ALARA. CT DOSE: 679.75 mGycm FINDINGS: Brain parenchyma: There are age-related involutional changes noting mild to moderate patchy subcortical and periventricular microangiopathic change. There is no hemorrhage, mass effect, or evidence of acute territorial ischemia by CT criteria. Tenorio-white matter is preserved. No extra-axial fluid collection is seen. Ventricles, sulci, cisterns: Prominent secondary to involutional change. Intracranial vasculature: There is atherosclerotic calcification of the cavernous carotid arteries. Calvarium: Unremarkable. Sinuses and mastoids: The visualized paranasal sinuses are clear. The mastoid air cells are well pneumatized. Orbits: The bony orbits are grossly intact. There are bilateral ocular lens implants. IMPRESSION: Senescent changes as above with no hemorrhage, mass effect, or evidence of acute territorial ischemia by CT criteria. There has been no significant change from yesterday's examination. Electronically signed by: Mars Berry M.D. 10/17/2017 10:46 AM Dictated Date/Time: 10/17/2017 10:43 AM
[2017-10-17 11:00] LABS: LYME DISEASE AB IGM NEG (NEG)
[2017-10-17 11:20] LABS: LYME DISEASE AB IGG POS (NEG)
[2017-10-17 11:50] VITALS: BP 156/85; PULSE 66; O2SAT 96
--- NOTE | 2017-10-17 13:17 | Progress Note ---
Progress Note Date of Service Oct 17, 2017. Progress Note Patient seen and assessed this morning and this afternoon Subjective/Objective /Plan Awake and oriented. Patient could not recall why he was brought to the hospital but knows he is in the hospital. Later his family member came to the hospital to inform him that he was was found confused at home on the toilet. Patient is now ambulatory and able to to walk from hospital bed to bathroom with assistance. On physical exam, he appears to have some facial flattening of the left side. Patient's family members cannot attribute whether this is acute or chronic. Patient had repeat CT head that again did not find evidence of stroke. He has blood work that shows IgM negative but IGG positive for Lyme disease which suggests distant exposure to Lyme disease. Patient denies history of being treated for Lyme disease. Patient already receiving broad spectrum antibiotic of Cefepime because of history of recurrent UTI. Awaiting urine culture No apparent cardiac involvement for Lyme disease as admission EKG Normal sinus rhythm, Left axis deviation, Left bundle branch block but when when compared with ECG of 17-AUG-2017 07:28, No significant change was found History of Sick sinus syndrome, currently normal sinus rhythm, on Coumadin INR slightly subtherapeutic, continue warfarin, trend INR, continue home dose medications for cardiac health On physical exam: heart rate regular, Lungs are clear to auscultation, abdomen soft and nontender, no other neurological findings Chronic back pain Patient has no acute complaints, the location of pain is chronic and is lower right posterior back but no evidence of kidney stones on CT abdomen and no acute tenderness to palpation on exam, minimize sedative medications CT abdomen generally benign 1. Suboptimal examination without oral and IV contrast. 2. There are no acute infectious or inflammatory findings in the abdomen or pelvis. 3. Moderate constipation and rectosigmoid fecal impaction. 4. Cardiomegaly. 5. Advanced lumbar spondylosis and scoliosis. 6. Moderate hiatal hernia. 7. Moderate colonic diverticulosis without CT evidence of acute diverticulitis. Nutrition/Hydration Patient now awake and drinking water, stop IV fluids for now Acute kidney injury resolving with hydration Elevated creatinine kinase, trend creatinine kinase, encourage PO hydration for now Hypertension, stable.continue home dose medications for blood pressure Chronic anemia, no reported bleeding History PE/DVT as per records , History of Chronic obstructive pulmonary disease , past tobacco abuse Is on coumadin, breathing on room air PT/OT for ambulation DVT ppx on coumadin
[2017-10-17 15:46] VITALS: BP 136/72; PULSE 63; TEMP 36.6; O2SAT 96
[2017-10-17] MEDS ORDERED: WARFARIN SOD 5 MG TAB PO SCH (16:00)
[2017-10-17] MEDS: GABAPENTIN 600 MG TAB PO SCH (19:46)
[2017-10-17] MEDS: CEFEPIME IV 1,000 MG in SYRINGE 0 ML IV SCH (22:28)
[2017-10-18] VITALS: O2SAT 96
[2017-10-18 00:54] VITALS: BP 147/69; PULSE 64; TEMP 36.3; O2SAT 94
[2017-10-18 07:22] VITALS: BP 149/82; PULSE 70; TEMP 36.7; O2SAT 97
[2017-10-18 08:00] VITALS: O2SAT 97
[2017-10-18] MEDS: DOCUSATE SODIUM/SENNA 50/8.6MG TAB PO SCH (08:00)
--- NOTE | 2017-10-18 08:06 | Clinical Documentation Query ---
CLINICAL DOCUMENTATION QUERY Query #1/2 Encephalopathy was well documented by admitting physician. In order to assure this diagnosis being coded by [facility] coding department it is best practice to have it remain in the record through DC summary. In your clinical opinion is this patient being managed for: ( x) Encephalopathy treated and resolved. ( ) Not Agree Query #2/2 Rhabdomyolysis was also documented by admitting physician. In order to assure this diagnosis being coded by [facility] coding department it is best practice to have it remain in the record through DC summary. In your clinical opinion is this patient being managed for: ( x) Rhabdomyolysis ( ) Not Agree Please clarify and document your clinical opinion in the progress notes and discharge summary. Terms such as "probable", "suspected", "likely", "questionable", "possible", or "still to be ruled out" are acceptable. IF IN AGREEMENT, YOU MUST DOCUMENT ABOVE DIAGNOSTIC STATEMENT IN DAILY PROGRESS NOTES AND DISCHARGE SUMMARY. This document is not part of the patient's record. Thank You, Anthony Domínguez, RN [phone]
[2017-10-18] MEDS: AMLODIPINE BESYLATE 5 MG TAB PO SCH (08:33)
[2017-10-18] MEDS: METOPROLOL SUCC 25MG EXT REL TAB PO SCH (08:33)
[2017-10-18] MEDS: GABAPENTIN 600 MG TAB PO SCH ×3 (08:33→20:35)
[2017-10-18] MEDS: ASPIRIN 81 MG ECTAB PO SCH (08:33)
[2017-10-18] MEDS: PANTOprazole SOD 40 MG TAB PO SCH ×2 (08:33→20:34)
[2017-10-18] MEDS: TAMSULOSIN HCL 0.4 MG CAP PO SCH (08:34)
[2017-10-18 08:37] LABS: BASO % 0.1 %; BASO ABS # 0.01 K/uL (0-0.2); COMPLETE YES; IG% 0.1 %; LYMPH % 20.6 %; LYMPH ABS # 1.43 K/uL (1.2-3.4); MEAN CELL VOLUME 96.2 fL (80-100); MEAN CORPUSCULAR HEMOGLOBIN 31.8 pg (25-34); MEAN PLATELET VOLUME 9.4 fL (7.4-10.4); MONO % 9.2 %; PLATELET COUNT 149 K/uL (130-400); RED BLOOD COUNT 3.43 M/uL (4.7-6.1); WHITE BLOOD COUNT 6.95 K/uL (4.8-10.8)
[2017-10-18 08:43] LABS: INR 2.5 (0.9-1.1); PROTHROMBIN TIME (PATIENT) 25.7 SECONDS (9.0-12.0)
[2017-10-18] MEDS: SODIUM CHLORIDE 0.9% 1000ML 1,000 ML IV SCH ×2 (08:45→16:33)
[2017-10-18 09:02] LABS: BUN/CREATININE RATIO 16.8 (10-20); CALCIUM 8.5 mg/dl (8.5-10.1); CREATININE 1.37 mg/dl (0.60-1.40); POTASSIUM 4.1 mmol/L (3.5-5.1)
[2017-10-18 09:16] LABS: ALB/GLOB RATIO 0.8 (0.9-2)
--- NOTE | 2017-10-18 09:18 | Progress Note ---
Progress Note Date of Service Oct 18, 2017. Progress Note Subjective/Objective /Plan Awake and oriented. Ambulates to bathroom. Denies new complaints. . 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 Patient denies history of being treated for Lyme disease. Patient already receiving broad spectrum antibiotic of Cefepime because of history of recurrent UTI. No apparent cardiac involvement for Lyme disease as admission EKG Normal sinus rhythm, Left axis deviation, Left bundle branch block but when when compared with ECG of 17-AUG-2017 07:28, No significant change was found History of Sick sinus syndrome, currently normal sinus rhythm, on Coumadin INR 2.5 on 10/18/17 therapeutic level Hypertension, stable.continue home dose medications for blood pressure Chronic back pain Patient has no acute complaints, the location of pain is chronic and is lower right posterior back but no evidence of kidney stones on CT abdomen and no acute tenderness to palpation on exam, minimize sedative medications CT abdomen generally benign 1. Suboptimal examination without oral and IV contrast. 2. There are no acute infectious or inflammatory findings in the abdomen or pelvis. 3. Moderate constipation and rectosigmoid fecal impaction. 4. Cardiomegaly. 5. Advanced lumbar spondylosis and scoliosis. 6. Moderate hiatal hernia. 7. Moderate colonic diverticulosis without CT evidence of acute diverticulitis. Nutrition/Hydration creatinine kinase 1918 to 4683, pending results for 10/18/17 IV fluids ordered fro 10/18/17 Chronic anemia, no reported bleeding History PE/DVT as per records , History of Chronic obstructive pulmonary disease , past tobacco use Is on coumadin, breathing on room air PT/OT for ambulation DVT ppx on coumadin Disposition: remain in hospital until urine culture results speciates
--- NOTE | 2017-10-18 11:05 | Progress Note ---
Progress Note Date of Service Oct 18, 2017. Progress Note ID Consult Dictated #[id number] A/P: 1. uti 2. leukocytosis -resolved -Continue cefepime, + clinical response, await cultures -thank you
[2017-10-18] MEDS: TRAMADOL HCL 50 MG TAB PO PRN ×2 (11:35→23:48)
--- NOTE | 2017-10-18 12:40 | INFECT. DISEASE CONSULTATION ---
DATE OF CONSULTATION: 10/18/2017 DATE OF CONSULTATION: 10/18/2017 HISTORY OF PRESENT ILLNESS: This is an 87-year-old gentleman who was admitted with change in mental status. On my examination, he is awake, alert and oriented x3. Per the H&P, he recently had a urinary tract infection in August. Cultures grew multidrug resistant E. coli. He was treated with antibiotics. Last week he had return of urinary symptoms and an outpatient culture grew Enterobacter, which per the H&P was sensitive to cefepime. He was placed on cefepime and has tolerated this well. A repeat urine culture was done yesterday and is growing 2 gram-negative rods which have yet to be identified. No blood cultures were obtained. He has been afebrile since admission to the hospital. His white count was 11 on admission and has improved to 6. His creatinine was mildly abnormal, but today it is back to normal. His urinalysis had greater than 30 WBC's with +2 bacteria. It is unclear to me how long he was on antibiotics prior to admission. He denies any fevers or chills. He states he is urinating more frequently. He is also receiving IV fluids. He denies any cough, chest pain or shortness of breath. He denies any fevers or chills. His remaining review of systems is unremarkable. PAST MEDICAL HISTORY: Significant for COPD, sick sinus syndrome, history of PE, DVT on chronic Coumadin, coronary artery disease, aortic stenosis with bundle branch block, hypertension, anemia and recurrent urinary tract infection. PAST SURGICAL HISTORY: Significant for carpal tunnel release, knee surgery, back surgery, gallbladder removal and multiple urologic procedures. ALLERGIES: HE HAS ALLERGIES TO FENTANYL, MORPHINE AND SULFA ANTIBIOTICS. FAMILY HISTORY: Noncontributory. SOCIAL HISTORY: Significant for history of tobacco use. He denies any alcohol use or drug use. CURRENT MEDICATIONS: Include Senokot, cefepime, Neurontin, Coumadin, Norvasc, Ecotrin, Toprol-XL, Flomax, Protonix, Tylenol, MiraLax, Ultram. PHYSICAL EXAMINATION: VITAL SIGNS: She is afebrile, pulse 70, respiratory rate 20, blood pressure 149/82, oxygen saturation is 97% on room air. GENERAL: He is awake, alert and oriented x3. He is in no acute distress. HEAD, EYES, EARS, NOSE, AND THROAT: Mucous membranes are moist. Extraocular muscles are intact. HEART: Regular. LUNGS: Clear. ABDOMEN: Soft and nondistended. EXTREMITIES: There is no edema. SKIN: Without rash. LABORATORY DATA: CBC today reveals a white blood cell count of 6.9, hemoglobin 10.9, hematocrit 33 and platelets are 149. Chemistry panel reveals sodium of 139, potassium 4.1, chloride 106, bicarbonate 26, BUN 23, creatinine 1.3, glucose is 91, total CK is elevated at 2610. LFTs reveal an AST of 115, ALT is 30. This is a new finding from admission to the hospital. A urinalysis again had greater than 30 WBCs. Lyme screen was negative; however, IgG is positive. UDS was positive for opiates and alcohol level was negative. CT of the abdomen and pelvis was unremarkable. CAT scan of the head was unremarkable. Chest x-ray done in the Emergency Room was negative for any acute disease. ASSESSMENT AND PLAN: 1. Urinary tract infection. 2. Leukocytosis, resolved. At this time he will be continued on cefepime pending the result of his urine culture. If there is any clinical worsening blood cultures should be obtained. I am doubtful that Lyme disease is cause for recurrent symptoms and clinical presentation.
[2017-10-18 15:14] VITALS: BP 148/84; PULSE 59; TEMP 36.7; O2SAT 97
[2017-10-18] MEDS: WARFARIN SOD 4 MG TAB PO SCH (15:57)
[2017-10-18] MEDS: CEFEPIME IV 1,000 MG in SYRINGE 0 ML IV SCH (23:22)
[2017-10-19 00:04] VITALS: BP 143/77; PULSE 63; TEMP 36.6; O2SAT 96
[2017-10-19] MEDS: SODIUM CHLORIDE 0.9% 1000ML 1,000 ML IV SCH ×4 (03:09→23:17)
[2017-10-19] MEDS: ACETAMINOPHEN 325 MG TAB PO PRN (05:03)
[2017-10-19 07:05] VITALS: BP 156/80; PULSE 62; TEMP 36.4; O2SAT 95
[2017-10-19] MEDS: GABAPENTIN 600 MG TAB PO SCH ×3 (07:49→20:23)
[2017-10-19] MEDS: TAMSULOSIN HCL 0.4 MG CAP PO SCH (07:49)
[2017-10-19] MEDS: ASPIRIN 81 MG ECTAB PO SCH (07:49)
[2017-10-19] MEDS: AMLODIPINE BESYLATE 5 MG TAB PO SCH (07:50)
[2017-10-19] MEDS: PANTOprazole SOD 40 MG TAB PO SCH ×2 (07:50→20:23)
[2017-10-19] MEDS: METOPROLOL SUCC 25MG EXT REL TAB PO SCH (07:51)
[2017-10-19] MEDS: DOCUSATE SODIUM/SENNA 50/8.6MG TAB PO SCH (07:52)
[2017-10-19 08:01] VITALS: O2SAT 95
[2017-10-19 08:40] LABS: BASO % 0.3 %; BASO ABS # 0.02 K/uL (0-0.2); COMPLETE YES; EOS % 2.4 %; HEMATOCRIT 32.8 % (42-52); IG% 0.5 %; LYMPH ABS # 1.47 K/uL (1.2-3.4); MEAN CELL VOLUME 95.6 fL (80-100); MEAN CORPUSCULAR HEMOGLOBIN 30.6 pg (25-34); MEAN PLATELET VOLUME 9.3 fL (7.4-10.4); MONO % 10.8 %; PLATELET COUNT 160 K/uL (130-400); RED BLOOD COUNT 3.43 M/uL (4.7-6.1); WHITE BLOOD COUNT 6.38 K/uL (4.8-10.8)
[2017-10-19 08:54] LABS: INR 2.3 (0.9-1.1); PROTHROMBIN TIME (PATIENT) 23.9 SECONDS (9.0-12.0)
[2017-10-19 09:10] LABS: BUN/CREATININE RATIO 17.2 (10-20); CALCIUM 8.1 mg/dl (8.5-10.1); CREATININE 1.18 mg/dl (0.60-1.40); POTASSIUM 3.6 mmol/L (3.5-5.1)
[2017-10-19] MEDS ORDERED: POTASSIUM CHLORIDE 20 MEQ TABCR PO STA (11:25)
--- NOTE | 2017-10-19 11:30 | Progress Note ---
Progress Note Date of Service Oct 19, 2017. Progress Note Subjective/Objective /Plan Awake and oriented. Ambulates to bathroom. Reports dysuria. Patient expresses frustration with having multiple urinary tract infections this year Physical Exam General: no acute distress HEENT: appears to have some facial flattening of the left side, same as yesterday Lungs: CTABL Heart: RRR Abdomen: soft, nontender, nondistended Extremities: no edema Altered Mental Status at home acute encephalopathy which has resolved with hydration Acute kidney injury and Rhabdomyolysis resolving creatinine kinase 1918 to 4683 to 2610 Continue IV fluids for now Hx of recurrent UTIs on chronic methenamine suppression Rx (Enterobacter on recent outpatient urine CS) Failed outpatient treatment 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 IQ ------ ----- ------ -- ------ -------- - ------ TRIMET/SULFA S <=2/38 CEFOTAXIME I 32 CEFTRIAXONE R 32 CEFEPIME S <=4 IMIPENEM S <=1 GENTAMICIN S <=4 TOBRAMYCIN S <=4 AMIKACIN S <=16 CIPROFLOXACIN R >2 LEVOFLOXACIN R >4 ERTAPENEM S <=1 NITROFURANTOIN R >64 PIP/TAZO I 64 Patient's urine culture has similarly grown Enterobacter as outpatient on Will Continue IV Cefepime for now as the Enterobacter is sensitive to Cefepime until further ID recommendations on antibiotic management UA re-ordered on 10/19/17 to assess if urine has cleared bacteria yet Lyme exposure Lyme exam sent because of concern whether facial flattening of left face was acute or chronic CT head negative x 2 for stroke IgM negative but IGG positive for Lyme disease which suggests distant exposure to Lyme disease. Patient denies history of being treated for Lyme disease. Patient already receiving broad spectrum antibiotic of Cefepime because of history of recurrent UTI. No apparent cardiac involvement for Lyme disease as admission EKG Normal sinus rhythm, Left axis deviation, Left bundle branch block but when when compared with ECG of 17-AUG-2017 07:28, No significant change was found History of Sick sinus syndrome, currently normal sinus rhythm, on Coumadin INR 2.4 on 10/19/17 therapeutic level Hypertension, stable.continue home dose medications for blood pressure Chronic back pain Patient has no acute complaints, the location of pain is chronic and is lower right posterior back but no evidence of kidney stones on CT abdomen and no acute tenderness to palpation on exam, minimize sedative medications CT abdomen generally benign 1. Suboptimal examination without oral and IV contrast. 2. There are no acute infectious or inflammatory findings in the abdomen or pelvis. 3. Moderate constipation and rectosigmoid fecal impaction. 4. Cardiomegaly. 5. Advanced lumbar spondylosis and scoliosis. 6. Moderate hiatal hernia. 7. Moderate colonic diverticulosis without CT evidence of acute diverticulitis. Chronic anemia, no reported bleeding History PE/DVT as per records , History of Chronic obstructive pulmonary disease , past tobacco use Is on coumadin, breathing on room air PT/OT for ambulation DVT ppx on coumadin Disposition:
[2017-10-19 11:49] LABS: URINE APPEARANCE CLEAR (CLEAR); URINE BILIRUBIN NEG (NEG); URINE COLOR YELLOW; URINE NITRITE NEG (NEG); URINE PH 5.5 (4.5-7.5); URINE SPECIFIC GRAVITY 1.014 (1.000-1.030); UROBILINOGEN NEG (NEG); ZZUR CULT IF INDIC CLEAN CATCH NO
[2017-10-19 11:50] LABS: MANUAL MICROSCOPIC REQUIRED? NO; REVIEW REQ? NO
[2017-10-19 13:04] LABS: COD UR NEGATIVE NG/ML (CUTOFF=50); HYDROCOD UR NEGATIVE NG/ML (CUTOFF=50); HYDROMOR UR NEGATIVE NG/ML (CUTOFF=50); MORPHINE UR NEGATIVE NG/ML (CUTOFF=50); NORHYDROCODONE CONF UR NEGATIVE NG/ML (CUTOFF=50); OXYMORPH UR 2240 NG/ML (CUTOFF=50)
[2017-10-19] MEDS: TRAMADOL HCL 50 MG TAB PO PRN ×2 (14:14→23:17)
[2017-10-19 15:51] VITALS: BP 164/85; PULSE 58; TEMP 36.5; O2SAT 97
[2017-10-19] MEDS: WARFARIN SOD 4 MG TAB PO SCH (15:56)
[2017-10-19 23:00] VITALS: BP 172/81; PULSE 66; TEMP 36.4; O2SAT 95
[2017-10-19] MEDS: CEFEPIME IV 1,000 MG in SYRINGE 0 ML IV SCH (23:10)
[2017-10-20 01:30] VITALS: BP 147/70; PULSE 66
[2017-10-20] MEDS: ACETAMINOPHEN 325 MG TAB PO PRN (03:13)
[2017-10-20] MEDS: TRAMADOL HCL 50 MG TAB PO PRN (05:10)
[2017-10-20 06:46] LABS: BASO % 0.5 %; BASO ABS # 0.03 K/uL (0-0.2); COMPLETE YES; EOS % 2.4 %; HEMATOCRIT 32.9 % (42-52); IG% 0.3 %; LYMPH % 25.9 %; MEAN CELL VOLUME 95.1 fL (80-100); MEAN CORPUSCULAR HEMOGLOBIN 31.2 pg (25-34); MEAN CORPUSCULAR HGB CONC 32.8 g/dl (32-36); MEAN PLATELET VOLUME 8.7 fL (7.4-10.4); NEUT % 58.9 %; PLATELET COUNT 154 K/uL (130-400); RED BLOOD COUNT 3.46 M/uL (4.7-6.1); WHITE BLOOD COUNT 6.56 K/uL (4.8-10.8)
[2017-10-20 06:55] LABS: INR 2.1 (0.9-1.1); PROTHROMBIN TIME (PATIENT) 22.1 SECONDS (9.0-12.0)
[2017-10-20 07:18] VITALS: BP 163/82; PULSE 59; TEMP 36.9; O2SAT 96
[2017-10-20 07:23] LABS: CALCIUM 8.3 mg/dl (8.5-10.1); CREATININE 1.09 mg/dl (0.60-1.40); POTASSIUM 4.1 mmol/L (3.5-5.1)
[2017-10-20 08:00] VITALS: O2SAT 96
[2017-10-20] MEDS: DOCUSATE SODIUM/SENNA 50/8.6MG TAB PO SCH (08:00)
[2017-10-20 08:15] VITALS: PULSE 66
[2017-10-20] MEDS: GABAPENTIN 600 MG TAB PO SCH ×2 (08:16→13:54)
[2017-10-20] MEDS: TAMSULOSIN HCL 0.4 MG CAP PO SCH (08:16)
[2017-10-20] MEDS: PANTOprazole SOD 40 MG TAB PO SCH (08:16)
[2017-10-20] MEDS: METOPROLOL SUCC 25MG EXT REL TAB PO SCH (08:17)
[2017-10-20] MEDS: ASPIRIN 81 MG ECTAB PO SCH (08:17)
[2017-10-20] MEDS: AMLODIPINE BESYLATE 5 MG TAB PO SCH (08:17)
[2017-10-20] MEDS: SODIUM CHLORIDE 0.9% 1000ML 1,000 ML IV SCH (08:18)
[2017-10-20 10:31] VITALS: BP 134/71
--- NOTE | 2017-10-20 12:24 | Progress Note ---
Internal Med Progress Note Date of Service: Oct 20, 2017. Provider Documentation: SUBJECTIVE: Patient do well. No acute issues OBJECTIVE: Physical Exam General: no acute distress HEENT: appears to have some facial flattening of the left side, same as yesterday Lungs: CTABL Heart: RRR Abdomen: soft, nontender, nondistended Extremities: no edema ASSESSMENT & PLAN: Altered Mental Status at home acute encephalopathy which has resolved with hydration Acute kidney injury and acute Rhabdomyolysis resolved creatinine kinase 1918 to 4683 to 2610 to 1596 Encourage PO hydration Hx of recurrent UTIs on chronic methenamine suppression Rx (Enterobacter on recent outpatient urine CS) Has been on Cefepime in the hospital from 10/16/17 UA from 10/17/17 ENTEROBACTER AEROGENES Target Route Dose RX AB Cost M.I.C. IQ ------ ----- ------ -- ------ -------- - ------ TRIMET/SULFA S <=2/38 CEFOTAXIME I 32 CEFTRIAXONE R 32 CEFEPIME S <=4 IMIPENEM S <=1 GENTAMICIN S <=4 TOBRAMYCIN S <=4 AMIKACIN S <=16 CIPROFLOXACIN R >2 LEVOFLOXACIN R >4 ERTAPENEM S <=1 NITROFURANTOIN R >64 PIP/TAZO I 64 Patient's urine culture has similarly grown Enterobacter as outpatient on UA ordered on 10/19/17 returns to be negative for bacteria, IV Cefepime stopped on 10/20/17 Lyme exposure Lyme exam sent because of concern whether facial flattening of left face was acute or chronic CT head negative x 2 for stroke IgM negative but IGG positive for Lyme disease which suggests distant exposure to Lyme disease. Patient denies history of being treated for Lyme disease. Patient already receiving broad spectrum antibiotic of Cefepime because of history of recurrent UTI. No apparent cardiac involvement for Lyme disease as admission EKG Normal sinus rhythm, Left axis deviation, Left bundle branch block but when when compared with ECG of 17-AUG-2017 07:28, No significant change was found History of Sick sinus syndrome, currently normal sinus rhythm, on Coumadin INR 2.4 on 10/19/17 therapeutic level Hypertension, stable.continue home dose medications for blood pressure Chronic back pain Patient has no acute complaints, the location of pain is chronic and is lower right posterior back but no evidence of kidney stones on CT abdomen and no acute tenderness to palpation on exam, minimize sedative medications CT abdomen generally benign 1. Suboptimal examination without oral and IV contrast. 2. There are no acute infectious or inflammatory findings in the abdomen or pelvis. 3. Moderate constipation and rectosigmoid fecal impaction. 4. Cardiomegaly. 5. Advanced lumbar spondylosis and scoliosis. 6. Moderate hiatal hernia. 7. Moderate colonic diverticulosis without CT evidence of acute diverticulitis. Chronic anemia, no reported bleeding History PE/DVT as per records , History of Chronic obstructive pulmonary disease , past tobacco use Is on coumadin, breathing on room air Disposition: Patient is to be discharged to home and follow with Family Practice, Tad Renee MD - the [facility] appointment line [phone] have sent message to have the clinic arrange follow up appointment with patient 10/22/2017 2:20 PM [facility] to check coumadin level 11/12/2017 11:45 AM Cyndie Garay MD Urology, [facility] Vital Signs: Date Time Temp Pulse Resp B/P (MAP) Pulse Ox O2 Delivery O2 Flow Rate FiO2 10/20/17 10:31 134/71 (92) 10/20/17 08:15 66 10/20/17 08:00 96 Room Air 10/20/17 07:18 36.9 59 16 163/82 (109) 96 Room Air 10/20/17 01:30 66 147/70 (95) 10/20/17 00:00 Room Air 10/19/17 23:00 36.4 66 18 172/81 (111) 95 Room Air 10/19/17 20:00 Room Air 10/19/17 16:10 Room Air 10/19/17 15:51 36.5 58 16 164/85 (111) 97 Room Air Lab Results: Results Past 24 Hours Test 10/20/17 06:32 Range/Units White Blood Count 6.56 4.8-10.8 K/uL Red Blood Count 3.46 4.7-6.1 M/uL Hemoglobin 10.8 14.0-18.0 g/dL Hematocrit 32.9 42-52 % Mean Corpuscular Volume 95.1 80-100 fL Mean Corpuscular Hemoglobin 31.2 25-34 pg Mean Corpuscular Hemoglobin Concent 32.8 32-36 g/dl Platelet Count 154 130-400 K/uL Mean Platelet Volume 8.7 7.4-10.4 fL Neutrophils (%) (Auto) 58.9 % Lymphocytes (%) (Auto) 25.9 % Monocytes (%) (Auto) 12.0 % Eosinophils (%) (Auto) 2.4 % Basophils (%) (Auto) 0.5 % Neutrophils # (Auto) 3.86 1.4-6.5 K/uL Lymphocytes # (Auto) 1.70 1.2-3.4 K/uL Monocytes # (Auto) 0.79 0.11-0.59 K/uL Eosinophils # (Auto) 0.16 0-0.5 K/uL Basophils # (Auto) 0.03 0-0.2 K/uL RDW Standard Deviation 48.7 36.4-46.3 fL RDW Coefficient of Variation 14.1 11.5-14.5 % Immature Granulocyte % (Auto) 0.3 % Immature Granulocyte # (Auto) 0.02 0.00-0.02 K/uL Prothrombin Time 22.1 9.0-12.0 SECONDS Prothromb Time International Ratio 2.1 0.9-1.1 Sodium Level 139 136-145 mmol/L Potassium Level 4.1 3.5-5.1 mmol/L Chloride Level 108 98-107 mmol/L Carbon Dioxide Level 26 21-32 mmol/L Anion Gap 5.0 3-11 mmol/L Blood Urea Nitrogen 17 7-18 mg/dl Creatinine 1.09 0.60-1.40 mg/dl Est Creatinine Clear Calc Drug Dose 44.4 ml/min Estimated GFR () 69.4 Estimated GFR (Non- 59.9 BUN/Creatinine Ratio 16.0 10-20 Random Glucose 86 70-99 mg/dl Calcium Level 8.3 8.5-10.1 mg/dl
--- NOTE | 2017-10-20 12:35 | Discharge Instructions ---
Discharge Instructions Date of Service Oct 20, 2017. Admission Reason for Admission: Encephalopathy Discharge Discharge Diagnosis / Problem: Acute Encephalopathy from dehydration/urinary tract infection/rhabdomylosis Discharge Goals Goal(s): Improve function, Improve disease control Activity Recommendations Activity Limitations: resume your previous activity Shower/Bathe: no limitations . Instructions / Follow-Up Instructions / Follow-Up Altered Mental Status at home acute encephalopathy which has resolved with hydration Acute kidney injury and acute Rhabdomyolysis resolved creatinine kinase 1918 to 4683 to 2610 to 1596 Encourage PO hydration Hx of recurrent UTIs on chronic methenamine suppression Rx (Enterobacter on recent outpatient urine CS) Has been on Cefepime in the hospital from 10/16/17 UA from 10/17/17 ENTEROBACTER AEROGENES Target Route Dose RX AB Cost M.I.C. IQ ------ ----- ------ -- ------ -------- - ------ TRIMET/SULFA S <=2/38 CEFOTAXIME I 32 CEFTRIAXONE R 32 CEFEPIME S <=4 IMIPENEM S <=1 GENTAMICIN S <=4 TOBRAMYCIN S <=4 AMIKACIN S <=16 CIPROFLOXACIN R >2 LEVOFLOXACIN R >4 ERTAPENEM S <=1 NITROFURANTOIN R >64 PIP/TAZO I 64 Patient's urine culture has similarly grown Enterobacter as outpatient on UA ordered on 10/19/17 returns to be negative for bacteria, IV Cefepime stopped on 10/20/17 Lyme exposure Lyme exam sent because of concern whether facial flattening of left face was acute or chronic CT head negative x 2 for stroke IgM negative but IGG positive for Lyme disease which suggests distant exposure to Lyme disease. Patient denies history of being treated for Lyme disease. Patient already receiving broad spectrum antibiotic of Cefepime because of history of recurrent UTI. No apparent cardiac involvement for Lyme disease as admission EKG Normal sinus rhythm, Left axis deviation, Left bundle branch block but when when compared with ECG of 17-AUG-2017 07:28, No significant change was found History of Sick sinus syndrome, currently normal sinus rhythm, on Coumadin INR 2.4 on 10/19/17 therapeutic level Hypertension, stable.continue home dose medications for blood pressure Chronic back pain Patient has no acute complaints, the location of pain is chronic and is lower right posterior back but no evidence of kidney stones on CT abdomen and no acute tenderness to palpation on exam, minimize sedative medications CT abdomen generally benign 1. Suboptimal examination without oral and IV contrast. 2. There are no acute infectious or inflammatory findings in the abdomen or pelvis. 3. Moderate constipation and rectosigmoid fecal impaction. 4. Cardiomegaly. 5. Advanced lumbar spondylosis and scoliosis. 6. Moderate hiatal hernia. 7. Moderate colonic diverticulosis without CT evidence of acute diverticulitis. Chronic anemia, no reported bleeding History PE/DVT as per records , History of Chronic obstructive pulmonary disease , past tobacco use Is on coumadin, breathing on room air Disposition: Patient is to be discharged to home and follow with Family Practice, Tad Renee MD - the [facility] appointment line [phone] have sent message to have the clinic arrange follow up appointment with patient 10/22/2017 2:20 PM Lab Arlyn Pappas to check coumadin level 11/12/2017 11:45 AM Cyndie Garay MD Urology, [facility] Diet Patient's current hospital diet: AHA Diet (Heart Healthy) Discharge Diet Recommended Diet: AHA Diet (Heart Healthy) Pending Studies Studies pending at discharge: no Laboratory Results 10/20/17 06:32 Red Blood Count 3.46, Mean Corpuscular Volume 95.1, Mean Corpuscular Hemoglobin 31.2, Mean Corpuscular Hemoglobin Concent 32.8, Mean Platelet Volume 8.7, Neutrophils (%) (Auto) 58.9, Lymphocytes (%) (Auto) 25.9, Monocytes (%) (Auto) 12.0, Eosinophils (%) (Auto) 2.4, Basophils (%) (Auto) 0.5, Neutrophils # (Auto ) 3.86, Lymphocytes # (Auto) 1.70, Monocytes # (Auto) 0.79, Eosinophils # (Auto ) 0.16, Basophils # (Auto) 0.03 10/20/17 06:32 Test 10/16/17 21:19 10/16/17 21:35 10/16/17 21:38 10/16/17 23:41 Bedside Glucose 139 mg/dl (70-99) Stomatocytes 1+ Activated Partial Thromboplast Time 32.9 SECONDS (21.0-31.0) Partial Thromboplastin Ratio 1.3 Magnesium Level 2.2 mg/dl (1.8-2.4) Direct Bilirubin 0.3 mg/dl (0-0.2) Troponin I < 0.015 ng/ml (0-0.045) Thyroid Stimulating Hormone (TSH) 1.720 uIu/ml (0.300-4.500) Venous Blood pH 7.41 (7.36-7.41) Venous Blood Partial Pressure CO2 43 mmHg (38.0-50.0) Venous Blood Partial Pressure O2 29 mmHg Venous Blood HCO3 27 mmol/L Venous Blood Oxygen Saturation < 60.0 % Venous Blood Base Excess 2.0 mEq/L Ammonia 31.1 umol/L (11-32) Ethyl Alcohol mg/dL < 3.0 mg/dl (0-3) Test 10/17/17 00:19 10/17/17 09:48 10/18/17 07:58 10/19/17 00:00 Urine Opiates Screen POS (NEG) Urine Codeine Confirmation (GC/MS) NEGATIVE NG/ML (CUTOFF=50) Urine Morphine Confirm (GC/MS) NEGATIVE NG/ML (CUTOFF=50) Urine Hydrocodone Confirm (GC/MS) NEGATIVE NG/ML (CUTOFF=50) Urine Norhydrocodone NEGATIVE NG/ML (CUTOFF=50) Urine Noroxycodone 1910 NG/ML (CUTOFF=50) Urine Oxycodone Confirm (GC/MS) 459 NG/ML (CUTOFF=50) Urine Oxymorphone Confirm (GC/MS) 2240 NG/ML (CUTOFF=50) Urine Methadone, Qualitative NEG (NEG) Urine Hydromorphone Confirm (GC/MS) NEGATIVE NG/ML (CUTOFF=50) Urine Barbiturates NEG (NEG) Urine Phencyclidine (PCP) Level NEG (NEG) Ur Amphetamine/Methamphetamine NEG (NEG) MDMA (Ecstasy) Screen NEG (NEG) Urine Benzodiazepines Screen NEG (NEG) Urine Cocaine Metabolite NEG (NEG) Urine Marijuana (THC) NEG (NEG) Lyme Disease IgG Antibody POS (NEG) Total Bilirubin 0.7 mg/dl (0.2-1) Aspartate Amino Transf (AST/SGOT) 115 U/L (15-37) Alanine Aminotransferase (ALT/SGPT) 30 U/L (12-78) Alkaline Phosphatase 40 U/L (45-117) Total Protein 6.6 gm/dl (6.4-8.2) Albumin 3.0 gm/dl (3.4-5.0) Globulin 3.6 gm/dl (2.5-4.0) Albumin/Globulin Ratio 0.8 (0.9-2) Urine Color YELLOW Urine Appearance CLEAR (CLEAR) Urine pH 5.5 (4.5-7.5) Urine Specific [place] 1.014 (1.000-1.030) Urine Protein NEG (NEG) Urine Glucose (UA) NEG (NEG) Urine Ketones NEG (NEG) Urine Occult Blood TRACE (NEG) Urine Nitrite NEG (NEG) Urine Bilirubin NEG (NEG) Urine Urobilinogen NEG (NEG) Urine Leukocyte Esterase TRACE (NEG) Urine WBC (Auto) 5-10 /hpf (0-5) Urine RBC (Auto) 0-4 /hpf (0-4) Urine Hyaline Casts (Auto) 0 /lpf (0-5) Urine Epithelial Cells (Auto) 5-10 /lpf (0-5) Urine Bacteria (Auto) NEG (NEG) Test 10/19/17 12:04 10/20/17 06:32 Total Creatine Kinase 1596 U/L (39-308) White Blood Count 6.56 K/uL (4.8-10.8) Red Blood Count 3.46 M/uL (4.7-6.1) Hemoglobin 10.8 g/dL (14.0-18.0) Hematocrit 32.9 % (42-52) Mean Corpuscular Volume 95.1 fL (80-100) Mean Corpuscular Hemoglobin 31.2 pg (25-34) Mean Corpuscular Hemoglobin Concent 32.8 g/dl (32-36) Platelet Count 154 K/uL (130-400) Mean Platelet Volume 8.7 fL (7.4-10.4) Neutrophils (%) (Auto) 58.9 % Lymphocytes (%) (Auto) 25.9 % Monocytes (%) (Auto) 12.0 % Eosinophils (%) (Auto) 2.4 % Basophils (%) (Auto) 0.5 % Neutrophils # (Auto) 3.86 K/uL (1.4-6.5) Lymphocytes # (Auto) 1.70 K/uL (1.2-3.4) Monocytes # (Auto) 0.79 K/uL (0.11-0.59) Eosinophils # (Auto) 0.16 K/uL (0-0.5) Basophils # (Auto) 0.03 K/uL (0-0.2) RDW Standard Deviation 48.7 fL (36.4-46.3) RDW Coefficient of Variation 14.1 % (11.5-14.5) Immature Granulocyte % (Auto) 0.3 % Immature Granulocyte # (Auto) 0.02 K/uL (0.00-0.02) Prothrombin Time 22.1 SECONDS (9.0-12.0) Prothromb Time International Ratio 2.1 (0.9-1.1) Anion Gap 5.0 mmol/L (3-11) Est Creatinine Clear Calc Drug Dose 44.4 ml/min Estimated GFR () 69.4 Estimated GFR (Non- 59.9 BUN/Creatinine Ratio 16.0 (10-20) Calcium Level 8.3 mg/dl (8.5-10.1) Date/Time Source Procedure Growth Status 10/17/17 00:19 Urine,Catheterized Urine Culture - Final Enterobacter Aerogenes Enterobacter Aerogenes#2 Complete Medical Emergencies . Who to Call and When: Medical Emergencies: If at any time you feel your situation is an emergency, please call 911 immediately. . Non-Emergent Contact Non-Emergency issues call your: Primary Care Provider, Urologist Call Non-Emergent contact if: you have a fever . . "Provider Documentation" section prepared by Anton Tubbs. . VTE Core Measure Inpt VTE Proph given/why not?: Warfarin (Coumadin)
--- NOTE | 2017-10-20 12:36 | Discharge Summary ---
Discharge Summary Date of Service Oct 20, 2017. Discharge Summary Admission Date: Oct 16, 2017 at 22:58 Discharge Date: Oct 20, 2017 Discharge Disposition: Home Principal Diagnosis: Acute Encephalopathy from dehydration/urinary tract infection/rhabdomylosis Medication Reconciliation Continued Medications: Amlodipine Besylate (Norvasc) 5 Mg Tab 5 MG PO QAM, TAB Ascorbic Acid (Vitamin C) 500 Mg Cap 1000 MG PO DAILY Aspirin (Ecotrin Low Strength) 81 Mg Tab 81 MG PO DAILY, #30 TAB 12 Refills Buprenorphine (Butrans) 15 Mcg/Hr Dis 15 MCG TOP WK change every Saturday Diclofenac Sodium (Topical) (Voltaren 1% Top Gel) 1 % Gel 4 GM TOP QID Gabapentin (Gabapentin) 600 Mg Tab 600 MG PO TID, TAB Methenamine Mandelate (Methenamine Mandelate) 0.5 Gm Tab 2 TABS PO DAILY Metoprolol Succinate (Toprol Xl) 25 Mg Tab 25 MG PO DAILY, #30 TAB 5 Refills Nitroglycerin (Nitrostat) 0.4 Mg Tab 0.4 MG UT PRN, #25 BTL 1 Refill Take 1 pill under tongue as needed for chest pain. May repeat dose in 5-10 min. Call 911 if no relief. Oxycodone/Acetaminophen 10MG/325MG (Percocet 10MG/325MG) Tab 1 TAB PO Q6 PRN for Pain, TAB Pantoprazole (Protonix) 20 Mg Tab 40 MG PO BID, #30 TAB Polyethylene Glycol 3350 (Miralax) 1 Pow Pow 1 TBS PO DAILY PRN for Constipation, #527 GM Tamsulosin Hcl (Flomax) 0.4 Mg Cap 0.4 MG PO DAILY, CAP Warfarin Sod (Coumadin) 4 Mg Tab 0 PO UD Discontinued Medications: Cefuroxime Axetil (Ceftin) 500 Mg Tab 500 MG PO DAILY Admission Information HPI (per Admitting provider): CHIEF COMPLAINT: Altered mental status as per records, sleepiness as per records. HISTORY OF PRESENT ILLNESS: History obtained from patient, daughter, and records. Limited history obtained from the patient secondary to lethargic, disoriented state. 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 HTN, chronic pain on Butrans patch, chronic anemia (baseline hemoglobin 10), recurrent UTIs antibiotic suppression Rx, history of penoscrotal hypospadias, alcohol dependence as per records, Recent confinement last August 2017 for complicated UTI, multidrug resistant Escherichia coli. As per patient's daughter, last week, patient had dysuria symptoms. Outpatient urine noted to be dirty. The patient was started on Cefuroxime. Outpatient urine cultures grew 10 to 100,000 enterobacter known to produce chromosomal ampicillin C inducible beta lactamase. Penicillin and cephalosporin (except Cefepime) use may resulting resistance as per report. As per outpatient records, the patient requesting for a Percocet prescription for some worsening back pain. Hours ago patient noted to be sleepy in the toilet by caregiver slow to respond to questions. No chest pain, no shortness of breath. Family does not think patient taking more narcotics than he is allowed. At the Emergency Room, the patient given cefepime for UTI. MEDICAL HISTORY: As above. SURGERIES: Carpal tunnel surgery, knee surgery, back surgery, cholecystectomy, urologic procedures. HOME MEDICATIONS: Include methenamine, Percocet, MiraLax, Protonix, Flomax, Coumadin, Norvasc, vitamin C, Butrans, cefepime, Voltaren, gabapentin. ALLERGIES: FENTANYL, MORPHINE, SULFA. FAMILY HISTORY: COPD. PERSONAL AND SOCIAL HISTORY: Past tobacco use. No chronic intake of alcoholic beverages. 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 Lives alone with some caregivers. REVIEW OF SYSTEMS: Could not be obtained. Physical Exam (per Admitting): PHYSICAL EXAMINATION: VITAL SIGNS: Blood pressure was noted to be 110/80, pulse rate 74, RR 18, T 37, sats 92 on room air. GENERAL: Noted to be lethargic, disoriented, no acute distress. SKIN: Pallor. Warm HEENT: Pale palpebral conjunctivae, no ptosis. Dry buccal mucosa. NECK: Supple. No tenderness. LUNGS: Decreased breath sounds. No tenderness. HEART: Regular rate and rhythm. Systolic murmur. ABDOMEN: Soft, nontender. EXTREMITIES: No LE edema. No gross deformities. NEUROLOGIC: Lethargic. Disoriented, miotic pupils. Gait and stance not assessed. Hospital Course Altered Mental Status at home acute encephalopathy which has resolved with hydration Acute kidney injury and acute Rhabdomyolysis resolved creatinine kinase 1918 to 4683 to 2610 to 1596 Encourage PO hydration Hx of recurrent UTIs on chronic methenamine suppression Rx (Enterobacter on recent outpatient urine CS) Has been on Cefepime in the hospital from 10/16/17 UA from 10/17/17 ENTEROBACTER AEROGENES Target Route Dose RX AB Cost M.I.C. IQ ------ ----- ------ -- ------ -------- - ------ TRIMET/SULFA S <=2/38 CEFOTAXIME I 32 CEFTRIAXONE R 32 CEFEPIME S <=4 IMIPENEM S <=1 GENTAMICIN S <=4 TOBRAMYCIN S <=4 AMIKACIN S <=16 CIPROFLOXACIN R >2 LEVOFLOXACIN R >4 ERTAPENEM S <=1 NITROFURANTOIN R >64 PIP/TAZO I 64 Patient's urine culture has similarly grown Enterobacter as outpatient on UA ordered on 10/19/17 returns to be negative for bacteria, IV Cefepime stopped on 10/20/17 Lyme exposure Lyme exam sent because of concern whether facial flattening of left face was acute or chronic CT head negative x 2 for stroke IgM negative but IGG positive for Lyme disease which suggests distant exposure to Lyme disease. Patient denies history of being treated for Lyme disease. Patient already receiving broad spectrum antibiotic of Cefepime because of history of recurrent UTI. No apparent cardiac involvement for Lyme disease as admission EKG Normal sinus rhythm, Left axis deviation, Left bundle branch block but when when compared with ECG of 17-AUG-2017 07:28, No significant change was found History of Sick sinus syndrome, currently normal sinus rhythm, on Coumadin INR 2.4 on 10/19/17 therapeutic level Hypertension, stable.continue home dose medications for blood pressure Chronic back pain Patient has no acute complaints, the location of pain is chronic and is lower right posterior back but no evidence of kidney stones on CT abdomen and no acute tenderness to palpation on exam, minimize sedative medications CT abdomen generally benign 1. Suboptimal examination without oral and IV contrast. 2. There are no acute infectious or inflammatory findings in the abdomen or pelvis. 3. Moderate constipation and rectosigmoid fecal impaction. 4. Cardiomegaly. 5. Advanced lumbar spondylosis and scoliosis. 6. Moderate hiatal hernia. 7. Moderate colonic diverticulosis without CT evidence of acute diverticulitis. Chronic anemia, no reported bleeding History PE/DVT as per records , History of Chronic obstructive pulmonary disease , past tobacco use Is on coumadin, breathing on room air Disposition: Patient is to be discharged to home and follow with Family Practice, Tad Renee MD - the [facility] appointment line [phone] have sent message to have the clinic arrange follow up appointment with patient 10/22/2017 2:20 PM Lab Arlyn Cuadra AncillaryArlyn to check coumadin level 11/12/2017 11:45 AM Cyndie Garay MD Urology, [facility] Total time spent on discharge = This includes examination of the patient, discharge planning, medication reconciliation, and communication with other providers. Discharge Instructions see above
[2017-10-20 12:54] VITALS: BP 134/71; PULSE 66; TEMP 36.9; O2SAT 96
== END 2017-10-20 15:00 | disposition home or self-care (01) | DRG 682 ==
LOC: EDBD 21:05 → C.EDA 21:08 → C.MS4W 22:58 → ENRESERV 23:22
PROVIDERS: ADMIT Hospitalist; ATTEND Hospitalist
DX: N17.9 Acute kidney failure, unspecified (principal); G93.40 Encephalopathy, unspecified; M62.82 Rhabdomyolysis; N39.0 Urinary tract infection, site not specified; A69.20 Lyme disease, unspecified; B96.89 Other specified bacterial agents as the cause of diseases classified elsewhere; E86.0 Dehydration; R29.810 Facial weakness; R79.1 Abnormal coagulation profile; J44.9 Chronic obstructive pulmonary disease, unspecified; I49.5 Sick sinus syndrome; I25.10 Atherosclerotic heart disease of native coronary artery without angina pectoris; I35.0 Nonrheumatic aortic (valve) stenosis; I44.7 Left bundle-branch block, unspecified; I10 Essential (primary) hypertension; G89.29 Other chronic pain; M54.9 Dorsalgia, unspecified; Q54.2 Hypospadias, penoscrotal; D64.9 Anemia, unspecified; F10.21 Alcohol dependence, in remission; Z87.891 Personal history of nicotine dependence; Z86.711 Personal history of pulmonary embolism; Z86.718 Personal history of other venous thrombosis and embolism; Z96.659 Presence of unspecified artificial knee joint; Z79.01 Long term (current) use of anticoagulants; Z79.82 Long term (current) use of aspirin; Z79.891 Long term (current) use of opiate analgesic; Z79.899 Other long term (current) drug therapy

== ENCOUNTER 2018-01-15 20:20 | Inpatient (IN) | payer OTHER ==
[~2018-01-15] VITALS: Ht 172.7 cm; Wt 73.5 kg
[~2018-01-15 20:20] MED LIST changes: -AMLO5TAB2 PO; -ASCO1CAP3 PO; -METH-467 PO; -SIMV-151 PO; -TAMS0.4C38 PO
[2018-01-15] MEDS ORDERED: TAMS0.4C38 PO (21:34)
[2018-01-15] MEDS ORDERED: ASCO1CAP3 PO (21:42)
[2018-01-15] MEDS ORDERED: METH-467 PO (21:46)
[2018-01-15] MEDS ORDERED: SODIUM CHLORIDE 0.9% 1000ML 1,000 ML IV STA (22:16)
--- NOTE | 2018-01-15 22:50 | DIAGNOSTIC IMAGING REPORT ---
SINGLE VIEW CHEST CLINICAL HISTORY: Dizziness. FINDINGS: An AP, portable, upright chest radiograph is compared to study dated 10/16/2017 and correlated with chest CT dated 08/11/2015. The examination is degraded by portable technique and patient rotation. The heart is enlarged and there is atherosclerotic calcification of the thoracic aorta. The pulmonary vascular structures noncongested. A hiatal hernia is identified. Chronic interstitial thickening is similar to previous and there is bibasilar atelectasis. No airspace consolidation or large pleural effusion is identified. No pneumothorax is seen. The skeletal structures are osteopenic. The bony thorax is grossly intact. Degenerative changes noted throughout the thoracic spine. Calcific tendinopathy is seen in the right shoulder. IMPRESSION: 1. Cardiomegaly with no acute cardiopulmonary abnormality. 2. Hiatal hernia. Electronically signed by: Mars Berry M.D. 01/15/2018 10:49 PM Dictated Date/Time: 01/15/2018 10:48 PM
[2018-01-15 22:52] LABS: BASO % 0.4 %; BASO ABS # 0.02 K/uL (0-0.2); EOS % 3.6 %; EOS ABS # 0.17 K/uL (0-0.5); HEMATOCRIT 35.7 % (42-52); HEMOGLOBIN 11.5 g/dL (14.0-18.0); IG# 0.01 K/uL (0.00-0.02); LYMPH ABS # 1.51 K/uL (1.2-3.4); MEAN CELL VOLUME 100.6 fL (80-100); MEAN CORPUSCULAR HEMOGLOBIN 32.4 pg (25-34); MEAN CORPUSCULAR HGB CONC 32.2 g/dl (32-36); MEAN PLATELET VOLUME 8.6 fL (7.4-10.4); MONO % 12.5 %; MONO ABS # 0.59 K/uL (0.11-0.59); NEUT % 51.3 %; NEUT ABS # 2.42 K/uL (1.4-6.5); PLATELET COUNT 182 K/uL (130-400); RED CELL DISTRIBUTION WIDTH CV 13.9 % (11.5-14.5); RED CELL DISTRIBUTION WIDTH SD 51.3 fL (36.4-46.3); WHITE BLOOD COUNT 4.72 K/uL (4.8-10.8)
[2018-01-15] MEDS ORDERED: CEFTRIAXONE SOD INJ 1 GM ADDVIAL IV STA (22:54)
[2018-01-15] MEDS ORDERED: ASPI81TA28 PO (23:05)
[2018-01-15] MEDS ORDERED: METR-163 PO (23:05)
[2018-01-15] MEDS ORDERED: SIMV20TA2 PO (23:05)
[2018-01-15] MEDS ORDERED: RANI150T3 PO (23:05)
[2018-01-15 23:11] LABS: ALBUMIN 3.6 gm/dl (3.4-5.0); CALCIUM 9.1 mg/dl (8.5-10.1); CREATININE 1.95 mg/dl (0.60-1.40); POTASSIUM 4.9 mmol/L (3.5-5.1)
[2018-01-15 23:14] LABS: TOTAL PROTEIN 7.5 gm/dl (6.4-8.2)
[2018-01-15] MEDS ORDERED: AMLO5TAB2 PO (23:19)
[2018-01-16 01:15] LABS: INR 1.4 (0.9-1.1); PTT PATIENT 29.9 SECONDS (21.0-31.0)
--- NOTE | 2018-01-16 01:29 | EMERGENCY ROOM VISIT NOTE ---
History Report prepared by Ulysses: Saleem Leonard Under the Supervision of: Dr. Caesar Cueva D.O. First contact with patient: 21:54 Chief Complaint: ILLNESS Stated Complaint: DIZZINESS,FECAL INCONT,STUMBLING History of Present Illness The patient is an 87 year old male who presents to the Emergency Room with complaints of constant shakiness, weakness, and unsteadiness starting today. The patient states that he was diagnosed two weeks ago with C Diff, and he took 7.5 days worth of antibiotics, and then he stopped taking them because he had an episode of confusion and disorientation after taking the medications. He reports that he has had diarrhea since he was diagnosed, and he has had 5 episodes of diarrhea today. The patient also states that he is light headed while moving around, and he feels fine while sitting. The patient has chronic UTIs, and he had a urine culture done yesterday, and he states that he always has some burning with urination though nothing new. He denies any new abdominal pain, chest pain, shortness of breath, weakness in the arms and legs, cough, and runny nose. Source of History: patient Onset: today Position: other (gloabl) Quality: other (shakiness, weakness, and unsteadiness) Associated Symptoms: No cough, No chest pain, No SOB, No abdominal pain Note: Associated symptoms: Light headedness Review of Systems See HPI for pertinent positives & negatives. A total of 10 systems reviewed and were otherwise negative. 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 (13) History of DVT (deep vein thrombosis) (14) History of GI bleed (15) History of orthostatic hypotension (16) History of pulmonary embolism (17) Hyperlipidemia Surgical Problems: (1) H/O carpal tunnel repair (2) H/O colonoscopy (3) H/O esophagogastroduodenoscopy (4) knee replacement (5) Previous back surgery Family History FH: COPD (chronic obstructive pulmonary disease) BROTHER Social History Smoking Status: Never Smoker Alcohol Use: none Marital Status: Housing Status: lives alone Occupation Status: retired Current/Historical Medications Scheduled Amlodipine Besylate (Norvasc), 5 MG PO QAM Ascorbic Acid (Vitamin C), 1,000 MG PO DAILY Aspirin (Aspirin Ec), 81 MG PO DAILY Buprenorphine (Butrans), 15 MCG TOP WK Gabapentin (Gabapentin), 600 MG PO TID Methenamine Mandelate (Methenamine Mandelate), 2 TABS PO DAILY Metoprolol Succinate (Toprol Xl), 25 MG PO DAILY Metronidazole (Flagyl), 500 MG PO TID Nitroglycerin (Nitrostat), 0.4 MG UT PRN Pantoprazole (Protonix), 40 MG PO BID Ranitidine Hcl (Zantac), 150 MG PO BID Simvastatin (Zocor), 20 MG PO QPM Tamsulosin Hcl (Flomax), 0.4 MG PO DAILY Warfarin Sod (Coumadin), 0 PO UD Scheduled PRN Oxycodone/Acetaminophen 10MG/325MG (Percocet 10MG/325MG), 1 TAB PO Q6 PRN for Pain Polyethylene Glycol 3350 (Miralax), 1 TBS PO DAILY PRN for Constipation Allergies Coded Allergies: Morphine (Verified Allergy, Intermediate, itching, dizzy, 10/16/17) pt primary md has taken pt off morphine due to itching and dizzy Sulfa Antibiotics (Verified Allergy, Intermediate, HIVES/RASH, 10/16/17) Fentanyl (Verified Allergy, Unknown, ITCHING, DIZZINESS, BOWEL BLADDER PROBLEMS, HEADACHE, 10/16/17) Physical Exam Vital Signs Date Time Temp Pulse Resp B/P (MAP) Pulse Ox O2 Delivery O2 Flow Rate FiO2 01/15/18 23:15 65 18 164/87 96 Room Air 01/15/18 20:31 36.7 67 18 80/60 94 Room Air Physical Exam GENERAL: Sitting up in bed, hunched over, no acute distress, non-toxic. EYE EXAM: normal conjunctiva. PERRL and EOM's intact. OROPHARYNX: no exudate, no erythema, lips, buccal mucosa, and tongue normal and mucous membranes are moist NECK: supple, no nuchal rigidity, no adenopathy, non-tender LUNGS: Clear to auscultation. Normal chest wall mechanics HEART: Systolic ejection murmur, S1 normal and S2 normal ABDOMEN: abdomen soft, non-tender, normo-active bowel sounds, no masses, no rebound or guarding. BACK: Back is symmetrical on inspection and there is no deformity, no midline tenderness, no CVA tenderness. SKIN: no rashes and no bruising UPPER EXTREMITIES: upper extremities are grossly normal. LOWER EXTREMITIES: No pitting edema. NEURO EXAM: Normal sensorium, cranial nerves II-XII intact, normal speech, no weakness of arms, no weakness of legs. No drift. Finger to nose intact. Gross sensation intact. Ambulates with an unsteady gait. Medical Decision & Procedures ER Provider Diagnostic Interpretation: Radiology results as stated below per my review and the radiologist's interpretation: SINGLE VIEW CHEST CLINICAL HISTORY: Dizziness. FINDINGS: An AP, portable, upright chest radiograph is compared to study dated 10/16/2017 and correlated with chest CT dated 08/11/2015. The examination is degraded by portable technique and patient rotation. The heart is enlarged and there is atherosclerotic calcification of the thoracic aorta. The pulmonary vascular structures noncongested. A hiatal hernia is identified. Chronic interstitial thickening is similar to previous and there is bibasilar atelectasis. No airspace consolidation or large pleural effusion is identified. No pneumothorax is seen. The skeletal structures are osteopenic. The bony thorax is grossly intact. Degenerative changes noted throughout the thoracic spine. Calcific tendinopathy is seen in the right shoulder. IMPRESSION: 1. Cardiomegaly with no acute cardiopulmonary abnormality. 2. Hiatal hernia. Electronically signed by: Mars Berry M.D. 01/15/2018 10:49 PM Dictated Date/Time: 01/15/2018 10:48 PM Laboratory Results 01/15/18 22:30 Red Blood Count 3.55, Mean Corpuscular Volume 100.6, Mean Corpuscular Hemoglobin 32.4, Mean Corpuscular Hemoglobin Concent 32.2, Mean Platelet Volume 8.6, Neutrophils (%) (Auto) 51.3, Lymphocytes (%) (Auto) 32.0, Monocytes (%) ( Auto) 12.5, Eosinophils (%) (Auto) 3.6, Basophils (%) (Auto) 0.4, Neutrophils # (Auto) 2.42, Lymphocytes # (Auto) 1.51, Monocytes # (Auto) 0.59, Eosinophils # ( Auto) 0.17, Basophils # (Auto) 0.02 01/15/18 22:30 Test 01/15/18 20:50 01/15/18 22:30 01/16/18 00:54 Urine Color YELLOW Urine Appearance CLEAR (CLEAR) Urine pH 8.5 (4.5-7.5) Urine Specific [place] 1.008 (1.000-1.030) Urine Protein NEG (NEG) Urine Glucose (UA) NEG (NEG) Urine Ketones NEG (NEG) Urine Occult Blood NEG (NEG) Urine Nitrite NEG (NEG) Urine Bilirubin NEG (NEG) Urine Urobilinogen NEG (NEG) Urine Leukocyte Esterase LARGE (NEG) Urine WBC (Auto) >30 /hpf (0-5) Urine RBC (Auto) 0-4 /hpf (0-4) Urine Hyaline Casts (Auto) 0 /lpf (0-5) Urine Epithelial Cells (Auto) 0-5 /lpf (0-5) Urine Bacteria (Auto) 3+ (NEG) White Blood Count 4.72 K/uL (4.8-10.8) Red Blood Count 3.55 M/uL (4.7-6.1) Hemoglobin 11.5 g/dL (14.0-18.0) Hematocrit 35.7 % (42-52) Mean Corpuscular Volume 100.6 fL (80-100) Mean Corpuscular Hemoglobin 32.4 pg (25-34) Mean Corpuscular Hemoglobin Concent 32.2 g/dl (32-36) Platelet Count 182 K/uL (130-400) Mean Platelet Volume 8.6 fL (7.4-10.4) Neutrophils (%) (Auto) 51.3 % Lymphocytes (%) (Auto) 32.0 % Monocytes (%) (Auto) 12.5 % Eosinophils (%) (Auto) 3.6 % Basophils (%) (Auto) 0.4 % Neutrophils # (Auto) 2.42 K/uL (1.4-6.5) Lymphocytes # (Auto) 1.51 K/uL (1.2-3.4) Monocytes # (Auto) 0.59 K/uL (0.11-0.59) Eosinophils # (Auto) 0.17 K/uL (0-0.5) Basophils # (Auto) 0.02 K/uL (0-0.2) RDW Standard Deviation 51.3 fL (36.4-46.3) RDW Coefficient of Variation 13.9 % (11.5-14.5) Immature Granulocyte % (Auto) 0.2 % Immature Granulocyte # (Auto) 0.01 K/uL (0.00-0.02) Anion Gap 6.0 mmol/L (3-11) Est Creatinine Clear Calc Drug Dose 24.8 ml/min Estimated GFR () 34.3 Estimated GFR (Non- 29.6 BUN/Creatinine Ratio 11.2 (10-20) Calcium Level 9.1 mg/dl (8.5-10.1) Magnesium Level 3.0 mg/dl (1.8-2.4) Total Bilirubin 0.4 mg/dl (0.2-1) Direct Bilirubin 0.1 mg/dl (0-0.2) Aspartate Amino Transf (AST/SGOT) 20 U/L (15-37) Alanine Aminotransferase (ALT/SGPT) 13 U/L (12-78) Alkaline Phosphatase 51 U/L (45-117) Total Protein 7.5 gm/dl (6.4-8.2) Albumin 3.6 gm/dl (3.4-5.0) Lipase 84 U/L (73-393) Prothrombin Time 14.9 SECONDS (9.0-12.0) Prothromb Time International Ratio 1.4 (0.9-1.1) Activated Partial Thromboplast Time 29.9 SECONDS (21.0-31.0) Partial Thromboplastin Ratio 1.2 Date/Time Source Procedure Growth Status 01/15/18 20:50 Stool C.difficile Toxin B Gene (PCR) - Final Positive for C. difficile toxin B gene Complete Laboratory results per my review. Medications Administered Medications (Trade) Dose Ordered Sig/Bailey Route Start Time Stop Time Status Last Admin Dose Admin Sodium Chloride 1,000 ml @ 999 mls/hr Q1H1M STAT IV 01/15/18 22:16 01/15/18 23:16 DC 01/15/18 23:12 999 MLS/HR Ceftriaxone Sodium (Rocephin Inj) 1 gm NOW STAT IV 01/15/18 22:54 01/15/18 22:56 DC 01/15/18 23:13 1 GM ECG Per My Interpretation Indication: weakness Rate (beats per minute): 65 Rhythm: sinus tachycardia Findings: LBBB, left axis deviation ED Course ED COURSE: Vital signs were reviewed and showed hypotension The patients medical record was reviewed The above diagnostic studies were performed and reviewed. ED treatments and interventions as stated above. 2153: The patient was evaluated in room A3. A complete history and physical examination was performed. 6: Sodium Chloride 1000 ml @ 999 mls/hr IV 2254: Rocephin 1 gm IV 2312: Upon reevaluation, the patient is doing well.I discussed my findings with the patient and he understands and agrees with the treatment plan. Based on the patients age, coexisting illnesses, exam and lab findings the decision to treat as an inpatient was made. The patient remained stable while under my care. The patient will be evaluated for further management. 2316: I reviewed the patient's case with Dr. Alfonso Coyle. He will evaluate the patient for further management. Medical Decision Differential Diagnosis includes but is not limited to dehydration, stroke, anemia, hypoglycemia, hyponatremia, hypernatremia, urinary tract infection, pneumonia, bronchitis, sepsis, gastroenteritis, additional abdominal pathology, metabolic abnormalities and infections. Patient is an 87-year-old male who presents the ER as he has been stumbling today very lightheaded. He was recently diagnosed with C. difficile and has been on antibiotics for only 5 days. He stopped taking the medications. He presents today with systolic blood pressures in the 80s. CBC shows a leukopenia at 4. Creatinine is elevated at 1.9. Systolic blood pressures improved significantly following 2 L normal saline. UA does suggest infection with esterase, white cells and +3 bacteria. He was covered with IV Rocephin. He was updated at bedside. He was admitted to internal medicine with UTI, hypertension, C. difficile and KENN. Medication Reconcilliation Current Medication List: was personally reviewed by me Blood Pressure Screening Patient's blood pressure: Low blood pressure Monitored by the hospitalist. Consults Time Called: 2311 Consulting Physician: Dr. Alfonso Coyle Returned Call: [phone] I reviewed the patient's case with Dr. Alfonso Coyle. He will evaluate the patient for further management. Impression Primary Impression: Hypotension Additional Impressions: UTI (urinary tract infection) C. difficile colitis KENN (acute kidney injury) Scribe Attestation The scribe's documentation has been prepared under my direction and personally reviewed by me in its entirety. I confirm that the note above accurately reflects all work, treatment, procedures, and medical decision making performed by me. Departure Information Dispostion Being Evaluated By Hospitalist Referrals Tad Childress M.D. (PCP) Patient Instructions My [facility] Problem Qualifiers Primary Impression: Hypotension Hypotension type: unspecified hypotension type Qualified Codes: I95.9 - Hypotension, unspecified Additional Impressions: UTI (urinary tract infection) Urinary tract infection type: site unspecified Hematuria presence: without hematuria Qualified Codes: N39.0 - Urinary tract infection, site not specified
[2018-01-16] MEDS ORDERED: CEFEPIME IV 1,000 MG in DEXTROSE 5% 100ML 100 ML IV STA (01:41)
[2018-01-16] MEDS ORDERED: PIPERACILLIN/TAZOBACTAM 4.5 GM/100ML D5W IV STA (02:45)
[2018-01-16] MEDS ORDERED: ACETAMINOPHEN 325 MG TAB PO PRN (03:00)
[2018-01-16] MEDS ORDERED: POLYETHYLENE (MIRALAX) 17 GM PACK PO PRN (03:00)
[2018-01-16] MEDS ORDERED: PROCHLORPERAZINE INJ 5 MG in SYRINGE 4 ML IV PRN (03:00)
[2018-01-16 04:00] VITALS: BP 153/63; PULSE 69; TEMP 36.5; O2SAT 95; Ht 172.7 cm; Wt 73.5 kg
[2018-01-16] MEDS ORDERED: SODIUM CHLORIDE 0.9% 1000ML 1,000 ML IV ONE (04:00)
[2018-01-16] MEDS: PIPERACILL/TAZOBAC IV 3.375 GM in DEXTROSE 5% 100ML IV SCH ×3 (05:41→21:55)
[2018-01-16] MEDS: RASPBERRY SYRUP 5 ML UDP PO SCH ×3 (05:43→17:10)
[2018-01-16] MEDS: VANCOMYCIN HCL 125 MG/2.5ML SOLN PO SCH ×3 (05:43→17:10)
[2018-01-16] MEDS: OXYCODONE/ACETAMINOPHEN 10/325MG TAB PO PRN ×2 (05:47→11:43)
[2018-01-16] MEDS ORDERED: WARFARIN SOD 5 MG TAB PO ONE (06:00)
[2018-01-16 06:14] LABS: BASO % 0.5 %; BASO ABS # 0.03 K/uL (0-0.2); EOS % 3.6 %; EOS ABS # 0.23 K/uL (0-0.5); HEMATOCRIT 35.4 % (42-52); HEMOGLOBIN 11.5 g/dL (14.0-18.0); IG# 0.02 K/uL (0.00-0.02); LYMPH % 33.6 %; LYMPH ABS # 2.17 K/uL (1.2-3.4); MEAN CELL VOLUME 98.6 fL (80-100); MEAN CORPUSCULAR HGB CONC 32.5 g/dl (32-36); MEAN PLATELET VOLUME 8.8 fL (7.4-10.4); MONO % 13.8 %; MONO ABS # 0.89 K/uL (0.11-0.59); NEUT % 48.2 %; NEUT ABS # 3.11 K/uL (1.4-6.5); PLATELET COUNT 182 K/uL (130-400); RED CELL DISTRIBUTION WIDTH SD 50.4 fL (36.4-46.3); WHITE BLOOD COUNT 6.45 K/uL (4.8-10.8)
[2018-01-16 06:28] LABS: INR 1.5 (0.9-1.1)
[2018-01-16 06:42] LABS: CALCIUM 8.8 mg/dl (8.5-10.1); CREATININE 1.7 mg/dl (0.60-1.40)
[2018-01-16 07:30] VITALS: BP 137/66; PULSE 66; TEMP 36.6; O2SAT 92
[2018-01-16] MEDS ORDERED: PIPERACILL/TAZOBAC CONSULT ACTIVE PRN (08:00)
--- NOTE | 2018-01-16 08:35 | DIAGNOSTIC IMAGING REPORT ---
VENOUS DOPPLER LWR EXT BILA HISTORY: Pain. Edema. leg swelling COMPARISON STUDY: None. FINDINGS: There is normal compressibility, flow, and augmentation within the bilateral lower extremity deep venous systems. IMPRESSION: No DVT within the right or left lower extremity. The above report was generated using voice recognition software. It may contain grammatical, syntax or spelling errors. Electronically signed by: Rafal Vallejo M.D. 01/16/2018 8:34 AM Dictated Date/Time: 01/16/2018 8:34 AM
[2018-01-16] MEDS: ASPIRIN 81 MG ECTAB PO SCH (08:44)
[2018-01-16] MEDS: RANITIDINE HCL 150 MG TAB PO SCH ×2 (08:44→21:09)
[2018-01-16] MEDS: GABAPENTIN 100 MG CAP PO SCH ×3 (08:44→21:09)
[2018-01-16] MEDS: METOPROLOL SUCC 25MG EXT REL TAB PO SCH (08:45)
[2018-01-16] MEDS: TAMSULOSIN HCL 0.4 MG CAP PO SCH (08:45)
[2018-01-16] MEDS: PANTOprazole SOD 40 MG TAB PO SCH ×2 (08:45→21:09)
[2018-01-16] MEDS: [UNRECOGNIZED DRUG - REMARK] SCH ×2 (08:48→16:12)
--- NOTE | 2018-01-16 09:58 | Medical Consult ---
Consultation Date of Consultation: Jan 16, 2018. Attending Physician: Mckayla De Luna DO Reason for Consultation: Complicated UTI History of Present Illness 7-year-old male with complicated medical history including aortic valve disease , hypertension, coronary artery disease, kidney disease, BPH with recurrent urinary tract infection, COPD, who was hospitalized in October 2017 with encephalopathy associated with rhabdomyolysis and urinary tract infection. Patient was treated with antibiotics with improvement, but several weeks ago presented to his primary care physician with diarrhea. He was subsequently diagnosed with C difficile colitis, and was started on metronidazole. Over the past several days, patient has been complaining of increasing dizziness and weakness with persistent diarrhea. Has been somewhat confused. No report of fever. Came to the emergency department, C difficile still positive, and patient has been changed to vancomycin. Has evidence of urinary tract infection , and has been started on Zosyn for abnormal urinalysis with pyuria. Urine cultures and blood cultures are pending. Patient denying significant abdominal or flank pain. Past Medical/Surgical History Medical Problems: (1) KENN (acute kidney injury) Status: Acute (2) Altered mental status Status: Acute (3) C. difficile colitis Status: Acute (4) Dehydration Status: Acute (5) EKG abnormality Status: Acute (6) Elevated troponin Status: Acute (7) Hypotension Status: Acute (8) Metabolic encephalopathy Status: Acute (9) Metabolic encephalopathy Status: Acute (10) Pneumonia Status: Acute (11) Precordial chest pain Status: Acute (12) Urinary tract infection Status: Acute (13) UTI (urinary tract infection) Status: Acute (14) UTI (urinary tract infection) Status: Acute (15) Weakness Status: Acute (16) Weakness Status: Acute Medical Problems: (1) Acute myocardial infarction (2) Aortic stenosis (3) ARF (acute renal failure) (4) Atrial fibrillation (5) BPH (benign prostatic hyperplasia) (6) Chest pain (7) Chronic back pain (8) CKD (chronic kidney disease), stage III (9) COPD (chronic obstructive pulmonary disease) (10) Coronary artery disease (11) Encephalopathy (12) Encephalopathy (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 (14) History of DVT (deep vein thrombosis) (15) History of GI bleed (16) History of orthostatic hypotension (17) History of pulmonary embolism (18) Hyperlipidemia Surgical Problems: (1) H/O carpal tunnel repair (2) H/O colonoscopy (3) H/O esophagogastroduodenoscopy (4) knee replacement (5) Previous back surgery Family History FH: COPD (chronic obstructive pulmonary disease) BROTHER Social History Smoking Status: Never Smoker Marital Status: Housing Status: lives alone Occupation Status: retired Allergies Coded Allergies: Morphine (Verified Allergy, Intermediate, itching, dizzy, 10/16/17) pt primary md has taken pt off morphine due to itching and dizzy Sulfa Antibiotics (Verified Allergy, Intermediate, HIVES/RASH, 10/16/17) Fentanyl (Verified Allergy, Unknown, ITCHING, DIZZINESS, BOWEL BLADDER PROBLEMS, HEADACHE, 10/16/17) Current Inpatient Medications Current Inpatient Medications Medications (Trade) Dose Ordered Sig/Bailey Route Start Time Stop Time Status Last Admin Dose Admin Miscellaneous Information (Consult) 1 ea UD PRN N/A 01/16/18 08:00 02/15/18 07:59 Acetaminophen (Tylenol Tab) 650 mg Q4H PRN PO 01/16/18 03:00 02/15/18 02:59 Prochlorperazine Edisylate 5 mg/ Syringe 5 ml @ 5 mls/min Q6H PRN IV 01/16/18 03:00 02/15/18 02:59 Aspirin (Ecotrin Tab) 81 mg DAILY PO 01/16/18 08:00 02/15/18 08:59 01/16/18 08:44 81 MG Gabapentin (Neurontin Cap) 200 mg TID PO 01/16/18 08:00 02/15/18 08:59 01/16/18 08:44 200 MG Oxycodone/ Acetaminophen (Percocet 10-325MG Tab) 1 tab Q6 PRN PO 01/16/18 03:00 01/30/18 02:59 01/16/18 05:47 1 TAB Ranitidine HCl (zANTac TAB) 150 mg BID PO 01/16/18 08:00 02/15/18 08:59 01/16/18 08:44 150 MG Tamsulosin HCl (Flomax Cap) 0.4 mg DAILY PO 01/16/18 08:00 02/15/18 08:59 01/16/18 08:45 0.4 MG Miscellaneous Information (Order Awaiting Action) 1 ea QS N/A 01/16/18 08:00 02/15/18 07:59 Pantoprazole Sodium (Protonix Tab) 40 mg BID PO 01/16/18 08:00 02/15/18 07:59 01/16/18 08:45 40 MG Polyethylene (Miralax Powder Packet) 1 gm DAILY PRN PO 01/16/18 03:00 02/15/18 02:59 Sodium Chloride 1,000 ml @ 75 mls/hr [id number] ONCE IV 01/16/18 04:00 01/16/18 17:19 01/16/18 04:28 75 MLS/HR Warfarin Sodium (Coumadin Tab) 5 mg DAILY@16 PO 01/17/18 16:00 02/16/18 15:59 Vancomycin HCl (Vancomycin Oral Soln) 125 mg Q6H PO 01/16/18 06:00 01/30/18 05:59 01/16/18 05:43 125 MG Metoprolol Succinate (Toprol Xl Tab) 25 mg DAILY PO 01/16/18 08:00 02/15/18 08:59 01/16/18 08:45 25 MG Raspberry (Raspberry Syrup 5ml Cup) 5 ml Q6H PO 01/16/18 06:00 01/30/18 05:59 01/16/18 05:43 5 ML Miscellaneous Information (Check Patch Placement) 1 ea QS N/A 01/16/18 08:00 02/15/18 07:59 01/16/18 08:48 1 EA Miscellaneous (Remove Patch) 1 ea Mo@0759 N/A 01/20/18 07:59 02/19/18 07:58 Miscellaneous Information (Pending Order) 1 ea DAILY@10 N/A 01/16/18 10:00 02/15/18 09:59 Piperacillin Sod/ Tazobactam Sod 3.375 gm/Dextrose 115 ml @ 28.75 mls/ hr Q8H IV 01/16/18 06:00 01/26/18 05:59 01/16/18 05:41 28.75 MLS/HR Review of Systems Constitutional: + weakness, + fatigue, No fever Eyes: No problem reported ENT: No problem reported Respiratory: No problem reported Cardiovascular: No problem reported Abdomen: + diarrhea Musculoskeletal: No problem reported Genitourinary - Male: + dysuria Neurologic: + weakness, + problem reported ( Dizziness) Psychiatric: No problem reported Endocrine: No problem reported Hematologic / Lymphatic: No problem reported Integumentary: No problem reported Allergic / Immunologic: No problem reported Physical Exam Date Time Temp Pulse Resp B/P (MAP) Pulse Ox O2 Delivery O2 Flow Rate FiO2 01/16/18 07:30 36.6 66 20 137/66 (89) 92 Room Air 01/16/18 04:00 36.5 69 16 153/63 95 Room Air 01/16/18 03:49 64 18 130/81 95 01/16/18 02:02 64 156/87 93 Room Air 01/16/18 01:02 67 18 139/92 98 Room Air 01/15/18 23:15 65 18 164/87 96 Room Air 01/15/18 20:31 36.7 67 18 80/60 94 Room Air General Appearance: WD/WN, no apparent distress Head: normocephalic, atraumatic Eyes: normal inspection, EOMI, sclerae normal ENT: normal ENT inspection, pharynx normal Neck: supple, no adenopathy, thyroid normal, trachea midline Respiratory/Chest: chest non-tender, lungs clear, normal breath sounds, no respiratory distress Cardiovascular: regular rate, rhythm, no gallop, + systolic murmur Abdomen/GI: normal bowel sounds, non tender, soft, no organomegaly Back: normal inspection, no CVA tenderness Extremities/Musculoskelatal: no calf tenderness, normal capillary refill, non- tender Neurologic/Psych: alert, oriented x 3 Skin: normal color, warm/dry, no rash Lymphatic: no adenopathy Laboratory Results Date/Time Source Procedure Growth Status 01/15/18 20:50 Stool C.difficile Toxin B Gene (PCR) - Final Positive for C. difficile toxin B gene Complete 01/15/18 20:50 Urine , Clean Catch Urine Culture - Preliminary Gram Negative Bacilli Resulted Last 24 Hours Test 01/15/18 20:50 01/15/18 22:30 01/16/18 00:54 01/16/18 05:19 Urine Color YELLOW Urine Appearance CLEAR Urine pH 8.5 Urine Specific [place] 1.008 Urine Protein NEG Urine Glucose (UA) NEG Urine Ketones NEG Urine Occult Blood NEG Urine Nitrite NEG Urine Bilirubin NEG Urine Urobilinogen NEG Urine Leukocyte Esterase LARGE Urine WBC (Auto) >30 /hpf Urine RBC (Auto) 0-4 /hpf Urine Hyaline Casts (Auto) 0 /lpf Urine Epithelial Cells (Auto) 0-5 /lpf Urine Bacteria (Auto) 3+ White Blood Count 4.72 K/uL 6.45 K/uL Red Blood Count 3.55 M/uL 3.59 M/uL Hemoglobin 11.5 g/dL 11.5 g/dL Hematocrit 35.7 % 35.4 % Mean Corpuscular Volume 100.6 fL 98.6 fL Mean Corpuscular Hemoglobin 32.4 pg 32.0 pg Mean Corpuscular Hemoglobin Concent 32.2 g/dl 32.5 g/dl Platelet Count 182 K/uL 182 K/uL Mean Platelet Volume 8.6 fL 8.8 fL Neutrophils (%) (Auto) 51.3 % 48.2 % Lymphocytes (%) (Auto) 32.0 % 33.6 % Monocytes (%) (Auto) 12.5 % 13.8 % Eosinophils (%) (Auto) 3.6 % 3.6 % Basophils (%) (Auto) 0.4 % 0.5 % Neutrophils # (Auto) 2.42 K/uL 3.11 K/uL Lymphocytes # (Auto) 1.51 K/uL 2.17 K/uL Monocytes # (Auto) 0.59 K/uL 0.89 K/uL Eosinophils # (Auto) 0.17 K/uL 0.23 K/uL Basophils # (Auto) 0.02 K/uL 0.03 K/uL RDW Standard Deviation 51.3 fL 50.4 fL RDW Coefficient of Variation 13.9 % 14.0 % Immature Granulocyte % (Auto) 0.2 % 0.3 % Immature Granulocyte # (Auto) 0.01 K/uL 0.02 K/uL Sodium Level 137 mmol/L 140 mmol/L Potassium Level 4.9 mmol/L 5.0 mmol/L Chloride Level 100 mmol/L 104 mmol/L Carbon Dioxide Level 31 mmol/L 30 mmol/L Anion Gap 6.0 mmol/L 5.0 mmol/L Blood Urea Nitrogen 22 mg/dl 20 mg/dl Creatinine 1.95 mg/dl 1.70 mg/dl Est Creatinine Clear Calc Drug Dose 24.8 ml/min 28.5 ml/min Estimated GFR () 34.3 40.5 Estimated GFR (Non- 29.6 35.0 BUN/Creatinine Ratio 11.2 11.9 Random Glucose 135 mg/dl 95 mg/dl Calcium Level 9.1 mg/dl 8.8 mg/dl Magnesium Level 3.0 mg/dl Total Bilirubin 0.4 mg/dl Direct Bilirubin 0.1 mg/dl Aspartate Amino Transf (AST/SGOT) 20 U/L Alanine Aminotransferase (ALT/SGPT) 13 U/L Alkaline Phosphatase 51 U/L Total Protein 7.5 gm/dl Albumin 3.6 gm/dl Lipase 84 U/L Prothrombin Time 14.9 SECONDS 15.2 SECONDS Prothromb Time International Ratio 1.4 1.5 Activated Partial Thromboplast Time 29.9 SECONDS Partial Thromboplastin Ratio 1.2 Lactic Acid Level 1.8 mmol/L Procalcitonin < 0.05 ng/ml SINGLE VIEW CHEST CLINICAL HISTORY: Dizziness. FINDINGS: An AP, portable, upright chest radiograph is compared to study dated 10/16/2017 and correlated with chest CT dated 08/11/2015. The examination is degraded by portable technique and patient rotation. The heart is enlarged and there is atherosclerotic calcification of the thoracic aorta. The pulmonary vascular structures noncongested. A hiatal hernia is identified. Chronic interstitial thickening is similar to previous and there is bibasilar atelectasis. No airspace consolidation or large pleural effusion is identified. No pneumothorax is seen. The skeletal structures are osteopenic. The bony thorax is grossly intact. Degenerative changes noted throughout the thoracic spine. Calcific tendinopathy is seen in the right shoulder. IMPRESSION: 1. Cardiomegaly with no acute cardiopulmonary abnormality. 2. Hiatal hernia. Electronically signed by: Mars Berry M.D. 01/15/2018 10:49 PM Dictated Date/Time: 01/15/2018 10:48 PM Assessment & Plan Gram negative UTI, ongoing C. diff with probable reaction to metronidazole. Patient should continue on vancomycin for C. diff, and Zosyn to continue pending ID/sensitivities of gram negative isolate. Will follow.
--- NOTE | 2018-01-16 10:44 | HISTORY & PHYSICAL EXAMINATION ---
DATE OF ADMISSION: 01/16/2018 PRIMARY CARE PHYSICIAN: Dr. Childress CHIEF COMPLAINT: Dizziness, weakness. HISTORY OF PRESENT ILLNESS: History obtained from the patient and records. 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 difficile ongoing Flagyl Rx. Recent confinement, October 2017 for encephalopathy secondary to rhabdomyolysis , UTI. Patient seen at PCP's office about 3 weeks ago, noted loose stools nonbloody. Outpatient stool C. diff was positive. Patient is still having diarrhea despite Flagyl prescription. No unusual abdominal pain except for some bladder discomfort, burning. No chest pain, no shortness of breath. Appetite noted to be poor. Patient noted dizziness described as lightheadedness. Complaining of generalized weakness. Patient given Ceftriaxone in the ER for UTI. SURGERIES: Carpal tunnel, knee surgery, back surgery, urologic procedures. HOME MEDICATIONS: Include Protonix, Flagyl, Percocet, MiraLax, Zantac, Zocor, Coumadin, Flomax, Norvasc, vitamin C, aspirin, Butrans, gabapentin ALLERGIES: ALLERGIC TO FENTANYL, MORPHINE, SULFA. FAMILY HISTORY: COPD PERSONAL AND SOCIAL HISTORY: Past tobacco/ETOH abuse as per records. 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 Lives alone. REVIEW OF SYSTEMS: As per HPI, all 10 systems reviewed, all other ROS negative PHYSICAL EXAMINATION: VITAL SIGNS: Blood pressure was noted to be SBP 80/60 later 164/80, pulse rate noted to be 69, RR 16 T 37 sats 98 on room air. GENERAL: Noted to be comfortable. No respiratory distress, looks younger for stated age. SKIN: Pallor, warm. HEENT: Partial alopecia. Pale palpebral conjunctivae, no ptosis. Dry mucosa. NECK: Supple, nontender. CHEST: Decreased effort, no tenderness. HEART: Regular rate and rhythm. Systolic murmur. ABDOMEN: Some distention, nontender. EXTREMITIES: No edema, no gross deformities, Some leg swelling. NEUROLOGIC: Coherent, no gross focality. LABORATORY DATA: Hemoglobin was noted to be 11.5 white cells 4.7, platelets 182. Sodium 136 potassium 4.9, chloride 100, CO2 31, BUN 50, creatinine 1.95, glucose 135. INR 1.4. UA large WBC esterase epithelials cells, IMAGING DATA: Chest x-ray, hiatal hernia, cardiomegaly Chronic left bundle branch block on EKG US LE negative for DVT. ASSESSMENT: 1. Acute renal failure, transient hypotension hx Clostridium difficile on Flagyl course. Persistent diarrhea symptoms Recurrent complicated urinary tract infection; hx of penoscrotal hypospadias sp failed childhood repair. No sepsis 2. SSS, hx PE/DVT on Coumadin NSR INR subtherapeutic 3. CAD as per records, chronic left bundle branch block. 4. COPD, Past tobacco abuse pulmo status at baseline 5. HTN, patient initially hypotensive at the ER History orthostatic hypotension as per records SBP improved after IV fluids. 6. Chronic pain on narcotics. 7. Deconditioning PLAN: GMF monitor creatinine response to IV fluids Decrease maintenance home blood pressure med regimen doses for now given borderline BP ff urine CS, Zosyn. change Flagyl to Vancomycin p.o. ID consult. RE recurrent UTI PT, OT eval. DVT prophylaxis, Coumadin INR goal 2-3 Full code. MTDD
[2018-01-16 11:36] VITALS: BP 165/74; PULSE 68; TEMP 36.3; O2SAT 96
--- NOTE | 2018-01-16 12:30 | Progress Note ---
Subjective Date of Service: Jan 16, 2018. Subjective Pt evaluation today including: conversation w/ patient, physical exam, lab review, review of studies, review of inpatient medication list Saw/examined the patient in room 403 He's doing well, improving slightly weakness has improved Denies chest pain/shortness of breath Denies dysuria, urinary frequency or hematuria Problem List Medical Problems: (1) KENN (acute kidney injury) Status: Acute (2) Altered mental status Status: Acute (3) C. difficile colitis Status: Acute (4) Dehydration Status: Acute (5) EKG abnormality Status: Acute (6) Elevated troponin Status: Acute (7) Hypotension Status: Acute (8) Metabolic encephalopathy Status: Acute (9) Metabolic encephalopathy Status: Acute (10) Pneumonia Status: Acute (11) Precordial chest pain Status: Acute (12) Urinary tract infection Status: Acute (13) UTI (urinary tract infection) Status: Acute (14) UTI (urinary tract infection) Status: Acute (15) Weakness Status: Acute (16) Weakness Status: Acute Review of Systems Constitutional: + weakness, + fatigue, No fever, No chills Respiratory: No cough, No sputum, No wheezing, No shortness of breath Male : No dysuria, No urinary frequency, No hematuria Medications Current Inpatient Medications Medications (Trade) Dose Ordered Sig/Bailey Route Start Time Stop Time Status Last Admin Dose Admin Miscellaneous Information (Consult) 1 ea UD PRN N/A 01/16/18 08:00 02/15/18 07:59 Acetaminophen (Tylenol Tab) 650 mg Q4H PRN PO 01/16/18 03:00 02/15/18 02:59 Prochlorperazine Edisylate 5 mg/ Syringe 5 ml @ 5 mls/min Q6H PRN IV 01/16/18 03:00 02/15/18 02:59 Aspirin (Ecotrin Tab) 81 mg DAILY PO 01/16/18 08:00 02/15/18 08:59 01/16/18 08:44 81 MG Gabapentin (Neurontin Cap) 200 mg TID PO 01/16/18 08:00 02/15/18 08:59 01/16/18 08:44 200 MG Oxycodone/ Acetaminophen (Percocet 10-325MG Tab) 1 tab Q6 PRN PO 01/16/18 03:00 01/30/18 02:59 3/15/18 11:43 1 TAB Ranitidine HCl (zANTac TAB) 150 mg BID PO 01/16/18 08:00 02/15/18 08:59 01/16/18 08:44 150 MG Tamsulosin HCl (Flomax Cap) 0.4 mg DAILY PO 01/16/18 08:00 02/15/18 08:59 01/16/18 08:45 0.4 MG Miscellaneous Information (Order Awaiting Action) 1 ea QS N/A 01/16/18 08:00 02/15/18 07:59 Pantoprazole Sodium (Protonix Tab) 40 mg BID PO 01/16/18 08:00 02/15/18 07:59 01/16/18 08:45 40 MG Polyethylene (Miralax Powder Packet) 1 gm DAILY PRN PO 01/16/18 03:00 02/15/18 02:59 Sodium Chloride 1,000 ml @ 75 mls/hr [id number] ONCE IV 01/16/18 04:00 01/16/18 17:19 01/16/18 04:28 75 MLS/HR Warfarin Sodium (Coumadin Tab) 5 mg DAILY@16 PO 01/17/18 16:00 02/16/18 15:59 Vancomycin HCl (Vancomycin Oral Soln) 125 mg Q6H PO 01/16/18 06:00 01/30/18 05:59 01/16/18 11:41 125 MG Metoprolol Succinate (Toprol Xl Tab) 25 mg DAILY PO 01/16/18 08:00 02/15/18 08:59 01/16/18 08:45 25 MG Raspberry (Raspberry Syrup 5ml Cup) 5 ml Q6H PO 01/16/18 06:00 01/30/18 05:59 01/16/18 11:41 5 ML Miscellaneous Information (Check Patch Placement) 1 ea QS N/A 01/16/18 08:00 02/15/18 07:59 01/16/18 08:48 1 EA Miscellaneous (Remove Patch) 1 ea Mo@0759 N/A 01/20/18 07:59 02/19/18 07:58 Miscellaneous Information (Pending Order) 1 ea DAILY@10 N/A 01/16/18 10:00 02/15/18 09:59 Piperacillin Sod/ Tazobactam Sod 3.375 gm/Dextrose 115 ml @ 28.75 mls/ hr Q8H IV 01/16/18 06:00 01/26/18 05:59 01/16/18 05:41 28.75 MLS/HR Objective Vital Signs Date Time Temp Pulse Resp B/P (MAP) Pulse Ox O2 Delivery O2 Flow Rate FiO2 01/16/18 07:30 36.6 66 20 137/66 (89) 92 Room Air 01/16/18 04:00 36.5 69 16 153/63 95 Room Air 01/16/18 03:49 64 18 130/81 95 01/16/18 02:02 64 156/87 93 Room Air 01/16/18 01:02 67 18 139/92 98 Room Air 01/15/18 23:15 65 18 164/87 96 Room Air 01/15/18 20:31 36.7 67 18 80/60 94 Room Air Physical Exam General Appearance: no apparent distress Respiratory/Chest: chest non-tender, lungs clear, normal breath sounds, no respiratory distress, no accessory muscle use Cardiovascular: regular rate, rhythm, no edema, no murmur Extremities: non-tender, normal inspection, no pedal edema Laboratory Results Last 24 Hours Test 01/15/18 20:50 01/15/18 22:30 01/16/18 00:54 01/16/18 05:19 Urine Color YELLOW Urine Appearance CLEAR Urine pH 8.5 Urine Specific [place] 1.008 Urine Protein NEG Urine Glucose (UA) NEG Urine Ketones NEG Urine Occult Blood NEG Urine Nitrite NEG Urine Bilirubin NEG Urine Urobilinogen NEG Urine Leukocyte Esterase LARGE Urine WBC (Auto) >30 /hpf Urine RBC (Auto) 0-4 /hpf Urine Hyaline Casts (Auto) 0 /lpf Urine Epithelial Cells (Auto) 0-5 /lpf Urine Bacteria (Auto) 3+ White Blood Count 4.72 K/uL 6.45 K/uL Red Blood Count 3.55 M/uL 3.59 M/uL Hemoglobin 11.5 g/dL 11.5 g/dL Hematocrit 35.7 % 35.4 % Mean Corpuscular Volume 100.6 fL 98.6 fL Mean Corpuscular Hemoglobin 32.4 pg 32.0 pg Mean Corpuscular Hemoglobin Concent 32.2 g/dl 32.5 g/dl Platelet Count 182 K/uL 182 K/uL Mean Platelet Volume 8.6 fL 8.8 fL Neutrophils (%) (Auto) 51.3 % 48.2 % Lymphocytes (%) (Auto) 32.0 % 33.6 % Monocytes (%) (Auto) 12.5 % 13.8 % Eosinophils (%) (Auto) 3.6 % 3.6 % Basophils (%) (Auto) 0.4 % 0.5 % Neutrophils # (Auto) 2.42 K/uL 3.11 K/uL Lymphocytes # (Auto) 1.51 K/uL 2.17 K/uL Monocytes # (Auto) 0.59 K/uL 0.89 K/uL Eosinophils # (Auto) 0.17 K/uL 0.23 K/uL Basophils # (Auto) 0.02 K/uL 0.03 K/uL RDW Standard Deviation 51.3 fL 50.4 fL RDW Coefficient of Variation 13.9 % 14.0 % Immature Granulocyte % (Auto) 0.2 % 0.3 % Immature Granulocyte # (Auto) 0.01 K/uL 0.02 K/uL Sodium Level 137 mmol/L 140 mmol/L Potassium Level 4.9 mmol/L 5.0 mmol/L Chloride Level 100 mmol/L 104 mmol/L Carbon Dioxide Level 31 mmol/L 30 mmol/L Anion Gap 6.0 mmol/L 5.0 mmol/L Blood Urea Nitrogen 22 mg/dl 20 mg/dl Creatinine 1.95 mg/dl 1.70 mg/dl Est Creatinine Clear Calc Drug Dose 24.8 ml/min 28.5 ml/min Estimated GFR () 34.3 40.5 Estimated GFR (Non- 29.6 35.0 BUN/Creatinine Ratio 11.2 11.9 Random Glucose 135 mg/dl 95 mg/dl Calcium Level 9.1 mg/dl 8.8 mg/dl Magnesium Level 3.0 mg/dl Total Bilirubin 0.4 mg/dl Direct Bilirubin 0.1 mg/dl Aspartate Amino Transf (AST/SGOT) 20 U/L Alanine Aminotransferase (ALT/SGPT) 13 U/L Alkaline Phosphatase 51 U/L Total Protein 7.5 gm/dl Albumin 3.6 gm/dl Lipase 84 U/L Prothrombin Time 14.9 SECONDS 15.2 SECONDS Prothromb Time International Ratio 1.4 1.5 Activated Partial Thromboplast Time 29.9 SECONDS Partial Thromboplastin Ratio 1.2 Lactic Acid Level 1.8 mmol/L Procalcitonin < 0.05 ng/ml Assessment and Plan This is an 87 year old male with a PMH of atrial fibrillation on long-term anticoagulation, chronic low back pain/lumbar radiculitis/sacroiliitis on long- term opioid use, CKD stage 3, CAD, HLD - presents with +weakness C. Diff Diarrhea * will switch Flagyl to PO Vanco; will likely need 10-14 days Urinary Tract Infection * recurrent UTI; recent admission in October 2017 with similar symptoms * at that time, he had enterobacter in the urine * currently gram negative bacilli growing; further speciation pending * Zosyn started; appreciate ID input Acute Kidney Injury superimposed on CKD stage 3 * creatinine at baseline is around 1.2-1.3 * presented with creatinine around 1.9 * likely worsened due to UTI * given IVFs, improving creat, monitor and avoid nephrotoxic agents when able Atrial Fibrillation * currently in a regular rhythm * would continue b-lori * INR subtherapeutic; give Coumadin 5mg tonight and recheck INR in AM with a goal of 2-3 Chronic Low Back Pain * continue Butrans patch and Percocet PRN DVT ppx * Coumadin FULL CODE
[2018-01-16 14:54] VITALS: BP 163/83; PULSE 64; TEMP 36.7; O2SAT 95
[2018-01-16] MEDS ORDERED: WARFARIN SOD 5 MG TAB PO SCH (16:30)
[2018-01-17] VITALS: BP 166/80; PULSE 69; TEMP 36.9; O2SAT 94
[2018-01-17] MEDS: RASPBERRY SYRUP 5 ML UDP PO SCH ×4 (00:49→18:34)
[2018-01-17] MEDS: VANCOMYCIN HCL 125 MG/2.5ML SOLN PO SCH ×4 (00:49→18:34)
[2018-01-17] MEDS: PIPERACILL/TAZOBAC IV 3.375 GM in DEXTROSE 5% 100ML IV SCH (05:36)
[2018-01-17] MEDS: OXYCODONE/ACETAMINOPHEN 10/325MG TAB PO PRN ×2 (05:37→16:16)
[2018-01-17 07:04] LABS: INR 1.6 (0.9-1.1)
[2018-01-17 07:28] LABS: CALCIUM 8.6 mg/dl (8.5-10.1); CREATININE 1.69 mg/dl (0.60-1.40); POTASSIUM 4.4 mmol/L (3.5-5.1)
[2018-01-17 08:00] VITALS: BP 146/76; PULSE 55; TEMP 36.4; O2SAT 94
[2018-01-17] MEDS ORDERED: AMLODIPINE BESYLATE 5 MG TAB PO SCH (08:00)
[2018-01-17 09:24] VITALS: O2SAT 94
[2018-01-17] MEDS: [UNRECOGNIZED DRUG - REMARK] SCH ×3 (09:53→16:09)
[2018-01-17] MEDS: SODIUM CHLORIDE 0.9% 1000ML 1,000 ML IV SCH ×2 (09:53→19:18)
[2018-01-17] MEDS: GABAPENTIN 100 MG CAP PO SCH ×3 (09:54→20:58)
[2018-01-17] MEDS: RANITIDINE HCL 150 MG TAB PO SCH ×2 (09:54→20:57)
[2018-01-17] MEDS: ASPIRIN 81 MG ECTAB PO SCH (09:54)
[2018-01-17] MEDS: METOPROLOL SUCC 25MG EXT REL TAB PO SCH (09:54)
[2018-01-17] MEDS: TAMSULOSIN HCL 0.4 MG CAP PO SCH (09:54)
[2018-01-17] MEDS: PANTOprazole SOD 40 MG TAB PO SCH ×2 (09:54→20:57)
[2018-01-17] MEDS ORDERED: CEFTRIAXONE SOD INJ 1000 MG in DEXTROSE 5% 50ML IV SCH (14:00)
--- NOTE | 2018-01-17 14:35 | Progress Note ---
Subjective Date of Service: Jan 17, 2018. Subjective Pt evaluation today including: conversation w/ patient, physical exam, lab review, review of studies, review of inpatient medication list Saw/examined the patient in room 403 He's doing okay, ambulating in the room; no other issues to note at this time Problem List Medical Problems: (1) KENN (acute kidney injury) Status: Acute (2) Altered mental status Status: Acute (3) C. difficile colitis Status: Acute (4) Dehydration Status: Acute (5) EKG abnormality Status: Acute (6) Elevated troponin Status: Acute (7) Hypotension Status: Acute (8) Metabolic encephalopathy Status: Acute (9) Metabolic encephalopathy Status: Acute (10) Pneumonia Status: Acute (11) Precordial chest pain Status: Acute (12) Urinary tract infection Status: Acute (13) UTI (urinary tract infection) Status: Acute (14) UTI (urinary tract infection) Status: Acute (15) Weakness Status: Acute (16) Weakness Status: Acute Review of Systems Constitutional: No fever, No chills Respiratory: No shortness of breath Cardiac: No chest pain Abdomen: + diarrhea, No pain, No nausea, No vomiting Male : No dysuria, No urinary frequency Medications Current Inpatient Medications Medications (Trade) Dose Ordered Sig/Bailey Route Start Time Stop Time Status Last Admin Dose Admin Acetaminophen (Tylenol Tab) 650 mg Q4H PRN PO 01/16/18 03:00 02/15/18 02:59 Prochlorperazine Edisylate 5 mg/ Syringe 5 ml @ 5 mls/min Q6H PRN IV 01/16/18 03:00 02/15/18 02:59 Aspirin (Ecotrin Tab) 81 mg DAILY PO 01/16/18 08:00 02/15/18 08:59 01/17/18 09:54 81 MG Gabapentin (Neurontin Cap) 200 mg TID PO 01/16/18 08:00 02/15/18 08:59 01/17/18 12:36 200 MG Oxycodone/ Acetaminophen (Percocet 10-325MG Tab) 1 tab Q6 PRN PO 01/16/18 03:00 01/30/18 02:59 01/17/18 05:37 1 TAB Ranitidine HCl (zANTac TAB) 150 mg BID PO 01/16/18 08:00 02/15/18 08:59 01/17/18 09:54 150 MG Tamsulosin HCl (Flomax Cap) 0.4 mg DAILY PO 01/16/18 08:00 02/15/18 08:59 01/17/18 09:54 0.4 MG Miscellaneous Information (Order Awaiting Action) 1 ea QS N/A 01/16/18 08:00 02/15/18 07:59 Pantoprazole Sodium (Protonix Tab) 40 mg BID PO 01/16/18 08:00 02/15/18 07:59 01/17/18 09:54 40 MG Polyethylene (Miralax Powder Packet) 1 gm DAILY PRN PO 01/16/18 03:00 02/15/18 02:59 Warfarin Sodium (Coumadin Tab) 5 mg DAILY@16 PO 01/17/18 16:00 02/16/18 15:59 Vancomycin HCl (Vancomycin Oral Soln) 125 mg Q6H PO 01/16/18 06:00 01/30/18 05:59 01/17/18 12:36 125 MG Metoprolol Succinate (Toprol Xl Tab) 25 mg DAILY PO 01/16/18 08:00 02/15/18 08:59 01/17/18 09:54 25 MG Raspberry (Raspberry Syrup 5ml Cup) 5 ml Q6H PO 01/16/18 06:00 01/30/18 05:59 01/17/18 12:36 5 ML Miscellaneous Information (Check Patch Placement) 1 ea QS N/A 01/16/18 08:00 02/15/18 07:59 01/17/18 09:53 1 EA Miscellaneous (Remove Patch) 1 ea Mo@0759 N/A 01/20/18 07:59 02/19/18 07:58 Miscellaneous Information (Pending Order) 1 ea DAILY@10 N/A 01/16/18 10:00 02/15/18 09:59 Amlodipine Besylate (Norvasc Tab) 5 mg QAM PO 01/17/18 08:00 02/16/18 07:59 01/17/18 09:57 5 MG Simvastatin (Zocor Tab) 20 mg QPM PO 01/17/18 21:00 02/16/18 20:59 Sodium Chloride 1,000 ml @ 80 mls/hr [id number] IV 01/17/18 08:00 02/16/18 07:59 01/17/18 09:53 80 MLS/HR Ceftriaxone Sodium 1 gm/ Dextrose 50 ml @ 100 mls/hr Q24H IV 01/17/18 14:00 01/26/18 13:59 01/17/18 12:36 100 MLS/HR Objective Vital Signs Date Time Temp Pulse Resp B/P (MAP) Pulse Ox O2 Delivery O2 Flow Rate FiO2 01/17/18 11:47 Room Air 01/17/18 09:24 94 Room Air 01/17/18 08:00 36.4 55 18 146/76 (99) 94 Room Air 01/17/18 00:30 Room Air 01/17/18 00:00 36.9 69 16 166/80 (108) 94 Room Air 01/16/18 20:30 Room Air 01/16/18 16:00 Room Air 01/16/18 14:54 36.7 64 18 163/83 (109) 95 Room Air Physical Exam General Appearance: no apparent distress Respiratory/Chest: lungs clear, normal breath sounds, no respiratory distress, no accessory muscle use Cardiovascular: regular rate, rhythm, no edema, no murmur Abdomen: normal bowel sounds, non tender, soft Extremities: normal inspection, no pedal edema Laboratory Results Last 24 Hours Test 01/17/18 06:31 Prothrombin Time 17.0 SECONDS Prothromb Time International Ratio 1.6 Sodium Level 139 mmol/L Potassium Level 4.4 mmol/L Chloride Level 107 mmol/L Carbon Dioxide Level 25 mmol/L Anion Gap 7.0 mmol/L Blood Urea Nitrogen 18 mg/dl Creatinine 1.69 mg/dl Est Creatinine Clear Calc Drug Dose 28.7 ml/min Estimated GFR () 40.8 Estimated GFR (Non- 35.2 BUN/Creatinine Ratio 10.9 Random Glucose 97 mg/dl Calcium Level 8.6 mg/dl Assessment and Plan This is an 87 year old male with a PMH of atrial fibrillation on long-term anticoagulation, chronic low back pain/lumbar radiculitis/sacroiliitis on long- term opioid use, CKD stage 3, CAD, HLD - presents with +weakness C. Diff Diarrhea * will switch Flagyl to PO Vanco; will likely need 10-14 days Enterobacter Urinary Tract Infection 01/17 * Enterobacter noted on urine culture * switched to Rocephin for now * on discharge, will use Levaquin 01/16 * recurrent UTI; recent admission in October 2017 with similar symptoms * at that time, he had enterobacter in the urine * currently gram negative bacilli growing; further speciation pending * Zosyn started; appreciate ID input Acute Kidney Injury superimposed on CKD stage 3 01/17 * creatinine; mildly improved to 1.6; baseline closer to 1.2 * increase IVF rate to 100mL/hr 01/16 * creatinine at baseline is around 1.2-1.3 * presented with creatinine around 1.9 * likely worsened due to UTI * given IVFs, improving creat, monitor and avoid nephrotoxic agents when able Atrial Fibrillation * currently in a regular rhythm * would continue b-lori * INR subtherapeutic; give Coumadin 5mg tonight and recheck INR in AM with a goal of 2-3 Chronic Low Back Pain * continue Butrans patch and Percocet PRN DVT ppx * Coumadin FULL CODE
[2018-01-17] MEDS ORDERED: WARFARIN SOD 5 MG TAB PO SCH (16:00)
[2018-01-17 16:20] VITALS: BP 169/84; PULSE 61; TEMP 36.4; O2SAT 96
[2018-01-17] MEDS ORDERED: AMLODIPINE BESYLATE 5 MG TAB PO ONE (17:30)
[2018-01-17] MEDS ORDERED: SIMVASTATIN 20 MG TAB PO SCH (21:00)
[2018-01-18] VITALS: BP 136/76; PULSE 65; TEMP 36.6; O2SAT 96
[2018-01-18] MEDS: [UNRECOGNIZED DRUG - REMARK] SCH ×2 (00:03→08:03)
[2018-01-18] MEDS: OXYCODONE/ACETAMINOPHEN 10/325MG TAB PO PRN ×2 (01:55→08:02)
[2018-01-18 06:00] LABS: INR 2.1 (0.9-1.1)
[2018-01-18 06:16] LABS: CALCIUM 8.3 mg/dl (8.5-10.1); CREATININE 1.39 mg/dl (0.60-1.40); POTASSIUM 4.3 mmol/L (3.5-5.1)
[2018-01-18] MEDS: RASPBERRY SYRUP 5 ML UDP PO SCH ×3 (06:20→11:49)
[2018-01-18] MEDS: VANCOMYCIN HCL 125 MG/2.5ML SOLN PO SCH ×3 (06:21→11:49)
[2018-01-18] MEDS: SODIUM CHLORIDE 0.9% 1000ML 1,000 ML IV SCH (06:21)
[2018-01-18 07:27] VITALS: BP 166/76; PULSE 64; TEMP 36.9; O2SAT 96
[2018-01-18] MEDS ORDERED: AMLODIPINE BESYLATE 5 MG TAB PO SCH (08:00)
[2018-01-18] MEDS: PANTOprazole SOD 40 MG TAB PO SCH (08:02)
[2018-01-18] MEDS: METOPROLOL SUCC 25MG EXT REL TAB PO SCH (08:02)
[2018-01-18] MEDS: ASPIRIN 81 MG ECTAB PO SCH (08:02)
[2018-01-18] MEDS: GABAPENTIN 100 MG CAP PO SCH ×2 (08:02→11:49)
[2018-01-18] MEDS: RANITIDINE HCL 150 MG TAB PO SCH (08:02)
[2018-01-18] MEDS: TAMSULOSIN HCL 0.4 MG CAP PO SCH (08:02)
--- NOTE | 2018-01-18 09:48 | Progress Note ---
Subjective Date of Service: Jan 18, 2018. Subjective Pt evaluation today including: conversation w/ patient, physical exam, lab review, review of studies, review of inpatient medication list Saw/examined the patient in room 403 Doing well; currently seated in a chair, reading a book Diarrhea has resolved No other symptoms Problem List Medical Problems: (1) KENN (acute kidney injury) Status: Acute (2) Altered mental status Status: Acute (3) C. difficile colitis Status: Acute (4) Dehydration Status: Acute (5) EKG abnormality Status: Acute (6) Elevated troponin Status: Acute (7) Hypotension Status: Acute (8) Metabolic encephalopathy Status: Acute (9) Metabolic encephalopathy Status: Acute (10) Pneumonia Status: Acute (11) Precordial chest pain Status: Acute (12) Urinary tract infection Status: Acute (13) UTI (urinary tract infection) Status: Acute (14) UTI (urinary tract infection) Status: Acute (15) Weakness Status: Acute (16) Weakness Status: Acute Review of Systems Constitutional: No fever, No chills Respiratory: No shortness of breath Cardiac: No chest pain Abdomen: No pain, No nausea, No vomiting, No diarrhea Male : No dysuria, No urinary frequency Medications Current Inpatient Medications Medications (Trade) Dose Ordered Sig/Bailey Route Start Time Stop Time Status Last Admin Dose Admin Acetaminophen (Tylenol Tab) 650 mg Q4H PRN PO 01/16/18 03:00 02/15/18 02:59 01/18/18 06:28 650 MG Prochlorperazine Edisylate 5 mg/ Syringe 5 ml @ 5 mls/min Q6H PRN IV 01/16/18 03:00 02/15/18 02:59 Aspirin (Ecotrin Tab) 81 mg DAILY PO 01/16/18 08:00 02/15/18 08:59 01/18/18 08:02 81 MG Gabapentin (Neurontin Cap) 200 mg TID PO 01/16/18 08:00 02/15/18 08:59 01/18/18 08:02 200 MG Oxycodone/ Acetaminophen (Percocet 10-325MG Tab) 1 tab Q6 PRN PO 01/16/18 03:00 01/30/18 02:59 01/18/18 08:02 1 TAB Ranitidine HCl (zANTac TAB) 150 mg BID PO 01/16/18 08:00 02/15/18 08:59 01/18/18 08:02 150 MG Tamsulosin HCl (Flomax Cap) 0.4 mg DAILY PO 01/16/18 08:00 02/15/18 08:59 01/18/18 08:02 0.4 MG Miscellaneous Information (Order Awaiting Action) 1 ea QS N/A 01/16/18 08:00 02/15/18 07:59 Pantoprazole Sodium (Protonix Tab) 40 mg BID PO 01/16/18 08:00 02/15/18 07:59 01/18/18 08:02 40 MG Polyethylene (Miralax Powder Packet) 1 gm DAILY PRN PO 01/16/18 03:00 02/15/18 02:59 Warfarin Sodium (Coumadin Tab) 5 mg DAILY@16 PO 01/17/18 16:00 02/16/18 15:59 01/17/18 16:10 5 MG Vancomycin HCl (Vancomycin Oral Soln) 125 mg Q6H PO 01/16/18 06:00 01/30/18 05:59 01/18/18 06:21 125 MG Metoprolol Succinate (Toprol Xl Tab) 25 mg DAILY PO 01/16/18 08:00 02/15/18 08:59 01/18/18 08:02 25 MG Raspberry (Raspberry Syrup 5ml Cup) 5 ml Q6H PO 01/16/18 06:00 01/30/18 05:59 01/18/18 06:20 5 ML Miscellaneous Information (Check Patch Placement) 1 ea QS N/A 01/16/18 08:00 02/15/18 07:59 01/18/18 08:03 1 EA Miscellaneous (Remove Patch) 1 ea Mo@0759 N/A 01/20/18 07:59 02/19/18 07:58 Miscellaneous Information (Pending Order) 1 ea DAILY@10 N/A 01/16/18 10:00 02/15/18 09:59 Simvastatin (Zocor Tab) 20 mg QPM PO 01/17/18 21:00 02/16/18 20:59 01/17/18 20:58 20 MG Sodium Chloride 1,000 ml @ 100 mls/hr Q10H IV 01/17/18 08:00 02/16/18 07:59 01/18/18 06:21 100 MLS/HR Ceftriaxone Sodium 1 gm/ Dextrose 50 ml @ 100 mls/hr Q24H IV 01/17/18 14:00 01/26/18 13:59 01/17/18 12:36 100 MLS/HR Amlodipine Besylate (Norvasc Tab) 10 mg QAM PO 01/18/18 08:00 02/16/18 07:59 01/18/18 08:01 10 MG Objective Vital Signs Date Time Temp Pulse Resp B/P (MAP) Pulse Ox O2 Delivery O2 Flow Rate FiO2 01/18/18 07:27 36.9 64 18 166/76 (106) 96 Room Air 01/18/18 00:40 Room Air 01/18/18 00:00 36.6 65 20 136/76 (96) 96 Room Air 01/17/18 16:20 36.4 61 18 169/84 (112) 96 Room Air 01/17/18 16:00 Room Air 01/17/18 11:47 Room Air Physical Exam General Appearance: no apparent distress Respiratory/Chest: no respiratory distress, no accessory muscle use Cardiovascular: regular rate, rhythm, no edema, no murmur Abdomen: normal bowel sounds, non tender, soft Extremities: normal inspection, no pedal edema Neurologic/Psychiatric: no motor/sensory deficits, alert, normal mood/affect Laboratory Results Last 24 Hours Test 01/18/18 05:26 Prothrombin Time 21.4 SECONDS Prothromb Time International Ratio 2.1 Sodium Level 139 mmol/L Potassium Level 4.3 mmol/L Chloride Level 109 mmol/L Carbon Dioxide Level 25 mmol/L Anion Gap 5.0 mmol/L Blood Urea Nitrogen 16 mg/dl Creatinine 1.39 mg/dl Est Creatinine Clear Calc Drug Dose 34.8 ml/min Estimated GFR () 51.7 Estimated GFR (Non- 44.6 BUN/Creatinine Ratio 11.2 Random Glucose 81 mg/dl Calcium Level 8.3 mg/dl Assessment and Plan This is an 87 year old male with a PMH of atrial fibrillation on long-term anticoagulation, chronic low back pain/lumbar radiculitis/sacroiliitis on long- term opioid use, CKD stage 3, CAD, HLD - presents with +weakness C. Diff Diarrhea 01/18 * will d/c patient on PO Vancomycin for another 10 days to total two weeks * Will d/c patient on Levaquin for his Enterobacter UTI x 4 more days * patient will be d/c with increase in Amlodipine dose * Coumadin dose will be back to home dose with outpatient Coumadin clinic follow -up early next week * PCP follow-up within one week * home health/home PT 01/16 * will switch Flagyl to PO Vanco; will likely need 10-14 days Enterobacter Urinary Tract Infection 01/17 * Enterobacter noted on urine culture * switched to Rocephin for now * on discharge, will use Levaquin 01/16 * recurrent UTI; recent admission in October 2017 with similar symptoms * at that time, he had enterobacter in the urine * currently gram negative bacilli growing; further speciation pending * Zosyn started; appreciate ID input Acute Kidney Injury superimposed on CKD stage 3 01/18 * creatinine improved to 1.3 * encouraged PO intake * will stop IVFs and d/c patient 01/17 * creatinine; mildly improved to 1.6; baseline closer to 1.2 * increase IVF rate to 100mL/hr 01/16 * creatinine at baseline is around 1.2-1.3 * presented with creatinine around 1.9 * likely worsened due to UTI * given IVFs, improving creat, monitor and avoid nephrotoxic agents when able Atrial Fibrillation * currently in a regular rhythm * would continue b-lori * INR subtherapeutic; give Coumadin 5mg tonight and recheck INR in AM with a goal of 2-3 Chronic Low Back Pain * continue Butrans patch and Percocet PRN DVT ppx * Coumadin FULL CODE
[2018-01-18] MEDS ORDERED: AMLO10TA2 PO (09:52)
[2018-01-18] MEDS ORDERED: VANC5CAP PO (09:52)
[2018-01-18] MEDS ORDERED: LEVO-459 PO (09:52)
--- NOTE | 2018-01-18 10:01 | Discharge Instructions ---
Discharge Instructions Date of Service Jan 18, 2018. Admission Reason for Admission: ARF Discharge Discharge Diagnosis / Problem: Dehydrationn, UTI, C. Diff Diarrhea Discharge Goals Goal(s): Decrease discomfort, Improve function, Diagnostic testing, Therapeutic intervention Activity Recommendations Activity Limitations: resume your previous activity . Instructions / Follow-Up Instructions / Follow-Up Please follow-up with Dr. Tejeda (covering for Dr. Childress) in [place] on January 23 at 9:15AM * You will be discharged with Vancomycin (antibiotic) for your C. Diff diarrhea infection - please take this four times a day for the next 10 days. Make sure you wash your hands with soap and water and not alcohol based solutions. Clean all linens and sheets at home. * You will be discharged with Levaquin (antibiotic) for your urinary tract infection. Take one pill on 01/19 and one pill on 01/21. Do not restart methenamine until 01/22. * Your dose of amlodipine is going to increase from 5mg to 10mg to control your blood pressure better. * Take 4mg of Coumadin daily until you see the Coumadin clinic next week. * Your primary care doctor should recheck your electrolytes and kidney function some time next week; they should also recheck your blood pressure. Current Hospital Diet Patient's current hospital diet: AHA Diet (Heart Healthy) Discharge Diet Recommended Diet: AHA Diet (Heart Healthy) Pending Studies Studies pending at discharge: no Medical Emergencies . Who to Call and When: Medical Emergencies: If at any time you feel your situation is an emergency, please call 911 immediately. . Non-Emergent Contact Non-Emergency issues call your: Primary Care Provider . . "Provider Documentation" section prepared by Mckayla De Luna. .
--- NOTE | 2018-01-18 10:03 | Discharge Summary ---
Discharge Summary Date of Service Jan 18, 2018. Discharge Summary Admission Date: Jan 16, 2018 at 02:13 Discharge Date: Jan 18, 2018 Discharge Disposition: Home with services Principal Diagnosis: Acute Kidney Injury superimposed on CKD stage 3 Recurrent Urinary Tract Infection C. Diff infection Paroxysmal A. Fib Medication Reconciliation New Medications: Levofloxacin (Levaquin) 500 Mg Tab 500 MG PO Q2D for 4 Days, #2 TABS Vancomycin Hcl (Vancomycin) 125 Mg Cap 125 MG PO QID for 10 Days, #40 CAP Changed Medications: Amlodipine Besylate (Norvasc) 10 Mg Tab 1 TAB PO DAILY for 30 Days, #30 TAB 5 Refills (Changed from: Amlodipine Besylate (Norvasc) 5 Mg Tab 5 Mg PO QAM) Continued Medications: Ascorbic Acid (Vitamin C) 500 Mg Cap 1000 MG PO DAILY Aspirin (Aspirin Ec) 81 Mg Tab 81 MG PO DAILY Buprenorphine (Butrans) 15 Mcg/Hr Dis 15 MCG TOP WK change every Saturday Gabapentin (Gabapentin) 600 Mg Tab 600 MG PO TID, TAB Metoprolol Succinate (Toprol Xl) 25 Mg Tab 25 MG PO DAILY, #30 TAB 5 Refills Nitroglycerin (Nitrostat) 0.4 Mg Tab 0.4 MG UT PRN, #25 BTL 1 Refill Take 1 pill under tongue as needed for chest pain. May repeat dose in 5-10 min. Call 911 if no relief. Oxycodone/Acetaminophen 10MG/325MG (Percocet 10MG/325MG) Tab 1 TAB PO Q6 PRN for Pain, TAB Pantoprazole (Protonix) 20 Mg Tab 40 MG PO BID, #30 TAB Polyethylene Glycol 3350 (Miralax) 1 Pow Pow 1 TBS PO DAILY PRN for Constipation, #527 GM Ranitidine Hcl (Zantac) 150 Mg Tab 150 MG PO BID, TAB Simvastatin (Zocor) 20 Mg Tab 20 MG PO QPM, TAB Tamsulosin Hcl (Flomax) 0.4 Mg Cap 0.4 MG PO DAILY, CAP Warfarin Sod (Coumadin) 4 Mg Tab 0 PO UD Discontinued Medications: Methenamine Mandelate (Methenamine Mandelate) 0.5 Gm Tab 2 TABS PO DAILY Metronidazole (Flagyl) 500 Mg Tab 500 MG PO TID for 10 Days, #30 TAB Admission Information HPI (per Admitting provider): DATE OF ADMISSION: 01/16/2018 PRIMARY CARE PHYSICIAN: ____ CHIEF COMPLAINT: Dizziness, weakness. HISTORY OF PRESENT ILLNESS: History obtained from the patient's records. Medical history significant for hypertension, recurrent UTIs, history of coronal hypospadias status post failed ____ past tobacco abuse, COPD, sick sinus syndrome, recurrent PE, DVT on Coumadin, history of CAD, aortic stenosis, ____ hypertension; chronic pain, on Butrans patch; chronic anemia, baseline hemoglobin 10; past alcohol abuse, per records; orthostatic hypotension, per records. Recent confinement, October 2017 for encephalopathy secondary to rhabdomyolysis, UTI. History of C. diff ____ Flagyl, Rx. The patient seen at PCP's office about 3 weeks ago, noted loose stools, outpatient C. diff negative ____ patient is still having diarrhea. The patient later noted bladder discomfort, burning. No chest pain, no shortness of breath, noted to be poor appetite. The patient given ceftriaxone ____ in the ER. ____ Chronic anemia, hemoglobin 11. SURGERIES: Carpal tunnel, knee surgery, back surgery, ____ urologic procedures. HOME MEDICATIONS: Include Protonix, Flagyl, Percocet, MiraLax, Zantac, Zocor, Coumadin, Flomax, Norvasc, vitamin C, aspirin, Butrans, gabapentin ____ ALLERGIES: ALLERGIC TO FENTANYL, MORPHINE, SULFA. FAMILY HISTORY: COPD ____ PERSONAL AND SOCIAL HISTORY: Past tobacco use. 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 Lives alone. REVIEW OF SYSTEMS: As per HPI, all others negative ____ PHYSICAL EXAMINATION: VITAL SIGNS: Blood pressure was noted to be ____ pulse rate noted to be 69, RR 16 ____ sats 98 on room air. GENERAL: Noted to be comfortable. Looks younger for stated age. HEENT: ____ No ptosis. Dry mucosa. Partial alopecia. SKIN: Pallor warm. Normal color. NECK: Supple, nontender. CHEST: Decreased effort, no tenderness. HEART: Regular rate and rhythm. Systolic murmur. ABDOMEN: Some distention ____ EXTREMITIES: No edema ____ Some leg swelling. NEUROLOGIC: No gross focality. ____ LABORATORY DATA: Hemoglobin was noted to be ____ white cells 4.7, platelets 182. Sodium ____ potassium 4.9, chloride 100, CO2 31, BUN 50, creatinine ____ glucose 135. IMAGING DATA: Chest x-ray, hiatal hernia, cardiomegaly ____ negative for DVT. INR 1.4. ASSESSMENT: 1. Acute renal failure, transient hypotension hx Clostridium difficile on Flagyl course. Persistent diarrhea symptoms Recurrent urinary tract infection; history complicated UTI, hx of penoscrotal hypospadias sp failed childhood repair. No sepsis 2. SSS, hx PE/DVT on Coumadin NSR INR subtherapeutic 3. CAD as per records, chronic left bundle branch block. 4. COPD, Past tobacco abuse pulmo status at baseline 5. chronic pain on narcotics. 6. Deconditioning PLAN: GMF monitor creatinine response to IV fluids Decrease maintenance home blood pressure med regimen doses for now given borderline BP ff urine CS, Zosyn. change Flagyl to Vancomycin p.o. ID consult. RE recurrent UTI PT, OT eval. DVT prophylaxis, Coumadin INR goal 2-3 Full code. Hospital Course This is an 87 year old male with a PMH of atrial fibrillation on long-term anticoagulation, chronic low back pain/lumbar radiculitis/sacroiliitis on long- term opioid use, CKD stage 3, CAD, HLD - presents with +weakness C. Diff Diarrhea 01/18 * will d/c patient on PO Vancomycin for another 10 days to total two weeks * Will d/c patient on Levaquin for his Enterobacter UTI x 4 more days * patient will be d/c with increase in Amlodipine dose * Coumadin dose will be back to home dose with outpatient Coumadin clinic follow -up early next week * PCP follow-up within one week * home health/home PT 01/16 * will switch Flagyl to PO Vanco; will likely need 10-14 days Enterobacter Urinary Tract Infection 01/17 * Enterobacter noted on urine culture * switched to Rocephin for now * on discharge, will use Levaquin 01/16 * recurrent UTI; recent admission in October 2017 with similar symptoms * at that time, he had enterobacter in the urine * currently gram negative bacilli growing; further speciation pending * Zosyn started; appreciate ID input Acute Kidney Injury superimposed on CKD stage 3 01/18 * creatinine improved to 1.3 * encouraged PO intake * will stop IVFs and d/c patient 01/17 * creatinine; mildly improved to 1.6; baseline closer to 1.2 * increase IVF rate to 100mL/hr 01/16 * creatinine at baseline is around 1.2-1.3 * presented with creatinine around 1.9 * likely worsened due to UTI * given IVFs, improving creat, monitor and avoid nephrotoxic agents when able Atrial Fibrillation * currently in a regular rhythm * would continue b-lori * INR subtherapeutic; give Coumadin 5mg tonight and recheck INR in AM with a goal of 2-3 Chronic Low Back Pain * continue Butrans patch and Percocet PRN DVT ppx * Coumadin FULL CODE Total time spent on discharge = 50 minutes This includes examination of the patient, discharge planning, medication reconciliation, and communication with other providers. Discharge Instructions Please follow-up with Dr. Tejeda (covering for Dr. Childress) in [place] on January 23 at 9:15AM * You will be discharged with Vancomycin (antibiotic) for your C. Diff diarrhea infection - please take this four times a day for the next 10 days. Make sure you wash your hands with soap and water and not alcohol based solutions. Clean all linens and sheets at home. * You will be discharged with Levaquin (antibiotic) for your urinary tract infection. Take one pill on 01/19 and one pill on 01/21. Do not restart methenamine until 01/22. * Your dose of amlodipine is going to increase from 5mg to 10mg to control your blood pressure better. * Take 4mg of Coumadin daily until you see the Coumadin clinic next week. * Your primary care doctor should recheck your electrolytes and kidney function some time next week; they should also recheck your blood pressure.
[2018-01-18 10:35] VITALS: BP 166/76; PULSE 64; TEMP 36.9; O2SAT 96
== END 2018-01-18 14:15 | disposition home or self-care (01) | DRG 372 ==
LOC: C.EDB 20:24 → C.4E 01-16 02:13 → ENRESERV 01-16 02:29
PROVIDERS: ADMIT Internal Medicine; ATTEND Family Medicine
DX: A04.72 Enterocolitis due to Clostridium difficile, not specified as recurrent (principal); N17.9 Acute kidney failure, unspecified; N39.0 Urinary tract infection, site not specified; B96.89 Other specified bacterial agents as the cause of diseases classified elsewhere; I95.9 Hypotension, unspecified; R79.1 Abnormal coagulation profile; I49.5 Sick sinus syndrome; I44.7 Left bundle-branch block, unspecified; I48.0 Paroxysmal atrial fibrillation; I25.10 Atherosclerotic heart disease of native coronary artery without angina pectoris; I12.9 Hypertensive chronic kidney disease with stage 1 through stage 4 chronic kidney disease, or unspecified chronic kidney disease; N18.3 Chronic kidney disease, stage 3 (moderate); J44.9 Chronic obstructive pulmonary disease, unspecified; N40.1 Benign prostatic hyperplasia with lower urinary tract symptoms; G89.29 Other chronic pain; M54.16 Radiculopathy, lumbar region; M46.1 Sacroiliitis, not elsewhere classified; D64.9 Anemia, unspecified; Q54.2 Hypospadias, penoscrotal; R53.81 Other malaise; F10.11 Alcohol abuse, in remission; I25.2 Old myocardial infarction; Z96.659 Presence of unspecified artificial knee joint; Z87.891 Personal history of nicotine dependence; Z79.82 Long term (current) use of aspirin; Z79.891 Long term (current) use of opiate analgesic; Z79.01 Long term (current) use of anticoagulants; Z88.5 Allergy status to narcotic agent; Z88.2 Allergy status to sulfonamides